=== PATIENT | female | born 1970 | race Caucasian/White ===

== ENCOUNTER → 2020-01-01 15:02 | Outpatient (BNVA) | payer OTHER, SELFPAY | PROVIDERS: PCP Internal Medicine; Visit Provider Surgery | DX: M79.622 Pain in left upper arm (principal); Z87.2 Personal history of diseases of the skin and subcutaneous tissue; Z98.890 Other specified postprocedural states | CPT/HCPCS: 99212 ==

== ENCOUNTER 2020-03-02 14:00 | Outpatient (REF) | payer OTHER, SELFPAY ==
[2020-03-03 11:38] LABS: BV Int Neg Control Negative (Negative); BV Int Pos Control Positive (Positive)
[2020-03-04 02:32] LABS: Follicle Stimulating Hormone 45.2 mIU/mL
[2020-03-08 15:10] LABS: CT PCR NOT DETECTED (Not Detect.); NG PCR NOT DETECTED (Not Detect.)
== END 2020-03-02 14:01 | disposition home or self-care (01) ==
LOC: HO.LAB 14:00
PROVIDERS: PCP Internal Medicine; Referring Provider Internal Medicine; Visit Provider Obstetrics & Gynecology
DX: Z01.419 Encounter for gynecological examination (general) (routine) without abnormal findings (principal); B37.3 Candidiasis of vulva and vagina; R23.2 Flushing; F17.210 Nicotine dependence, cigarettes, uncomplicated
CPT/HCPCS: 83001; 87480; 87491; 87510; 87591; 87660

== ENCOUNTER → 2020-03-16 11:47 | Outpatient (BNVA) | payer OTHER, SELFPAY | PROVIDERS: Visit Provider Advanced Practice Midwife | DX: Z76.89 Persons encountering health services in other specified circumstances (principal) ==

== ENCOUNTER 2020-03-22 11:41 | Outpatient (REF) | payer OTHER, SELFPAY ==
[2020-03-23 18:21] LABS: Immunoglobulin A 129 mg/dL (47-310); Immunoglobulin G 1153 mg/dL (600-1640); Immunoglobulin M 111 mg/dL (50-300)
[2020-03-23 19:56] LABS: Follicle Stimulating Hormone 48.5 mIU/mL
== END 2020-03-22 11:42 | disposition home or self-care (01) ==
LOC: HO.10HDL 11:41
PROVIDERS: Internal Medicine; Visit Provider Obstetrics & Gynecology
DX: R23.2 Flushing (principal); D80.1 Nonfamilial hypogammaglobulinemia
CPT/HCPCS: 36415; 82784; 83001

== ENCOUNTER → 2020-04-16 14:43 | Outpatient (BNVA) | payer OTHER, SELFPAY | PROVIDERS: PCP Internal Medicine; Visit Provider Obstetrics & Gynecology | DX: Z76.89 Persons encountering health services in other specified circumstances (principal) ==

== ENCOUNTER 2020-05-18 13:30 | Outpatient (REF) | payer OTHER, SELFPAY ==
--- NOTE | ~2020-05-18 | MM_ITS ---
EXAMINATION: MM DIAGNOSTIC DIGITAL BREAST TOMOSYNTHESIS, RIGHT CLINICAL INFORMATION: Short interval follow-up for equivocal findings on prior mammography right breast, calcifications and questionable architectural changes. The lifetime risk of breast cancer based on the Tyrer-Cuzick Model is 17%. COMPARISON: Mammography: 11/10/2019, 06/25/2018, 03/19/2017 TECHNIQUE: Digital breast tomosynthesis is performed in both the craniocaudal and mediolateral oblique views along with computer-aided detection (CAD). Synthesized 2D images are generated from the tomosynthesis. Additional magnification views are obtained in the CC, exaggerated CC, and ML projections. FINDINGS: The breasts are heterogeneously dense, which may obscure small masses (ACR BI-RADS breast composition Category c). There are no significant masses, abnormal calcifications, or other abnormalities. There is no developing density or architectural changes. Dense parenchyma mid outer right breast shows no parenchymal abnormality on the additional magnification views. There are no grouped calcifications. Results are provided to the patient at time of visit by the technologist. MM/MM tomosynthesis diagnostic RT IMPRESSION: No mammographic evidence of malignancy. ASSESSMENT: BI-RADS 1: Negative RECOMMENDATION: Routine annual mammography screening, due in 6 months. This patient's information was entered into a reminder system with a target due date for their next mammogram.
== END 2020-05-18 13:31 | disposition home or self-care (01) ==
LOC: HO.MAMMO 13:30
PROVIDERS: PCP Internal Medicine; Visit Provider Internal Medicine
DX: R92.1 Mammographic calcification found on diagnostic imaging of breast (principal)
CPT/HCPCS: 77061; 77065

== ENCOUNTER → 2020-06-23 12:28 | Outpatient (BNVA) | payer OTHER, SELFPAY | PROVIDERS: PCP Internal Medicine; Visit Provider Obstetrics & Gynecology ==

== ENCOUNTER → 2020-07-13 12:58 | Outpatient (BNVA) | payer OTHER, SELFPAY | PROVIDERS: PCP Internal Medicine; Visit Provider Obstetrics & Gynecology | DX: R23.2 Flushing (principal) | CPT/HCPCS: 96372; 99211; J1050 ==

== ENCOUNTER 2020-08-24 14:24 | Outpatient (REF) | payer OTHER, SELFPAY ==
--- NOTE | ~2020-08-24 | XR_ITS ---
EXAMINATION: LEFT FOOT AND RIGHT KNEE CLINICAL INFORMATION: Pain COMPARISON: 09/15/2019 TECHNIQUE: 3 views of the left foot and 4 views of the right knee FINDINGS: There is no evidence of acute fracture or dislocation of the right knee. No right knee effusion. Right knee joint spaces are maintained. No destructive bony lesions. 3 views of the left foot do not demonstrate any evidence of acute fracture or dislocation. Joint spaces are maintained. No erosive changes are evident. Small Achilles calcaneal spur is present. XR/XR foot LT 2V IMPRESSION: No significant bony abnormality of the right knee or left foot.
--- NOTE | ~2020-08-24 | XR_ITS ---
EXAMINATION: LEFT FOOT AND RIGHT KNEE CLINICAL INFORMATION: Pain COMPARISON: 09/15/2019 TECHNIQUE: 3 views of the left foot and 4 views of the right knee FINDINGS: There is no evidence of acute fracture or dislocation of the right knee. No right knee effusion. Right knee joint spaces are maintained. No destructive bony lesions. 3 views of the left foot do not demonstrate any evidence of acute fracture or dislocation. Joint spaces are maintained. No erosive changes are evident. Small Achilles calcaneal spur is present. XR/XR knee RT 4V IMPRESSION: No significant bony abnormality of the right knee or left foot.
== END 2020-08-24 14:25 | disposition home or self-care (01) ==
LOC: HO.XRAY 14:24
PROVIDERS: PCP Internal Medicine; Visit Provider Internal Medicine
DX: M79.672 Pain in left foot (principal); M25.561 Pain in right knee
CPT/HCPCS: 73564; 73620

== ENCOUNTER 2020-09-08 15:46 | Emergency (ER) | payer OTHER, SELFPAY ==
--- NOTE | ~2020-09-08 | XR_ITS ---
Examination: XR forearm RT 2V, XR wrist RT min 3V Indication: fall Comparison: No pertinent prior studies are currently available for comparison. Technique: 2 views of the forearm and 4 views of the wrist obtained Findings: There is a mild cortical disruption or trabecular irregularity in the distal radial metaphysis suggesting a nondisplaced slightly impacted distal radial fracture. I do not appreciate definitive extension to the articular surface. Ulna is unremarkable. No additional acute abnormality within the carpal bones or visualized bony hand. Soft tissue swelling. XR/XR forearm RT 2V Impression: Mildly impacted essentially nondisplaced fracture of the distal radial metaphysis
--- NOTE | ~2020-09-08 | XR_ITS ---
Examination: XR forearm RT 2V, XR wrist RT min 3V Indication: fall Comparison: No pertinent prior studies are currently available for comparison. Technique: 2 views of the forearm and 4 views of the wrist obtained Findings: There is a mild cortical disruption or trabecular irregularity in the distal radial metaphysis suggesting a nondisplaced slightly impacted distal radial fracture. I do not appreciate definitive extension to the articular surface. Ulna is unremarkable. No additional acute abnormality within the carpal bones or visualized bony hand. Soft tissue swelling. XR/XR wrist RT min 3V Impression: Mildly impacted essentially nondisplaced fracture of the distal radial metaphysis
[2020-09-08 17:34] VITALS: BP 121/78; PULSE 77; RESP 16; TEMP 36.3; O2SAT 99; BMI 23.3
--- NOTE | 2020-09-08 17:50 | ED_ITS ---
HPI - Extremity Problem General Chief complaint: Extremity Injury, Upper <VIRGINIA Golden - Last Filed: 09/08/20 17:53> Stated complaint: wrist inj <VIRGINIA Golden Last Filed: 09/08/20 17:53> Time Seen by Provider: 09/08/20 17:37 <VIRGINIA Golden - Last Filed: 09/08/20 17:53> Source: patient <VIRGINIA Golden - Last Filed: 09/08/20 17:53> Mode of arrival: ambulatory <VIRGINIA Golden - Last Filed: 09/08/20 17:53> History of Present Illness HPI Narrative: 49-year-old female presenting to the ED complaining of right forearm/wrist pain s/p mechanical slip and fall on water [employer]. Denies head trauma or LOC. Reports associated numbness/tingling and decreased ROM secondary to pain. Denies injury to other area <VIRGINIA Golden Last Filed: 09/08/20 17:53> MD Complaint: extremity pain and extremity swelling <VIRGINIA Golden Last Filed: 09/08/20 17:53> Related Data Home medications: Home Medications Medication Instructions Recorded Confirmed amitriptyline 50 mg tablet 50 mg PO BEDTIME 01/01/20 05/28/20 fluticasone propionate 50 INTRANASAL 01/01/20 05/28/20 mcg/actuation nasal spray,suspension sumatriptan succinate 100 mg tablet 100 mg PO DAILY PRN 01/01/20 05/28/20 clonazepam 1 mg tablet 1 mg PO Q OTHER DAY PRN tab 02/13/20 05/28/20 dextroamphetamine-amphetamine ER 25 mg PO DAILY 02/13/20 05/28/20 25 mg 24hr capsule,extend release propranolol 120 mg capsule,24 mg PO BID cap 02/13/20 05/28/20 hr,extended release quetiapine 50 mg tablet 50 mg PO BID 02/13/20 05/28/20 fluoxetine 20 mg capsule 60 mg PO DAILY cap 05/28/20 05/28/20 immun glob G 4 gram/20 mL(20 SUBCUT QWEEK ml 05/28/20 05/28/20 %)-prol-IgA 0-50 mcg/mL subcutaneous soln Previous Rx's Medication Instructions Recorded nicotine 14 mg/24 hr daily 1 patch TRANSDERMAL DAILY #28 ea 03/01/20 transdermal patch nicotine 21 mg/24 hr daily 1 patch TRANSDERMAL DAILY #28 ea 03/01/20 transdermal patch medroxyprogesterone 150 mg/mL 150 mg IM [id number] #1 ml 05/28/20 intramuscular suspension medroxyprogesterone 150 mg/mL 150 mg IM [id number] #1 ml 07/09/20 intramuscular suspension methocarbamol 500 mg tablet 500 mg PO BID #60 tab 07/15/20 gabapentin 100 mg capsule 100 mg PO QID #120 cap 08/12/20 tramadol 50 mg tablet 50 mg PO TID PRN 30 Days #90 tab 08/12/20 <VIRGINIA Golden Last Filed: 09/08/20 17:53> Allergies/Adverse reactions: Allergies Allergy/AdvReac Type Severity Reaction Status Date / Time No Known Allergies Allergy Verified 09/08/20 17:33 [No Known Allergies*] mold Allergy Unknown makes Uncoded 03/02/20 14:12 patient feel sick <VIRGINIA Golden Last Filed: 09/08/20 17:53> Review of Systems Review of Systems: Constitutional: No Fever, No Chills Cardiovascular: No Chest Pain, No SOB Respiratory: No Cough, No Sputum, No Wheezing Gastrointestinal: No Nausea, No Vomiting, No Abdominal pain Musculoskeletal: + joint pain, No Myalgias, + Joint Swelling Skin: No Skin Lesions, No rash Neuro: No Weakness, No Numbness, No Paresthesias <VIRGINIA Golden Fi led: 09/08/20 17:53> Yes all other systems are reviewed and are negative <VIRGINIA Golden Last Filed: 09/08/20 17:53> [facility] Past Medical History Attestation statement: The following information was validated with the patient. <VIRGINIA Golden Last Filed: 09/08/20 17:53> Medical History: Medical History (Updated 08/13/20 @ 12:49 by Isai Sharpe MD) ADHD Asthma Axillary abscess Bipolar disorder Fall History of herpes simplex infection Migraine Polysubstance abuse Scoliosis Tobacco abuse <VIRGINIA Golden Last Filed: 09/08/20 17:53> Surgical History: Surgical History History of tonsillectomy <VIRGINIA Golden - Last Filed: 09/08/20 17:53> Family History Family History: Family History (Updated 05/24/20 @ 13:26 by Carmen Rand [facility]) Mother In good health Father In good health Maternal Aunt History of breast cancer Maternal Grandmother Pancreatic cancer <VIRGINIA Golden - Last Filed: 09/08/20 17:53> Social History Social History: Social History Alcohol intake: never Advance Directives: No Advance Directives Information Provided: Yes Patient : No Sexual orientation: Straight/Heterosexual Gender identity: female <VIRGINIA Golden - Last Filed: 09/08/20 17:53> Physical Exam Vital Signs: Vital Signs: Last Vital Signs Temp 97.4 F 09/08/20 17:34 Pulse 77 09/08/20 17:34 Resp 16 09/08/20 17:34 BP 121/78 09/08/20 17:34 Pulse Ox 99 09/08/20 17:34 Body Mass Index 23.3 <VIRGINIA Golden - Last Filed: 09/08/20 17:53> Vital Signs: Last Vital Signs Temp 97.4 F 09/08/20 17:34 Pulse 77 09/08/20 17:34 Resp 16 09/08/20 17:34 BP 121/78 09/08/20 17:34 Pulse Ox 99 09/08/20 17:34 Body Mass Index 23.3 <Konrad Escalante MD - Last Filed: 09/08/20 18:16> Const: General: cooperative and healthy appearing <VIRGINIA Golden - Last Filed: 09/08/20 17:53> Orientation/consciousness: patient oriented x3 <VIRGINIA Golden - Last Filed: 09/08/20 17:53> Limitations: no limitations <VIRGINIA Golden - Last Filed: 09/08/20 17:53> HENMT: Head: Yes normal to inspection <VIRGINIA Golden - Last Filed: 09/08/20 17:53> Ears: hearing grossly normal bilaterally <VIRGINIA Golden - Last Filed: 09/08/20 17:53> General nose exam: Normal external nose present <Traceyyenni Diallo [place] - Last Filed: 09/08/20 17:53> Face and sinus: Yes normal facial exam <Tracey Diallo TN - Last Filed: 09/08/20 17:53> Eyes: General: appearance normal, both eyes and all related structures <Tracey Diallo TN - Last Filed: 09/08/20 17:53> EOM: EOMs intact bilaterally <Tracey Diallo TN - Last Filed: 09/08/20 17:53> Neck: Neck: Yes no meningeal signs <Tracey Diallo TN - Last Filed: 09/08/20 17:53> Resp: Effort & Inspection: normal respiratory effort <Tracey Diallo TN - Last Filed: 09/08/20 17:53> Cardio: Rate: regular rate <Tracey Diallo TN - Last Filed: 09/08/20 17:53> Peripheral pulses: radial pulses present <Tracey Diallo TN - Last Filed: 09/08/20 17:53> Skin: Rashes: no rashes <Tracey Diallo TN - Last Filed: 09/08/20 17:53> Wounds: no wounds <Tracey Diallo TN - Last Filed: 09/08/20 17:53> Neuro: General: patient oriented x3, tone normal and no meningeal signs <Tracey Diallo TN - Last Filed: 09/08/20 17:53> Gait exam (Neuro): Normal gait present <Tracey Diallo TN - Last Filed: 09/08/20 17:53> Extrem: Other: Right distal forearm with swelling and tenderness to palpation. Supination/pronation intact. Right wrist with ttp, no snuffbox tenderness. Decreased ROM of wrist secondary to pain. Hand nontender. Finger to thumb opposition intact. Elbow nontender. Flexion/extension of right elbow intact <Tracey Diallo PA - Last Filed: 09/08/20 17:53> Course Course Course Narrative: -1800--ED care transferred to Dr. Escalante pending x-ray results <Tracey Diallo TN - Last Filed: 09/08/20 17:53> Procedures Procedure Narrative Procedure Narrative: distal wrist splint ordered <Konrad Escalante MD - Last Filed: 09/08/20 18:16> MDM - Extremity (Nontraumatic) MDM Narrative Medical decision making narrative: 49-year-old female presenting to the ED complaining of right forearm/wrist pain s/p mechanical slip and fall on water [employer]. On exam vital signs stable, NAD, well appearing, physical exam as above. Rule out fracture. Plan: X-rays <VIRGINIA Golden - Last Filed: 09/08/20 17:53> Imaging Data wrist: My impression: distal radius fracture <Konrad Escalante MD - Last Filed: 09/08/20 18:16> Discharge Plan Discharge Prescriptions: No Action methocarbamol 500 mg tablet 500 mg PO BID Qty: 60 RF: 5 gabapentin 100 mg capsule 100 mg PO QID Qty: 120 RF: 5 tramadol 50 mg tablet 50 mg PO TID PRN (Reason: pain) 30 Days Qty: 90 RF: 2 dextroamphetamine-amphetamine [Adderall XR] 25 mg capsule,extended release 24hr 25 mg PO DAILY RF: 0 quetiapine [Seroquel] 50 mg tablet 50 mg PO BID RF: 0 Hizentra 4 gram/20 mL (20 %) solution subcut QWEEK RF: 0 nicotine 21 mg/24 hr patch 24 hour 1 patch transdermal DAILY Qty: 28 RF: 0 nicotine 14 mg/24 hr patch 24 hour 1 patch transdermal DAILY Qty: 28 RF: 0 medroxyprogesterone [Depo-Provera] 150 mg/mL suspension 150 mg IM [id number] Qty: 1 RF: 3 sumatriptan succinate 100 mg tablet 100 mg PO DAILY PRN (Reason: headache) RF: 0 fluticasone propionate 50 mcg/actuation spray,suspension intranasal RF: 0 amitriptyline 50 mg tablet 50 mg PO BEDTIME RF: 0 clonazepam 1 mg tablet 1 mg PO Q OTHER DAY PRNRF: 0 propranolol 120 mg capsule,extended release 24 hr PO BID RF: 0 fluoxetine [Prozac] 20 mg capsule 60 mg PO DAILY RF: 0 medroxyprogesterone 150 mg/mL suspension 150 mg IM [id number] Qty: 1 RF: 3 <VIRGINIA Golden - Last Filed: 09/08/20 17:53>
[2020-09-08] MEDS: Ketorolac Tromethamine 60 MG/2 ML VIAL IM (18:52)
== END 2020-09-08 19:40 | disposition home or self-care (01) ==
PROVIDERS: Emergency Provider Emergency Medicine; PCP Internal Medicine
DX: S52.91XA Unspecified fracture of right forearm, initial encounter for closed fracture (principal); W01.0XXA Fall on same level from slipping, tripping and stumbling without subsequent striking against object, initial encounter; Y93.9 Activity, unspecified; Y92.9 Unspecified place or not applicable; Y99.9 Unspecified external cause status
CPT/HCPCS: 29125; 73090; 73110; 96372; 99284; J1885

== ENCOUNTER 2020-09-13 07:50 | Outpatient (REF) | payer OTHER, SELFPAY ==
--- NOTE | ~2020-09-13 | XR_ITS ---
EXAMINATION: XR WRIST, RIGHT CLINICAL INFORMATION: Follow-up fracture. COMPARISON: Right wrist 09/08/2020. TECHNIQUE: PA, lateral, and oblique views of the right wrist. FINDINGS: There is mildly impacted nondisplaced distal radial fracture. No additional fractures seen. The radioulnar carpal joint spaces maintain normal. The soft tissues are normal. XR/XR wrist RT min 3V IMPRESSION: No change in the nondisplaced distal radial impacted fracture.
== END 2020-09-13 07:51 | disposition home or self-care (01) ==
LOC: HO.HOSX 07:50
PROVIDERS: Visit Provider Physician Assistant
DX: S52.501D Unspecified fracture of the lower end of right radius, subsequent encounter for closed fracture with routine healing (principal)
CPT/HCPCS: 73110; 99202

== ENCOUNTER → 2020-09-15 10:53 | Outpatient (BNVA) | payer OTHER, SELFPAY | PROVIDERS: PCP Internal Medicine; Visit Provider Physician Assistant ==

== ENCOUNTER → 2020-09-29 13:06 | Outpatient (BNVA) | payer OTHER, SELFPAY | PROVIDERS: PCP Internal Medicine; Visit Provider Obstetrics & Gynecology | DX: Z30.42 Encounter for surveillance of injectable contraceptive (principal) | CPT/HCPCS: 96372; 99211 ==

== ENCOUNTER 2020-10-12 07:43 | Outpatient (REF) | payer OTHER, SELFPAY ==
--- NOTE | ~2020-10-12 | XR_ITS ---
EXAMINATION: XR WRIST, RIGHT CLINICAL INFORMATION: Fracture. COMPARISON: Most recent right wrist radiographs dated 09/13/2020. TECHNIQUE: PA, lateral, and oblique views of the right wrist. FINDINGS: Redemonstration of a nondisplaced, transverse fracture through the distal radius with interval sclerosis and new bone/callus formation across the fracture line. No change in anatomic alignment. No lytic or blastic osseous lesion. XR/XR wrist RT min 3V IMPRESSION: Distal radial fracture in unchanged anatomic alignment with interval new bone/callus formation.
== END 2020-10-12 07:44 | disposition home or self-care (01) ==
LOC: HO.HOSX 07:43
PROVIDERS: Visit Provider Physician Assistant
DX: S52.531D Colles' fracture of right radius, subsequent encounter for closed fracture with routine healing (principal)
CPT/HCPCS: 73110; 99212

== ENCOUNTER → 2020-10-21 10:58 | Outpatient (BNVA) | payer OTHER, SELFPAY | PROVIDERS: Visit Provider Physician Assistant | DX: S52.531D Colles' fracture of right radius, subsequent encounter for closed fracture with routine healing (principal); X58.XXXD Exposure to other specified factors, subsequent encounter; M41.9 Scoliosis, unspecified; F19.10 Other psychoactive substance abuse, uncomplicated; F17.210 Nicotine dependence, cigarettes, uncomplicated | CPT/HCPCS: 29075; 99212 ==

== ENCOUNTER 2020-11-02 11:56 | Outpatient (REF) | payer OTHER, SELFPAY ==
--- NOTE | ~2020-11-02 | XR_ITS ---
EXAMINATION: XR WRIST, RIGHT CLINICAL INFORMATION: Follow-up fracture right wrist COMPARISON: Right wrist 10/12/2020 TECHNIQUE: PA, lateral, and oblique views of the right wrist. FINDINGS: There is a transverse nondisplaced fracture through the distal radius with callus formation. The fracture line is still visualized. No additional fractures seen. There is mild soft tissue swelling. XR/XR wrist RT min 3V IMPRESSION: Slowly healing distal radial fracture without displacement. There is minimal soft tissue swelling.
== END 2020-11-02 11:57 | disposition home or self-care (01) ==
LOC: HO.HOSX 11:56
PROVIDERS: Visit Provider Physician Assistant
DX: S52.531D Colles' fracture of right radius, subsequent encounter for closed fracture with routine healing (principal)
CPT/HCPCS: 73110; 99212

== ENCOUNTER 2020-12-10 11:40 | Outpatient (REF) | payer OTHER, SELFPAY ==
[2020-12-11 13:51] LABS: Immunoglobulin A 130 mg/dL (47-310); Immunoglobulin G 1174 mg/dL (600-1640); Immunoglobulin M 107 mg/dL (50-300)
== END 2020-12-10 11:41 | disposition home or self-care (01) ==
LOC: HO.10HDL 11:40
PROVIDERS: Visit Provider Internal Medicine
DX: D80.1 Nonfamilial hypogammaglobulinemia (principal)
CPT/HCPCS: 36415; 82784

== ENCOUNTER 2020-12-13 11:09 | Outpatient (REF) | payer OTHER, SELFPAY | END 2020-12-13 11:10 | disposition home or self-care (01) | LOC: HO.HOSX 11:09 | PROVIDERS: Visit Provider Orthopaedic Surgery | DX: Z13.89 Encounter for screening for other disorder (principal) ==

== ENCOUNTER → 2020-12-23 08:59 | Outpatient (BNVA) | payer OTHER, SELFPAY | PROVIDERS: Visit Provider Advanced Practice Midwife | DX: Z30.42 Encounter for surveillance of injectable contraceptive (principal) | CPT/HCPCS: 96372; 99211 ==

== ENCOUNTER 2020-12-25 14:43 | Inpatient (IN) | payer OTHER, SELFPAY ==
[2020-12-25] VITALS (14 sets, daily range): BP systolic 98–160; BP diastolic 69–87; PULSE 80–101; RESP 18–24; TEMP 35.8–37.3; O2SAT 92–100; BMI 26.6; BMI 25.7
--- NOTE | 2020-12-25 | ECG_ITS ---
Test Reason : AMS Blood Pressure : / mmHG Vent. Rate : 083 BPM Atrial Rate : 083 BPM P-R Int : 156 ms QRS Dur : 114 ms QT Int : 394 ms P-R-T Axes : 055 079 061 degrees QTc Int : 462 ms Normal sinus rhythm Normal ECG No previous ECGs available Referred By: Myrtle Johnston Electronically Signed By:MANDO RAMAN
--- NOTE | 2020-12-25 | ECG_ITS ---
Test Reason : REPEAT Blood Pressure : / mmHG Vent. Rate : 095 BPM Atrial Rate : 095 BPM P-R Int : 194 ms QRS Dur : 110 ms QT Int : 412 ms P-R-T Axes : 072 075 064 degrees QTc Int : 517 ms Normal sinus rhythm Prolonged QT Abnormal ECG When compared with ECG of 25-DEC-2020 16:35, No significant change was found Referred By: Myrtle Johnston Electronically Signed By:MANDO RAMAN
--- NOTE | ~2020-12-25 | CT_ITS ---
EXAMINATION: CT CHEST, ABDOMEN AND PELVIS WITHOUT CONTRAST CLINICAL INFORMATION: OD COMPARISON: Chest radiograph at 3:[address] 12/05/2019, abdominal ultrasound 12/07/2019 TECHNIQUE: Multidetector volumetric imaging was performed from the thoracic inlet through the pubic symphysis without intravenous contrast. Sagittal and coronal reformatted images were obtained on the technologist's workstation. This CT examination was performed using dose optimization techniques as appropriate, variously including the following: *Automated exposure control. *Adjustment of mA and/or kV according to patient size (this includes techniques or standardized protocols for targeted exams where dose is matched to indication/reason for exam; i.e. extremities or head). *Use of iterative reconstruction technique. DLP: 1045 mGy-cm. FINDINGS: Limited evaluation of the organs without IV contrast. SCHOOL BUSINESS MANAGER: No significant additional findings CHEST: Lungs: Respiratory motion significantly degrades the images for the detection of any subtle findings. No dense pulmonary consolidation. Endotracheal tube tip 1.5 cm above the melania. Mediastinum: Heart size is normal. No pericardial effusion. Coronary artery calcifications. No evidence of mediastinal lymphadenopathy. Limited evaluation for hilar adenopathy without IV contrast. No bulky hilar lymph nodes are appreciated. Partial views of the thyroid are unremarkable. Pericardium/Pleura: There is no significant effusion. No pleural mass or thickening. Chest Wall/Axilla: Unremarkable. ABDOMEN/PELVIS: Limited assessment of the solid organs without IV contrast. Liver, Gallbladder, Biliary Tree: The liver is normal in size, shape, and attenuation. No focal hepatic lesion or biliary ductal dilatation is present. The gallbladder is unremarkable with no evidence of radiopaque gallstones, gallbladder wall thickening, or pericholecystic inflammatory changes. Pancreas: Unremarkable. Spleen: Unremarkable. Adrenal Glands: Unremarkable. Kidneys and Ureters: The kidneys are normal in size, shape, and attenuation. No hydronephrosis or hydroureter or calculi seen. No perinephric stranding. Bladder: Unremarkable. Gastrointestinal Tract: The small and large bowel are unremarkable. The appendix is unremarkable. Abdominal Wall: Subcutaneous gas along the left anterior abdominal wall with mild soft tissue stranding. No significant abdominal wall hernia. Lymph Nodes: No lymphadenopathy within the abdomen or pelvis by CT criteria. Vascular: Atherosclerosis abdominal aorta without evidence of aneurysm. The IVC is singular and right-sided. Pelvic Viscera: Unremarkable. Osseous Structures: No acute or suspicious osseous abnormality. CT/CT abdomen pelvis wo con IMPRESSION: 1. Endotracheal tube tip is approximately 1.5 cm above the melania. Retraction is recommended. 2. No acute findings within the chest, abdomen or pelvis. 3. Loculations of subcutaneous gas along the anterior abdominal wall at the left with areas of mild inflammation on both sides suggest the location of subcutaneous injections. Clinical correlation requested. This critical result was discussed with Dr. Johnston at 4:00 PM on 12/25/2020 and it was ascertained that the content and urgency of the report was understood at the time of direct communication.
--- NOTE | ~2020-12-25 | CT_ITS ---
EXAMINATION: CT HEAD WITHOUT CONTRAST CLINICAL INFORMATION: Altered mental status COMPARISON: Report CT head 10/04/2012. TECHNIQUE: Contiguous axial imaging was performed from the skull base to vertex without intravenous administration of contrast. This CT examination was performed using dose optimization techniques as appropriate, variously including the following: *Automated exposure control *Adjustment of mA and/or kV according to patient size (this includes techniques or standardized protocols for targeted exams where dose is matched to indication/reason for exam; i.e. extremities or head) *Use of iterative reconstruction technique DLP: 640 mGy-cm FINDINGS: No intracranial hemorrhage, tumors or infarcts noted. Normal ventricular size and configuration. No focal parenchymal lesions of the brain. No abnormal extra-axial fluid collections. Minimal segmental calcific atherosclerosis of the cavernous portions of the internal carotid arteries. Complete opacification of the right maxillary sinus. Opacification of the anterior right ethmoid air cells and partial opacification of the posterior right ethmoid air cells. Partial opacification of the right frontal sinus and anterior left ethmoid air cells. Clear mastoid air cells and middle ear cavities. CT/CT head/brain wo con IMPRESSION: -No acute intracranial abnormalities. -Mucosal thickening and retained secretions within the right maxillary sinus, anterior right ethmoid air cells and right frontal sinus suspicious for chronic sinusitis.
--- NOTE | ~2020-12-25 | CT_ITS ---
EXAMINATION: CT CHEST, ABDOMEN AND PELVIS WITHOUT CONTRAST CLINICAL INFORMATION: OD COMPARISON: Chest radiograph at 3:[address] 12/05/2019, abdominal ultrasound 12/07/2019 TECHNIQUE: Multidetector volumetric imaging was performed from the thoracic inlet through the pubic symphysis without intravenous contrast. Sagittal and coronal reformatted images were obtained on the technologist's workstation. This CT examination was performed using dose optimization techniques as appropriate, variously including the following: *Automated exposure control. *Adjustment of mA and/or kV according to patient size (this includes techniques or standardized protocols for targeted exams where dose is matched to indication/reason for exam; i.e. extremities or head). *Use of iterative reconstruction technique. DLP: 1045 mGy-cm. FINDINGS: Limited evaluation of the organs without IV contrast. DISPLAY DECORATOR: No significant additional findings CHEST: Lungs: Respiratory motion significantly degrades the images for the detection of any subtle findings. No dense pulmonary consolidation. Endotracheal tube tip 1.5 cm above the melania. Mediastinum: Heart size is normal. No pericardial effusion. Coronary artery calcifications. No evidence of mediastinal lymphadenopathy. Limited evaluation for hilar adenopathy without IV contrast. No bulky hilar lymph nodes are appreciated. Partial views of the thyroid are unremarkable. Pericardium/Pleura: There is no significant effusion. No pleural mass or thickening. Chest Wall/Axilla: Unremarkable. ABDOMEN/PELVIS: Limited assessment of the solid organs without IV contrast. Liver, Gallbladder, Biliary Tree: The liver is normal in size, shape, and attenuation. No focal hepatic lesion or biliary ductal dilatation is present. The gallbladder is unremarkable with no evidence of radiopaque gallstones, gallbladder wall thickening, or pericholecystic inflammatory changes. Pancreas: Unremarkable. Spleen: Unremarkable. Adrenal Glands: Unremarkable. Kidneys and Ureters: The kidneys are normal in size, shape, and attenuation. No hydronephrosis or hydroureter or calculi seen. No perinephric stranding. Bladder: Unremarkable. Gastrointestinal Tract: The small and large bowel are unremarkable. The appendix is unremarkable. Abdominal Wall: Subcutaneous gas along the left anterior abdominal wall with mild soft tissue stranding. No significant abdominal wall hernia. Lymph Nodes: No lymphadenopathy within the abdomen or pelvis by CT criteria. Vascular: Atherosclerosis abdominal aorta without evidence of aneurysm. The IVC is singular and right-sided. Pelvic Viscera: Unremarkable. Osseous Structures: No acute or suspicious osseous abnormality. CT/CT chest wo con IMPRESSION: 1. Endotracheal tube tip is approximately 1.5 cm above the melania. Retraction is recommended. 2. No acute findings within the chest, abdomen or pelvis. 3. Loculations of subcutaneous gas along the anterior abdominal wall at the left with areas of mild inflammation on both sides suggest the location of subcutaneous injections. Clinical correlation requested. This critical result was discussed with Dr. Johnston at 4:00 PM on 12/25/2020 and it was ascertained that the content and urgency of the report was understood at the time of direct communication.
--- NOTE | ~2020-12-25 | XR_ITS ---
EXAMINATION: XR CHEST CLINICAL INFORMATION: OG tube placement. Tube adjusted after the first image then removed after the second. COMPARISON: CT 12/05/2019 TECHNIQUE: Frontal view of the chest was obtained. XR/XR chest 1V FINDINGS/IMPRESSION: On the first image, the enteric tube and endotracheal tube overlap which limits assessment. On the second image, the endotracheal tube tip is seen at 3.3 cm above the melania. On the second image, the enteric tube tip is at the distal esophagus with sidehole at the level of the melania. Lungs are clear. Heart size is normal. No acute osseous abnormality.
--- NOTE | 2020-12-25 14:50 | ECG_ITS ---
Test Reason : REPEAT Blood Pressure : / mmHG Vent. Rate : 087 BPM Atrial Rate : 087 BPM P-R Int : 200 ms QRS Dur : 112 ms QT Int : 434 ms P-R-T Axes : 069 073 063 degrees QTc Int : 522 ms Normal sinus rhythm Nonspecific ST abnormality Prolonged QT Abnormal ECG When compared with ECG of 25-DEC-2020 14:46, QT has lengthened Referred By: Myrtle Johnston Electronically Signed By:MANDO RAMAN
[2020-12-25 15:04] LABS: MANUAL DIFF FLAG NO
[2020-12-25 15:09] LABS: Basophils Percent Auto 0.3 % (0-2); Eosinophils Absolute Auto 0.1 X10*3/uL (0.0-0.4); Eosinophils Percent Auto 0.7 % (0-4); Hematocrit 37.6 % (37-47); Imm Gran Abs Auto 0.04 X10*3/uL (0.00-0.03); Imm Gran Pct Auto 0.4 % (0.0-0.4); Lymphocytes Percent Auto 9.1 % (20-40); Mean Corpuscular HGB Conc 34.6 g/dl (31.0-35.0); Mean Corpuscular Hemoglobin 32.7 pg (27.0-33.0); Mean Corpuscular Volume 94.7 fL (80-98); Mean Platelet Volume 8.5 fL (9.4-12.3); Monocytes Absolute Auto 0.6 X10*3/uL (0.1-1.2); Monocytes Percent Auto 5.8 % (2-11); Neutrophils Absolute Auto 9.2 X10*3/uL (2.0-8.3); Neutrophils Percent Auto 83.7 % (45-73); Platelet Count 370 X10*3/uL (160-400); Red Blood Count 3.97 X10*6/uL (4.20-5.50); Red Cell Distribution Width 12.6 % (11.0-16.0)
[2020-12-25 15:12] LABS: INTERNATIONAL NORM RATIO 1.2 (0.9-1.1); Prothrombin Time 13.5 SEC (9.9-13.0)
--- NOTE | 2020-12-25 15:13 | PC.NURSE ---
on vent and intubated, propophol infusing w good sedation, skin pale and dry, md placing ng tube xr at bedside for portable chest, sr on monitor
[2020-12-25 15:23] LABS: Lactic Acid 0.5 mmol/L (0.5-2.0)
[2020-12-25 15:25] LABS: COVID-19 Test Negative (Negative); IDNOW Serial# 08D9AD1C
[2020-12-25 15:26] LABS: Ethanol < 10 mg/dL
[2020-12-25 15:28] LABS: Alanine Aminotransferase 18 U/L (0-31); Albumin Level 4.5 g/dL (3.5-5.0); Alkaline Phosphatase 100 U/L (39-117); Anion Gap 16 (12-20); Aspartate Amino Transferase 22 U/L (5-31); Bilirubin Direct 0.2 mg/dL (0.0-0.5); Bilirubin Total 0.4 mg/dL (0.0-1.0); Blood Urea Nitrogen 11 mg/dL (9-16); Calcium 9.5 mg/dL (8.4-10.2); Carbon Dioxide 22 mmol/L (22-29); Chloride 103 mmol/L (96-108); Estimated Glomerular Filt Rate > 60; Glucose Random 115 mg/dL (60-115); Magnesium 2.1 mg/dL (1.6-2.6); Potassium 4.5 mmol/L (3.3-5.1); Salicylate < 5.0 mg/dL (15-30); Sodium 136 mmol/L (135-145); Total Protein 7.7 g/dL (6.5-8.0)
[2020-12-25 15:33] LABS: Troponin-I High Sensitivity < 3.5 ng/L (<3.5-17.0)
--- NOTE | 2020-12-25 15:41 | ED_ITS ---
HPI - Altered Mental Status General Stated Complaint: UNRESPONSIVE,?OD,LAST SEEN LAST NIGHT Time Seen by Provider: 12/25/20 14:57 History of Present Illness HPI narrative: Patient is a 49-year-old female with a history of anxiety, bipolar. Remote history of substance abuse. No history of alcohol abuse. Patient presented today obtunded. There was empty bottles of Seroquel noted. Patient was prescribed 300 mg tablets of Seroquel on sub the tablets was given it was empty. Patient in addition was given Seroquel 50 mg on 12/03/2059 tablets were given. Both bottles were completely empty. On EMS arrival patient had no respiration patient sugar was checked it was over 100. Patient's was given Narcan no change in condition. Patient was bagged sent into the emergency department for further evaluation. Patient unable to give detailed history secondary to extremis condition. Related Data Home Medications Medication Instructions Recorded Confirmed amitriptyline 50 mg tablet 50 mg PO BEDTIME 01/01/20 09/24/20 fluticasone propionate 50 INTRANASAL 01/01/20 09/24/20 mcg/actuation nasal spray,suspension sumatriptan succinate 100 mg tablet 100 mg PO DAILY PRN 01/01/20 09/24/20 clonazepam 1 mg tablet 1 mg PO Q OTHER DAY PRN tab 02/13/20 09/24/20 dextroamphetamine-amphetamine ER 25 mg PO DAILY 02/13/20 09/24/20 25 mg 24hr capsule,extend release (Adderall XR) propranolol 120 mg capsule,24 mg PO BID cap 02/13/20 09/24/20 hr,extended release quetiapine 50 mg tablet (Seroquel) 50 mg PO BID 02/13/20 09/24/20 fluoxetine 20 mg capsule (Prozac) 60 mg PO DAILY cap 05/28/20 09/24/20 immun glob G 4 gram/20 mL(20 SUBCUT QWEEK ml 05/28/20 09/24/20 %)-prol-IgA 0-50 mcg/mL subcutaneous soln (Hizentra) Previous Rx's Medication Instructions Recorded nicotine 14 mg/24 hr daily 1 patch TRANSDERMAL DAILY #28 ea 03/01/20 transdermal patch nicotine 21 mg/24 hr daily 1 patch TRANSDERMAL DAILY #28 ea 03/01/20 transdermal patch medroxyprogesterone 150 mg/mL 150 mg IM [id number] #1 ml 05/28/20 intramuscular suspension (Depo-Provera) medroxyprogesterone 150 mg/mL 150 mg IM [id number] #1 ml 07/09/20 intramuscular suspension methocarbamol 500 mg tablet 500 mg PO BID #60 tab 07/15/20 gabapentin 100 mg capsule 100 mg PO QID #120 cap 08/12/20 naproxen 500 mg tablet (Naprosyn) 500 mg PO BID #20 tab 09/08/20 tramadol 50 mg tablet 50 mg PO TID PRN 30 Days #90 tab 10/07/20 Allergies Allergy/AdvReac Type Severity Reaction Status Date / Time No Known Allergies Allergy Verified 09/24/20 13:58 [No Known Allergies*] mold Allergy Unknown makes Uncoded 03/02/20 14:12 patient feel sick Review of Systems Review of Systems: Unable to obtain review of systems 2nd to patient's condition. FORMERLY [facility], [facility] Past Medical History Attestation statement: The following information was validated with the patient. Medical History ADHD Asthma Axillary abscess Bipolar disorder Depot contraception Fall History of herpes simplex infection Migraine Polysubstance abuse Scoliosis Tobacco abuse Surgical History History of tonsillectomy Family History Family History Mother In good health Father In good health Maternal Aunt History of breast cancer Maternal Grandmother Pancreatic cancer Social History Social History Housing: Apartment Alcohol intake: never Patient Tobacco Use Status: Current everyday Tobacco user Tobacco use type: Cigarette Second Hand Smoke Exposure: No Advance Directives: No service: No Current occupational status: unemployed Current occupation: rt handed Sexual orientation: Straight/Heterosexual Gender identity: Female Physical Exam Vital Signs: Vital Signs: Last Vital Signs Pulse 88 12/25/20 15:43 Resp 19 12/25/20 15:16 BP 157/87 H 12/25/20 15:43 Pulse Ox 98 12/25/20 15:16 Body Mass Index 26.6 Appearance: Completely obtunded. No gag reflex. Eyes: Pupils equal, round and reactive to light. ENT: Pharynx normal. No gag reflex noted. Neck: No JVD noted. No crepitus noted. Trachea was midline. CVS: Normal heart rate and rhythm. Pulses normal. Normal S1 and S2 Respiratory: Positive breath sounds on bagging. Abdomen: Soft and nontender. No rigidity. No distention. good BS x4 Skin: Skin warm and dry. Normal skin color. Normal skin turgor. Extremities: No lower extremity edema. Neurovascular intact to all extremities. No Lacerations. No Rash Neuro: Minimal grimace to painful stimuli. No spontaneous eye movement. No verbal MDM - Altered Mental Status MDM Narrative Medical decision making narrative: Patient has change in mental status. Question etiology. Most likely being overdose of Seroquel causing the sedation. Patient has minimal grimace to painful stimuli. No verbal. No purposeful eye movement. GCS below 8. In the setting patient having normal sugar. Having no response to Narcan less likely to be secondary to hypoglycemia and to narcotic overdose. Patient was intubated using RSI techniques to secure the airway. An EKG was done. It showed a sinus pattern heart rate was approximately 100. MT QRS QT within normal limits. There is no QT prolongation there is no QRS prolongation. Patient also has a history of being on amitriptyline. TCA was sent. Aspirin Tylenol was sent. Labs were sent. Electrolytes was sent. CT scan of the head was grossly negative for any acute evidence of bleeding. IV fluid was given. CT scan of the chest abdomen pelvis was done. X-ray was done that shows ET tube in good placement. Attempted OG placement but to no avail. EF OG tube was taken out. Patient is to be admitted to the intensive care unit. Medical Records Attestation: I reviewed the patient's medical records. Lab Data Attestation: I reviewed the patient's lab results. Result diagrams: 12/25/20 14:57 12/25/20 14:56 Labs: Lab Results 12/25/20 12/25/20 12/25/20 Range/Units 14:56 14:56 14:56 WBC (4.8-10.8) X10*3/uL RBC (4.20-5.50) X10*6/uL Hgb (12.0-16.0) g/dl Hct (37-47) % MCV (80-98) fL MCH (27.0-33.0) pg MCHC (31.0-35.0) g/dl RDW (11.0-16.0) % Plt Count (160-400) X10*3/uL MPV (9.4-12.3) fL Immature Gran % (Auto) (0.0-0.4) % Neut % (Auto) (45-73) % Lymph % (Auto) (20-40) % [place] % (Auto) (2-11) % Eos % (Auto) (0-4) % Baso % (Auto) (0-2) % Lymph # (Auto) (1.2-4.9) X10*3/uL [place] # (Auto) (0.1-1.2) X10*3/uL Eos # (Auto) (0.0-0.4) X10*3/uL Baso # (Auto) (0.0-0.2) X10*3/uL Abs Immat Gran (auto) (0.00-0.03) X10*3/uL Absolute Neuts (auto) (2.0-8.3) X10*3/uL Absolute Nucleated RBC (0.0-0.012) X10*3/uL Nucleated RBC % (auto) (0.0-0.2) /100WBC PT (9.9-13.0) SEC INR (0.9-1.1) O2 Saturation % ABG pH at Pt Temp (7.35-7.45) ABG pH (Temp Correct) (7.35-7.45) ABG pCO2 at Pt Temp (32-45) mmHg ABG pCO2 (Temp Corrct (32-45) mmHg ABG pO2 at Pt Temp (83-108) mmHg ABG pO2 (Temp Correct (83-108) ABG HCO3 (22-26) mmol/L ABG Base Excess (Actual) mmol/L Sodium 136 (135-145) mmol/L Potassium 4.5 (3.3-5.1) mmol/L Chloride 103 (96-108) mmol/L Carbon Dioxide 22 (22-29) mmol/L Anion Gap 16 (12-20) BUN 11 (9-16) mg/dL Creatinine 0.70 (0.5-1.4) mg/dL Estim Creat Clear Calc 97.0 Estimated GFR > 60 Random Glucose 115 (60-115) mg/dL Lactic Acid (0.5-2.0) mmol/L Calcium 9.5 (8.4-10.2) mg/dL Magnesium 2.1 (1.6-2.6) mg/dL Total Bilirubin 0.4 (0.0-1.0) mg/dL Direct Bilirubin 0.2 (0.0-0.5) mg/dL AST 22 (5-31) U/L ALT 18 (0-31) U/L Alkaline Phosphatase 100 (39-117) U/L Troponin I High Sens < 3.5 (<3.5-17.0) ng/L Total Protein 7.7 (6.5-8.0) g/dL Albumin 4.5 (3.5-5.0) g/dL Salicylates < 5.0 L (15-30) mg/dL Acetaminophen < 1 (<30) mcg/mL Ethyl Alcohol < 10 mg/dL COVID-19 ([facility]) (Negative) COVID-19 Clin Com 12/25/20 12/25/20 12/25/20 Range/Units 14:57 14:57 14:57 WBC 11.0 H (4.8-10.8) X10*3/uL RBC 3.97 L (4.20-5.50) X10*6/uL Hgb 13.0 (12.0-16.0) g/dl Hct 37.6 (37-47) % MCV 94.7 (80-98) fL MCH 32.7 (27.0-33.0) pg MCHC 34.6 (31.0-35.0) g/dl RDW 12.6 (11.0-16.0) % Plt Count 370 (160-400) X10*3/uL MPV 8.5 L (9.4-12.3) fL Immature Gran % (Auto) 0.4 (0.0-0.4) % Neut % (Auto) 83.7 H (45-73) % Lymph % (Auto) 9.1 L (20-40) % [place] % (Auto) 5.8 (2-11) % Eos % (Auto) 0.7 (0-4) % Baso % (Auto) 0.3 (0-2) % Lymph # (Auto) 1.0 L (1.2-4.9) X10*3/uL [place] # (Auto) 0.6 (0.1-1.2) X10*3/uL Eos # (Auto) 0.1 (0.0-0.4) X10*3/uL Baso # (Auto) 0.0 (0.0-0.2) X10*3/uL Abs Immat Gran (auto) 0.04 H (0.00-0.03) X10*3/uL Absolute Neuts (auto) 9.2 H (2.0-8.3) X10*3/uL Absolute Nucleated RBC 0.000 (0.0-0.012) X10*3/uL Nucleated RBC % (auto) 0.0 (0.0-0.2) /100WBC PT 13.5 H (9.9-13.0) SEC INR 1.2 H (0.9-1.1) O2 Saturation % ABG pH at Pt Temp (7.35-7.45) ABG pH (Temp Correct) (7.35-7.45) ABG pCO2 at Pt Temp (32-45) mmHg ABG pCO2 (Temp Corrct (32-45) mmHg ABG pO2 at Pt Temp (83-108) mmHg ABG pO2 (Temp Correct (83-108) ABG HCO3 (22-26) mmol/L ABG Base Excess (Actual) mmol/L Sodium (135-145) mmol/L Potassium (3.3-5.1) mmol/L Chloride (96-108) mmol/L Carbon Dioxide (22-29) mmol/L Anion Gap (12-20) BUN (9-16) mg/dL Creatinine (0.5-1.4) mg/dL Estim Creat Clear Calc Estimated GFR Random Glucose (60-115) mg/dL Lactic Acid (0.5-2.0) mmol/L Calcium (8.4-10.2) mg/dL Magnesium (1.6-2.6) mg/dL Total Bilirubin (0.0-1.0) mg/dL Direct Bilirubin (0.0-0.5) mg/dL AST (5-31) U/L ALT (0-31) U/L Alkaline Phosphatase (39-117) U/L Troponin I High Sens (<3.5-17.0) ng/L Total Protein (6.5-8.0) g/dL Albumin (3.5-5.0) g/dL Salicylates (15-30) mg/dL Acetaminophen (<30) mcg/mL Ethyl Alcohol mg/dL COVID-19 ([facility]) Negative (Negative) COVID-19 Clin Com See Note 12/25/20 12/25/20 Range/Units 14:57 15:54 WBC (4.8-10.8) X10*3/uL RBC (4.20-5.50) X10*6/uL Hgb (12.0-16.0) g/dl Hct (37-47) % MCV (80-98) fL MCH (27.0-33.0) pg MCHC (31.0-35.0) g/dl RDW (11.0-16.0) % Plt Count (160-400) X10*3/uL MPV (9.4-12.3) fL Immature Gran % (Auto) (0.0-0.4) % Neut % (Auto) (45-73) % Lymph % (Auto) (20-40) % [place] % (Auto) (2-11) % Eos % (Auto) (0-4) % Baso % (Auto) (0-2) % Lymph # (Auto) (1.2-4.9) X10*3/uL [place] # (Auto) (0.1-1.2) X10*3/uL Eos # (Auto) (0.0-0.4) X10*3/uL Baso # (Auto) (0.0-0.2) X10*3/uL Abs Immat Gran (auto) (0.00-0.03) X10*3/uL Absolute Neuts (auto) (2.0-8.3) X10*3/uL Absolute Nucleated RBC (0.0-0.012) X10*3/uL Nucleated RBC % (auto) (0.0-0.2) /100WBC PT (9.9-13.0) SEC INR (0.9-1.1) O2 Saturation 99.0 % ABG pH at Pt Temp 7.42 (7.35-7.45) ABG pH (Temp Correct) 7.41 (7.35-7.45) ABG pCO2 at Pt Temp 30 L (32-45) mmHg ABG pCO2 (Temp Corrct 30 L (32-45) mmHg ABG pO2 at Pt Temp 181 H (83-108) mmHg ABG pO2 (Temp Correct 181 H (83-108) ABG HCO3 19 L (22-26) mmol/L ABG Base Excess (Actual) -3.6 mmol/L Sodium (135-145) mmol/L Potassium (3.3-5.1) mmol/L Chloride (96-108) mmol/L Carbon Dioxide (22-29) mmol/L Anion Gap (12-20) BUN (9-16) mg/dL Creatinine (0.5-1.4) mg/dL Estim Creat Clear Calc Estimated GFR Random Glucose (60-115) mg/dL Lactic Acid 0.5 (0.5-2.0) mmol/L Calcium (8.4-10.2) mg/dL Magnesium (1.6-2.6) mg/dL Total Bilirubin (0.0-1.0) mg/dL Direct Bilirubin (0.0-0.5) mg/dL AST (5-31) U/L ALT (0-31) U/L Alkaline Phosphatase (39-117) U/L Troponin I High Sens (<3.5-17.0) ng/L Total Protein (6.5-8.0) g/dL Albumin (3.5-5.0) g/dL Salicylates (15-30) mg/dL Acetaminophen (<30) mcg/mL Ethyl Alcohol mg/dL COVID-19 ([facility]) (Negative) COVID-19 Clin Com Procedures Intubation Time out performed: Yes sedative: none paralytic: Succinylcholine Mg Given: 100 Laryngoscope: fiber optic video scope ET Tube Size: 8 ET Tube Uncuffed: Yes Tube Secured Depth (cm): 25 Tube Placement Confirmation: visualized tube passing through cords Patient Tolerated Procedure: well Intubation Complications: none Critical Care Time Critical Care Time Critical Care Time: Yes Total Critical Care Time: 120 Attestation: I have personally provided 120 minutes of critical care time exclusive of time spent on separately billable procedures. Time includes review of lab data, radiology results, discussion with consultants, and monitoring for potential decompensation. Interventions were performed as documented above Discharge Plan Discharge Clinical Impression: Altered mental status Patient Disposition: Admitted As Inpatient Prescriptions: No Action methocarbamol 500 mg tablet 500 mg PO BID Qty: 60 RF: 5 gabapentin 100 mg capsule 100 mg PO QID Qty: 120 RF: 5 tramadol 50 mg tablet 50 mg PO TID PRN (Reason: pain) 30 Days Qty: 90 RF: 2 naproxen [Naprosyn] 500 mg tablet 500 mg PO BID Qty: 20 RF: 0 dextroamphetamine-amphetamine [Adderall XR] 25 mg capsule,extended release 24hr 25 mg PO DAILY RF: 0 quetiapine [Seroquel] 50 mg tablet 50 mg PO BID RF: 0 Hizentra 4 gram/20 mL (20 %) solution subcut QWEEK RF: 0 nicotine 21 mg/24 hr patch 24 hour 1 patch transdermal DAILY Qty: 28 RF: 0 nicotine 14 mg/24 hr patch 24 hour 1 patch transdermal DAILY Qty: 28 RF: 0 medroxyprogesterone [Depo-Provera] 150 mg/mL suspension 150 mg IM [id number] Qty: 1 RF: 3 sumatriptan succinate 100 mg tablet 100 mg PO DAILY PRN (Reason: headache) RF: 0 fluticasone propionate 50 mcg/actuation spray,suspension intranasal RF: 0 amitriptyline 50 mg tablet 50 mg PO BEDTIME RF: 0 clonazepam 1 mg tablet 1 mg PO Q OTHER DAY PRNRF: 0 propranolol 120 mg capsule,extended release 24 hr PO BID RF: 0 fluoxetine [Prozac] 20 mg capsule 60 mg PO DAILY RF: 0 medroxyprogesterone 150 mg/mL suspension 150 mg IM [id number] Qty: 1 RF: 3
[2020-12-25] MEDS: propofoL 1,000 MG/100 ML VIAL 8.71 MG IVCONT (15:43)
[2020-12-25] MEDS: 0.9 % Sodium Chloride 1,000 ML 999 ML IV (15:47)
[2020-12-25] MEDS: Succinylcholine Chloride 200 MG/10 ML VIAL 100 MG IVPUSH (15:47)
[2020-12-25 15:54] LABS: Acetaminophen LAB < 1 mcg/mL (<30)
[2020-12-25 15:59] LABS: ABG Base Excess -3.6 mmol/L; ABG HCO3 19 mmol/L (22-26); ABG pCO2 30 mmHg (32-45); ABG pCO2 TC 30 mmHg (32-45); ABG pH 7.42 (7.35-7.45); ABG pH TC 7.41 (7.35-7.45); ABG pO2 181 mmHg (83-108); ABG pO2 TC 181 (83-108)
[2020-12-25 16:00] LABS: ABG Refer to POC result
[2020-12-25 16:04] LABS: Appearance Urine CLEAR; Color Urine YELLOW; Glucose Urine UA NEG (NEG); Leukocyte Esterase Urine NEG (NEG); Nitrite Urine NEG (NEG); PH 6.5 (5.0-8.0); Specific Gravity - Urine >= 1.030 (1.005-1.025); UACC Culture Trigger NO; Urine Blood 2+ (NEG); Urine Ketones 15 MG/DL (NEG); Urine Protein NEG (NEG-TRACE)
[2020-12-25 16:15] LABS: Bacteria Urine TRACE /LPF; Squamous Epithelial Cell Urine 1+ /LPF; WBC Urine 0-2 /HPF (0-4)
--- NOTE | 2020-12-25 16:19 | PC.NURSE ---
trap setter to bedside, changed vent rate to 14, sr on monitor, approx 350ml yellow urine, soft restraints applied but pt has occasional minimal movement, sedation adequate,
[2020-12-25] MEDS: Sodium Bicarbonate 8.4% 50 MEQ/50 ML VIAL IVPUSH (16:37)
--- NOTE | 2020-12-25 16:38 | PC.NURSE ---
poison control suggests 1-2 amp od sodium bicarb given and then check ekg qrs duration, if it drops from 114 then give a bicarb drip and consider probable amitriptaline overdose as well as the seroquel, qrs dropped to 112, md aware, monitor for sz, fever, and agitation and treat w/ benzo's
--- NOTE | 2020-12-25 16:51 | PC.NURSE ---
md aware of qtc over 500 now, propophol increased as pt moving arms and twitching
--- NOTE | 2020-12-25 17:16 | PC.NURSE ---
spoke w mother she reports pt has depression, unsure if she would have overdosed, she is going back to her house to look for any other pill bottles that she may have taken, sr on monitor, propophol increased to 40mcg/kg/min as she is moving
[2020-12-25] MEDS: propofoL 1,000 MG/100 ML VIAL 17.42 MG IVCONT (17:42)
[2020-12-25] MEDS: Enoxaparin Sodium 40 MG/0.4 ML SYRINGE SUBCUT (17:50)
--- NOTE | 2020-12-25 18:00 | PM.CCHP ---
History of Present Illness Date of Service: 12/25/20 Attending physician on admission: Steve Lazo Ms. Gerber is admitted to the ICU this evening after being intubated in the ICU bec of unconsciousness after a drug OD. HPI narrative: Patient is a 49-year-old female with a history of asthma, smoker, anemia, migraines, ADHD, anxiety, bipolar dz, hypogammaglobulinemia on Hizentra.? Remote history of substance abuse. Meds at home include: amitriptyline 50 mg qhs clonazepam 1 mg qod prn adderall xr 25 mg daily prozac 60 mg daily gabapentin 100 mg qid immun glob g(igg)-pro-iga 0-50 4 gram/20 ml (20%) (hizentra) SQ qweek methocarbamol 500 mg bid naprosyn 500 mg bid propranolol 120 mg er bid seroquel 50 mg bid sumatriptan succinate 100 mg daily prn tramadol 50 mg po tid prn HISTORY OF PRESENT ILLNESS: EMS called to the scene bec of unresponsiveness.? There was empty bottles of Seroquel noted:? One bottle of 30 tabs of Seroquel 300 mg tablets, and one bottle 60 tabs of Seroquel 50 mg, prescribed on 12/02/20.? Both bottles were completely empty.? According to the patient?s mother, she left what sounds like a suicide note. On EMS arrival, the patient had no respirations.? POC glucose was > 100. ?She was given Narcan at the scene w no change in condition.? Ambu bag ventilation was commenced and she was BIBA to the ED. In the ED, she was completely obtunded. ?No gag reflex. ?HR 81, BP 98/71, RR 23.? She was immed intubated.? First SpO2 on the vent was 100% on FiO2 100%. ?Pupils equal, round and reactive to light.? Minimal grimace to painful stimuli. General phys exam otherwise unremarkable.? Labs were drawn, she was sent for CT, and then admitted to ICU. In ICU, she is sedated on propofol 40ug.? Twitching all 4?s.? I changed her ventilator to PSV 10/25%/5.? On that, RR is 16, Vt 380-450cc, Ve 10L, Sat 96%.? HR 90, BP 163/87.? Afebrile.? PERRL, about 4mm.? No JVD at 30-40?.? Chest is CTA.? RRR, soft heart tones, no murmur or gallop.? Abdomen is benign.? She has signs lower abdominal subcutaneous injections, consistent with her history of immune globulin injections that she gives herself.? No edema. LABORATORY DATA from the ED:? As below.? All labs unremarkable.? Urine tox screen is still pending.? COVID ARMANDO is negative. IMPRESSION: 1. History of bipolar disease 2. History and exam are compatible with Seroquel overdose.? Not a huge one. ?Nothing to do other than to let her sleep it off. ?Would expect that once we turn the propofol off, she?ll probably be extubatable in short order. 3. Sounds like this was likely a suicide attempt or at least a gesture.? The patient is reportedly prescribed drugs that obviously could have had much greater consequences if overdosed on.? At this point, Seroquel (with or without the other FROG CATCHER sedatives) remains most likely. ?She?ll need a sitter and crisis eval. Spoke to the patient?s mother at length, discussed the above. Critical care time (including d/w ED, visits in ED and ICU):? 80+ min PMFSH Past Medical History Medical History ADHD Asthma Axillary abscess Bipolar disorder Depot contraception Fall History of herpes simplex infection Migraine Polysubstance abuse Scoliosis Tobacco abuse Family History Family History Mother In good health Father In good health Maternal Aunt History of breast cancer Maternal Grandmother Pancreatic cancer Surgical History Surgical History History of tonsillectomy Social History Social History Household Members: Unknown / Unable to assess Housing: Apartment Unable to assess alcohol history related to: Unknown Alcohol intake: never Patient Tobacco Use Status: Current everyday Tobacco user Tobacco use type: Cigarette Second Hand Smoke Exposure: No Use of substances other than those prescribed or required for medical reasons: Unknown Advance Directives: No Recently lost weight without trying: Unsure Nutrition Risks: On aspiration precautions service: No Current occupational status: unemployed Current occupation: rt handed Sexual orientation: Straight/Heterosexual Gender identity: Female Meds Allergies Allergy/AdvReac Type Severity Reaction Status Date / Time No Known Allergies Allergy Verified 09/24/20 13:58 [No Known Allergies*] mold Allergy Unknown makes Uncoded 03/02/20 14:12 patient feel sick Active Medications: Current Medications Enoxaparin Sodium (Enoxaparin Sodium 40 Mg/0.4 Ml Syringe) 40 mg SUBCUT Q24H DWAYNE Last Admin: 12/25/20 17:50 Dose: 40 mg Documented by: Fentanyl (Fentanyl Citrate/Pf 100 Mcg/2 Ml Vial) 50 mcg IVPUSH Q5M PRN; Protocol PRN Reason: WOB Propofol (Diprivan) 1,000 mg in 100 mls @ 0 mls/hr IVCONT .Q0M DWAYNE; Protocol Last Admin: 12/25/20 17:42 Dose: 40 mcg/kg/min, 17.42 mls/hr Documented by: Home Medications Medication Instructions Recorded Confirmed Last Taken Type amitriptyline 50 mg tablet 50 mg PO BEDTIME 01/01/20 09/24/20 Unknown History fluticasone propionate 50 INTRANASAL 01/01/20 09/24/20 Unknown History mcg/actuation nasal spray,suspension sumatriptan succinate 100 mg tablet 100 mg PO DAILY PRN 01/01/20 09/24/20 Unknown History clonazepam 1 mg tablet 1 mg PO Q OTHER DAY PRN tab 02/13/20 09/24/20 Unknown History dextroamphetamine-amphetamine ER 25 mg PO DAILY 02/13/20 09/24/20 Unknown History 25 mg 24hr capsule,extend release (Adderall XR) propranolol 120 mg capsule,24 mg PO BID cap 02/13/20 09/24/20 Unknown History hr,extended release quetiapine 50 mg tablet (Seroquel) 50 mg PO BID 02/13/20 09/24/20 Unknown History fluoxetine 20 mg capsule (Prozac) 60 mg PO DAILY cap 05/28/20 09/24/20 Unknown History immun glob G 4 gram/20 mL(20 SUBCUT QWEEK ml 05/28/20 09/24/20 Unknown History %)-prol-IgA 0-50 mcg/mL subcutaneous soln (Hizentra) Physical Exam Vital Signs: Vital Signs: Last Vital Signs Temp 96.4 F L 12/25/20 16:00 Pulse 101 H 12/25/20 17:56 Resp 22 H 12/25/20 17:56 BP 145/85 H 12/25/20 17:56 Pulse Ox 97 12/25/20 17:56 Body Mass Index 26.6 Results Labs CBC and Chem 7: 12/25/20 14:57 12/25/20 14:56 Labs: Laboratory Results - last 24 hr 12/25/20 12/25/20 12/25/20 14:56 14:56 14:56 MCV MCH MCHC RDW Plt Count MPV Immature Gran % (Auto) Neut % (Auto) Lymph % (Auto) [place] % (Auto) Eos % (Auto) Baso % (Auto) Lymph # (Auto) [place] # (Auto) Eos # (Auto) Baso # (Auto) Abs Immat Gran (auto) Absolute Neuts (auto) Absolute Nucleated RBC Nucleated RBC % (auto) PT INR O2 Saturation ABG pH at Pt Temp ABG pH (Temp Correct) ABG pCO2 at Pt Temp ABG pCO2 (Temp Corrct ABG pO2 at Pt Temp ABG pO2 (Temp Correct ABG HCO3 ABG Base Excess (Actual) Anion Gap 16 Estim Creat Clear Calc 97.0 Estimated GFR > 60 Random Glucose 115 Lactic Acid Calcium 9.5 Magnesium 2.1 Total Bilirubin 0.4 Direct Bilirubin 0.2 AST 22 ALT 18 Alkaline Phosphatase 100 Troponin I High Sens < 3.5 Total Protein 7.7 Albumin 4.5 Urine Color Urine Appearance Urine pH Ur Specific [place] Urine Protein Urine Glucose (UA) Urine Ketones Urine Blood Urine Nitrite Ur Leukocyte Esterase Urine RBC Urine WBC Ur Squamous Epith Cells Urine Bacteria Salicylates < 5.0 L Acetaminophen < 1 Ethyl Alcohol < 10 COVID-19 (ARMANDO) COVID-19 Clin Com 12/25/20 12/25/20 12/25/20 14:57 14:57 14:57 MCV 94.7 MCH 32.7 MCHC 34.6 RDW 12.6 Plt Count 370 MPV 8.5 L Immature Gran % (Auto) 0.4 Neut % (Auto) 83.7 H Lymph % (Auto) 9.1 L [place] % (Auto) 5.8 Eos % (Auto) 0.7 Baso % (Auto) 0.3 Lymph # (Auto) 1.0 L [place] # (Auto) 0.6 Eos # (Auto) 0.1 Baso # (Auto) 0.0 Abs Immat Gran (auto) 0.04 H Absolute Neuts (auto) 9.2 H Absolute Nucleated RBC 0.000 Nucleated RBC % (auto) 0.0 PT 13.5 H INR 1.2 H O2 Saturation ABG pH at Pt Temp ABG pH (Temp Correct) ABG pCO2 at Pt Temp ABG pCO2 (Temp Corrct ABG pO2 at Pt Temp ABG pO2 (Temp Correct ABG HCO3 ABG Base Excess (Actual) Anion Gap Estim Creat Clear Calc Estimated GFR Random Glucose Lactic Acid Calcium Magnesium Total Bilirubin Direct Bilirubin AST ALT Alkaline Phosphatase Troponin I High Sens Total Protein Albumin Urine Color Urine Appearance Urine pH Ur Specific [place] Urine Protein Urine Glucose (UA) Urine Ketones Urine Blood Urine Nitrite Ur Leukocyte Esterase Urine RBC Urine WBC Ur Squamous Epith Cells Urine Bacteria Salicylates Acetaminophen Ethyl Alcohol COVID-19 (ARMANDO) Negative COVID-19 Clin Com See Note 12/25/20 12/25/20 12/25/20 14:57 15:53 15:54 MCV MCH MCHC RDW Plt Count MPV Immature Gran % (Auto) Neut % (Auto) Lymph % (Auto) [place] % (Auto) Eos % (Auto) Baso % (Auto) Lymph # (Auto) [place] # (Auto) Eos # (Auto) Baso # (Auto) Abs Immat Gran (auto) Absolute Neuts (auto) Absolute Nucleated RBC Nucleated RBC % (auto) PT INR O2 Saturation 99.0 ABG pH at Pt Temp 7.42 ABG pH (Temp Correct) 7.41 ABG pCO2 at Pt Temp 30 L ABG pCO2 (Temp Corrct 30 L ABG pO2 at Pt Temp 181 H ABG pO2 (Temp Correct 181 H ABG HCO3 19 L ABG Base Excess (Actual) -3.6 Anion Gap Estim Creat Clear Calc Estimated GFR Random Glucose Lactic Acid 0.5 Calcium Magnesium Total Bilirubin Direct Bilirubin AST ALT Alkaline Phosphatase Troponin I High Sens Total Protein Albumin Urine Color YELLOW Urine Appearance CLEAR Urine pH 6.5 Ur Specific [place] >= 1.030 H Urine Protein NEG Urine Glucose (UA) NEG Urine Ketones 15 Urine Blood 2+ H Urine Nitrite NEG Ur Leukocyte Esterase NEG Urine RBC 10-14 H Urine WBC 0-2 Ur Squamous Epith Cells 1+ Urine Bacteria TRACE Salicylates Acetaminophen Ethyl Alcohol COVID-19 (ARMANDO) COVID-19 Clin Com Imaging Radiologist's Impressions: Impressions Chest X-Ray 12/25/20 14:57 FINDINGS/IMPRESSION: On the first image, the enteric tube and endotracheal tube overlap which limits assessment. On the second image, the endotracheal tube tip is seen at 3.3 cm above the melania. On the second image, the enteric tube tip is at the distal esophagus with sidehole at the level of the melania. Lungs are clear. Heart size is normal. No acute osseous abnormality. Head CT 12/25/20 14:57 IMPRESSION: -No acute intracranial abnormalities. -Mucosal thickening and retained secretions within the right maxillary sinus, anterior right ethmoid air cells and right frontal sinus suspicious for chronic sinusitis. Abdomen/Pelvis CT 12/25/20 15:23 IMPRESSION: 1. Endotracheal tube tip is approximately 1.5 cm above the melania. Retraction is recommended. 2. No acute findings within the chest, abdomen or pelvis. 3. Loculations of subcutaneous gas along the anterior abdominal wall at the left with areas of mild inflammation on both sides suggest the location of subcutaneous injections. Clinical correlation requested. This critical result was discussed with Dr. Johnston at 4:00 PM on 12/25/2020 and it was ascertained that the content and urgency of the report was understood at the time of direct communication. Chest CT 12/25/20 15:23 IMPRESSION: 1. Endotracheal tube tip is approximately 1.5 cm above the melania. Retraction is recommended. 2. No acute findings within the chest, abdomen or pelvis. 3. Loculations of subcutaneous gas along the anterior abdominal wall at the left with areas of mild inflammation on both sides suggest the location of subcutaneous injections. Clinical correlation requested. This critical result was discussed with Dr. Johnston at 4:00 PM on 12/25/2020 and it was ascertained that the content and urgency of the report was understood at the time of direct communication. Critical Care Time Critical Care Time (minutes): 90
--- NOTE | 2020-12-25 18:21 | PC.NURSE ---
ADMISSION FROM ED AT 1730. VENTED 8.0/25 AT THE LIP, AC 14/450/5/21% - SAT 95-97% RESTRAINTS APPLIED. SEDATED ON PROPOFOL - 40 MCG/KG/MIN. +C&G, PUPILS REACTIVE 4MM. LS: CLEAR UPPERS/DIMINISHED LOWERS. ABD: ROUND AND SOFT. COLON PLACED IN ED. SKIN C/D/I. VENT SETTINGS CHANGED BY MD: PSV 10/ 25% ALL MEDICATIONS INITALLY BROUGHT TO PHARMACY - PER PHARMACY CAN BE SENT HOME WITH FAMILY. MOTHER BEDSIDE, ALL BELONGINGS AND MEDICATIONS SENT HOME WITH HER. MOTHER STATES SUICIDE NOTE FOUND AT HOME - SUPERVISIOR NOTIFIED.
--- NOTE | 2020-12-25 18:28 | PC.NURSE ---
pt brought to icu, pt's mother went back to pt house and brought back all pt pill bottles, a quick look of the meds revealed that amitriptaline had pills missing, she filled 5 days ago and had 16 missing when only 5 should have been gone, agricultural plow operator informed, all pill bottles left w rn in icu
--- NOTE | 2020-12-25 20:22 | PM.EVENT ---
Event Note Date of Service: 12/25/20 Event Note: Patient was tried for several hours on pressure support with an FiO2 of 21, vital signs were stable. Propofol was weaned off and eventually shot off at 8:10 pm. Patient following basic commands, patient was extubated respiratory therapy and supplemental oxygen was administered. No complications during this procedure.
--- NOTE | 2020-12-25 20:28 | PC.NURSE ---
Propofol weaned down/turned off approx 1999. Patient rr 25-35, satting 100%, tv 200-300 on psv 10/5/21%. Opening eyes, squeezing hands, wiggling toes on command. Extubated to 2L nc approx 2029. Satting 99%, RR 15-20. Somnolent, but rouses to auditory/tactile stimuli. RN sitting at bedside. Colorist Formulator aware of need for 1:1 secondary to intentional OD.
[2020-12-25 21:16] LABS: Amphetamine Screen Urine Not Detected (Not Detect); Barbiturates, Urine Not Detected (Not Detect); Benzodiazepines Screen Urine Not Detected (Not Detect); Cannabinoid Screen Urine Not Detected (Not Detect); Cocaine Screen Urine Not Detected (Not Detect); Fentanyl, urine Not Detected (Not Detect); Opiate Screen Urine Not Detected (Not Detect); Phencyclidine Screen Urine Not Detected (Not Detect)
[2020-12-26] VITALS (19 sets, daily range): BP systolic 118–145; BP diastolic 66–102; PULSE 24–101; RESP 17–29; TEMP 37.1–38.1; O2SAT 95–100; BMI 25.7
--- NOTE | 2020-12-26 02:57 | PC.NURSE ---
CARE ASSUMED 23;15...AWAKE....RESTLESS...MARSH..SPEECH GARBLED..OCCASSIONALLY COHERANT WORDS/SPEECH....PUPILS EQUAL/REACTIVE...RESPIRATIONS EASY...OCCASSIONAL PRODUCTIVE COUGH OF THICK REDDY SPUTUM....ATTEMPTED SWALLOW EVAL WITH FEW SIPS H20 PER ICU PA BUT WET COUGH..PA AWARE...TEMP VIA COLON= 100.0-100.2...COLON YELLOW URINE...REMAINS AGITATED/CONFUSED.... 1:1 SITTER FOR PATIENT SAFETY
[2020-12-26 05:13] LABS: MANUAL DIFF FLAG NO
[2020-12-26 05:16] LABS: Basophils Percent Auto 0.2 % (0-2); Eosinophils Percent Auto 0.1 % (0-4); Hematocrit 37.6 % (37-47); Hemoglobin 12.8 g/dl (12.0-16.0); Imm Gran Abs Auto 0.03 X10*3/uL (0.00-0.03); Imm Gran Pct Auto 0.3 % (0.0-0.4); Lymphocytes Absolute Auto 1.1 X10*3/uL (1.2-4.9); Lymphocytes Percent Auto 11.5 % (20-40); Mean Corpuscular Hemoglobin 32.2 pg (27.0-33.0); Mean Corpuscular Volume 94.7 fL (80-98); Mean Platelet Volume 8.9 fL (9.4-12.3); Monocytes Absolute Auto 0.7 X10*3/uL (0.1-1.2); Monocytes Percent Auto 7.9 % (2-11); Neutrophils Absolute Auto 7.5 X10*3/uL (2.0-8.3); Platelet Count 352 X10*3/uL (160-400); Red Blood Count 3.97 X10*6/uL (4.20-5.50); Red Cell Distribution Width 12.6 % (11.0-16.0); White Blood Count 9.4 X10*3/uL (4.8-10.8)
[2020-12-26 05:35] LABS: Anion Gap 19 (12-20); Blood Urea Nitrogen 8 mg/dL (9-16); Carbon Dioxide 19 mmol/L (22-29); Chloride 107 mmol/L (96-108); Creatinine Clr Calc Pharmacy 95.5; Estimated Glomerular Filt Rate > 60; Glucose Random 82 mg/dL (60-115); Potassium 3.8 mmol/L (3.3-5.1); Sodium 141 mmol/L (135-145)
--- NOTE | 2020-12-26 06:46 | PM.CCPN ---
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 Patient was intubated for airway protection.? Placed on propofol but rapidly weaned off and extubated. Patient is hemodynamically stable, no issues overnight after extubation last night.? Currently pleasantly confused with erratic verbal behavior at times, follows commands. ? PE: Vital signs 118/68;? 95;24; ? 99% RA; ? 99.8 Alert and oriented to person and place, but not to time, following commands. Focal mucosa moist.? Neck is supple. Heart regular rate and rhythm no murmurs rubs gallops Lungs clear to auscultation bilaterally Abdomen positive bowel sounds in all 4 quadrants, soft, nontender. Musculoskeletal moving all 4 extremities upon request the major joints.? No calf tenderness, no edema. Neuro intact, no focal deficits. Laboratories reviewed Images reviewed from last night ? Assessment plan: 1.? Intentional overdose with Seroquel 2.? Suicidal attempt 3.? History bipolar disorder 4.? Reactive leukocytosis ====== resolved 5.? Status post intubation due to respiratory depression setting of overdose 6.? Tobacco abuse 7. Confusion likely due to OD (metabolic encephalopathy) Patient was successfully extubated last night, she has had no overnight issues.? Currently patient is no longer in need of critical care services.? She should continue a section 12; psych evaluation.? We will transfer the patient to a regular room.? I do not think the patient is telemetry at this point. Case discussed with hospitalist Dr. Lo who will notify the am team for us to sign out Case discussed with Dr. Lazo ? Total time spent with patient 30 minutes.? Billing code [id number] Critical Care Time (minutes): 30 Physical Exam Vital Signs: Vital Signs: Last Vital Signs Temp 99.8 F 12/26/20 06:00 Pulse 95 12/26/20 06:00 Resp 24 H 12/26/20 06:00 BP 118/68 12/26/20 06:00 Pulse Ox 99 12/26/20 06:00 Body Mass Index 25.7 Objective Data Labs CBC & Chem 7: 12/26/20 04:56 12/26/20 04:56 Labs: Laboratory Results - last 24 hr 12/25/20 12/25/20 12/25/20 14:56 14:56 14:56 WBC RBC Hgb Hct MCV MCH MCHC RDW Plt Count MPV Immature Gran % (Auto) Neut % (Auto) Lymph % (Auto) [place] % (Auto) Eos % (Auto) Baso % (Auto) Lymph # (Auto) [place] # (Auto) Eos # (Auto) Baso # (Auto) Abs Immat Gran (auto) Absolute Neuts (auto) Absolute Nucleated RBC Nucleated RBC % (auto) PT INR O2 Saturation ABG pH at Pt Temp ABG pH (Temp Correct) ABG pCO2 at Pt Temp ABG pCO2 (Temp Corrct ABG pO2 at Pt Temp ABG pO2 (Temp Correct ABG HCO3 ABG Base Excess (Actual) Sodium 136 Potassium 4.5 Chloride 103 Carbon Dioxide 22 Anion Gap 16 BUN 11 Creatinine 0.70 Estim Creat Clear Calc 97.0 Estimated GFR > 60 Random Glucose 115 Lactic Acid Calcium 9.5 Magnesium 2.1 Total Bilirubin 0.4 Direct Bilirubin 0.2 AST 22 ALT 18 Alkaline Phosphatase 100 Troponin I High Sens < 3.5 Total Protein 7.7 Albumin 4.5 Urine Color Urine Appearance Urine pH Ur Specific [place] Urine Protein Urine Glucose (UA) Urine Ketones Urine Blood Urine Nitrite Ur Leukocyte Esterase Urine RBC Urine WBC Ur Squamous Epith Cells Urine Bacteria Salicylates < 5.0 L Urine Opiates Screen Urine Fentanyl Screen Acetaminophen < 1 Ur Barbiturates Screen Ur Phencyclidine Scrn Ur Amphetamines Screen U Benzodiazepines Scrn Urine Cocaine Screen U Marijuana (THC) Screen Ethyl Alcohol < 10 COVID-19 ([facility]) COVID-19 Clin Com 12/25/20 12/25/20 12/25/20 14:57 14:57 14:57 WBC 11.0 H RBC 3.97 L Hgb 13.0 Hct 37.6 MCV 94.7 MCH 32.7 MCHC 34.6 RDW 12.6 Plt Count 370 MPV 8.5 L Immature Gran % (Auto) 0.4 Neut % (Auto) 83.7 H Lymph % (Auto) 9.1 L [place] % (Auto) 5.8 Eos % (Auto) 0.7 Baso % (Auto) 0.3 Lymph # (Auto) 1.0 L [place] # (Auto) 0.6 Eos # (Auto) 0.1 Baso # (Auto) 0.0 Abs Immat Gran (auto) 0.04 H Absolute Neuts (auto) 9.2 H Absolute Nucleated RBC 0.000 Nucleated RBC % (auto) 0.0 PT 13.5 H INR 1.2 H O2 Saturation ABG pH at Pt Temp ABG pH (Temp Correct) ABG pCO2 at Pt Temp ABG pCO2 (Temp Corrct ABG pO2 at Pt Temp ABG pO2 (Temp Correct ABG HCO3 ABG Base Excess (Actual) Sodium Potassium Chloride Carbon Dioxide Anion Gap BUN Creatinine Estim Creat Clear Calc Estimated GFR Random Glucose Lactic Acid Calcium Magnesium Total Bilirubin Direct Bilirubin AST ALT Alkaline Phosphatase Troponin I High Sens Total Protein Albumin Urine Color Urine Appearance Urine pH Ur Specific [place] Urine Protein Urine Glucose (UA) Urine Ketones Urine Blood Urine Nitrite Ur Leukocyte Esterase Urine RBC Urine WBC Ur Squamous Epith Cells Urine Bacteria Salicylates Urine Opiates Screen Urine Fentanyl Screen Acetaminophen Ur Barbiturates Screen Ur Phencyclidine Scrn Ur Amphetamines Screen U Benzodiazepines Scrn Urine Cocaine Screen U Marijuana (THC) Screen Ethyl Alcohol COVID-19 ([facility]) Negative COVID-19 Clin Com See Note 12/25/20 12/25/20 12/25/20 14:57 15:53 15:54 WBC RBC Hgb Hct MCV MCH MCHC RDW Plt Count MPV Immature Gran % (Auto) Neut % (Auto) Lymph % (Auto) [place] % (Auto) Eos % (Auto) Baso % (Auto) Lymph # (Auto) [place] # (Auto) Eos # (Auto) Baso # (Auto) Abs Immat Gran (auto) Absolute Neuts (auto) Absolute Nucleated RBC Nucleated RBC % (auto) PT INR O2 Saturation 99.0 ABG pH at Pt Temp 7.42 ABG pH (Temp Correct) 7.41 ABG pCO2 at Pt Temp 30 L ABG pCO2 (Temp Corrct 30 L ABG pO2 at Pt Temp 181 H ABG pO2 (Temp Correct 181 H ABG HCO3 19 L ABG Base Excess (Actual) -3.6 Sodium Potassium Chloride Carbon Dioxide Anion Gap BUN Creatinine Estim Creat Clear Calc Estimated GFR Random Glucose Lactic Acid 0.5 Calcium Magnesium Total Bilirubin Direct Bilirubin AST ALT Alkaline Phosphatase Troponin I High Sens Total Protein Albumin Urine Color YELLOW Urine Appearance CLEAR Urine pH 6.5 Ur Specific [place] >= 1.030 H Urine Protein NEG Urine Glucose (UA) NEG Urine Ketones 15 Urine Blood 2+ H Urine Nitrite NEG Ur Leukocyte Esterase NEG Urine RBC 10-14 H Urine WBC 0-2 Ur Squamous Epith Cells 1+ Urine Bacteria TRACE Salicylates Urine Opiates Screen Urine Fentanyl Screen Acetaminophen Ur Barbiturates Screen Ur Phencyclidine Scrn Ur Amphetamines Screen U Benzodiazepines Scrn Urine Cocaine Screen U Marijuana (THC) Screen Ethyl Alcohol COVID-19 ([facility]) COVID-19 Clin Com 12/25/20 12/26/20 12/26/20 20:50 04:56 04:56 WBC 9.4 RBC 3.97 L Hgb 12.8 Hct 37.6 MCV 94.7 MCH 32.2 MCHC 34.0 RDW 12.6 Plt Count 352 MPV 8.9 L Immature Gran % (Auto) 0.3 Neut % (Auto) 80.0 H Lymph % (Auto) 11.5 L [place] % (Auto) 7.9 Eos % (Auto) 0.1 Baso % (Auto) 0.2 Lymph # (Auto) 1.1 L [place] # (Auto) 0.7 Eos # (Auto) 0.0 Baso # (Auto) 0.0 Abs Immat Gran (auto) 0.03 Absolute Neuts (auto) 7.5 Absolute Nucleated RBC 0.000 Nucleated RBC % (auto) 0.0 PT INR O2 Saturation ABG pH at Pt Temp ABG pH (Temp Correct) ABG pCO2 at Pt Temp ABG pCO2 (Temp Corrct ABG pO2 at Pt Temp ABG pO2 (Temp Correct ABG HCO3 ABG Base Excess (Actual) Sodium 141 Potassium 3.8 Chloride 107 Carbon Dioxide 19 L Anion Gap 19 BUN 8 L Creatinine 0.70 Estim Creat Clear Calc 95.5 Estimated GFR > 60 Random Glucose 82 Lactic Acid Calcium 9.0 Magnesium Total Bilirubin Direct Bilirubin AST ALT Alkaline Phosphatase Troponin I High Sens Total Protein Albumin Urine Color Urine Appearance Urine pH Ur Specific [place] Urine Protein Urine Glucose (UA) Urine Ketones Urine Blood Urine Nitrite Ur Leukocyte Esterase Urine RBC Urine WBC Ur Squamous Epith Cells Urine Bacteria Salicylates Urine Opiates Screen Not Detected Urine Fentanyl Screen Not Detected Acetaminophen Ur Barbiturates Screen Not Detected Ur Phencyclidine Scrn Not Detected Ur Amphetamines Screen Not Detected U Benzodiazepines Scrn Not Detected Urine Cocaine Screen Not Detected U Marijuana (THC) Screen Not Detected Ethyl Alcohol COVID-19 ([facility]O) COVID-19 Clin Com Quality Stroke Does the patient have a stroke diagnosis?: No VTE Prior VTE?: No VTE Risk Level:: Medical - moderate - high VTE Device Contraindication: N/A - Device Ordered VTE Drug Contraindication: N/A - Med Ordered
--- NOTE | 2020-12-26 10:34 | MHC.CM.PN ---
Attempted to meet with patient in regards to discharge planning. Patient is currently confused. Patient's mother, Heidi, is at bedside. Patient lives alone, ambulates independently and had no services prior to coming to the hospital. PCP verified. Patient had 2 Covid vaccines, but Heidi doesn't know which brand or when. Patient does not have a HCP and is not able to complete one at this time. Heidi aware patient will need a crisis eval due to suicide attempt when medicallys table. Continue to monitor for d/c needs.
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
[2020-12-26] MEDS: clonazePAM 0.5 MG TABLET PO (12:59)
--- NOTE | 2020-12-26 15:51 | P.PNCC_ITS ---
Subjective Subjective Date of Service: 12/26/20 Interval History: Ms. Gerber was admitted to the ICU yesterday evening after being intubated in the ICU bec of unconsciousness after a drug OD. 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 Remote history of substance abuse. Meds at home include: ??amitriptyline 50 mg qhs ? clonazepam 1 mg qod prn ? adderall xr 25 mg daily ? prozac 60 mg daily ? gabapentin 100 mg qid ? immun glob g(igg)-pro-iga 0-50 4 gram/20 ml (20%) (hizentra) SQ qweek ? methocarbamol 500 mg bid ? naprosyn 500 mg bid ? propranolol 120 mg er bid ? seroquel 50 mg bid ? sumatriptan succinate 100 mg daily prn ? tramadol 50 mg po tid prn HISTORY OF PRESENT ILLNESS: EMS was called to the scene yesterday bec of unresponsiveness.? There were empty bottles of Seroquel noted:? One bottle of 30 tabs of Seroquel 300 mg tablets, and one bottle 60 tabs of Seroquel 50 mg, prescribed on ? 12/02/20.? Both bottles were completely empty.? The patient?s mother told me that she found sounds like a suicide note at the scene. On EMS arrival, the patient had no respirations.? POC glucose was > 100. ?She was given Narcan at the scene w no change in condition.? Ambu bag ventilation was commenced and she was BIBA to the ED. In the ED, she was completely obtunded.? No gag reflex. ?HR 81, BP 98/71, RR 23.? She was immed intubated.? First SpO2 on the vent was 100% on FiO2 100%.? Pupils equal, round and reactive to light.? Minimal grimace to painful stimuli. ?General phys exam otherwise unremarkable.? Labs and tox screen were unremarkable altho amitrip and nortrip still pending.? Head CT was suggestive of chronic sinusitis; chest and abdomen CT were unremarkable.? The patient was admitted to the ICU, where she was extubated a few hours later without incident. This afternoon she?s easily arousable, very calm, but still not fully oriented, talking nonsense.? Breathing easy on room air w RR 20, Sat 98%.? HR 100, BP 126/77.? Temp 100.6? Afebrile.? PERRL, about 4mm.? No JVD at 20?.? No edema. LABORATORY DATA:? As below.? All labs unremarkable. IMPRESSION: 1. History of bipolar disease 2. History and exam compatible with a moderate Seroquel overdose.? Slept it off. 3. Sounds like this was likely a suicide attempt or at least a gesture.? The patient is reportedly prescribed drugs that obviously could have had much greater consequences if overdosed on.? At this point, Seroquel (with or without the other [employer] sedatives) remains most likely.? Seen by psychiatry and BHN today.? Psych will reevaluate tomorrow. 4. Low grade temp:? Urine and lungs are clean, altho can?t r/o a minor chemical aspiration pneumonitis.? No indication for blood cultures.? Follow. Stable for transfer to Med Surg.? I will sign out to the hospitalist. Time:? [id number]. Critical Care Time (minutes): 0 Physical Exam Vital Signs: Vital Signs: Last Vital Signs Temp 100.4 F 12/26/20 15:00 Pulse 94 12/26/20 15:00 Resp 24 H 12/26/20 15:00 BP 126/77 12/26/20 15:00 Pulse Ox 100 12/26/20 15:00 Body Mass Index 25.7 Objective Data Labs CBC & Chem 7: 12/26/20 04:56 12/26/20 04:56 Labs: Laboratory Results - last 24 hr 12/25/20 12/25/20 12/25/20 14:56 15:53 15:54 WBC RBC Hgb Hct MCV MCH MCHC RDW Plt Count MPV Immature Gran % (Auto) Neut % (Auto) Lymph % (Auto) [place] % (Auto) Eos % (Auto) Baso % (Auto) Lymph # (Auto) [place] # (Auto) Eos # (Auto) Baso # (Auto) Abs Immat Gran (auto) Absolute Neuts (auto) Absolute Nucleated RBC Nucleated RBC % (auto) O2 Saturation 99.0 ABG pH at Pt Temp 7.42 ABG pH (Temp Correct) 7.41 ABG pCO2 at Pt Temp 30 L ABG pCO2 (Temp Corrct 30 L ABG pO2 at Pt Temp 181 H ABG pO2 (Temp Correct 181 H ABG HCO3 19 L ABG Base Excess (Actual) -3.6 Sodium Potassium Chloride Carbon Dioxide Anion Gap BUN Creatinine Estim Creat Clear Calc Estimated GFR Random Glucose Calcium Urine Color YELLOW Urine Appearance CLEAR Urine pH 6.5 Ur Specific [place] >= 1.030 H Urine Protein NEG Urine Glucose (UA) NEG Urine Ketones 15 Urine Blood 2+ H Urine Nitrite NEG Ur Leukocyte Esterase NEG Urine RBC 10-14 H Urine WBC 0-2 Ur Squamous Epith Cells 1+ Urine Bacteria TRACE Urine Opiates Screen Urine Fentanyl Screen Acetaminophen < 1 Ur Barbiturates Screen Ur Phencyclidine Scrn Ur Amphetamines Screen U Benzodiazepines Scrn Urine Cocaine Screen U Marijuana (THC) Screen 12/25/20 12/26/20 12/26/20 20:50 04:56 04:56 WBC 9.4 RBC 3.97 L Hgb 12.8 Hct 37.6 MCV 94.7 MCH 32.2 MCHC 34.0 RDW 12.6 Plt Count 352 MPV 8.9 L Immature Gran % (Auto) 0.3 Neut % (Auto) 80.0 H Lymph % (Auto) 11.5 L [place] % (Auto) 7.9 Eos % (Auto) 0.1 Baso % (Auto) 0.2 Lymph # (Auto) 1.1 L [place] # (Auto) 0.7 Eos # (Auto) 0.0 Baso # (Auto) 0.0 Abs Immat Gran (auto) 0.03 Absolute Neuts (auto) 7.5 Absolute Nucleated RBC 0.000 Nucleated RBC % (auto) 0.0 O2 Saturation ABG pH at Pt Temp ABG pH (Temp Correct) ABG pCO2 at Pt Temp ABG pCO2 (Temp Corrct ABG pO2 at Pt Temp ABG pO2 (Temp Correct ABG HCO3 ABG Base Excess (Actual) Sodium 141 Potassium 3.8 Chloride 107 Carbon Dioxide 19 L Anion Gap 19 BUN 8 L Creatinine 0.70 Estim Creat Clear Calc 95.5 Estimated GFR > 60 Random Glucose 82 Calcium 9.0 Urine Color Urine Appearance Urine pH Ur Specific [place] Urine Protein Urine Glucose (UA) Urine Ketones Urine Blood Urine Nitrite Ur Leukocyte Esterase Urine RBC Urine WBC Ur Squamous Epith Cells Urine Bacteria Urine Opiates Screen Not Detected Urine Fentanyl Screen Not Detected Acetaminophen Ur Barbiturates Screen Not Detected Ur Phencyclidine Scrn Not Detected Ur Amphetamines Screen Not Detected U Benzodiazepines Scrn Not Detected Urine Cocaine Screen Not Detected U Marijuana (THC) Screen Not Detected Quality Stroke Does the patient have a stroke diagnosis?: No VTE Prior VTE?: No VTE Risk Level:: Medical - moderate - high VTE Device Contraindication: N/A - Device Ordered VTE Drug Contraindication: N/A - Med Ordered
--- NOTE | 2020-12-26 16:45 | PC.NURSE ---
Patient downgraded to Med/Surg. Off monitoring and telemetry per . [place] removed 1600, tolerated well, DTV 00:00. Steady transfer out of bed to chair with one person assist, no devices. 1:[address] for patient safety. Patient calm, cooperative, denies SI, alert and oriented to person and place only. Frequent orientation needed. Eating and drinking without difficulty. Psych MD and BHN previously at bedside for evaluation. Klonopin restarted, other psych meds on hold. BHN searching for bed, will re-assess tomorrow. Patient and patient's mother Heidi at bedside and undated with patient's health status and plan of care. Agreeable with plan of care/goals/downgrade to Med/Surg.
[2020-12-26] MEDS: Nicotine 14 MG PATCH.TD24 TRANSDERMA (17:35)
[2020-12-26] MEDS: clonazePAM 1 MG TABLET PO (20:13)
[2020-12-27 01:14] VITALS: BP 144/78; PULSE 105; RESP 18; TEMP 36.8; O2SAT 95
[2020-12-27 06:00] VITALS: BP 142/78; PULSE 105; RESP 20; TEMP 37.3; O2SAT 94; BMI 35.4
[2020-12-27] MEDS: Nicotine 14 MG PATCH.TD24 TRANSDERMA (08:00)
[2020-12-27 08:01] VITALS: BP 142/82; PULSE 106; RESP 18; TEMP 37.1; O2SAT 94
[2020-12-27] MEDS: clonazePAM 0.5 MG TABLET PO (08:01)
--- NOTE | 2020-12-27 11:57 | MHC.CLN ---
NUTRITION CONSULT PATIENT ADMITTED TO ICU 12/26. INTUBATED DUE TO UNCONSCIOUS WITH DRUG OVERDOSE. NO LONGER INTUBATED AND ON MED/SURG UNIT. DIET=REGULAR. SKIN WITH NO PRESSURE AREAS. NO ADDITIONAL NUTRITION INTERVENTIONS AT THIS TIME.
--- NOTE | 2020-12-27 12:44 | P.DS_ITS ---
DS: Providers Provider Date of Service: 12/27/20 Date of admission: 12/25/20 16:55 Date of discharge: 12/27/20 Primary care physician: Isai Sharpe MD Consults: 12/26/20 10:42 BHN [Consult to Crisis] Stat Reason for consultation: Suicide attempt/OD Has provider been notified: Yes 12/26/20 10:44 Consult to Psychiatry Routine Consulting Provider: Psych Covering Reason for consultation: Suicide attempt/OD Has provider been notified: Yes Attending physician on discharge: Jaylen Gaitan DS: Transfer Hospital Acceptance Reason for Transfer: Psych Name of Facility: [facility] Accepting Provider: Dr Addi Walsh DS: Diagnosis Discharge Diagnosis (1) Altered mental status: Start date: 12/25/20 Status: Acute (2) Bipolar disorder: Start date: 12/25/20 Status: Acute DS: Summary Hospital Course Hospital Course: 49-year-old female admitted 12/25/20 to intensive care after intentional overdose what was thought to be Seroquel. Please see Dr. tamia mobley for ICU details. She was rapidly extubated; continued to be hemodynamically stable and ultimately transferred to general medical floor. At this time she is medically acceptable for transfer to [facility] psychiatric [place]. There are no acute medical issues at this time Status at Discharge Cognitive/behavioral status at discharge: Awake alert oriented x3. Cognition at baseline Functional status at discharge: independent ambulation Time Spent with Patient Time attestation: Total time spent providing and/or coordinating discharge services: Discharge coordination time: Greater than 30 minutes Quality: Stroke Does the patient have a stroke diagnosis?: No Physical Exam Vital Signs: Vital Signs: Last Vital Signs Temp 98.7 F 12/27/20 08:01 Pulse 106 H 12/27/20 08:01 Resp 18 12/27/20 08:01 BP 142/82 H 12/27/20 08:01 Pulse Ox 94 12/27/20 08:01 Body Mass Index 35.4 Const: General: no acute distress Resp: Auscultation: clear to auscultation bilaterally, no rales, no rhonchi and no wheezes Cardio: Rate: regular rate Rhythm: regular rhythm Heart sounds: S1 normal heart sound present, S2 normal heart sound present and no murmurs GI: Other: Soft nontender nondistended with normoactive bowel sounds. No peritoneal signs Neuro: Other: Cranial nerves 2-12 grossly intact as tested; motor is 5/5 all extremities; sensation intact Extrem: General: Yes normal to inspection Psych: Appearance: grossly normal Mental Status: mental status grossly normal Speech and movement: Normal speech and movement present Discharge Plan Discharge Disposition: er Psychiatric [facility]osp Referrals: Dell,Isai Burnett MD [Primary Care Provider] - 1 Week Discharge Medications: Continued montelukast 10 mg tablet 1 tab PO BEDTIME RF: 0 Discontinued clonazepam 1 mg tablet 0.5 mg PO QAM RF: 0 clonazepam 1 mg tablet 1 mg PO BEDTIME RF: 0 methocarbamol 500 mg tablet 1 tab PO BID RF: 0 quetiapine 300 mg tablet 1 tab PO BEDTIME RF: 0 sumatriptan succinate 100 mg tablet 1 tab PO BID PRN (Reason: headache) RF: 0 tramadol 50 mg tablet 1 tab PO TID PRN (Reason: pain) RF: 0 gabapentin 100 mg capsule 1 cap PO QID RF: 0 propranolol 120 mg capsule,extended release 24 hr 1 cap PO BID RF: 0 fluoxetine 20 mg capsule 3 cap PO DAILY RF: 0 fluticasone propionate 50 mcg/actuation spray,suspension 1 - 2 spray intranasal DAILY RF: 0 amitriptyline 100 mg tablet 1 tab PO BEDTIME RF: 0 medroxyprogesterone 150 mg/mL suspension 150 mg IM [id number] RF: 0 dextroamphetamine-amphetamine [Adderall XR] 25 mg capsule,extended release 24hr 1 cap PO QAM RF: 0 quetiapine 50 mg tablet 1 tab PO BID RF: 0 Hizentra 4 gram/20 mL (20 %) solution subcut QWEEK RF: 0 Discharge Orders: Discharge Order (Routine); Ordered 12/27/20 Ordered By: Jaylen Gaitan Diet: advance to usual diet Activity on Discharge: As tolerated Forms: Patient Portal Discharge page
--- NOTE | 2020-12-27 12:53 | MHC.CM.PN ---
PT BEING DISCHARGED AND WILL TRANSFER TO INPATIENT PSYCH
[2020-12-27 15:31] VITALS: BP 143/84; PULSE 100; RESP 17; TEMP 37; O2SAT 98
[2020-12-29 13:30] LABS: Glucose, Whole Blood 118 mg/dL (60-115)
== END 2020-12-27 16:20 | DRG 817 ==
LOC: HO.ED 16:02 → HO.ICU 17:34 → HO.S3 12-26 18:53
PROVIDERS: Physician Assistant Medical; Admitting Provider Anesthesiology; Emergency Provider Emergency Medicine Emergency Medical Services; PCP Internal Medicine; Visit Provider Anesthesiology
DX: T43.592A Poisoning by other antipsychotics and neuroleptics, intentional self-harm, initial encounter (principal); F17.210 Nicotine dependence, cigarettes, uncomplicated; Y92.9 Unspecified place or not applicable; F90.9 Attention-deficit hyperactivity disorder, unspecified type; F31.9 Bipolar disorder, unspecified; J45.909 Unspecified asthma, uncomplicated; Z20.822 Contact with and (suspected) exposure to COVID-19; Z71.6 Tobacco abuse counseling; Z79.51 Long term (current) use of inhaled steroids; Z79.891 Long term (current) use of opiate analgesic; Z79.899 Other long term (current) drug therapy
CPT/HCPCS: 36415; 70450; 71045; 71250; 74176; 80048; 80053; 80143; 80179; 80307; 80335; 81001; 82077; 82248; 82803; 82947; 83605; 83735; 84484; 85025; 85610; 87635; 93005; 94002; 94799; 99285; J0330; J1650

== ENCOUNTER 2020-12-27 16:22 | Inpatient (IN) | payer OTHER, SELFPAY ==
[2020-12-27 17:21] VITALS: BP 139/85; PULSE 110; RESP 16; TEMP 36.6; O2SAT 95
[2020-12-27 17:23] VITALS: BMI 24.3
--- NOTE | 2020-12-27 17:53 | PC.ADMIT ---
Pt admitted from [place] [id number] on a conditional voluntary after overdosing on unknown amounts of seroquel with a diagnosis of major depressive disorder. Pt was intubated upon arrival to the emergency room and spent days in the ICU. PT states her overdose was impulsive and that she just grabbed whatever medications were accessible which is why she overdosed on seroquel, she states she has been on this medication for a long time and it is the only thing that helps her sleep. PT states that she has had recent family stresses with her brother and father and that her dog of 14 years passed. Pt states she was overwhelmed and just had enough. PT states she still feels flat and would like to use this admission to adjust her medications and just wants to feel normal again. Pt is covid negative, her tox screen was negative, labs for Amitrityline and nortriptyline are still pending. Pt is calm and cooperative, pleasant during admission process.
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
[2020-12-27 20:36] VITALS: BP 131/73; PULSE 101
[2020-12-27] MEDS: Propranolol HCL LA 60 MG CAP.SA.24H 120 MG PO (20:36)
[2020-12-27] MEDS: Gabapentin 100 MG CAPSULE PO (20:36)
[2020-12-27] MEDS: Montelukast Sodium 10 MG TABLET PO (20:36)
[2020-12-27 20:41] VITALS: TEMP 36.6; O2SAT 96
[2020-12-27] MEDS: Amitriptyline HCl 50 MG TABLET 100 MG PO (21:11)
[2020-12-27] MEDS: clonazePAM 1 MG TABLET PO (21:11)
[2020-12-27] MEDS: Amoxicillin/Potassium Clav 875 MG TABLET PO (21:11)
[2020-12-27] MEDS: guaiFENesin DM 600/30 1 TAB TAB.ER.12H PO (21:12)
[2020-12-28] MEDS: guaiFENesin DM 600/30 1 TAB TAB.ER.12H PO ×2 (03:24→11:09)
[2020-12-28 07:51] VITALS: BP 127/72; PULSE 94; RESP 16; TEMP 36.4; O2SAT 97
[2020-12-28] MEDS: Amoxicillin/Potassium Clav 875 MG TABLET PO ×2 (09:43→21:09)
[2020-12-28] MEDS: Nicotine 14 MG PATCH.TD24 TRANSDERMA (09:43)
[2020-12-28] MEDS: Acetaminophen 325 MG TABLET 650 MG PO (14:36)
--- NOTE | 2020-12-28 17:04 | HO.PSYCHPN ---
Subjective Subjective Date of Service: 12/28/20 Reason For Visit: Major Depressive D/O Single Episode Unspecified Interim History: pt somewhat pressured and tangential. states she is embarrassed about her overdose, reports it was impulsive. she believes the only reason she was found was because she was supposed to go to work and she didn't and so her father came looking for her. she feels seroquel used to be helpful for her but it stopped being so. she doesn't want to take it anymore now. in addition she describes very irritable and unstable mood regularly. she denies any trauma Hx. she believes perhaps her father has bipolar disorder, but there is no formal family history of it. she is open to changing medications and having this handbook writer contact her prescriber, katrin ricketts at [facility]. Mental Status Exam Mental Status Exam Narrative: A&O. In hospital attire, somewhat unkempt appearance from lying down, normal body habitus. Good eye contact, attentive. No Tics or Tremors. No abnormal involuntary movements. Calm, cooperative, engaged. somewhat pressured speech, spontaneous with normal loudness and prosody, increased rate. No prolonged speech latency or dysarthria. Mood is ?depressed,? affect is flexible, minimizing suicide attempt. Denies SI/SIB/HI upon inquiry. Denies A/VH or delusional thought content. Thoughts are tangential. No known cognitive or memory impairment. Insight/ Judgment limited but adequate. Diagnostics Vital Signs (24Hr): Vital Signs - 24 hr 12/27/20 17:21 12/27/20 20:36 12/27/20 20:41 Temperature 97.9 F 97.9 F Pulse Rate 110 H 101 H Respiratory Rate 16 Blood Pressure 139/85 131/73 Pulse Oximetry 95 96 12/28/20 07:51 Temperature 97.5 F Pulse Rate 94 Respiratory Rate 16 Blood Pressure 127/72 Pulse Oximetry 97 Body Mass Index 24.3 Medications Medications Current Medications Acetaminophen (Acetaminophen 325 Mg Tablet) 650 mg PO Q6H PRN PRN Reason: Headache/Pain Mild Scale (1-3) Last Admin: 12/28/20 14:36 Dose: 650 mg Documented by: Al Hydroxide/Mg Hydroxide (Magnesium Hydrox/Alum Hydrox 30 Ml Oral.Susp) 30 ml PO Q6H PRN PRN Reason: Heartburn/Nausea Amitriptyline HCl (Amitriptyline Hcl 50 Mg Tablet) 100 mg PO BEDTIME REPLACED BY [facility] Last Admin: 12/27/20 21:11 Dose: 100 mg Documented by: Amoxicillin/Clavulanate Potassium (Amoxicillin/Potassium Clav 875 Mg Tablet) 875 mg PO Q12H REPLACED BY [facility] Last Admin: 12/28/20 09:43 Dose: 875 mg Documented by: Clonazepam (Clonazepam 1 Mg Tablet) 1 mg PO BID PRN PRN Reason: Anxiety Last Admin: 12/27/20 21:11 Dose: 1 mg Documented by: Fluoxetine HCl (Fluoxetine Hcl 20 Mg Capsule) 40 mg PO DAILY REPLACED BY [facility] Last Admin: 12/28/20 09:50 Dose: Not Given Documented by: Fluticasone Propionate (Fluticasone Propionate Nasal 16 Gm [place]) 1 spray NOSTRIL-B DAILY REPLACED BY [facility] Last Admin: 12/28/20 09:50 Dose: Not Given Documented by: Gabapentin (Gabapentin 100 Mg Capsule) 100 mg PO QID REPLACED BY [facility] Last Admin: 12/28/20 13:29 Dose: Not Given Documented by: Guaifenesin/Dextromethorphan (Guaifenesin Dm 600/30 1 Tab Tab.Er.12h) 1 tab PO BID PRN PRN Reason: Rhinitis Last Admin: 12/28/20 11:09 Dose: 1 tab Documented by: Hydroxyzine HCl (Hydroxyzine Hcl 25 Mg Tablet) 25 mg PO BEDTIME PRN PRN Reason: Anxiety Magnesium Hydroxide (Milk Of Magnesia 30 Ml Oral.Susp) 30 ml PO DAILY PRN PRN Reason: Constipation Montelukast Sodium (Montelukast Sodium 10 Mg Tablet) 10 mg PO BEDTIME REPLACED BY [facility] Last Admin: 12/27/20 20:36 Dose: 10 mg Documented by: Nicotine (Nicotine 14 Mg Patch.Td24) 14 mg TRANSDERMA DAILY REPLACED BY [facility] Last Admin: 12/28/20 09:43 Dose: 14 mg Documented by: Nicotine Polacrilex (Nicotine Polacrilex 2 Mg Gum) 4 mg BUCCAL Q2H PRN PRN Reason: Nicotine Cravings Propranolol HCl (Propranolol Hcl La 60 Mg Cap.Sa.24h) 120 mg PO BID REPLACED BY [facility]; Protocol Last Admin: 12/28/20 09:50 Dose: Not Given Documented by: Trazodone HCl (Trazodone Hcl 50 Mg Tablet) 50 mg PO BEDTIME PRN PRN Reason: Insomnia Allergies Allergies Allergy/AdvReac Type Severity Reaction Status Date / Time No Known Allergies Allergy Verified 09/24/20 13:58 [No Known Allergies*] mold Allergy Unknown makes Uncoded 03/02/20 14:12 patient feel sick Assessment & Plan Assessment & Plan (1) Bipolar II disorder: Status: Acute Code(s): F31.81 - Bipolar II disorder (2) ADHD: Status: Acute Code(s): F90.9 - Attention-deficit hyperactivity disorder, unspecified type Assessment and Plan: Yoel is a 49 y.o. Female who carries a diagnosis of bipolar II disorder, ADHD. She presented to the ED s/p OD on seroquel and amitriptyline, found unresponsive and admitted to the ICU. She is currently presenting with sx of depression, poor sleep, impulsivity, anhedonia, avolition, and feelings of guilt/ shame. Has co-morbid issues of daily migraines that are tx refractory and chronic pain. She is minimizing her OD/ suicide attempt, says it was unplanned and impulsive. Discloses similar OD attempt in October 2020. She reports she intentionally did not take her clonazepam because she was worried her OP provider would not prescribe it if she did. She has OP services at [facility]. Says seroquel was initially stabilizing for her but now denies benefit on med regimen. Would like a new mood stabilizer. Also discussed tapering down on prozac due to lack of benefit, denies adverse effect. Upon arrival to hospital, her meds were held other than clonazepam to avoid withdrawal sx. Re-ordered EKG due to most recent one showing prolonged QTc. Plan: 1. discontinue seroquel 350 mg QHS and 50 mg QAM (has not been taking this since arrival to hospital) 2. decrease prozac to 40 mg and continue to titrate down due to unclear benefit 3. she requested that adderall continue being held as she only uses this PRN 4. Discussed starting lamictal, as this may help with chronic pain sx, will follow up with primary tx team tomorrow. Continue clonazepam and gabapentin due to reported benefit. Monitor response to medications. Monitor for safety in the milieu. Discharge on stabilization. Patient seen. Chart reviewed. Discussed with team. Liseth ricketts at [facility] Greater than 50% of the session was spent on counseling and/or coordination of care Reason for contiued inpatient stay Substantial Risk for: harm to self
[2020-12-28] MEDS: Magnesium Hydrox/Alum Hydrox 30 ML ORAL.SUSP PO (17:48)
[2020-12-28] MEDS: Gabapentin 100 MG CAPSULE PO ×2 (18:27→21:07)
[2020-12-28 21:07] VITALS: BP 145/71; PULSE 90
[2020-12-28] MEDS: Propranolol HCL LA 60 MG CAP.SA.24H 120 MG PO (21:07)
[2020-12-28] MEDS: Montelukast Sodium 10 MG TABLET PO (21:08)
[2020-12-28] MEDS: clonazePAM 1 MG TABLET PO (21:08)
[2020-12-28] MEDS: Amitriptyline HCl 50 MG TABLET 100 MG PO (21:08)
[2020-12-28 21:12] VITALS: BP 145/71; PULSE 90; TEMP 36.3; O2SAT 94
[2020-12-29 06:00] VITALS: BP 108/72; PULSE 90; RESP 18; TEMP 36.7; O2SAT 98
[2020-12-29] MEDS: Nicotine 14 MG PATCH.TD24 TRANSDERMA (08:55)
[2020-12-29] MEDS: FLUoxetine HCl 20 MG CAPSULE 40 MG PO (08:55)
[2020-12-29] MEDS: Fluticasone Propionate Nasal 16 GM SPRAY 1 SPRAY NOSTRIL-B (08:56)
[2020-12-29] MEDS: Gabapentin 100 MG CAPSULE PO ×4 (08:56→20:54)
[2020-12-29] MEDS: Propranolol HCL LA 60 MG CAP.SA.24H 120 MG PO ×2 (08:56→20:51)
[2020-12-29] MEDS: Amoxicillin/Potassium Clav 875 MG TABLET PO ×2 (09:00→21:47)
[2020-12-29] MEDS: guaiFENesin DM 600/30 1 TAB TAB.ER.12H PO (09:22)
--- NOTE | 2020-12-29 12:22 | PC.NURSE ---
Observed AC area bilaterally, small red hudson noted from IV attempts down in the ED. No redness, swelling noted. minor bruising. Patient denies pain. will continue to monitor.
--- NOTE | 2020-12-29 14:27 | HO.PSYCHPN ---
Subjective Subjective Date of Service: 12/29/20 Reason For Visit: Major Depressive D/O Single Episode Unspecified Interim History: pt continues with logorrhea. agrees she needs a mood stabilizer. discuss the option of VPA, which she reports she has not been on before. informed it may help with her migraines as well as her mood, and she is quick to jump at the option. she also notes she ori be discharging tomorrow, as her 3-day notice matures. suggests we start at 750 mg QHS, then, and she can F/U with her outpt provider. she also states she would like to DC singulair, propranolol, and seroquel entirely. agres to cancel the orders. informs pt no call-back yet from Dulce [facility] of [facility]. Mental Status Exam Mental Status Exam Narrative: A&O. In hospital attire, somewhat unkempt appearance from lying down, normal body habitus. Good eye contact, attentive. No Tics or Tremors. No abnormal involuntary movements. Calm, cooperative, engaged. somewhat pressured speech, spontaneous with normal loudness and prosody, increased rate. No prolonged speech latency or dysarthria. Mood is ?fine,? affect is flexible. Thoughts are tangential. No known cognitive or memory impairment. Insight/ Judgment limited but adequate. Diagnostics Vital Signs (24Hr): Vital Signs - 24 hr 12/28/20 21:07 12/28/20 21:12 12/29/20 06:00 Temperature 97.3 F 98.0 F Pulse Rate 90 90 90 Respiratory Rate 18 Blood Pressure 145/71 H 145/71 H 108/72 Pulse Oximetry 94 98 Body Mass Index 24.3 Medications Medications Current Medications Acetaminophen (Acetaminophen 325 Mg Tablet) 650 mg PO Q6H PRN PRN Reason: Headache/Pain Mild Scale (1-3) Last Admin: 12/28/20 14:36 Dose: 650 mg Documented by: Al Hydroxide/Mg Hydroxide (Magnesium Hydrox/Alum Hydrox 30 Ml Oral.Susp) 30 ml PO Q6H PRN PRN Reason: Heartburn/Nausea Last Admin: 12/28/20 17:48 Dose: 30 ml Documented by: Amitriptyline HCl (Amitriptyline Hcl 50 Mg Tablet) 100 mg PO BEDTIME [facility] Last Admin: 12/28/20 21:08 Dose: 100 mg Documented by: Amoxicillin/Clavulanate Potassium (Amoxicillin/Potassium Clav 875 Mg Tablet) 875 mg PO Q12H [facility] Last Admin: 12/29/20 09:00 Dose: 875 mg Documented by: Clonazepam (Clonazepam 1 Mg Tablet) 1 mg PO BID PRN PRN Reason: Anxiety Last Admin: 12/28/20 21:08 Dose: 1 mg Documented by: Divalproex Sodium (Divalproex Sodium Er 250 Mg Tab.Er.24h) 750 mg PO BEDTIME [facility] Fluoxetine HCl (Fluoxetine Hcl 20 Mg Capsule) 40 mg PO DAILY [facility] Last Admin: 12/29/20 08:55 Dose: 40 mg Documented by: Fluticasone Propionate (Fluticasone Propionate Nasal 16 Gm [place]) 1 spray NOSTRIL-B DAILY [facility] Last Admin: 12/29/20 08:56 Dose: 1 spray Documented by: Gabapentin (Gabapentin 100 Mg Capsule) 100 mg PO QID [facility] Last Admin: 12/29/20 13:56 Dose: 100 mg Documented by: Guaifenesin/Dextromethorphan (Guaifenesin Dm 200/20/10 Ml 10 Ml Syrup) 10 ml PO Q6H PRN PRN Reason: cough Hydroxyzine HCl (Hydroxyzine Hcl 25 Mg Tablet) 25 mg PO BEDTIME PRN PRN Reason: Anxiety Magnesium Hydroxide (Milk Of Magnesia 30 Ml Oral.Susp) 30 ml PO DAILY PRN PRN Reason: Constipation Montelukast Sodium (Montelukast Sodium 10 Mg Tablet) 10 mg PO BEDTIME [facility] Last Admin: 12/28/20 21:08 Dose: 10 mg Documented by: Nicotine (Nicotine 14 Mg Patch.Td24) 14 mg TRANSDERMA DAILY [facility] Last Admin: 12/29/20 08:55 Dose: 14 mg Documented by: Nicotine Polacrilex (Nicotine Polacrilex 2 Mg Gum) 4 mg BUCCAL Q2H PRN PRN Reason: Nicotine Cravings Propranolol HCl (Propranolol Hcl La 60 Mg Cap.Sa.24h) 120 mg PO BID [facility]; Protocol Last Admin: 12/29/20 08:56 Dose: 120 mg Documented by: Trazodone HCl (Trazodone Hcl 50 Mg Tablet) 50 mg PO BEDTIME PRN PRN Reason: Insomnia Allergies Allergies Allergy/AdvReac Type Severity Reaction Status Date / Time No Known Allergies Allergy Verified 06/25/21 13:58 [No Known Allergies*] mold Allergy Unknown makes Uncoded 03/02/20 14:12 patient feel sick Assessment & Plan Assessment & Plan (1) Bipolar II disorder: Status: Acute Code(s): F31.81 - Bipolar II disorder (2) ADHD: Status: Acute Code(s): F90.9 - Attention-deficit hyperactivity disorder, unspecified type Assessment and Plan: Yoel is a 49 y.o. Female who carries a diagnosis of bipolar II disorder, ADHD. She presented to the ED s/p OD on seroquel and amitriptyline, found unresponsive and admitted to the ICU. She is currently presenting with sx of depression, poor sleep, impulsivity, anhedonia, avolition, and feelings of guilt/ shame. Has co-morbid issues of daily migraines that are tx refractory and chronic pain. She is minimizing her OD/ suicide attempt, says it was unplanned and impulsive. Discloses similar OD attempt in October 2020. She reports she intentionally did not take her clonazepam because she was worried her OP provider would not prescribe it if she did. She has OP services at [facility]. Says seroquel was initially stabilizing for her but now denies benefit on med regimen. Would like a new mood stabilizer. Also discussed tapering down on prozac due to lack of benefit, denies adverse effect. Upon arrival to hospital, her meds were held other than clonazepam to avoid withdrawal sx. Re-ordered EKG due to most recent one showing prolonged QTc. Plan: 1. discontinue seroquel 350 mg QHS and 50 mg QAM (has not been taking this since arrival to hospital) 2. decreased prozac to 40 mg and continue to titrate down due to unclear benefit 3. she requested that adderall continue being held as she only uses this PRN 4. Continued clonazepam and gabapentin due to reported benefit. 5. started VPA 12/29 to replace seroquel as mood stabilizer and for added benefit as migraine prophylaxis. 6. dispo - pt reports 3-day notice matures tomorrow. discharge tomorrow per pt preference. Monitor response to medications. Monitor for safety in the milieu. Discharge on stabilization. Patient seen. Chart reviewed. Discussed with team. Liseth prince at [facility] called and message left, no call-back yet. Greater than 50% of the session was spent on counseling and/or coordination of care Reason for contiued inpatient stay Substantial Risk for: harm to self and rapid decompensation
[2020-12-29] MEDS: Acetaminophen 325 MG TABLET 650 MG PO (17:52)
[2020-12-29] MEDS: guaiFENesin DM 200/20/10 ML 10 ML SYRUP PO (17:52)
[2020-12-29 18:00] VITALS: BP 118/74; PULSE 82; RESP 18; TEMP 36.6; O2SAT 96
[2020-12-29] MEDS: Montelukast Sodium 10 MG TABLET PO (20:50)
[2020-12-29 20:51] VITALS: BP 118/74; PULSE 82
[2020-12-29] MEDS: Amitriptyline HCl 50 MG TABLET 100 MG PO (20:53)
[2020-12-29] MEDS: Divalproex Sodium ER 250 MG TAB.ER.24H 750 MG PO (20:54)
[2020-12-29] MEDS: clonazePAM 1 MG TABLET PO (22:01)
[2020-12-30 06:00] VITALS: BP 118/61; PULSE 82; RESP 18; TEMP 36.5; O2SAT 98
[2020-12-30] MEDS: Gabapentin 100 MG CAPSULE PO ×4 (09:03→21:32)
[2020-12-30] MEDS: guaiFENesin DM 200/20/10 ML 10 ML SYRUP PO (09:03)
[2020-12-30] MEDS: Nicotine 14 MG PATCH.TD24 TRANSDERMA (09:03)
[2020-12-30] MEDS: Amoxicillin/Potassium Clav 875 MG TABLET PO ×2 (09:03→21:29)
[2020-12-30] MEDS: Propranolol HCL LA 60 MG CAP.SA.24H 120 MG PO ×2 (09:03→21:29)
[2020-12-30] MEDS: FLUoxetine HCl 20 MG CAPSULE 40 MG PO (09:03)
[2020-12-30] MEDS: Fluticasone Propionate Nasal 16 GM SPRAY 1 SPRAY NOSTRIL-B (09:05)
[2020-12-30] MEDS: Acetaminophen 325 MG TABLET 650 MG PO (09:13)
[2020-12-30] MEDS: clonazePAM 1 MG TABLET PO (18:12)
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
--- NOTE | 2020-12-30 19:56 | HO.PSYCHPN ---
Subjective Subjective Date of Service: 12/30/20 Reason For Visit: Major Depressive D/O Single Episode Unspecified Interim History: I evaluated the pt this afternoon and upon inquiry she reports she has been ?doing better.? However, states she is ?freaking pissed? because she thought she was going home today. Had signed three day notice on 12/29/20 but was under the impression she could leave after three days from admission to the unit. Says she wants to see her mom before she goes on vacation. Only started depakote yesterday, denies SE but too early to assess for benefit. Still, pt reports :I want to go home. I feel great, this is bullshit.? Says ?the chairs suck, I cant even sit there and watch tv, everything is so uncomfortable? and ?all eric been doing is sleeping, i have nothing else to do.? States her ?back is killing me,? has R knee pain. Reviewed language in CV and 3 day notice form, says she is ?anxious? and ?pissed,? wants to file a complaint as she says the forms were not explained on admission or if they were ?I was not in a state of mind to understand.?? She reports she feels safe on the unit, denies SI/SIB/HI upon inquiry. Medication Compliance: Yes Side effects from medications: No Review of Systems Acute medical concerns: No Medical Review of Systems: unchanged Mental Status Exam Mental Status Exam Narrative: A&O. In hospital attire, somewhat unkempt appearance from lying down, normal body habitus. Good eye contact, attentive. No Tics or Tremors. No abnormal involuntary movements. Calm, cooperative, engaged. somewhat pressured speech, spontaneous with normal loudness and prosody, increased rate, loquacious. No prolonged speech latency or dysarthria. Mood is ?pissed,? affect is irritable. Thoughts are tangential. No known cognitive or memory impairment. Insight/ Judgment limited but adequate. Diagnostics Vital Signs (24Hr): Vital Signs - 24 hr 12/29/20 20:51 12/30/20 06:00 Temperature 97.7 F Pulse Rate 82 82 Respiratory Rate 18 Blood Pressure 118/74 118/61 Pulse Oximetry 98 Body Mass Index 24.3 Medications Medications Current Medications Acetaminophen (Acetaminophen 325 Mg Tablet) 650 mg PO Q6H PRN PRN Reason: Headache/Pain Mild Scale (1-3) Last Admin: 12/30/20 09:13 Dose: 650 mg Documented by: Al Hydroxide/Mg Hydroxide (Magnesium Hydrox/Alum Hydrox 30 Ml Oral.Susp) 30 ml PO Q6H PRN PRN Reason: Heartburn/Nausea Last Admin: 12/28/20 17:48 Dose: 30 ml Documented by: Amitriptyline HCl (Amitriptyline Hcl 50 Mg Tablet) 100 mg PO BEDTIME [facility] Last Admin: 12/29/20 20:53 Dose: 100 mg Documented by: Amoxicillin/Clavulanate Potassium (Amoxicillin/Potassium Clav 875 Mg Tablet) 875 mg PO Q12H [facility] Last Admin: 12/30/20 09:03 Dose: 875 mg Documented by: Clonazepam (Clonazepam 1 Mg Tablet) 1 mg PO BID PRN PRN Reason: Anxiety Last Admin: 12/30/20 18:12 Dose: 1 mg Documented by: Divalproex Sodium (Divalproex Sodium Er 250 Mg Tab.Er.24h) 750 mg PO BEDTIME [facility] Last Admin: 12/29/20 20:54 Dose: 750 mg Documented by: Fluoxetine HCl (Fluoxetine Hcl 20 Mg Capsule) 40 mg PO DAILY [facility] Last Admin: 12/30/20 09:03 Dose: 40 mg Documented by: Fluticasone Propionate (Fluticasone Propionate Nasal 16 Gm [place]) 1 spray NOSTRIL-B DAILY [facility] Last Admin: 12/30/20 09:05 Dose: 1 spray Documented by: Gabapentin (Gabapentin 100 Mg Capsule) 100 mg PO QID [facility] Last Admin: 12/30/20 18:12 Dose: 100 mg Documented by: Guaifenesin/Dextromethorphan (Guaifenesin Dm 200/20/10 Ml 10 Ml Syrup) 10 ml PO Q6H PRN PRN Reason: cough Last Admin: 12/30/20 09:03 Dose: 10 ml Documented by: Hydroxyzine HCl (Hydroxyzine Hcl 25 Mg Tablet) 25 mg PO BEDTIME PRN PRN Reason: Anxiety Magnesium Hydroxide (Milk Of Magnesia 30 Ml Oral.Susp) 30 ml PO DAILY PRN PRN Reason: Constipation Montelukast Sodium (Montelukast Sodium 10 Mg Tablet) 10 mg PO BEDTIME [facility] Last Admin: 12/29/20 20:50 Dose: 10 mg Documented by: Nicotine (Nicotine 14 Mg Patch.Td24) 14 mg TRANSDERMA DAILY [facility] Last Admin: 12/30/20 09:03 Dose: 14 mg Documented by: Nicotine Polacrilex (Nicotine Polacrilex 2 Mg Gum) 4 mg BUCCAL Q2H PRN PRN Reason: Nicotine Cravings Propranolol HCl (Propranolol Hcl La 60 Mg Cap.Sa.24h) 120 mg PO BID [facility]; Protocol Last Admin: 12/30/20 09:03 Dose: 120 mg Documented by: Trazodone HCl (Trazodone Hcl 50 Mg Tablet) 50 mg PO BEDTIME PRN PRN Reason: Insomnia Allergies Allergies Allergy/AdvReac Type Severity Reaction Status Date / Time No Known Allergies Allergy Verified 09/24/20 13:58 [No Known Allergies*] mold Allergy Unknown makes Uncoded 03/02/20 14:12 patient feel sick Assessment & Plan Assessment & Plan (1) Bipolar II disorder: Status: Acute Code(s): F31.81 - Bipolar II disorder (2) ADHD: Status: Acute Code(s): F90.9 - Attention-deficit hyperactivity disorder, unspecified type Assessment and Plan: Yoel is a 49 y.o. Female who carries a diagnosis of bipolar II disorder, ADHD. She presented to the ED s/p OD on seroquel and amitriptyline, found unresponsive and admitted to the ICU. She is currently presenting with sx of depression, poor sleep, impulsivity, anhedonia, avolition, and feelings of guilt/ shame. Has co-morbid issues of daily migraines that are tx refractory and chronic pain. She is minimizing her OD/ suicide attempt, says it was unplanned and impulsive. Discloses similar OD attempt in October 2020. She reports she intentionally did not take her clonazepam because she was worried her OP provider would not prescribe it if she did. She has OP services at [facility]. Says seroquel was initially stabilizing for her but now denies benefit on med regimen. Would like a new mood stabilizer. Also discussed tapering down on prozac due to lack of benefit, denies adverse effect. Upon arrival to hospital, her meds were held other than clonazepam to avoid withdrawal sx. Re-ordered EKG due to most recent one showing prolonged QTc. Plan: 1. discontinue seroquel 350 mg QHS and 50 mg QAM (has not been taking this since arrival to hospital) 2. decreased prozac to 40 mg and continue to titrate down due to unclear benefit 3. she requested that adderall continue being held as she only uses this PRN 4. Continued clonazepam and gabapentin due to reported benefit. 5. started VPA 12/29 to replace seroquel as mood stabilizer and for added benefit as migraine prophylaxis. 6. dispo - pt reports 3-day notice matures tomorrow. discharge tomorrow per pt preference. 7. Obtain VPA level Monitor response to medications. Monitor for safety in the milieu. Discharge on stabilization. Patient seen. Chart reviewed. Discussed with team. Obtain leno ricketts at [facility] called and message left, no call-back yet. Greater than 50% of the session was spent on counseling and/or coordination of care Reason for contiued inpatient stay Substantial Risk for: med/psych decompensation
[2020-12-30 21:15] VITALS: BP 110/66; PULSE 81; TEMP 36.6; O2SAT 98
[2020-12-30 21:29] VITALS: BP 110/66; PULSE 81
[2020-12-30] MEDS: Divalproex Sodium ER 250 MG TAB.ER.24H 750 MG PO (21:29)
[2020-12-30] MEDS: Montelukast Sodium 10 MG TABLET PO (21:29)
[2020-12-30] MEDS: Amitriptyline HCl 50 MG TABLET 100 MG PO (21:29)
[2020-12-30] MEDS: traZODone HCL 50 MG TABLET PO (21:39)
[2020-12-31 06:00] VITALS: BP 105/69; PULSE 82; RESP 20; TEMP 36.6; O2SAT 99
[2020-12-31] MEDS: guaiFENesin DM 200/20/10 ML 10 ML SYRUP PO ×2 (06:03→14:30)
--- NOTE | 2020-12-31 06:42 | PC.NURSE ---
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 receives/self administers weekly at home on Sunday hizentra. reports this is an infusion that takes 6 1/2 hours. report being on hizentra for ''maybe 10 years'' feels that her sinus infection is not resolving without treatment, missing 1 infusion at this point due to medical hospitalization. patient also reports hx of MRSA
[2020-12-31] MEDS: FLUoxetine HCl 20 MG CAPSULE 40 MG PO (08:32)
[2020-12-31] MEDS: Fluticasone Propionate Nasal 16 GM SPRAY 1 SPRAY NOSTRIL-B (08:33)
[2020-12-31] MEDS: Gabapentin 100 MG CAPSULE PO ×4 (08:33→22:53)
[2020-12-31 08:40] VITALS: BP 105/69; PULSE 82
[2020-12-31 08:49] LABS: Valproate 37.3 mcg/mL (50.0-100.0)
[2020-12-31] MEDS: Nicotine 14 MG PATCH.TD24 TRANSDERMA (08:53)
[2020-12-31] MEDS: Amoxicillin/Potassium Clav 875 MG TABLET PO ×2 (10:34→22:53)
--- NOTE | 2020-12-31 13:20 | P.PNPSI_ITS ---
Subjective Subjective Date of Service: 12/31/20 Reason For Visit: Major Depressive D/O Single Episode Unspecified Interim History: pt reports her moods do feel a bit more even, less reactive; better. sleeping well. she feels well, generally, and hasn't thought about SI since her admission. she is amenable to increase VPA over the weekend with plan to DC sunday. no other complaints or requests. per staff, 0/10 anx/dep. in milieu, interacting with peers. watching TV, on phone. isolative to bed in [place]. asked for PRN trazodone. Mental Status Exam Mental Status Exam Narrative: A&O. In hospital attire, somewhat unkempt appearance from lying down, normal body habitus. Good eye contact, attentive. No Tics or Tremors. No abnormal involuntary movements. Calm, cooperative, engaged. less pressured speech, spontaneous with normal loudness and prosody, increased rate. No prolonged speech latency or dysarthria. Mood is ?better,? affect is flexible and full range. Thoughts are more organized. No known cognitive or memory impairment. Insight/ Judgment limited but adequate. Diagnostics Vital Signs (24Hr): Vital Signs - 24 hr 12/30/20 21:15 12/30/20 21:29 12/31/20 06:00 Temperature 98 F 97.8 F Pulse Rate 81 81 82 Respiratory Rate 20 Blood Pressure 110/66 110/66 105/69 Pulse Oximetry 98 99 12/31/20 08:40 Temperature Pulse Rate 82 Respiratory Rate Blood Pressure 105/69 Pulse Oximetry Body Mass Index 24.3 Labs Labs: Laboratory Results - last 48 hr 12/31/20 08:06 Valproic Acid 37.3 L Medications Medications Current Medications Acetaminophen (Acetaminophen 325 Mg Tablet) 650 mg PO Q6H PRN PRN Reason: Headache/Pain Mild Scale (1-3) Last Admin: 12/30/20 09:13 Dose: 650 mg Documented by: Al Hydroxide/Mg Hydroxide (Magnesium Hydrox/Alum Hydrox 30 Ml Oral.Susp) 30 ml PO Q6H PRN PRN Reason: Heartburn/Nausea Last Admin: 12/28/20 17:48 Dose: 30 ml Documented by: Amitriptyline HCl (Amitriptyline Hcl 50 Mg Tablet) 100 mg PO BEDTIME [facility] Last Admin: 12/30/20 21:29 Dose: 100 mg Documented by: Amoxicillin/Clavulanate Potassium (Amoxicillin/Potassium Clav 875 Mg Tablet) 875 mg PO Q12H [facility] Last Admin: 12/31/20 10:34 Dose: 875 mg Documented by: Clonazepam (Clonazepam 1 Mg Tablet) 1 mg PO BID PRN PRN Reason: Anxiety Last Admin: 12/30/20 18:12 Dose: 1 mg Documented by: Divalproex Sodium (Divalproex Sodium Er 500 Mg Tab.Er.24h) 1,000 mg PO BEDTIME [facility] Fluoxetine HCl (Fluoxetine Hcl 20 Mg Capsule) 40 mg PO DAILY [facility] Last Admin: 12/31/20 08:32 Dose: 40 mg Documented by: Fluticasone Propionate (Fluticasone Propionate Nasal 16 Gm [place]) 1 spray NOSTRIL-B DAILY [facility] Last Admin: 12/31/20 08:33 Dose: 1 spray Documented by: Gabapentin (Gabapentin 100 Mg Capsule) 100 mg PO QID [facility] Last Admin: 12/31/20 08:33 Dose: 100 mg Documented by: Guaifenesin/Dextromethorphan (Guaifenesin Dm 200/20/10 Ml 10 Ml Syrup) 10 ml PO Q6H PRN PRN Reason: cough Last Admin: 12/31/20 06:03 Dose: 10 ml Documented by: Hydroxyzine HCl (Hydroxyzine Hcl 25 Mg Tablet) 25 mg PO BEDTIME PRN PRN Reason: Anxiety Magnesium Hydroxide (Milk Of Magnesia 30 Ml Oral.Susp) 30 ml PO DAILY PRN PRN Reason: Constipation Montelukast Sodium (Montelukast Sodium 10 Mg Tablet) 10 mg PO BEDTIME [facility] Last Admin: 12/30/20 21:29 Dose: 10 mg Documented by: Nicotine (Nicotine 14 Mg Patch.Td24) 14 mg TRANSDERMA DAILY [facility] Last Admin: 12/31/20 08:53 Dose: 14 mg Documented by: Nicotine Polacrilex (Nicotine Polacrilex 2 Mg Gum) 4 mg BUCCAL Q2H PRN PRN Reason: Nicotine Cravings Propranolol HCl (Propranolol Hcl La 60 Mg Cap.Sa.24h) 120 mg PO BID [facility]; Protocol Last Admin: 12/31/20 08:40 Dose: Not Given Documented by: Trazodone HCl (Trazodone Hcl 50 Mg Tablet) 50 mg PO BEDTIME PRN PRN Reason: Insomnia Last Admin: 12/30/20 21:39 Dose: 50 mg Documented by: Allergies Allergies Allergy/AdvReac Type Severity Reaction Status Date / Time No Known Allergies Allergy Verified 09/24/20 13:58 [No Known Allergies*] mold Allergy Unknown makes Uncoded 03/02/20 14:12 patient feel sick Assessment & Plan Assessment & Plan (1) Bipolar II disorder: Status: Acute Code(s): F31.81 - Bipolar II disorder (2) ADHD: Status: Acute Code(s): F90.9 - Attention-deficit hyperactivity disorder, unspecified type Assessment and Plan: Yoel is a 49 y.o. Female who carries a diagnosis of bipolar II disorder, ADHD. She presented to the ED s/p OD on seroquel and amitriptyline, found unresponsive and admitted to the ICU. She is currently presenting with sx of depression, poor sleep, impulsivity, anhedonia, avolition, and feelings of guilt/ shame. Has co-morbid issues of daily migraines that are tx refractory and chronic pain. She is minimizing her OD/ suicide attempt, says it was unplanned and impulsive. Discloses similar OD attempt in October 2020. She reports she intentionally did not take her clonazepam because she was worried her OP provider would not prescribe it if she did. She has OP services at [facility]. Says seroquel was initially stabilizing for her but now denies benefit on med regimen. Would like a new mood stabilizer. Also discussed tapering down on prozac due to lack of benefit, denies adverse effect. Upon arrival to hospital, her meds were held other than clonazepam to avoid withdrawal sx. Re- ordered EKG due to most recent one showing prolonged QTc. Plan: 1. discontinued seroquel 350 mg QHS and 50 mg QAM (has not been taking this since arrival to hospital) 2. decreased prozac to 40 mg and T/C to titrate down due to unclear benefit 3. she requested that adderall continue being held as she only uses this PRN 4. Continued clonazepam and gabapentin due to reported benefit. 5. started VPA 12/29 to replace seroquel as mood stabilizer and for added benefit as migraine prophylaxis. 6. dispo - 3-day notice matures sunday; plan for sunday discharge. 7. Obtain VPA level sunday Monitor response to medications. Monitor for safety in the milieu. Discharge on stabilization. Patient seen. Chart reviewed. Discussed with team. Liseth ricketts at [facility] amenable to psychopharm changes. Greater than 50% of the session was spent on counseling and/or coordination of care Reason for contiued inpatient stay Substantial Risk for: inability to function and rapid decompensation
[2020-12-31] MEDS: Acetaminophen 325 MG TABLET 650 MG PO (14:30)
[2020-12-31 21:28] VITALS: BP 118/71; PULSE 94; TEMP 36.7; O2SAT 97
[2020-12-31] MEDS: Amitriptyline HCl 50 MG TABLET 100 MG PO (22:52)
[2020-12-31] MEDS: Propranolol HCL LA 60 MG CAP.SA.24H 120 MG PO (22:52)
[2020-12-31] MEDS: Divalproex Sodium ER 500 MG TAB.ER.24H 1000 MG PO (22:52)
[2020-12-31] MEDS: Montelukast Sodium 10 MG TABLET PO (22:53)
[2020-12-31] MEDS: clonazePAM 1 MG TABLET PO (23:03)
[2021-01-01 08:03] VITALS: BP 110/56; PULSE 80; RESP 16; TEMP 36.7; O2SAT 98
[2021-01-01] MEDS: Amoxicillin/Potassium Clav 875 MG TABLET PO (08:04)
[2021-01-01] MEDS: Nicotine 14 MG PATCH.TD24 TRANSDERMA (08:04)
[2021-01-01] MEDS: FLUoxetine HCl 20 MG CAPSULE 40 MG PO (08:04)
[2021-01-01] MEDS: Gabapentin 100 MG CAPSULE PO ×4 (08:04→22:32)
[2021-01-01] MEDS: Fluticasone Propionate Nasal 16 GM SPRAY 1 SPRAY NOSTRIL-B (08:05)
[2021-01-01] MEDS: guaiFENesin DM 200/20/10 ML 10 ML SYRUP PO (09:44)
[2021-01-01] MEDS: Acetaminophen 325 MG TABLET 650 MG PO (09:44)
--- NOTE | 2021-01-01 14:23 | P.PNPSI_ITS ---
Subjective Subjective Date of Service: 01/01/21 Reason For Visit: Major Depressive D/O Single Episode Unspecified Interim History: pt reports some difficulty staying asleep. generally tangential, mood improved. awaiting discharge sunday. VPA level ordered for sunday. per staff, doing well, pleasant, sometimes loud in the milieu. VPA sunday 37.3. 3-day matures sunday. Mental Status Exam Mental Status Exam Narrative: A&O. In hospital attire, somewhat unkempt appearance from lying down, normal body habitus. fair eye contact, attentive. No Tics or Tremors. No abnormal involuntary movements. Calm, cooperative, engaged. moderately pressured speech, spontaneous with normal loudness and prosody, increased rate and amount. No prolonged speech latency or dysarthria. Mood remains improved, affect is flexible and full range. Thoughts are more organized. No known cognitive or memory impairment. Insight/ Judgment limited but adequate. Diagnostics Vital Signs (24Hr): Vital Signs - 24 hr 12/31/20 21:28 01/01/21 08:03 Temperature 98.0 F 98.1 F Pulse Rate 94 80 Respiratory Rate 16 Blood Pressure 118/71 110/56 L Pulse Oximetry 97 98 Body Mass Index 24.3 Labs Labs: Laboratory Results - last 48 hr 12/31/20 08:06 Valproic Acid 37.3 L Medications Medications Current Medications Acetaminophen (Acetaminophen 325 Mg Tablet) 650 mg PO Q6H PRN PRN Reason: Headache/Pain Mild Scale (1-3) Last Admin: 01/01/21 09:44 Dose: 650 mg Documented by: Al Hydroxide/Mg Hydroxide (Magnesium Hydrox/Alum Hydrox 30 Ml Oral.Susp) 30 ml PO Q6H PRN PRN Reason: Heartburn/Nausea Last Admin: 12/28/20 17:48 Dose: 30 ml Documented by: Amitriptyline HCl (Amitriptyline Hcl 50 Mg Tablet) 100 mg PO BEDTIME [facility] Last Admin: 12/31/20 22:52 Dose: 100 mg Documented by: Amoxicillin/Clavulanate Potassium (Amoxicillin/Potassium Clav 875 Mg Tablet) 875 mg PO Q12H [facility] Last Admin: 01/01/21 08:04 Dose: 875 mg Documented by: Clonazepam (Clonazepam 1 Mg Tablet) 1 mg PO BID PRN PRN Reason: Anxiety Last Admin: 12/31/20 23:03 Dose: 1 mg Documented by: Divalproex Sodium (Divalproex Sodium Er 500 Mg Tab.Er.24h) 1,000 mg PO BEDTIME [facility] Last Admin: 12/31/20 22:52 Dose: 1,000 mg Documented by: Fluoxetine HCl (Fluoxetine Hcl 20 Mg Capsule) 40 mg PO DAILY [facility] Last Admin: 01/01/21 08:04 Dose: 40 mg Documented by: Fluticasone Propionate (Fluticasone Propionate Nasal 16 Gm [place]) 1 spray NOSTRIL-B DAILY [facility] Last Admin: 01/01/21 08:05 Dose: 1 spray Documented by: Gabapentin (Gabapentin 100 Mg Capsule) 100 mg PO QID [facility] Last Admin: 01/01/21 08:04 Dose: 100 mg Documented by: Guaifenesin/Dextromethorphan (Guaifenesin Dm 200/20/10 Ml 10 Ml Syrup) 10 ml PO Q6H PRN PRN Reason: cough Last Admin: 01/01/21 09:44 Dose: 10 ml Documented by: Hydroxyzine HCl (Hydroxyzine Hcl 25 Mg Tablet) 25 mg PO BEDTIME PRN PRN Reason: Anxiety Magnesium Hydroxide (Milk Of Magnesia 30 Ml Oral.Susp) 30 ml PO DAILY PRN PRN Reason: Constipation Montelukast Sodium (Montelukast Sodium 10 Mg Tablet) 10 mg PO BEDTIME [facility] Last Admin: 12/31/20 22:53 Dose: 10 mg Documented by: Nicotine (Nicotine 14 Mg Patch.Td24) 14 mg TRANSDERMA DAILY [facility] Last Admin: 01/01/21 08:04 Dose: 14 mg Documented by: Nicotine Polacrilex (Nicotine Polacrilex 2 Mg Gum) 4 mg BUCCAL Q2H PRN PRN Reason: Nicotine Cravings Propranolol HCl (Propranolol Hcl La 60 Mg Cap.Sa.24h) 120 mg PO BID [facility]; Protocol Last Admin: 01/01/21 08:05 Dose: Not Given Documented by: Trazodone HCl (Trazodone Hcl 50 Mg Tablet) 50 mg PO BEDTIME PRN PRN Reason: Insomnia Last Admin: 12/30/20 21:39 Dose: 50 mg Documented by: Allergies Allergies Allergy/AdvReac Type Severity Reaction Status Date / Time No Known Allergies Allergy Verified 09/24/20 13:58 [No Known Allergies*] mold Allergy Unknown makes Uncoded 03/02/20 14:12 patient feel sick Assessment & Plan Assessment & Plan (1) Bipolar II disorder: Status: Acute Code(s): F31.81 - Bipolar II disorder (2) ADHD: Status: Acute Code(s): F90.9 - Attention-deficit hyperactivity disorder, unspecified type Assessment and Plan: Yoel is a 49 y.o. Female who carries a diagnosis of bipolar II disorder, ADHD. She presented to the ED s/p OD on seroquel and amitriptyline, found unresponsive and admitted to the ICU. She is currently presenting with sx of depression, poor sleep, impulsivity, anhedonia, avolition, and feelings of guilt/ shame. Has co-morbid issues of daily migraines that are tx refractory and chronic pain. She is minimizing her OD/ suicide attempt, says it was unplanned and impulsive. Discloses similar OD attempt in October 2020. She reports she intentionally did not take her clonazepam because she was worried her OP provider would not prescribe it if she did. She has OP services at [facility]. Says seroquel was initially stabilizing for her but now denies benefit on med regimen. Would like a new mood stabilizer. Also discussed tapering down on prozac due to lack of benefit, denies adverse effect. Upon arrival to hospital, her meds were held other than clonazepam to avoid withdrawal sx. Re- ordered EKG due to most recent one showing prolonged QTc. Plan: 1. discontinued seroquel 350 mg QHS and 50 mg QAM (has not been taking this since arrival to hospital) 2. decreased prozac to 40 mg and T/C to titrate down due to unclear benefit 3. she requested that adderall continue being held as she only uses this PRN 4. Continued clonazepam and gabapentin due to reported benefit. 5. started VPA 12/29 to replace seroquel as mood stabilizer and for added benefit as migraine prophylaxis. 6. dispo - 3-day notice matures sunday; plan for sunday discharge. 7. Obtain VPA level sunday Monitor response to medications. Monitor for safety in the milieu. Discharge on stabilization. Patient seen. Chart reviewed. Discussed with team. Obtain leno ricketts at [facility] amenable to psychopharm changes. Greater than 50% of the session was spent on counseling and/or coordination of care Reason for contiued inpatient stay Substantial Risk for: harm to self, inability to function and med/psych decompensation
[2021-01-01 18:00] VITALS: BP 105/70; PULSE 98; RESP 16; TEMP 36.6; O2SAT 96
[2021-01-01] MEDS: Divalproex Sodium ER 500 MG TAB.ER.24H 1000 MG PO (22:32)
[2021-01-01] MEDS: Propranolol HCL LA 60 MG CAP.SA.24H 120 MG PO (22:33)
[2021-01-01] MEDS: clonazePAM 1 MG TABLET PO (22:33)
[2021-01-01] MEDS: Amitriptyline HCl 50 MG TABLET 100 MG PO (22:33)
[2021-01-01] MEDS: Montelukast Sodium 10 MG TABLET PO (22:33)
[2021-01-02] MEDS: Amoxicillin/Potassium Clav 875 MG TABLET PO ×3 (00:14→22:42)
[2021-01-02] MEDS: Acetaminophen 325 MG TABLET 650 MG PO ×2 (06:51→15:54)
[2021-01-02] MEDS: guaiFENesin DM 200/20/10 ML 10 ML SYRUP PO (06:56)
[2021-01-02 08:05] VITALS: BP 110/55; PULSE 83; RESP 17; TEMP 36.6; O2SAT 100
[2021-01-02] MEDS: Nicotine 14 MG PATCH.TD24 TRANSDERMA (08:06)
[2021-01-02] MEDS: Gabapentin 100 MG CAPSULE PO ×4 (08:07→22:43)
[2021-01-02] MEDS: Fluticasone Propionate Nasal 16 GM SPRAY 1 SPRAY NOSTRIL-B (08:07)
[2021-01-02] MEDS: FLUoxetine HCl 20 MG CAPSULE 40 MG PO (08:07)
[2021-01-02] MEDS: clonazePAM 1 MG TABLET PO ×2 (16:02→22:42)
--- NOTE | 2021-01-02 17:17 | HO.PSYCHPN ---
Subjective Subjective Date of Service: 01/02/21 Reason For Visit: Major Depressive D/O Single Episode Unspecified Interim History: pt found lying in her bed, resting but seemingly awake judging from her response time. planning to discharge tomorrow. anxious about the discharge... what do others in her community know and think about her situation. per staff, hyperverbal, loud at times. afraid/anxiouis re DC tomorrow. slept well. lots of time watching TV in small room alone. Mental Status Exam Mental Status Exam Narrative: A&O. In hospital attire, somewhat unkempt appearance from lying down, normal body habitus. fair eye contact, attentive. No Tics or Tremors. No abnormal involuntary movements. Calm, cooperative, engaged. moderately pressured speech, spontaneous with normal loudness and prosody, increased rate and amount. No prolonged speech latency or dysarthria. Mood remains improved, affect is flexible and full range. Thoughts are more organized. No known cognitive or memory impairment. Insight/ Judgment limited but adequate. Diagnostics Vital Signs (24Hr): Vital Signs - 24 hr 01/01/21 18:00 01/02/21 08:05 Temperature 97.9 F 97.8 F Pulse Rate 98 83 Respiratory Rate 16 17 Blood Pressure 105/70 110/55 L Pulse Oximetry 96 100 Body Mass Index 24.3 Medications Medications Current Medications Acetaminophen (Acetaminophen 325 Mg Tablet) 650 mg PO Q6H PRN PRN Reason: Headache/Pain Mild Scale (1-3) Last Admin: 01/02/21 15:54 Dose: 650 mg Documented by: Al Hydroxide/Mg Hydroxide (Magnesium Hydrox/Alum Hydrox 30 Ml Oral.Susp) 30 ml PO Q6H PRN PRN Reason: Heartburn/Nausea Last Admin: 12/28/20 17:48 Dose: 30 ml Documented by: Amitriptyline HCl (Amitriptyline Hcl 50 Mg Tablet) 100 mg PO BEDTIME DWAYNE Last Admin: 01/01/21 22:33 Dose: 100 mg Documented by: Amoxicillin/Clavulanate Potassium (Amoxicillin/Potassium Clav 875 Mg Tablet) 875 mg PO Q12H DWAYNE Last Admin: 01/02/21 08:07 Dose: 875 mg Documented by: Clonazepam (Clonazepam 1 Mg Tablet) 1 mg PO BID PRN PRN Reason: Anxiety Last Admin: 01/02/21 16:02 Dose: 1 mg Documented by: Divalproex Sodium (Divalproex Sodium Er 500 Mg Tab.Er.24h) 1,000 mg PO BEDTIME [facility] Last Admin: 01/01/21 22:32 Dose: 1,000 mg Documented by: Fluoxetine HCl (Fluoxetine Hcl 20 Mg Capsule) 40 mg PO DAILY [facility] Last Admin: 01/02/21 08:07 Dose: 40 mg Documented by: Fluticasone Propionate (Fluticasone Propionate Nasal 16 Gm [place]) 1 spray NOSTRIL-B DAILY [facility] Last Admin: 01/02/21 08:07 Dose: 1 spray Documented by: Gabapentin (Gabapentin 100 Mg Capsule) 100 mg PO QID [facility] Last Admin: 01/02/21 17:00 Dose: 100 mg Documented by: Guaifenesin/Dextromethorphan (Guaifenesin Dm 200/20/10 Ml 10 Ml Syrup) 10 ml PO Q6H PRN PRN Reason: cough Last Admin: 01/02/21 06:56 Dose: 10 ml Documented by: Hydroxyzine HCl (Hydroxyzine Hcl 25 Mg Tablet) 25 mg PO BEDTIME PRN PRN Reason: Anxiety Magnesium Hydroxide (Milk Of Magnesia 30 Ml Oral.Susp) 30 ml PO DAILY PRN PRN Reason: Constipation Montelukast Sodium (Montelukast Sodium 10 Mg Tablet) 10 mg PO BEDTIME [facility] Last Admin: 01/01/21 22:33 Dose: 10 mg Documented by: Nicotine (Nicotine 14 Mg Patch.Td24) 14 mg TRANSDERMA DAILY [facility] Last Admin: 01/02/21 08:06 Dose: 14 mg Documented by: Nicotine Polacrilex (Nicotine Polacrilex 2 Mg Gum) 4 mg BUCCAL Q2H PRN PRN Reason: Nicotine Cravings Propranolol HCl (Propranolol Hcl La 60 Mg Cap.Sa.24h) 120 mg PO BID [facility]; Protocol Last Admin: 01/02/21 08:07 Dose: Not Given Documented by: Trazodone HCl (Trazodone Hcl 50 Mg Tablet) 50 mg PO BEDTIME PRN PRN Reason: Insomnia Last Admin: 12/30/20 21:39 Dose: 50 mg Documented by: Allergies Allergies Allergy/AdvReac Type Severity Reaction Status Date / Time No Known Allergies Allergy Verified 09/24/20 13:58 [No Known Allergies*] mold Allergy Unknown makes Uncoded 03/02/20 14:12 patient feel sick Assessment & Plan Assessment & Plan (1) Bipolar II disorder: Status: Acute Code(s): F31.81 - Bipolar II disorder (2) ADHD: Status: Acute Code(s): F90.9 - Attention-deficit hyperactivity disorder, unspecified type Assessment and Plan: Yoel is a 49 y.o. Female who carries a diagnosis of bipolar II disorder, ADHD. She presented to the ED s/p OD on seroquel and amitriptyline, found unresponsive and admitted to the ICU. She is currently presenting with sx of depression, poor sleep, impulsivity, anhedonia, avolition, and feelings of guilt/ shame. Has co-morbid issues of daily migraines that are tx refractory and chronic pain. She is minimizing her OD/ suicide attempt, says it was unplanned and impulsive. Discloses similar OD attempt in October 2020. She reports she intentionally did not take her clonazepam because she was worried her OP provider would not prescribe it if she did. She has OP services at [facility]. Says seroquel was initially stabilizing for her but now denies benefit on med regimen. Would like a new mood stabilizer. Also discussed tapering down on prozac due to lack of benefit, denies adverse effect. Upon arrival to hospital, her meds were held other than clonazepam to avoid withdrawal sx. Re-ordered EKG due to most recent one showing prolonged QTc. Plan: 1. discontinued seroquel 350 mg QHS and 50 mg QAM (has not been taking this since arrival to hospital) 2. decreased prozac to 40 mg and T/C to titrate down due to unclear benefit 3. she requested that adderall continue being held as she only uses this PRN 4. Continued clonazepam and gabapentin due to reported benefit. 5. started VPA 12/29 to replace seroquel as mood stabilizer and for added benefit as migraine prophylaxis. 6. dispo - 3-day notice matures sunday; plan for sunday discharge. 7. Obtain VPA level sunday Monitor response to medications. Monitor for safety in the milieu. Discharge on stabilization. Patient seen. Chart reviewed. Discussed with team. Obtain leno ricketts at [facility] amenable to psychopharm changes. Greater than 50% of the session was spent on counseling and/or coordination of care Reason for contiued inpatient stay Substantial Risk for: harm to self
[2021-01-02 18:00] VITALS: BP 118/79; PULSE 115; RESP 20; TEMP 36.5; O2SAT 100
[2021-01-02 22:42] VITALS: BP 111/63; PULSE 102
[2021-01-02] MEDS: Amitriptyline HCl 50 MG TABLET 100 MG PO (22:42)
[2021-01-02] MEDS: Divalproex Sodium ER 500 MG TAB.ER.24H 1000 MG PO (22:42)
[2021-01-02] MEDS: Propranolol HCL LA 60 MG CAP.SA.24H 120 MG PO (22:42)
[2021-01-02] MEDS: Montelukast Sodium 10 MG TABLET PO (22:43)
[2021-01-03 06:00] VITALS: BP 145/70; PULSE 88; RESP 18; TEMP 36.3; O2SAT 99
[2021-01-03 07:09] LABS: MANUAL DIFF FLAG NO
[2021-01-03 07:15] LABS: Basophils Percent Auto 0.5 % (0-2); Eosinophils Absolute Auto 0.1 X10*3/uL (0.0-0.4); Eosinophils Percent Auto 1.1 % (0-4); Hematocrit 38.1 % (37-47); Hemoglobin 12.9 g/dl (12.0-16.0); Imm Gran Abs Auto 0.04 X10*3/uL (0.00-0.03); Imm Gran Pct Auto 0.5 % (0.0-0.4); Lymphocytes Absolute Auto 2.4 X10*3/uL (1.2-4.9); Lymphocytes Percent Auto 26.7 % (20-40); Mean Corpuscular HGB Conc 33.9 g/dl (31.0-35.0); Mean Corpuscular Hemoglobin 31.6 pg (27.0-33.0); Mean Corpuscular Volume 93.4 fL (80-98); Mean Platelet Volume 8.9 fL (9.4-12.3); Monocytes Absolute Auto 0.8 X10*3/uL (0.1-1.2); Monocytes Percent Auto 8.7 % (2-11); Neutrophils Absolute Auto 5.5 X10*3/uL (2.0-8.3); Neutrophils Percent Auto 62.5 % (45-73); Platelet Count 491 X10*3/uL (160-400); Red Blood Count 4.08 X10*6/uL (4.20-5.50); Red Cell Distribution Width 12.2 % (11.0-16.0); White Blood Count 8.8 X10*3/uL (4.8-10.8)
[2021-01-03 07:28] LABS: Alanine Aminotransferase 34 U/L (0-31); Albumin Level 4.2 g/dL (3.5-5.0); Alkaline Phosphatase 83 U/L (39-117); Anion Gap 14 (12-20); Aspartate Amino Transferase 27 U/L (5-31); Bilirubin Direct < 0.2 mg/dL (0.0-0.5); Bilirubin Total 0.2 mg/dL (0.0-1.0); Blood Urea Nitrogen 12 mg/dL (9-16); Calcium 9.5 mg/dL (8.4-10.2); Carbon Dioxide 21 mmol/L (22-29); Chloride 109 mmol/L (96-108); Estimated Glomerular Filt Rate > 60; Glucose Random 98 mg/dL (60-115); Potassium 5.4 mmol/L (3.3-5.1); Sodium 139 mmol/L (135-145); Total Protein 7.4 g/dL (6.5-8.0)
[2021-01-03 07:33] LABS: Valproate 37.1 mcg/mL (50.0-100.0)
[2021-01-03] MEDS: Gabapentin 100 MG CAPSULE PO (08:54)
[2021-01-03] MEDS: Propranolol HCL LA 60 MG CAP.SA.24H 120 MG PO (08:54)
[2021-01-03] MEDS: hydrOXYzine HCL 25 MG TABLET PO (08:54)
[2021-01-03] MEDS: FLUoxetine HCl 20 MG CAPSULE 40 MG PO (08:54)
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
[2021-01-03 11:08] LABS: Anion Gap 15 (12-20); Blood Urea Nitrogen 13 mg/dL (9-16); Calcium 9.6 mg/dL (8.4-10.2); Carbon Dioxide 24 mmol/L (22-29); Chloride 106 mmol/L (96-108); Creatinine Clr Calc Pharmacy 71.2; Estimated Glomerular Filt Rate > 60; Glucose Random 122 mg/dL (60-115); Potassium 4.9 mmol/L (3.3-5.1); Sodium 140 mmol/L (135-145)
== END 2021-01-03 11:27 | disposition home or self-care (01) | DRG 753 ==
PROVIDERS: Registered Nurse; Admitting Provider Psychiatry & Neurology Psychiatry; PCP Internal Medicine; Visit Provider Psychiatry & Neurology Psychiatry
DX: F31.81 Bipolar II disorder (principal); R45.851 Suicidal ideations; F17.210 Nicotine dependence, cigarettes, uncomplicated; F90.9 Attention-deficit hyperactivity disorder, unspecified type; Z71.6 Tobacco abuse counseling; Z79.51 Long term (current) use of inhaled steroids; Z79.891 Long term (current) use of opiate analgesic; Z79.899 Other long term (current) drug therapy
CPT/HCPCS: 36415; 80048; 80076; 80164; 85025

== ENCOUNTER → 2021-03-03 14:37 | Outpatient (BNVA) | payer OTHER, SELFPAY | PROVIDERS: Visit Provider Advanced Practice Midwife ==

== ENCOUNTER → 2021-03-24 12:55 | Outpatient (BNVA) | payer OTHER, SELFPAY | PROVIDERS: Visit Provider Advanced Practice Midwife | DX: Z30.42 Encounter for surveillance of injectable contraceptive (principal) | CPT/HCPCS: 96372; 99211 ==

== ENCOUNTER 2021-04-28 11:32 | Outpatient (REF) | payer OTHER, SELFPAY ==
[2021-04-28 13:48] LABS: Anion Gap 13 (12-20); Blood Urea Nitrogen 7 mg/dL (9-16); Calcium 9.4 mg/dL (8.4-10.2); Carbon Dioxide 23 mmol/L (22-29); Chloride 105 mmol/L (96-108); Estimated Glomerular Filt Rate > 60; Potassium 4.5 mmol/L (3.3-5.1); Sodium 136 mmol/L (135-145)
[2021-04-28 14:12] LABS: T4 Thyroxine 5.5 ug/dL (4.5-12.0); Thyroid Stimulating Hormone 0.84 uIU/mL (0.32-4.0)
[2021-04-28 14:16] LABS: Valproate 41.1 mcg/mL (50.0-100.0)
[2021-04-28 14:45] LABS: Folate > 20.0 ng/mL (> or = 4.0); Vitamin B12 868 pg/mL (200-900)
== END 2021-04-28 11:33 | disposition home or self-care (01) ==
LOC: HO.10HDL 11:32
PROVIDERS: Visit Provider Psychiatry & Neurology Neurology
DX: G43.909 Migraine, unspecified, not intractable, without status migrainosus (principal); Z79.899 Other long term (current) drug therapy
CPT/HCPCS: 36415; 80051; 80164; 82310; 82565; 82607; 82746; 84436; 84443; 84520

== ENCOUNTER → 2021-05-09 13:13 | Outpatient (BNVA) | payer OTHER, SELFPAY | PROVIDERS: PCP Internal Medicine; Referring Provider Internal Medicine; Visit Provider Surgery | DX: L98.9 Disorder of the skin and subcutaneous tissue, unspecified (principal) | CPT/HCPCS: 99202 ==

== ENCOUNTER → 2021-06-13 13:01 | Outpatient (BNVA) | payer OTHER, SELFPAY | PROVIDERS: PCP Internal Medicine; Visit Provider Advanced Practice Midwife | DX: Z30.42 Encounter for surveillance of injectable contraceptive (principal) | CPT/HCPCS: 96372; 99211 ==

== ENCOUNTER 2021-06-27 11:02 | Outpatient (REF) | payer OTHER, SELFPAY | END 2021-06-27 11:03 | disposition home or self-care (01) | LOC: HO.LAB 11:02 | PROVIDERS: PCP Internal Medicine; Referring Provider Internal Medicine; Visit Provider Surgery | DX: L98.9 Disorder of the skin and subcutaneous tissue, unspecified (principal) | CPT/HCPCS: 11401; 88305; 99212 ==

== ENCOUNTER → 2021-07-11 15:32 | Outpatient (BNVA) | payer OTHER, SELFPAY | PROVIDERS: PCP Internal Medicine; Referring Provider Internal Medicine; Visit Provider Surgery | DX: L98.9 Disorder of the skin and subcutaneous tissue, unspecified (principal) | CPT/HCPCS: 99212 ==

== ENCOUNTER 2021-07-15 12:20 | Outpatient (REF) | payer OTHER, SELFPAY ==
--- NOTE | ~2021-07-15 | XR_ITS ---
EXAMINATION: XR FOOT, LEFT CLINICAL INFORMATION: Pain COMPARISON: Left foot x-rays 08/24/2020 TECHNIQUE: AP, lateral, and oblique views of the left foot. FINDINGS: Bones of the midfoot are well aligned. No tarsal, metatarsal or phalangeal fracture. Mild degenerative changes of the first MTP joint. No focal soft tissue swelling. No radiopaque foreign body. XR/XR foot LT 2V IMPRESSION: No fracture.
== END 2021-07-15 12:21 | disposition home or self-care (01) ==
LOC: HO.XRAY 12:20
PROVIDERS: PCP Internal Medicine; Visit Provider Internal Medicine
DX: M79.672 Pain in left foot (principal)
CPT/HCPCS: 73620

== ENCOUNTER → 2021-09-08 12:50 | Outpatient (BNVA) | payer OTHER, SELFPAY | PROVIDERS: PCP Internal Medicine; Visit Provider Advanced Practice Midwife | DX: Z30.42 Encounter for surveillance of injectable contraceptive (principal) | CPT/HCPCS: 96372; 99211 ==

== ENCOUNTER 2021-09-29 07:39 | Outpatient (REF) | payer OTHER, SELFPAY ==
[2021-09-29 08:53] LABS: Basophils Percent Auto 0.8 % (0-2); Eosinophils Absolute Auto 0.1 X10*3/uL (0.0-0.4); Eosinophils Percent Auto 1.1 % (0-4); Hemoglobin 13.4 g/dl (12.0-16.0); Imm Gran Abs Auto 0.01 X10*3/uL (0.00-0.03); Imm Gran Pct Auto 0.2 % (0.0-0.4); Immature Retic Fraction 7.1 % (3.0-15.9); Lymphocytes Percent Auto 37.3 % (20-40); MANUAL DIFF FLAG NO; Mean Corpuscular HGB Conc 32.7 g/dl (31.0-35.0); Mean Corpuscular Hemoglobin 31.9 pg (27.0-33.0); Mean Corpuscular Volume 97.6 fL (80.0-98.0); Mean Platelet Volume 9.5 fL (9.4-12.3); Monocytes Absolute Auto 0.4 X10*3/uL (0.1-1.2); Monocytes Percent Auto 7.4 % (2-11); Neutrophils Absolute Auto 2.8 x10*3/uL (2.0-8.3); Neutrophils Percent Auto 53.2 % (45-73); Platelet Count 347 X10*3/uL (160-400); Red Cell Distribution Width 12.3 % (11.0-16.0); Retic HGB Equivalent 37.3 pg (30.0-35.0); Reticulocyte Percent 1.8 % (0.5-1.8); Reticulocytes Absolute 0.074 X10*6/uL (0.026-0.095); White Blood Count 5.3 X10*3/uL (4.8-10.8)
[2021-09-29 09:52] LABS: Alanine Aminotransferase 20 U/L (0-31); Albumin Level 4.4 g/dL (3.5-5.0); Alkaline Phosphatase 75 U/L (39-117); Anion Gap 14 (12-20); Aspartate Amino Transferase 22 U/L (5-31); Bilirubin Total 0.3 mg/dL (0.0-1.0); Blood Urea Nitrogen 10 mg/dL (9-16); Calcium 8.9 mg/dL (8.4-10.2); Carbon Dioxide 23 mmol/L (22-29); Chloride 104 mmol/L (96-108); Cholesterol 195 mg/dL; Estimated Glomerular Filt Rate > 60; Glucose Random 89 mg/dL (60-115); HDL Cholesterol 39 mg/dL; LDL Cholesterol Calculated 130 mg/dl; Potassium 4.9 mmol/L (3.3-5.1); Sodium 136 mmol/L (135-145); Total Protein 7.7 g/dL (6.5-8.0); Triglycerides 134 mg/dL
[2021-09-29 10:13] LABS: Ferritin 79 ng/mL (10-250); Free T4 (Free Thyroxine) 0.82 ng/dL (0.71-1.85); Thyroid Stimulating Hormone 0.63 uIU/mL (0.32-4.0); Vitamin D 25-OH Total 46.1 ng/mL (>30)
[2021-09-29 10:51] LABS: Folate 17.4 ng/mL (> or = 4.0); Vitamin B12 1584 pg/mL (200-900)
== END 2021-09-29 07:40 | disposition home or self-care (01) ==
LOC: HO.LAB 07:39
PROVIDERS: PCP Internal Medicine; Visit Provider Internal Medicine
DX: D80.1 Nonfamilial hypogammaglobulinemia (principal); F31.62 Bipolar disorder, current episode mixed, moderate; E78.00 Pure hypercholesterolemia, unspecified; D64.9 Anemia, unspecified
CPT/HCPCS: 36415; 80053; 80061; 82306; 82607; 82728; 82746; 84439; 84443; 85025; 85045

== ENCOUNTER 2021-10-20 08:26 | Outpatient (REF) | payer OTHER, SELFPAY ==
--- NOTE | ~2021-10-20 | FL_ITS ---
EXAMINATION: FL BARIUM SWALLOW CLINICAL INFORMATION: Dysphagia. COMPARISON: None. TECHNIQUE: Barium swallow examination is performed using fluoroscopic evaluation in addition to multiple fluoroscopic spot views. The patient is imaged both upright and prone and using both thick and thin sulfate along with effervescent granules. Fluoroscopy time: 2.1 minutes. DAP: 9.77 Gy-cm2. Images: 55. FINDINGS: Following oral administration of thick barium and barium-coated turkey, there is normal propagation of bolus from the oral cavity through the pharynx and into the esophagus without any evidence of obstruction, narrowing or stricture. On oral administration of barium tablet, there is spontaneous passage from the oral cavity through the pharynx and esophagus and into stomach without any evidence of obstruction. On placing patient supine and prone lying and oral administration of thin barium, there is good distention of the esophagus without narrowing. No intraluminal filling defects seen. The soft tissues are normal. No gastroesophageal reflux or hiatal hernia seen. FL/FL barium swallow IMPRESSION: Unremarkable barium swallow in upright, supine and prone positions.
== END 2021-10-20 08:27 | disposition home or self-care (01) ==
LOC: HO.XRAY 08:26
PROVIDERS: Visit Provider Internal Medicine
DX: R13.10 Dysphagia, unspecified (principal)
CPT/HCPCS: 74220

== ENCOUNTER → 2021-12-01 15:00 | Outpatient (BNVA) | payer OTHER, SELFPAY | PROVIDERS: PCP Internal Medicine; Visit Provider Advanced Practice Midwife | DX: Z30.42 Encounter for surveillance of injectable contraceptive (principal) | CPT/HCPCS: 96372; 99211 ==

== ENCOUNTER → 2022-02-09 12:55 | Outpatient (BNVA) | payer OTHER, SELFPAY | PROVIDERS: PCP Internal Medicine; Visit Provider Nurse Practitioner Family | DX: R14.0 Abdominal distension (gaseous) (principal); R19.7 Diarrhea, unspecified | CPT/HCPCS: 99202; 99212 ==

== ENCOUNTER → 2022-02-20 13:07 | Outpatient (BNVA) | payer OTHER, SELFPAY | PROVIDERS: Visit Provider Advanced Practice Midwife | DX: Z30.42 Encounter for surveillance of injectable contraceptive (principal) | CPT/HCPCS: 96372; 99211 ==

== ENCOUNTER 2022-04-24 09:01 | Outpatient (REF) | payer OTHER, SELFPAY ==
[2022-04-28 05:13] LABS: HPV mRNA E6/E7 rflx Not Detected (Not Detected)
== END 2022-04-24 09:02 | disposition home or self-care (01) ==
LOC: HO.LNP 09:01
PROVIDERS: Visit Provider Advanced Practice Midwife
DX: Z01.419 Encounter for gynecological examination (general) (routine) without abnormal findings (principal); Z11.51 Encounter for screening for human papillomavirus (HPV)
CPT/HCPCS: 87624; 88142

== ENCOUNTER 2022-05-08 14:50 | Outpatient (REF) | payer OTHER, SELFPAY ==
--- NOTE | ~2022-05-08 | MM_ITS ---
EXAMINATION: MM SCREENING DIGITAL BREAST TOMOSYNTHESIS, BILATERAL CLINICAL INFORMATION: Screening. Asymptomatic. The lifetime risk of breast cancer based on the Tyrer-Cuzick Model is 16.8%. COMPARISON: Mammography: May 18, 2020 and studies dating back to May 26, 2013 TECHNIQUE: Digital breast tomosynthesis is performed in both the craniocaudal and mediolateral oblique views along with computer-aided detection (CAD). Synthesized 2D images are generated from the tomosynthesis. FINDINGS: The breasts are heterogeneously dense, which may obscure small masses (ACR BI-RADS breast composition Category c). There are no significant masses, abnormal calcifications, or other abnormalities. MM/MM tomosynthesis screening BI IMPRESSION: No significant changes from prior exam. ASSESSMENT: BI-RADS 1: Negative RECOMMENDATION: Routine annual mammography screening. This patient's information was entered into a reminder system with a target due date for their next mammogram.
== END 2022-05-08 14:51 | disposition home or self-care (01) ==
LOC: HO.MAMMO 14:50
PROVIDERS: Visit Provider Internal Medicine
DX: Z12.31 Encounter for screening mammogram for malignant neoplasm of breast (principal); Z78.9 Other specified health status
CPT/HCPCS: 77063; 77067; 96372; 99211

== ENCOUNTER → 2022-08-01 15:00 | Outpatient (BNVA) | payer OTHER, SELFPAY | PROVIDERS: PCP Internal Medicine; Visit Provider Advanced Practice Midwife | DX: Z30.42 Encounter for surveillance of injectable contraceptive (principal) | CPT/HCPCS: 96372; 99211 ==

== ENCOUNTER 2022-12-26 08:05 | Outpatient (REF) | payer OTHER, SELFPAY ==
[2022-12-26 08:20] LABS: MANUAL DIFF FLAG NO
[2022-12-26 09:02] LABS: Basophils Absolute Auto 0.1 X10*3/uL (0.0-0.2); Basophils Percent Auto 0.7 % (0-2); Eosinophils Absolute Auto 0.1 X10*3/uL (0.0-0.4); Hematocrit 40.5 % (37.0-47.0); Hemoglobin 13.4 g/dl (12.0-16.0); Imm Gran Abs Auto 0.01 X10*3/uL (0.00-0.03); Imm Gran Pct Auto 0.1 % (0.0-0.4); Lymphocytes Absolute Auto 2.4 X10*3/uL (1.2-4.9); Lymphocytes Percent Auto 32.8 % (20-40); Mean Corpuscular HGB Conc 33.1 g/dl (31.0-35.0); Mean Corpuscular Hemoglobin 32.2 pg (27.0-33.0); Mean Corpuscular Volume 97.4 fL (80.0-98.0); Mean Platelet Volume 9.5 fL (9.4-12.3); Monocytes Absolute Auto 0.5 X10*3/uL (0.1-1.2); Monocytes Percent Auto 6.8 % (2-11); Neutrophils Absolute Auto 4.2 x10*3/uL (2.0-8.3); Neutrophils Percent Auto 58.6 % (45-73); Platelet Count 334 X10*3/uL (160-400); Red Blood Count 4.16 X10*6/uL (4.20-5.50); Red Cell Distribution Width 12.7 % (11.0-16.0); White Blood Count 7.2 X10*3/uL (4.8-10.8)
[2022-12-26 09:11] LABS: Appearance Urine Clear; Color Urine Yellow; Glucose Urine UA Negative (Negative); Leukocyte Esterase Urine Small (1+) (Negative); Nitrite Urine Negative (Negative); UMIC TRIGGER UA YES; Urine Blood Moderate (2+) (Negative); Urine Ketones Negative (Negative); Urine Protein Negative (Neg-Trace)
[2022-12-26 09:17] LABS: Bacteria Urine None Seen (None Seen); Hyaline Casts Urine 0-2 /LPF (0-2)
[2022-12-26 09:40] LABS: Alanine Aminotransferase 21 U/L (0-31); Albumin Level 4.3 g/dL (3.5-5.0); Alkaline Phosphatase 86 U/L (39-117); Anion Gap 16 (12-20); Aspartate Amino Transferase 23 U/L (5-31); Bilirubin Total 0.5 mg/dL (0.0-1.0); Blood Urea Nitrogen 12 mg/dL (9-16); Calcium 9.3 mg/dL (8.4-10.2); Carbon Dioxide 23 mmol/L (22-29); Chloride 104 mmol/L (96-108); Cholesterol 225 mg/dL (<200); Estimated Glomerular Filt Rate > 60; Glucose Random 82 mg/dL (60-115); HDL Cholesterol 44 mg/dL (>40); LDL Cholesterol Calculated 152 mg/dL (<100); Sodium 139 mmol/L (135-145); Total Protein 7.4 g/dL (6.5-8.0); Triglycerides 145 mg/dL (<150)
[2022-12-26 09:59] LABS: Free T4 (Free Thyroxine) 0.86 ng/dL (0.71-1.85); Thyroid Stimulating Hormone 1.41 uIU/mL (0.32-4.0)
[2022-12-26 10:01] LABS: Folate 10.8 ng/mL (> or = 4.0); Vitamin B12 1151 pg/mL (200-900)
== END 2022-12-26 08:06 | disposition home or self-care (01) ==
LOC: HO.LAB 08:05
PROVIDERS: PCP Internal Medicine; Visit Provider Internal Medicine
DX: F31.81 Bipolar II disorder (principal); E78.00 Pure hypercholesterolemia, unspecified
CPT/HCPCS: 36415; 80053; 80061; 81001; 82607; 82746; 84439; 84443; 85025

== ENCOUNTER 2023-01-03 08:48 | Outpatient (AMB) | payer OTHER, SELFPAY ==
--- NOTE | 2023-01-03 09:02 | A.OFFPC_ITS ---
Vital Signs 01/03/23 09:03 Height 5 ft 5 in Weight 158 lb 8 oz BMI 26.4 BP 120/72 Blood Pressure Location Lt brachial Position Sitting Pulse 99 Pulse Source Pulse Oximeter Pulse Oximetry (%) 93 Oxygen Delivery Method Room Air Intake Visit Reasons: asthma Intake Note: Patient is here to follow up on asthma. Financial Institution President Required: No Hatch Tender: Not Required per policy Accompanied by: Self / Same As Patient Allergies mold Allergy (Unknown, Uncoded 01/03/23 09:03) makes patient feel sick Medication List - Last Reconciled 01/03/23 by Isai Sharpe MD albuterol sulfate 90 mcg/actuation (Ventolin HFA) 2 puffs inhalation Q6H PRN amitriptyline 1 tab PO BEDTIME bisacodyl (Dulcolax (bisacodyl)) 10 mg (2 x 5 mg) PO ONCE 1 day clonazepam 1 mg PO DAILY PRN dextroamphetamine-amphetamine 30 mg 1 tab PO BID divalproex ER 1,000 mg PO BEDTIME donepezil 10 mg PO DAILY fluticasone propionate 110 mcg/actuation (Flovent HFA) 2 puffs inhalation BID gabapentin 300 mg PO TID 90 days lurasidone (Latuda) 120 mg PO DAILY methocarbamol 500 mg PO BID PRN polyethylene glycol 3350 (Miralax) 238 grams PO ONCE tramadol 50 mg PO QID PRN 30 days ubrogepant (Ubrelvy) 100 mg PO DAILY PRN Tobacco use date assessed: 01/03/23 HPI asthma HPI Details 52-year-old overweight female smoker (no joseph weight loss) with bipolar disorder hypo gamma globulinemia asthma with hypercholesterolemia last seen in August 2022. Patient was advised colonoscopy under gastroenterology. Patient is here for follow-up. did get hizentra recently. complaining of forgetting a lot- advised by therapist- workup on the brain. Sent no nausea no vomiting no chest pains no shortness of breath no bowel bladder symptoms patient has been using the inhalers and forgot to rinse mouth after using steroid inhaler and stressed to her the need to do that to avoid getting oral candidiasis. [facility] Medical History (Updated 01/03/23 @ 09:44 by Isai Sharpe MD) Cervical cancer screening Uses Depo-Provera as primary control method Perimenopausal symptoms Skin lesion of right ear Breast cancer screening Breast cancer screening by mammogram Upper back pain Dysphagia Annual physical exam Skin lesion of hand Mass of left hand Well woman exam with routine gynecological exam Altered mental status Depot contraception (~12/26/20) Fall Axillary abscess History of herpes simplex infection Polysubstance abuse Asthma Bipolar disorder Migraine Tobacco abuse ADHD Scoliosis History of drainage of abscess Surgical History History of carpal tunnel surgery History of surgical removal of skin lesion (~06/27/21) History of tonsillectomy Family History Mother In good health Father In good health Maternal Aunt History of breast cancer Maternal Grandmother Pancreatic cancer Social History Household Members: None Housing: Apartment Do you presently have visiting nurse or other home services: No Unable to assess alcohol history related to: Unknown Alcohol intake: never Patient Tobacco Use Status: Current everyday Tobacco user Tobacco use type: Cigarette Cigarette Packs Per Day: 0.5 Cigarettes Per Day: 4 Years Smoked: smoke started 16 years e-Cigarette/Vaping Use: Never Used Second Hand Smoke Exposure: Yes service: No Current occupational status: unemployed Sexual orientation: Don't Know Gender identity: Female Cognitive needs: No Hearing needs: No Vision needs: No Female Reproductive History Menstrual Age of Menarche: 12 Questionnaire Thrive Questionnaire Date Thrive assessed: 04/10/22 JOVAN-7 AMB Questionnaire JOVAN-7 Date JOVAN - 7 assessed: 04/10/22 Source: Developed by Drs. Dinesh Cadena, Leonora Prince, Shai Shabazz and colleagues, with an educational mariana from [employer]. Physical exam (Primary Care) Vital Signs: Last Vital Signs Pulse 99 01/03/23 09:03 BP 120/72 01/03/23 09:03 Pulse Ox 93 01/03/23 09:03 Oxygen Delivery Method Room Air 01/03/23 09:03 BMI result Body Mass Index 26.4 Tobacco/Smoking Status: Tobacco use Status Tobacco use date assessed 01/03/23 01/03/23 09:03 Patient Tobacco Use Status Current everyday Tobacco 01/03/23 09:03 Tobacco use type Cigarette 01/03/23 09:03 e-Cigarette/Vaping Use Never Used 01/03/23 09:03 Thrive Assessment: Date of Thrive Assessment Date Thrive assessed 04/10/22 01/03/23 09:03 Const General: alert; No acute distress Eyes Conjunctivae: conjunctivae normal Resp Auscultation: clear to auscultation bilaterally Cardio Rate: regular rate Rhythm: regular rhythm GI Inspection: Yes normal to inspection Extrem General: Yes normal to inspection and No edema Office Procedures Flu Questionnaire Does the patient have a severe egg allergy?: No Does the patient have severe life threatening allergies?: No Does the patient have a fever or illness today?: No Has the patient ever had Guillain-[place] Syndrome?: No Has the patient ever had any past reaction to a flu shot?: No Flu Questionnaire Does the patient have a severe egg allergy?: No Does the patient have severe life threatening allergies?: No Does the patient have a fever or illness today?: No Has the patient ever had Guillain-[place] Syndrome?: No Has the patient ever had any past reaction to a flu shot?: No Immunizations flu vacc [id number] 6mos up(PF) 60 mcg(15 mcgx4)/0.5 mL IM syringe Performing Provider: Isai Sharpe MD Performing Location[place] [facility] [place] [facility] [place] [facility] Documented (not given) by: AUDELIA Mott on 01/03/23 09:11 Dose Route Admin Location Dispensed Lot Number Expiration Date NDC System Support Administrator 0.5 mL IM mL VIS Given Date VIS Provided VIS Publication Date Single Vaccine 20 Eligibility Eligibility Date Funding Source flu vacc [id number] 6mos up(PF) 60 mcg(15 mcgx4)/0.5 mL IM syringe Performing Provider: Isai Sharpe MD Performing Location: [facility] Administered by: Kamilla Leiva RN on 01/03/23 09:26 Dose Route Admin Location Dispensed Lot Number Expiration Date NDC System Support Administrator 0.5 mL IM Left Deltoid 0.5 mL [id number] 09/30/23 36053-353-91 [employer] VIS Given Date VIS Provided VIS Publication Date 01/03/23 Single Vaccine 20 Eligibility Eligibility Date Funding Source Not [facility] Eligible 01/03/23 Private Assessment and Plan Assessment & Plan (1) Asthma: Code(s): J45.909 - Unspecified asthma, uncomplicated Qualifiers: Asthma severity: mild Asthma persistence: intermittent Asthma complication type: uncomplicated Qualified Code(s): J45.20 - Mild intermittent asthma, uncomplicated Plan: Continue with a inhaler. Advised patient to stop smoking! (2) Tobacco abuse: Comment: addressed 04/24.- mo'b Code(s): Z72.0 - Tobacco use Plan: Patient is strongly advised to stop smoking! (3) Hypercholesterolemia: Code(s): E78.00 - Pure hypercholesterolemia, unspecified Plan: Avoid fried foods, chicken skin, eggs, butter margarine, pastries and meat. Be it pork or beef they have a lot of cholesterol LDL goal of less than 130 and triglyceride of less than 150 will retest in 3 months (4) Bipolar II disorder: Comment: Autumn Villegas Q month [facility] Psychiatrist and Maame Amos Therapist Q 2-3 week Code(s): F31.81 - Bipolar II disorder Plan: Continue to follow-up with psychiatry and counseling. Patient will be seeing the psychiatrist tomorrow (5) Cognitive changes: Code(s): R41.89 - Other symptoms and signs involving cognitive functions and awareness Plan: CT scan ordered but patient also has the neurologist. Patient will be seeing psychiatrist tomorrow Orders: Orders Influenza [id number] Immunization Today Z23 - Encounter for immunization CT head/brain wo IV con Today R41.89 - Other symptoms and signs involving cognitive functions and awareness Influenza [id number] Immunization Today Z23 - Encounter for immunization Lipid Panel 3 Months E78.00 - Pure hypercholesterolemia, unspecified Comprehensive Met. Panel 3 Months E78.00 - Pure hypercholesterolemia, unspecified Medications: New flu vacc [id number] 6mos up(PF) 0.5 mL IM ONCE 0.5 mL 0RF Z23 - Encounter for immunization Refilled tramadol 50 mg PO QID PRN 120 tabs 2RF pain 30 days M41.9 - Scoliosis, unspecified, M54.9 - Dorsalgia, unspecified methocarbamol 500 mg PO BID PRN 180 tabs 1RF pain Coding Level of Care Code Est Pt Level 4 (42136) Diagnoses Mild intermittent asthma without complication J45.20 Asthma severity: mild Asthma persistence: intermittent Asthma complication type: uncomplicated Tobacco abuse Z72.0 Hypercholesterolemia E78.00 Bipolar II disorder F31.81 Cognitive changes R41.89
[2023-01-03 09:03] VITALS: BP 120/72; PULSE 99; O2SAT 93; BMI 26.4
== END 2023-01-03 09:56 | disposition home or self-care (01) ==
PROVIDERS: PCP Internal Medicine; Visit Provider Internal Medicine
DX: J45.20 Mild intermittent asthma, uncomplicated (principal); Z72.0 Tobacco use; E78.00 Pure hypercholesterolemia, unspecified; F31.81 Bipolar II disorder; R41.89 Other symptoms and signs involving cognitive functions and awareness; Z23 Encounter for immunization
CPT/HCPCS: 90471; 90686; 99214

== ENCOUNTER 2023-01-25 08:50 | Day surgery (SDC) | payer OTHER, SELFPAY ==
[2023-01-23 09:59] VITALS: BMI 26.4
[2023-01-23 10:28] VITALS: BMI 26.3
--- NOTE | 2023-01-24 10:29 | HO.ANESPROP2 ---
HPI - Anesthesia Eval Consult details Narrative: 52yo F for Colonoscopy Hx polysub. No longer taking suboxone Smoker PMFSH Active Problems Active Problems: All Active Problems (Updated 01/23/23 @ 10:39 by Lora Delgado, JEROME) Cognitive changes (Acute) Hypercholesterolemia (Acute) Sciatic leg pain (Acute) Carpal tunnel syndrome on both sides (Acute) Carpal tunnel syndrome, right (Acute) Colon cancer screening (Acute) ADHD (Acute) Bipolar II disorder (Acute) Distal radius fracture, right (Acute) Fracture of wrist (Acute) Left foot pain (Acute) Hot flashes (Acute) Anemia (Acute) Nonfamilial hypogammaglobulinemia (Acute) Knee pain, right (Acute) Annual physical exam (Acute) Skin lesion of hand (Acute) Depot contraception (Acute ~12/26/20) Asthma (Acute) Migraine (Acute) Tobacco abuse (Acute) Scoliosis (Acute) Past Medical History Medical History (Updated 01/23/23 @ 10:39 by Lora Delgado RN) Neck pain Arthritis Hx MRSA infection Hx of suicide attempt Cervical cancer screening Uses Depo-Provera as primary control method Perimenopausal symptoms Skin lesion of right ear Breast cancer screening Breast cancer screening by mammogram Upper back pain Dysphagia Annual physical exam Skin lesion of hand Mass of left hand Well woman exam with routine gynecological exam Altered mental status Depot contraception (~12/26/20) Fall Axillary abscess History of herpes simplex infection Polysubstance abuse Asthma Bipolar disorder Migraine Tobacco abuse ADHD Scoliosis History of drainage of abscess Family History Family History Mother In good health Father In good health Maternal Aunt History of breast cancer Maternal Grandmother Pancreatic cancer Surgical History Surgical History History of carpal tunnel surgery History of surgical removal of skin lesion (~06/27/21) History of tonsillectomy Social History Social History (Updated 01/23/23 @ 10:27 by Lora Delgado RN) Household Members: Significant Other and None Housing: Apartment Are you a primary healthcare architect to a significant other at home: No Do you presently have visiting nurse or other home services: No Unable to assess alcohol history related to: Unknown Alcohol intake: never Patient Tobacco Use Status: Current everyday Tobacco user Tobacco use type: Cigarette Cigarettes Per Day: 3 Years Smoked: 36 Smoked in Last 30 Days: Yes e-Cigarette/Vaping Use: Never Used Second Hand Smoke Exposure: Yes Use of substances other than those prescribed or required for medical reasons: Yes Substance Use Type: Marijuana Substance Use Frequency: Occasionally Have you been hit, kicked, punched, or otherwise hurt by someone within the past year? If so, by whom?: No Are you DNR?: No Advance Directives: No Advance Directives Information Provided: Yes Advance Directives on File: No Recently lost weight without trying: No Nutrition Risks: No Nutritional Risk Patient : No : No Poor oral hygiene: No service: No Current occupational status: unemployed Sexual orientation: Don't Know Gender identity: Female Cognitive needs: No Hearing needs: No Vision needs: No Meds Allergies Allergy/AdvReac Type Severity Reaction Status Date / Time mold Allergy Unknown makes Uncoded 01/03/23 09:03 patient feel sick Home Medications Medication Instructions Recorded Confirmed Last Taken Type amitriptyline 100 mg tablet 1 tab PO BEDTIME 12/27/20 01/23/23 Unknown History divalproex 500 mg tablet,extended 1,000 mg PO BEDTIME 01/06/21 01/23/23 Unknown History release 24 hr clonazepam 1 mg tablet 1 mg PO BEDTIME PRN anxiety 12/30/21 01/23/23 Unknown History lurasidone 120 mg tablet (Latuda) 120 mg PO DAILY 12/30/21 01/23/23 Unknown History dextroamphetamine-amphetamine 30 1 tab PO BID 03/06/22 01/23/23 Unknown History mg tablet ubrogepant 100 mg tablet (Ubrelvy) 100 mg PO DAILY PRN Headache 03/06/22 01/03/23 Unknown History donepezil 10 mg tablet 10 mg PO DAILY 09/18/22 01/03/23 Unknown History fluoxetine 20 mg capsule 60 mg PO DAILY depressive disorder 01/23/23 01/23/23 Unknown History Exam Exam Date and Time: January 24, 2023 1029 Height,Weight and Vital Signs: Height 5 ft 5 in Weight 71.668 kg Pertinent Lab Results Pertinent Lab Results: Laboratory Tests 12/26/22 08:18 WBC 7.2 Hgb 13.4 Hct 40.5 Plt Count 334 Sodium 139 Potassium 4.0 Chloride 104 Carbon Dioxide 23 BUN 12 Creatinine 0.83 Assessment and Plan Assessment Anesthesia Assessment: Chart Reviewed
[2023-01-25 09:12] VITALS: BP 128/74; PULSE 85; RESP 16; TEMP 37.2; O2SAT 97
[2023-01-25] MEDS: Lactated Ringers 1,000 ML 100 ML IVCONT (09:20)
--- NOTE | 2023-01-25 10:21 | HO.ANESPROP2 ---
[facility] Active Problems Active Problems: All Active Problems (Updated 01/23/23 @ 10:39 by Lora Delgado, RN) Cognitive changes (Acute) Hypercholesterolemia (Acute) Sciatic leg pain (Acute) Carpal tunnel syndrome on both sides (Acute) Carpal tunnel syndrome, right (Acute) Colon cancer screening (Acute) ADHD (Acute) Bipolar II disorder (Acute) Distal radius fracture, right (Acute) Fracture of wrist (Acute) Left foot pain (Acute) Hot flashes (Acute) Anemia (Acute) Nonfamilial hypogammaglobulinemia (Acute) Knee pain, right (Acute) Annual physical exam (Acute) Skin lesion of hand (Acute) Depot contraception (Acute ~12/26/20) Asthma (Acute) Migraine (Acute) Tobacco abuse (Acute) Scoliosis (Acute) Past Medical History Medical History (Updated 01/23/23 @ 10:39 by Lora Delgado RN) Neck pain Arthritis Hx MRSA infection Hx of suicide attempt Cervical cancer screening Uses Depo-Provera as primary control method Perimenopausal symptoms Skin lesion of right ear Breast cancer screening Breast cancer screening by mammogram Upper back pain Dysphagia Annual physical exam Skin lesion of hand Mass of left hand Well woman exam with routine gynecological exam Altered mental status Depot contraception (~12/26/20) Fall Axillary abscess History of herpes simplex infection Polysubstance abuse Asthma Bipolar disorder Migraine Tobacco abuse ADHD Scoliosis History of drainage of abscess Family History Family History Mother In good health Father In good health Maternal Aunt History of breast cancer Maternal Grandmother Pancreatic cancer Family history of problems with anesthesia: No Surgical History Surgical History History of carpal tunnel surgery History of surgical removal of skin lesion (~06/27/21) History of tonsillectomy History of Problems with Anesthesia: No Social History Social History (Updated 01/23/23 @ 10:27 by oLra Delgado RN) Household Members: Significant Other and None Housing: Apartment Are you a primary daycare director to a significant other at home: No Do you presently have visiting nurse or other home services: No Unable to assess alcohol history related to: Unknown Alcohol intake: never Patient Tobacco Use Status: Current everyday Tobacco user Tobacco use type: Cigarette Cigarettes Per Day: 3 Years Smoked: 36 Smoked in Last 30 Days: Yes e-Cigarette/Vaping Use: Never Used Second Hand Smoke Exposure: Yes Use of substances other than those prescribed or required for medical reasons: Yes Substance Use Type: Marijuana Substance Use Frequency: Occasionally Have you been hit, kicked, punched, or otherwise hurt by someone within the past year? If so, by whom?: No Are you DNR?: No Advance Directives: No Advance Directives Information Provided: Yes Advance Directives on File: No Recently lost weight without trying: No Nutrition Risks: No Nutritional Risk Patient : No : No Poor oral hygiene: No service: No Current occupational status: unemployed Sexual orientation: Don't Know Gender identity: Female Cognitive needs: No Hearing needs: No Vision needs: No Meds Allergies Allergy/AdvReac Type Severity Reaction Status Date / Time mold Allergy Unknown makes Uncoded 01/03/23 09:03 patient feel sick Active Medications: Current Medications Albuterol Sulfate (Albuterol Sulfate (0.083%) 2.5 Mg/3 Ml Vial.Neb) 2.5 mg INHALE ONCE PRN PRN Reason: Shortness of Breath/Wheezing Lactated Ringer's (Lr) 1,000 mls @ 100 mls/hr IVCONT .Q10H DWAYNE Last Admin: 01/25/23 09:20 Dose: 100 mls/hr Ondansetron HCl (Ondansetron Hcl 4 Mg/2 Ml Vial) 4 mg IVPUSH ONCE PRN PRN Reason: Nausea and Vomiting Home Medications Medication Instructions Recorded Confirmed Last Taken Type amitriptyline 100 mg tablet 1 tab PO BEDTIME 12/27/20 01/23/23 Unknown History divalproex 500 mg tablet,extended 1,000 mg PO BEDTIME 01/06/21 01/23/23 Unknown History release 24 hr clonazepam 1 mg tablet 1 mg PO BEDTIME PRN anxiety 12/30/21 01/23/23 Unknown History lurasidone 120 mg tablet (Latuda) 120 mg PO DAILY 12/30/21 01/23/23 Unknown History dextroamphetamine-amphetamine 30 1 tab PO BID 03/06/22 01/23/23 Unknown History mg tablet ubrogepant 100 mg tablet (Ubrelvy) 100 mg PO DAILY PRN Headache 03/06/22 01/03/23 Unknown History donepezil 10 mg tablet 10 mg PO DAILY 09/18/22 01/03/23 Unknown History fluoxetine 20 mg capsule 60 mg PO DAILY depressive disorder 01/23/23 01/23/23 01/25/23 History Exam Exam Date and Time: January 25, 2023 1021 Height,Weight and Vital Signs: Height 5 ft 5 in Weight 71.668 kg Last Vital Signs Temp 99.0 F 01/25/23 09:12 Pulse 85 01/25/23 09:12 Resp 16 01/25/23 09:12 BP 128/74 01/25/23 09:12 Pulse Ox 97 01/25/23 09:12 O2 Del Method Room Air 01/25/23 09:12 Airway Mallampati Class: IV TM Dist: <=3cm Neck ROM: Full Loose/Missing/Broken Teeth: No Heart: rr Lungs: clear Assessment and Plan Final Anesthetic Review Family History of Problems with Anesthesia: No History of Problems with Anesthesia: No NPO: Yes ASA Class: III Final Preanesthetic Review: No Changes in Pt Med Stat, Meds/Allgs Chart Reviewed, Consent Obtained/Reviewed and Anes Risks/Benef Reviewed Patient Risk: Intermediate Procedure Risk: Low Anesthetic Plan Anesthetic Plan: MAC: Disposition: Standard PACU
--- NOTE | 2023-01-25 10:24 | P.OP_ITS ---
Operative Note Operative Note Date of Service: 01/25/23 Narrative: Procedure: Colonoscopy Indication: Screening Endoscopist: Maribel Sebastian MD Anesthesia Provider: Dr Jude Bruno Anesthesia type: MAC Instrument: Olympus [id number]-H190L Consent: Indication, risks vs benefits, and alternatives were discussed with the patient who gave written informed consent to proceed. EKG, pulse, pulse oximetry and blood pressure were monitored throughout the procedure. Please see anesthesia flowsheet. Procedure: The patient was brought to the procedure room and placed in the left lateral decubitus position. IV medications were administered by the anesthesia provider in attendance. A digital rectal exam was performed which was abnormal due to finding of hemorrhoids. A distal attachment cap was affixed to the tip of the scope and the colonoscope was then inserted through the anus and advanced through the colon to the cecum at 75 cm,and terminal ileum. Mucosa was carefully examined under high definition white light as the instrument was slowly withdrawn in a retrograde panoramic fashion. Retroflexion was performed in rectum. The procedure was not difficult. There were no immediate obvious complications. The quality of the prep was BBPS: 2+2+3 = adequate Withdrawal time 13 minutes. Limitations: No limitations. Findings: Mucosa: Normal to cecum and terminal ileum. Protruding lesions: * 1 sessile polyp of size 4 mm in descending colon. Cold snare polypectomy was p erformed. The polyp was completely removed and retrieved. * Medium internal hemorrhoids without stigmata of recent bleeding. Excavated lesions: * Mild to moderate diverticulosis of sigmoid colon. Impression: 1. Normal colon and terminal ileum mucosa 2. Total of 1 polyp removed 3. External and internal hemorrhoids 4. Diverticulosis Recommendations: - Follow path results. - Repeat colonoscopy in 7-10 years if polyp is an adenoma.
--- NOTE | 2023-01-25 10:24 | MHC.SHP ---
Pre-Procedural Eval Section A Date of Service: 01/25/23 Section B Chief Complaint: Encounter for screening Details of Present Illness: PMH: ADHD Altered mental status Annual physical exam Asthma Axillary abscess Bipolar disorder Depot contraception (~12/26/20) Fall History of herpes simplex infection Migraine Polysubstance abuse Scoliosis Skin lesion of hand Tobacco abuse Surgical History History of surgical removal of skin lesion (~06/27/21) History of tonsillectomy Present Medications: see Short Stay Collaborative assessment Allergies: Allergies Allergy/AdvReac Type Severity Reaction Status Date / Time mold Allergy Unknown makes Uncoded 01/03/23 09:03 patient feel sick Review of Systems Review of Systems Comment: 10 point ROS negative Exam Exam Comment: Gen appear: No acute distress HEENT: no icterus Chest: No overt resp distress Abd: soft, nontender, nondistended Psych: Stable affect, answering questions appropriately Neuro: A/Ox3 noted to move all extremities spontaneously Ext: no peripheral edema Plan Diagnosis/Plan: Unchanged I have reviewed the history and physical and performed a pertinent physical examination on my patient. No changes have occurred unless specified. Time Spent With Patient Time: Total time managing care of this patient today ____ minutes.
[2023-01-25 11:01] VITALS: BP 112/72; PULSE 74; RESP 18; TEMP 36.8; O2SAT 100
[2023-01-25 11:16] VITALS: BP 116/81; PULSE 74; RESP 18; TEMP 36.7; O2SAT 99
== END 2023-01-25 12:48 | disposition home or self-care (01) ==
PROVIDERS: PCP Internal Medicine; Visit Provider Internal Medicine
PROC: 0DJD8ZZ Inspection of Lower Intestinal Tract, Via Natural or Artificial Opening Endoscopic (ICD-10-PCS; CPT 45378; principal; 2023-01-25 10:20)
DX: Z12.11 Encounter for screening for malignant neoplasm of colon (principal); D12.4 Benign neoplasm of descending colon; K57.30 Diverticulosis of large intestine without perforation or abscess without bleeding; K64.8 Other hemorrhoids; K64.4 Residual hemorrhoidal skin tags; R14.0 Abdominal distension (gaseous); E78.00 Pure hypercholesterolemia, unspecified; F90.9 Attention-deficit hyperactivity disorder, unspecified type; J45.909 Unspecified asthma, uncomplicated; F31.9 Bipolar disorder, unspecified; F19.10 Other psychoactive substance abuse, uncomplicated; F17.210 Nicotine dependence, cigarettes, uncomplicated; Z79.899 Other long term (current) drug therapy
CPT/HCPCS: 45385; 88305

== ENCOUNTER → 2023-01-25 08:50 | Outpatient (BNV) | payer OTHER, SELFPAY | PROVIDERS: PCP Internal Medicine; Visit Provider Internal Medicine | DX: Z12.11 Encounter for screening for malignant neoplasm of colon (principal); D12.4 Benign neoplasm of descending colon; K64.8 Other hemorrhoids; K57.30 Diverticulosis of large intestine without perforation or abscess without bleeding | CPT/HCPCS: 45385 ==

== ENCOUNTER 2023-01-31 08:31 | Emergency (ER) | payer OTHER, SELFPAY ==
--- NOTE | ~2023-01-31 | XR_ITS ---
EXAMINATION: XR ANKLE, RIGHT CLINICAL INFORMATION: Inversion soft tissue swelling lateral malleolus COMPARISON: None available. TECHNIQUE: AP, lateral, and mortise views of the right ankle. FINDINGS: No acute visible fracture or dislocation. The ankle mortise is symmetric. Small plantar calcaneal heel spur. Joint spaces and alignment are maintained. Soft tissue swelling along the lateral malleolus. XR/XR ankle RT min 3V IMPRESSION: 1. No acute visible fracture or dislocation. 2. Soft tissue swelling along the lateral malleolus. 3. Small plantar calcaneal heel spur.
[2023-01-31 08:36] VITALS: BP 129/75; PULSE 88; RESP 18; TEMP 36.4; O2SAT 100; BMI 26.3
[2023-01-31] MEDS: Ibuprofen 400 MG TABLET PO (09:49)
[2023-01-31 10:26] VITALS: BP 110/59; PULSE 84; RESP 16; TEMP 36.3; O2SAT 96
--- NOTE | 2023-01-31 11:04 | ED.LOWEXIN ---
HPI - Extremity Injury (Lower) General Chief Complaint: Extremity Injury, Lower Stated Complaint: R ankle injury Time Seen by Provider: 01/31/23 08:49 Source: patient Mode of arrival: ambulatory Limitations: no limitations History of Present Illness HPI Narrative: 52-year-old female who presents emergency department for evaluation of right ankle injury. She states she was getting out of her car and stepped onto an on even surface causing inversion injury to her ankle. She states she developed immediate pain in the ankle and difficulty walking. This morning the ankle was more swollen and more painful therefore she came to emergency department for evaluation. She states she has injured this ankle in the past. Related Data Home Medications Medication Instructions Recorded Confirmed amitriptyline 100 mg tablet 1 tab PO BEDTIME 12/27/20 01/23/23 divalproex 500 mg tablet,extended 1,000 mg PO BEDTIME 01/06/21 01/23/23 release 24 hr clonazepam 1 mg tablet 1 mg PO BEDTIME PRN anxiety 12/30/21 01/23/23 lurasidone 120 mg tablet (Latuda) 120 mg PO DAILY 12/30/21 01/23/23 dextroamphetamine-amphetamine 30 1 tab PO BID 03/06/22 01/23/23 mg tablet ubrogepant 100 mg tablet (Ubrelvy) 100 mg PO DAILY PRN Headache 03/06/22 01/03/23 donepezil 10 mg tablet 10 mg PO DAILY 09/18/22 01/03/23 fluoxetine 20 mg capsule 60 mg PO DAILY depressive disorder 01/23/23 01/23/23 Previous Rx's Medication Instructions Recorded albuterol sulfate 90 mcg/actuation 2 puff inhalation Q6H PRN 07/10/22 aerosol inhaler (Ventolin HFA) shortness of breath or wheezing #8.5 grams fluticasone propionate 110 2 puff inhalation BID #12 grams 09/18/22 mcg/actuation HFA aerosol inhaler (Flovent HFA) methocarbamol 500 mg tablet 500 mg PO BID PRN pain #180 tabs 01/03/23 gabapentin 300 mg capsule 300 mg PO TID 90 days #270 caps 01/05/23 tramadol 50 mg tablet 50 mg PO QID PRN pain 30 days #120 01/05/23 tabs polyethylene glycol 3350 17 238 g PO ONCE 1 day #238 grams 01/22/23 gram/dose oral powder (Miralax) morphine 15 mg immediate release 15 mg PO Q4-6H PRN pain #10 tabs 01/31/23 tablet Allergies Allergy/AdvReac Type Severity Reaction Status Date / Time mold Allergy Unknown makes Uncoded 01/31/23 08:39 patient feel sick Review of Systems Review of Systems: Yes all other systems are reviewed and are negative PMFSH Past Medical History Medical History (Updated 01/31/23 @ 11:07 by Ed Pop MD) Neck pain Arthritis Hx MRSA infection Hx of suicide attempt Cervical cancer screening Uses Depo-Provera as primary control method Perimenopausal symptoms Skin lesion of right ear Breast cancer screening Breast cancer screening by mammogram Upper back pain Dysphagia Annual physical exam Skin lesion of hand Mass of left hand Well woman exam with routine gynecological exam Altered mental status Depot contraception (~12/26/20) Fall Axillary abscess History of herpes simplex infection Polysubstance abuse Asthma Bipolar disorder Migraine Tobacco abuse ADHD Scoliosis History of drainage of abscess Surgical History History of carpal tunnel surgery History of surgical removal of skin lesion (~06/27/21) History of tonsillectomy Family History Family History Mother In good health Father In good health Maternal Aunt History of breast cancer Maternal Grandmother Pancreatic cancer Social History Social History (Updated 01/23/23 @ 10:27 by Lora Delgado RN) Household Members: Significant Other and None Housing: Apartment Are you a primary manager medicare marketing to a significant other at home: No Do you presently have visiting nurse or other home services: No Unable to assess alcohol history related to: Unknown Alcohol intake: never Patient Tobacco Use Status: Current everyday Tobacco user Tobacco use type: Cigarette Cigarettes Per Day: 3 Years Smoked: 36 Smoked in Last 30 Days: No e-Cigarette/Vaping Use: Never Used Second Hand Smoke Exposure: Yes Use of substances other than those prescribed or required for medical reasons: Unknown Substance Use Type: Marijuana Advance Directives: No Advance Directives Information Provided: No Patient : No service: No Current occupational status: unemployed Sexual orientation: Don't Know Gender identity: Female Cognitive needs: No Hearing needs: No Vision needs: No Physical Exam Vital Signs: Vital Signs: Last Vital Signs Temp 97.4 F 01/31/23 10:26 Pulse 84 01/31/23 10:26 Resp 16 01/31/23 10:26 BP 110/59 L 01/31/23 10:26 Pulse Ox 96 01/31/23 10:26 O2 Del Method Room Air 01/31/23 10:26 BMI result Body Mass Index 26.3 Vital signs were normal Exam General: Awake, alert in no distress Extremities: Patient has significant soft tissue swelling over the right medial malleolus with tenderness with palpation of this area. There is only mild tenderness with palpation of the medial malleolus. Patient has significant pain with inversion of the ankle and with flexion extension of the ankle both passively and actively. Extremities neurovascular intact Psych: Pleasant, cooperative Medications Administered Discontinued Medications Generic Name Dose Route Start Last Admin Trade Name Carlozq PRN Reason Stop Dose Admin Ibuprofen 400 mg 01/31/23 09:42 01/31/23 09:49 Ibuprofen 400 Mg Tablet PO 01/31/23 09:43 400 mg ONCE ONE Administration Medical Decision Making Medical Decision Making MDM Narrative: 52-year-old female who presents emergency department for evaluation of right ankle injury that occurred last night, she describes an inversion injury. The physical examination did reveal significant soft tissue swelling and tenderness with palpation over the lateral malleolus, extremities is neurovascularly intact. Patient's x-ray of the right ankle revealed no acute fracture. Patient's presentation is consistent with right ankle sprain. Patient was placed in an Aircast walking boot and given crutches. She was advised to take Tylenol ibuprofen was also prescribed oxycodone for pain not relieved by these medications. She was given printed and verbal instructions and discharged home. Discharge Plan Discharge Clinical Impression: Inversion sprain of right ankle Qualifiers: Encounter type: initial encounter Qualified Code(s): S93.401A - Sprain of unspecified ligament of right ankle, initial encounter Patient Disposition: Home, Self-Care Instructions: Ankle Sprain (DC), Crutch Instructions (ED), Walking Boot (ED) Additional Instructions: Your x-ray revealed no broken bones which is reassuring. You has significant swelling over the outside of right ankle suggesting that you have a significant sprain of the soft tissues. Where the walking boot for 1 week or until you follow-up with the orthopedic group. Use the crutches to help relieve pain and pressure on the ankle for 1 week or until you follow-up with the orthopedic group Take ibuprofen 200 mg pills, 2pills every 6 hours as needed for pain. Take Tylenol (acetaminophen) 2 pills every 6 hours as needed for pain. For pain not relieved by ibuprofen or Tylenol take morphine 15 mg pills, 1 pill every 4 hours as needed for pain. This medication will make you sleepy, do not drive or work while taking this medication. Morphine is a narcotic medication and can be addicting. If you are concerned about addiction you can ask the pharmacist for less pills or do not get this prescription filled. Follow-up with our on-call orthopedic doctors in 1-2 weeks Please return to the emergency department if your symptoms get worse or if you develop any symptoms that are concerning to you. Prescriptions: New morphine 15 mg tablet 15 mg PO Q4-6H PRN (Reason: pain) Qty: 10 0RF Rx Instructions: The patient may ask for partial fill; Partial Fill upon patient request. No Action gabapentin 300 mg capsule 300 mg PO TID 90 Days Qty: 270 1RF tramadol 50 mg tablet 50 mg PO QID PRN (Reason: pain) 30 Days Qty: 120 2RF polyethylene glycol 3350 [Miralax] 17 gram/dose powder 238 g PO ONCE 1 Days Qty: 238 0RF Rx Instructions: Take as directed by mouth the day before your procedure. amitriptyline 100 mg tablet 1 tab PO BEDTIME clonazepam 1 mg tablet 1 mg PO BEDTIME PRN (Reason: anxiety) Patient Comments: Dr. Dulce Maria Henderson fluoxetine 20 mg capsule 60 mg PO DAILY Latuda 120 mg tablet 120 mg PO DAILY Rx Instructions: must administer with food (at least 350 calories) albuterol sulfate [Ventolin HFA] 90 mcg/actuation HFA aerosol inhaler 2 puff inhalation Q6H PRN (Reason: shortness of breath or wheezing) Qty: 8.5 0RF methocarbamol 500 mg tablet 500 mg PO BID PRN (Reason: pain) Qty: 180 1RF divalproex 500 mg tablet extended release 24 hr 1,000 mg PO BEDTIME Patient Comments: Dr. Dulce Maria Prince fluticasone propionate [Flovent HFA] 110 mcg/actuation HFA aerosol inhaler 2 puff inhalation BID Qty: 12 3RF donepezil 10 mg tablet 10 mg PO DAILY Rx Instructions: Dr. Blanton Ubrelvy 100 mg tablet 100 mg PO DAILY PRN (Reason: Headache) dextroamphetamine-amphetamine 30 mg tablet 1 tab PO BID Interventions: ED Discharge Assessment Last Done: 01/31/23 11:54 Discharge Date/Time: 01/31/23 11:56
== END 2023-01-31 11:56 | disposition home or self-care (01) ==
PROVIDERS: Emergency Provider Emergency Medicine Emergency Medical Services; PCP Internal Medicine
DX: S93.401A Sprain of unspecified ligament of right ankle, initial encounter (principal); X50.1XXA Overexertion from prolonged static or awkward postures, initial encounter; F17.210 Nicotine dependence, cigarettes, uncomplicated; Y93.89 Activity, other specified; Y92.480 Sidewalk as the place of occurrence of the external cause; Y99.9 Unspecified external cause status
CPT/HCPCS: 73610; 99283; 99284

== ENCOUNTER 2023-02-02 10:28 | Outpatient (REF) | payer OTHER, SELFPAY ==
[2023-02-06 11:23] LABS: Immunoglobulin A 149 mg/dL (47-310); Immunoglobulin G 1196 mg/dL (600-1640); Immunoglobulin M 131 mg/dL (50-300)
== END 2023-02-02 10:29 | disposition home or self-care (01) ==
LOC: HO.10HDL 10:28
PROVIDERS: Visit Provider Internal Medicine
DX: D80.9 Immunodeficiency with predominantly antibody defects, unspecified (principal)
CPT/HCPCS: 36415; 82784

== ENCOUNTER 2023-04-26 09:22 | Outpatient (AMB) | payer OTHER, SELFPAY ==
[2023-04-26 09:23] VITALS: BP 130/80; PULSE 100; O2SAT 97; BMI 25.6
--- NOTE | 2023-04-26 09:23 | MHC.PC.OV ---
Vital Signs 04/26/23 09:23 Height 5 ft 5 in Weight 154 lb 0.6 oz BMI 25.6 BP 130/80 Blood Pressure Location Lt brachial Position Sitting Pulse 100 Pulse Source Pulse Oximeter Pulse Oximetry (%) 97 Oxygen Delivery Method Room Air Intake Visit Reasons: Cognitive changes, bipolar, hypercholesterolemia Garage Manager Required: No Allergies mold Allergy (Unknown, Uncoded 04/26/23 09:24) makes patient feel sick Medication List - Last Reconciled 04/26/23 by Isai Sharpe MD albuterol sulfate 90 mcg/actuation (Ventolin HFA) 2 puffs inhalation Q6H PRN amitriptyline 1 tab PO BEDTIME clonazepam 1 mg PO BEDTIME PRN dextroamphetamine-amphetamine 30 mg 1 tab PO BID divalproex ER 1,000 mg PO BEDTIME fluoxetine 60 mg PO DAILY fluticasone propionate 110 mcg/actuation (Flovent HFA) 2 puffs inhalation BID gabapentin 300 mg PO TID 90 days lurasidone (Latuda) 120 mg PO DAILY memantine 5 mg PO DAILY methocarbamol 500 mg PO BID PRN polyethylene glycol 3350 (Miralax) 238 grams PO ONCE 1 day tramadol 50 mg PO QID PRN 30 days ubrogepant (Ubrelvy) 100 mg PO DAILY PRN Tobacco use date assessed: 04/26/23 Dental Screening Dental Screen Date: 04/26/23 Did you have a dental visit in the last 12 months?: Yes Did you have a dental problem in the last 6 months where you did not have access to dental care?: No Was dental information given to patient?: Patient has dentist HPI Cognitive changes, bipolar, hypercholesterolemia HPI Details 52-year-old female smoker with asthma hypercholesterolemia bipolar disorder coming in for follow-up. Last seen in December 2022 mammogram is up-to-date colonoscopy up-to-date. Noted ER visit January ankle injury right soft tissue swelling small plantar calcaneal heel spur but no fracture. Colonoscopy done December tubular adenoma advised repeat in 7-10 years. 4 -5 cigarettes a day.controlled on asthma. for the cofusion- seeing Dr. Blanton and decline CT scan.. continue to ff up with psychiatry. Did not do the blood work requested REPLACED BY [facility] Medical History (Updated 04/26/23 @ 09:39 by Isai Sharpe MD) Neck pain Arthritis Hx MRSA infection Hx of suicide attempt Cervical cancer screening Uses Depo-Provera as primary control method Perimenopausal symptoms Skin lesion of right ear Breast cancer screening Breast cancer screening by mammogram Upper back pain Dysphagia Annual physical exam Skin lesion of hand Mass of left hand Well woman exam with routine gynecological exam Altered mental status Depot contraception (~12/26/20) Fall Axillary abscess History of herpes simplex infection Polysubstance abuse Asthma Bipolar disorder Migraine Tobacco abuse ADHD Scoliosis History of drainage of abscess Surgical History History of carpal tunnel surgery History of surgical removal of skin lesion (~06/27/21) History of tonsillectomy Family History Mother In good health Father In good health Maternal Aunt History of breast cancer Maternal Grandmother Pancreatic cancer Social History (Updated 01/23/23 @ 10:27 by Lora Delgado RN) Household Members: Significant Other and None Housing: Apartment Are you a primary residential care officer to a significant other at home: No Do you presently have visiting nurse or other home services: No Unable to assess alcohol history related to: Unknown Alcohol intake: never Comment: 1:1 sitter for safety Patient Tobacco Use Status: Current everyday Tobacco user Tobacco use type: Cigarette Cigarettes Per Day: 3 Years Smoked: 36 Packs per year/per ci.40 e-Cigarette/Vaping Use: Never Used Second Hand Smoke Exposure: Yes Substance Use Type: Marijuana service: No Current occupational status: unemployed Sexual orientation: Don't Know Gender identity: Female Cognitive needs: No Hearing needs: No Vision needs: No Female Reproductive History Menstrual Age of Menarche: 12 Questionnaire Thrive Questionnaire Date Thrive assessed: 04/26/23 AUDIT C Alcohol Use Questionnaire (AUDIT-C) 1. How often do you have a drink containing alcohol?: Never 3. How often do you have six or more drinks on one occasion?: Never Total Score: 0 JOVAN-7 AMB Questionnaire JOVAN-7 Date JOVAN - 7 assessed: 04/26/23 Feeling nervous, anxious, or on edge: 3 = Nearly every day Not being able to stop or control worryin = Nearly every day Worrying too much about different things: 3 = Nearly every day Trouble relaxin = Not at all Being so restless that it is hard to sit still: 0 = Not at all Becoming easily annoyed or irritable: 0 = Not at all Feeling afraid as if something awful might happen: 0 = Not at all Total JOVAN-7 score (0-4 normal; 5-9 mild; 10-14 moderate; 15-21 severe): 9 Source: Developed by Drs. Dinesh Cadena, Leonora Prince, Shai Shabazz and colleagues, with an educational mariana from [employer]. Physical exam (Primary Care) Vital Signs: Last Vital Signs Pulse 100 04/26/23 09:23 BP 130/80 04/26/23 09:23 Pulse Ox 97 04/26/23 09:23 Oxygen Delivery Method Room Air 04/26/23 09:23 BMI result Body Mass Index 25.6 Tobacco/Smoking Status: Tobacco use Status Tobacco use date assessed 04/26/23 04/26/23 09:24 Patient Tobacco Use Status Current everyday Tobacco 04/26/23 09:24 Tobacco use type Cigarette 04/26/23 09:24 e-Cigarette/Vaping Use Never Used 04/26/23 09:24 Thrive Assessment: Date of Thrive Assessment Date Thrive assessed 04/26/23 04/26/23 09:24 Const General: alert; No acute distress Eyes Conjunctivae: conjunctivae normal Resp Auscultation: clear to auscultation bilaterally Cardio Rate: regular rate Rhythm: regular rhythm GI Inspection: Yes normal to inspection Extrem General: Yes normal to inspection and No edema Assessment and Plan Assessment & Plan (1) Tobacco abuse: Comment: addressed 04/24.- mo'b Code(s): Z72.0 - Tobacco use Plan: Patient has been strongly advised to stop smoking. (2) Asthma: Code(s): J45.909 - Unspecified asthma, uncomplicated Qualifiers: Asthma severity: mild Asthma persistence: intermittent Asthma complication type: uncomplicated Qualified Code(s): J45.20 - Mild intermittent asthma, uncomplicated Plan: Continue with the inhaler as needed on Flovent also advised to rinse mouth after using it (3) Hypercholesterolemia: Code(s): E78.00 - Pure hypercholesterolemia, unspecified Plan: Avoid fried foods, chicken skin, eggs, butter margarine, pastries and meat. Be it pork or beef they have a lot of cholesterol LDL goal of less than 130 and triglyceride of less than 150 (4) Tubular adenoma of colon: Comment: December [address]22 Dr. Giron Code(s): D12.6 - Benign neoplasm of colon, unspecified Plan: Dr. Sebastian 7-10 years (5) Bipolar II disorder: Comment: Autumn Villegas Q month [facility] Psychiatrist and Maame Amos Therapist Q 2-3 week Code(s): F31.81 - Bipolar II disorder Plan: Continue follow-up with counseling and therapy Orders: Orders Comprehensive Met. Panel 3 Months E78.00 - Pure hypercholesterolemia, unspecified Free T4 (Free Thyroxine) 3 Months E78.00 - Pure hypercholesterolemia, unspecified Complete Blood Count Auto Diff 3 Months E78.00 - Pure hypercholesterolemia, unspecified Lipid Panel 3 Months E78.00 - Pure hypercholesterolemia, unspecified Thyroid Stimulating Hormone 3 Months E78.00 - Pure hypercholesterolemia, unspecified Vitamin B12 and Folate 3 Months E78.00 - Pure hypercholesterolemia, unspecified Medications: Discontinued morphine The patient may ask for partial fill; Partial Fill upon patient request. Discontinued Reason: Patient Completed Course 15 mg PO Q4-6H PRN 10 tabs 0RF pain Coding Level of Care Code Est Pt Level 4 (39516) Diagnoses Tobacco abuse Z72.0 Mild intermittent asthma without complication J45.20 Asthma severity: mild Asthma persistence: intermittent Asthma complication type: uncomplicated Hypercholesterolemia E78.00 Tubular adenoma of colon D12.6 Bipolar II disorder F31.81
== END 2023-04-26 09:53 | disposition home or self-care (01) ==
PROVIDERS: PCP Internal Medicine; Visit Provider Internal Medicine
DX: J45.20 Mild intermittent asthma, uncomplicated (principal); F31.81 Bipolar II disorder; E78.00 Pure hypercholesterolemia, unspecified; D12.6 Benign neoplasm of colon, unspecified; F17.210 Nicotine dependence, cigarettes, uncomplicated
CPT/HCPCS: 99214

== ENCOUNTER 2023-04-27 10:12 | Outpatient (AMB) | payer OTHER, SELFPAY ==
--- NOTE | 2023-04-27 10:13 | A.OFFVIS_ITS ---
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 Required: No Information Interpreted: non-clinical & clinical Business Segment Manager: Business Segment Manager Present (Aidyn) Allergies mold Allergy (Unknown, Uncoded 04/27/23 10:15) makes patient feel sick Medication List - Last Reconciled 04/27/23 by Cece Cullen CNM albuterol sulfate 90 mcg/actuation (Ventolin HFA) 2 puffs inhalation Q6H PRN amitriptyline 1 tab PO BEDTIME clonazepam 1 mg PO BEDTIME PRN dextroamphetamine-amphetamine 30 mg 1 tab PO BID divalproex ER 1,000 mg PO BEDTIME epinephrine IM fluoxetine 60 mg PO DAILY fluticasone propionate 110 mcg/actuation (Flovent HFA) 2 puffs inhalation BID gabapentin 300 mg PO TID 90 days lurasidone (Latuda) 120 mg PO DAILY memantine 5 mg PO DAILY methocarbamol 500 mg PO BID PRN polyethylene glycol 3350 (Miralax) 238 grams PO ONCE 1 day tramadol 50 mg PO QID PRN 30 days trazodone 50 mg PO BEDTIME ubrogepant (Ubrelvy) 100 mg PO DAILY PRN Is last menstrual period known: No Post menopausal: Yes Patient : No HPI 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 She had a mammogram last year she said it was normal she sees Dr. Lacy for most of her health needs and she has many other physicians who she sees she still does dai she says she likes it in its addictive. 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 She has not had sex in well over a decade so does not need STI testing she said she has not had a period in very long time either she said she ended up stopping the Depo last year after her visit with me. She has gotten some hot flashes but they seem to be better she will be getting fasting blood work for her primary care provider soon. [facility] Medical History (Updated 04/27/23 @ 10:52 by Cece Cullen CNM) Cervical cancer screening Breast cancer screening Neck pain Arthritis Hx MRSA infection Hx of suicide attempt Uses Depo-Provera as primary control method Perimenopausal symptoms Skin lesion of right ear Breast cancer screening by mammogram Upper back pain Dysphagia Annual physical exam Skin lesion of hand Mass of left hand Well woman exam with routine gynecological exam Altered mental status Depot contraception (~12/26/20) Fall Axillary abscess History of herpes simplex infection Polysubstance abuse Asthma Bipolar disorder Migraine Tobacco abuse ADHD Scoliosis History of drainage of abscess Surgical History History of carpal tunnel surgery History of surgical removal of skin lesion (~06/27/21) History of tonsillectomy Family History Mother In good health Father In good health Maternal Aunt History of breast cancer Maternal Grandmother Pancreatic cancer Social History (Updated 04/27/23 @ 10:18 by AUDELIA Verdugo) Household Members: Significant Other and None Housing: Apartment Are you a primary child caregiver private home to a significant other at home: No Do you presently have visiting nurse or other home services: No Unable to assess alcohol history related to: Unknown Alcohol intake: never Comment: 1:1 sitter for safety Patient Tobacco Use Status: Current everyday Tobacco user Tobacco use type: Cigarette Cigarettes Per Day: 5 Years Smoked: 36 e-Cigarette/Vaping Use: Never Used Second Hand Smoke Exposure: Yes Substance Use Type: Marijuana service: No Current occupational status: unemployed Sexual orientation: Don't Know Gender identity: Female Cognitive needs: No Hearing needs: No Vision needs: No Female Reproductive History Menstrual Age of Menarche: 12 control method: none Total pregnancies: 0 Date of last pap smear: 04/24/22 (negative) History of abnormal pap smear: No Date of Mammogram: 05/08/22 Physical Exam Vital Signs: Last Vital Signs BP 122/64 04/27/23 10:14 BMI result Body Mass Index 26.6 Const Other: Skin is very darkly tanned from tanning booths General: healthy appearing, comfortable, no acute distress, well developed and alert Nutritional Appearance: average body habitus Orientation/consciousness: patient oriented x3 Limitations: no limitations HEENT Head: Yes normocephalic Neck Neck: Yes normal visual inspection Chest Chest palpation & inspection: normal inspection of the chest Breast/axilla inspection: normal inspection of the breasts and normal inspection of the axillae Breast/axilla palpation: normal palpation of the breasts and normal palpation of the axillae Resp Effort & Inspection: normal respiratory effort GI Inspection: Yes normal to inspection, No Abdominal wall edema and No distended Palpation (GI): Soft to palpation and nontender Other: Normal external exam vagina pink cervix pink round moist not tender uterus midposition not enlarged good tone with Kegel. General: Yes bladder normal to palpation External Female Exam: normal external appearance and normal appearance of the urethra Speculum Exam - Vagina: normal appearance of the vagina, normal palpation and normal vaginal discharge Speculum Exam - Cervix: normal appearance of the cervix, normal palpation and nontender Bimanual exam- vagina & uterus: normal bimanual exam, normal palpation, uterine size normal, bladder normal to palpation, consistency normal, normal palpation, uterine mobility normal, uterine shape normal, No Cervical tenderness present, non-tender and no cervical motion tenderness Bimanual Exam- Adnexa, other: normal adnexae, no masses, normal and No adnexal tenderness Neuro General: patient oriented x3 Results Reviewed Results Reviewed: Name: Yoel Gerbre Age/Sex: 51/F Attending: Cece Cullen CNM : 1970 Submitted by: Cece Cullen CNM Copies to: MR #: [id number] Status: DEP REF Collected: 04/24/22 Location: [facility] Received: 04/24/22 Interpretation Satisfactory for evaluation. No endocervical cells seen. Negative for intraepithelial lesion or malignancy. HPV mRNA E6/E7: NOT DETECTED This assay detects E6/E7 viral messenger RNA (mRNA) from 14 high-risk HPV types (16, 18, 31, 33, 35, 39, 45, 51, 52, 56, 58, 59, 66, 68) HPV testing performed by [facility], [place], [place]. See reference laboratory portion of the EMR for entire report. Clinical Information LMP: No menses Previous PAP test: 2018, WNL Material Received ThinPrep-Cervical Electronically Signed By: Cheli Pedraza 05/01/22 1504 The Pap Test is a screening procedure with the inherent possibility of both false negative and false positive results. Results should be interpreted in the context of historic and current clinical findings. Reliability of the Pap Test is enhanced by performing the test on a regular repetitive basis. Patient: Yoel Gerber Age/Sex: 51/F MR#: [id number] Page 1 of 1 \ Patient: Yoel Gerber MR#: [id number] : 1970 Acct:[id number] Age/Sex: 51 / F ADM Date: 05/08/22 Loc: MAMMO Attending Dr: Isai Sharpe MD Ordering Physician: Isai Sharpe MD Results: 1Negative Date of Service: 05/08/22 Follow Up: 1 Year From Original Mammogram Procedure(s): MM tomosynthesis screening BI Accession Number(s): [id number] cc: Isai Sharpe MD~ EXAMINATION: MM SCREENING DIGITAL BREAST TOMOSYNTHESIS, BILATERAL CLINICAL INFORMATION: Screening. Asymptomatic. The lifetime risk of breast cancer based on the Tyrer-Cuzick Model is 16.8%. COMPARISON: Mammography: May 18, 2020 and studies dating back to May 26, 2013 TECHNIQUE: Digital breast tomosynthesis is performed in both the craniocaudal and mediolateral oblique views along with computer-aided detection (CAD). Synthesized 2D images are generated from the tomosynthesis. FINDINGS: The breasts are heterogeneously dense, which may obscure small masses (ACR BI-RADS breast composition Category c). There are no significant masses, abnormal calcifications, or other abnormalities. MM/MM tomosynthesis screening BI IMPRESSION: No significant changes from prior exam. ASSESSMENT: BI-RADS 1: Negative Assessment & Plan Assessment & Plan (1) Breast cancer screening: Code(s): Z12.39 - Encounter for other screening for malignant neoplasm of breast (2) Perimenopause: Code(s): N95.1 - Menopausal and female climacteric states (3) Women's annual routine gynecological examination: Code(s): Z01.419 - Encounter for gynecological examination (general) (routine) without abnormal findings (4) Cervical cancer screening: Comment: 04/24/22 Pap smear is negative with negative HPV. Code(s): Z12.4 - Encounter for screening for malignant neoplasm of cervix Plan .-----Discussed in this visit the following: healthy balanced diet, regular and consistent exercise, getting recommended health screens, doing the best she can for her particular health concerns, kegel exercises, pap smear screening and followup recommendations, mammography screening and SBE, normal changes in cycles in her life stage--- . Reviewed lew menopausal changes in that hot flashes can continue often on for many years. Will get a follicle stimulating hormone test to see where she is in the menopausal range but strongly suspect she is postmenopausal. She will be scheduling her next mammogram when she is notified that it is due which should be coming up soon. She was not due for Pap smears screening as her last Pap last year was negative with negative HPV. Again urged consideration of self-care as regards the tanning and other healthcare issues Orders: Orders Follicle Stimulating Hormone Today N95.1 - Menopausal and female climacteric states, Z01.419 - Encounter for gynecological examination (general) (routine) without abnormal findings Coding Level of Care Code Est Pt Prev Care 40-64y([id number]) Diagnoses Breast cancer screening Z12.39 Perimenopause N95.1 Women's annual routine gynecological examination Z01.419 Cervical cancer screening Z12.4
[2023-04-27 10:14] VITALS: BP 122/64; BMI 26.6
== END 2023-04-27 11:03 | disposition home or self-care (01) ==
LOC: HO.HWSM 10:12
PROVIDERS: PCP Internal Medicine; Visit Provider Advanced Practice Midwife
DX: Z01.419 Encounter for gynecological examination (general) (routine) without abnormal findings (principal); Z12.39 Encounter for other screening for malignant neoplasm of breast; N95.1 Menopausal and female climacteric states; Z12.4 Encounter for screening for malignant neoplasm of cervix
CPT/HCPCS: 99396

== ENCOUNTER → 2023-04-27 10:12 | Outpatient (BNVA) | payer OTHER, SELFPAY | PROVIDERS: PCP Internal Medicine; Visit Provider Advanced Practice Midwife | DX: Z01.411 Encounter for gynecological examination (general) (routine) with abnormal findings (principal); N95.1 Menopausal and female climacteric states | CPT/HCPCS: 99396 ==

== ENCOUNTER 2023-05-02 01:32 | Inpatient (IN) | payer OTHER, SELFPAY ==
[2023-05-02] VITALS (13 sets, daily range): BP systolic 125–162; BP diastolic 64–93; PULSE 84–96; RESP 11–18; TEMP 36.2–36.9; O2SAT 92–98; BMI 25.6
--- NOTE | ~2023-05-02 | CT_ITS ---
EXAMINATION: NONCONTRAST HEAD CT NONCONTRAST MAXILLOFACIAL CT INDICATION INFORMATION: Trauma COMPARISON: 12/25/2020 TECHNIQUE: Separate noncontrast CT examinations of the head and maxillofacial bones were performed. Coronal and sagittal images were created for each examination at the technologist workstation. DOSE LOWERING TECHNIQUES: This CT examination was performed using dose optimization techniques as appropriate, variously including the following: - Automated exposure control - Adjustment of mA and/or kV according to patient size (this includes techniques or standardized protocols for targeted exams were dose is matched to indication/reason for exam; i.e. extremities or head) - Use of iterative reconstruction technique DLP: 796 mGy-cm FINDINGS: Head: There is no evidence of acute intracranial hemorrhage or territorial infarction. No abnormal mass-effect or midline shift is seen. Anna to white matter differentiation is well preserved. No extra-axial fluid collections are identified. The ventricles are normal in size. There is no abnormal attenuation within the brain parenchyma. The osseous structures and soft tissues are normal. The mastoid air cells are well aerated. Maxillofacial: No acute maxillofacial fractures are seen. There is left periorbital soft tissue swelling. Partial opacification of the left sphenoid sinus. Remaining paranasal sinuses are well aerated. The infundibula and middle meati are patent. There is rightward deviation of the nasal septum. The mandibular condyles are well-seated in the condylar fossa. The globes are intact, and there are no suspicious findings to suggest retrobulbar hemorrhage. CT/CT head/brain wo IV con IMPRESSION: No acute intracranial findings. No facial fracture identified. Left periorbital soft tissue swelling.
--- NOTE | ~2023-05-02 | CT_ITS ---
EXAMINATION: NONCONTRAST HEAD CT NONCONTRAST MAXILLOFACIAL CT INDICATION INFORMATION: Trauma COMPARISON: 12/25/2020 TECHNIQUE: Separate noncontrast CT examinations of the head and maxillofacial bones were performed. Coronal and sagittal images were created for each examination at the technologist workstation. DOSE LOWERING TECHNIQUES: This CT examination was performed using dose optimization techniques as appropriate, variously including the following: - Automated exposure control - Adjustment of mA and/or kV according to patient size (this includes techniques or standardized protocols for targeted exams were dose is matched to indication/reason for exam; i.e. extremities or head) - Use of iterative reconstruction technique DLP: 796 mGy-cm FINDINGS: Head: There is no evidence of acute intracranial hemorrhage or territorial infarction. No abnormal mass-effect or midline shift is seen. Anna to white matter differentiation is well preserved. No extra-axial fluid collections are identified. The ventricles are normal in size. There is no abnormal attenuation within the brain parenchyma. The osseous structures and soft tissues are normal. The mastoid air cells are well aerated. Maxillofacial: No acute maxillofacial fractures are seen. There is left periorbital soft tissue swelling. Partial opacification of the left sphenoid sinus. Remaining paranasal sinuses are well aerated. The infundibula and middle meati are patent. There is rightward deviation of the nasal septum. The mandibular condyles are well-seated in the condylar fossa. The globes are intact, and there are no suspicious findings to suggest retrobulbar hemorrhage. CT/CT facial bones wo IV con IMPRESSION: No acute intracranial findings. No facial fracture identified. Left periorbital soft tissue swelling.
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
[2023-05-02 02:27] LABS: MANUAL DIFF FLAG NO
[2023-05-02 02:35] LABS: VBG Base Excess -2.1 mmol/L; VBG HCO3 20 mmol/L (22-26); VBG pCO2 29 mmHg; VBG pH 7.44 (7.32-7.43); VBG pO2 139 mmHg
[2023-05-02 02:38] LABS: Basophils Percent Auto 0.2 % (0-2); Hematocrit 42.9 % (37.0-47.0); Hemoglobin 14.6 g/dl (12.0-16.0); Imm Gran Abs Auto 0.04 X10*3/uL (0.00-0.03); Imm Gran Pct Auto 0.3 % (0.0-0.4); Lymphocytes Absolute Auto 0.8 X10*3/uL (1.2-4.9); Lymphocytes Percent Auto 6.3 % (20-40); Mean Corpuscular Hemoglobin 31.6 pg (27.0-33.0); Mean Corpuscular Volume 92.9 fL (80.0-98.0); Mean Platelet Volume 9.1 fL (9.4-12.3); Monocytes Absolute Auto 0.4 X10*3/uL (0.1-1.2); Monocytes Percent Auto 3.5 % (2-11); Neutrophils Absolute Auto 11.3 x10*3/uL (2.0-8.3); Neutrophils Percent Auto 89.7 % (45-73); Platelet Count 376 X10*3/uL (160-400); Red Blood Count 4.62 X10*6/uL (4.20-5.50); Red Cell Distribution Width 12.5 % (11.0-16.0); White Blood Count 12.6 X10*3/uL (4.8-10.8)
[2023-05-02 02:40] LABS: Venous Blood Gas Refer to POC result
[2023-05-02 02:41] LABS: COVID-19 Test Negative (Negative); IDNOW Serial# 08D9AD1C
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
[2023-05-02 02:49] LABS: Alanine Aminotransferase 16 U/L (0-31); Albumin Level 4.4 g/dL (3.5-5.0); Alkaline Phosphatase 93 U/L (39-117); Anion Gap 17 (12-20); Aspartate Amino Transferase 18 U/L (5-31); Bilirubin Direct < 0.2 mg/dL (0.0-0.5); Bilirubin Total 0.2 mg/dL (0.0-1.0); Blood Urea Nitrogen 9 mg/dL (9-16); Calcium 9.1 mg/dL (8.4-10.2); Carbon Dioxide 18 mmol/L (22-29); Chloride 107 mmol/L (96-108); Creatinine Clr Calc Pharmacy 79.6; Estimated Glomerular Filt Rate > 60; Ethanol < 10 mg/dL; Glucose Random 117 mg/dL (60-115); Magnesium 1.9 mg/dL (1.6-2.6); Potassium 3.7 mmol/L (3.3-5.1); Sodium 138 mmol/L (135-145); Total Protein 7.8 g/dL (6.5-8.0)
[2023-05-02 04:03] LABS: Acetaminophen LAB < 3 mcg/mL (<30); Salicylate < 5.0 mg/dL (15-30)
--- NOTE | 2023-05-02 06:00 | ECG_ITS ---
Test Reason : OVERDOSE Blood Pressure : / mmHG Vent. Rate : 097 BPM Atrial Rate : 097 BPM P-R Int : 136 ms QRS Dur : 100 ms QT Int : 356 ms P-R-T Axes : 070 063 075 degrees QTc Int : 452 ms Normal sinus rhythm Nonspecific ST and T wave abnormality Abnormal ECG When compared with ECG of 25-DEC-2020 16:40, QT has shortened Referred By: Shelia Donaldson Electronically Signed By:LYNN KEBEDE MD
[2023-05-02] MEDS: Acetaminophen 325 MG TABLET 650 MG PO (06:21)
[2023-05-02] MEDS: Magnesium Sulfate/H2O 2 GM/50 ML PIGGYBACK IV (06:21)
[2023-05-02 06:53] LABS: Acetaminophen LAB < 3 mcg/mL (<30); Salicylate < 5.0 mg/dL (15-30)
[2023-05-02 06:53] LABS: Amphetamine Screen Urine POSITIVE (Not Detect); Barbiturates, Urine Not Detected (Not Detect); Benzodiazepines Screen Urine Not Detected (Not Detect); Cannabinoid Screen Urine POSITIVE (Not Detect); Cocaine Screen Urine Not Detected (Not Detect); Fentanyl, urine Not Detected (Not Detect); Opiate Screen Urine Not Detected (Not Detect); Phencyclidine Screen Urine Not Detected (Not Detect)
--- NOTE | 2023-05-02 07:42 | PC.NURSE ---
this RN assumed care, pt alert and oriented. pt denies any pain or complaints at this time.
--- NOTE | 2023-05-02 08:00 | ECG_ITS ---
Test Reason : REPEAT EKG Blood Pressure : / mmHG Vent. Rate : 092 BPM Atrial Rate : 092 BPM P-R Int : 138 ms QRS Dur : 100 ms QT Int : 436 ms P-R-T Axes : 070 074 079 degrees QTc Int : 539 ms Normal sinus rhythm Nonspecific T wave abnormality Prolonged QT Abnormal ECG When compared with ECG of 02-MAY-2023 01:47, QT has lengthened Referred By: Shelia Donaldson Electronically Signed By:LYNN KEBEDE MD
--- NOTE | 2023-05-02 08:05 | PC.NURSE ---
CARE team at bedside
--- NOTE | 2023-05-02 08:26 | PC.NURSE ---
Pharmacy called for med rec
--- NOTE | 2023-05-02 09:01 | PC.NURSE ---
Report given to JEROME Green in the pod.
--- NOTE | 2023-05-02 09:09 | PHA.MEDREC ---
Pharmacy Consult ? Medication Reconciliation Pharmacy has completed the medication reconciliation through claims and confirmed by patient. Pt was able to recall most medications, Adderall claims indicated twice daily but pt stated she doesn't always take the second tablet, also said she takes clonazepam 1 tablet twice daily as needed, different from claims that indicated 1.5 tablets BID PRN. Also denied using medroxyprogesterone anymore.
--- NOTE | 2023-05-02 09:22 | PC.NURSE ---
Pt moved to 7 from RM 12, report taken from Kimberly RN, assumed care of pt at this time. Pt ambulatory with steady gait, A&Ox3 skin pwd respirations even unlabored. IPBS per Care Team. Offers no complaints, on continuous video monitoring in POD, safety maintained.
[2023-05-02 09:40] LABS: Appearance Urine Clear; Color Urine Yellow; Glucose Urine UA Negative (Negative); Leukocyte Esterase Urine Negative (Negative); Nitrite Urine Negative (Negative); Urine Blood Negative (Negative); Urine Ketones Negative (Negative); Urine Protein Negative (Neg-Trace)
[2023-05-02 09:45] LABS: Bacteria Urine None Seen (None Seen); Hyaline Casts Urine 0-2 /LPF (0-2); RBC Urine 0-2 /HPF (0-2); Squamous Epithelial Cell Urine 0-2 /HPF (0-2); WBC Urine 0-5 /HPF (0-5)
--- NOTE | 2023-05-02 10:46 | PC.NURSE ---
Pt visiting in common area with mom. Calm cooperative, in behavioral control, offers no complaints. Continuous video monitoring in pod, safety maintained. IPBS continues.
--- NOTE | 2023-05-02 11:07 | PC.NURSE ---
Report given to Kerry CANO pt exits my care at this time.
--- NOTE | 2023-05-02 14:14 | PC.NURSE ---
Report given to Kim CANO on M5
--- NOTE | 2023-05-02 14:17 | PC.NURSE ---
Offered Scheduled AM Meds x 2. Patient refused i'll just wait .
--- NOTE | 2023-05-02 15:04 | HE.PHANOTE ---
confirmed with Dr. Rodríguez that he wanted trazodone 50 mg pablo and trazodone 50 mg mrx1 prn both active for this patient
--- NOTE | 2023-05-02 17:03 | PC.NURSE ---
pt arrived on the unit on a CV via wheelchair. Skin check performed. Right eye noted to be slightly swollen and bruised with several small scratches both above and below the eye. The pt reported the injury happened when she hit her eye on an end table when she fell out of bed. Vitals taken and WNL. Menu for dinner and tomorrow completed. Admission assessment to be performed
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
[2023-05-02] MEDS: Amitriptyline HCl 50 MG TABLET 100 MG PO (20:49)
[2023-05-02] MEDS: Divalproex Sodium ER 500 MG TAB.ER.24H PO (20:49)
[2023-05-02] MEDS: traZODone HCL 50 MG TABLET PO (20:50)
[2023-05-02] MEDS: Gabapentin 300 MG CAPSULE PO (20:50)
[2023-05-02] MEDS: clonazePAM 1 MG TABLET PO (20:57)
[2023-05-03 08:00] VITALS: BP 122/63; PULSE 95; RESP 16; TEMP 37; O2SAT 96
--- NOTE | 2023-05-03 09:00 | ECG_ITS ---
Test Reason : QTC Blood Pressure : / mmHG Vent. Rate : 089 BPM Atrial Rate : 089 BPM P-R Int : 134 ms QRS Dur : 096 ms QT Int : 364 ms P-R-T Axes : 067 069 078 degrees QTc Int : 442 ms Normal sinus rhythm Nonspecific T wave abnormality Abnormal ECG When compared with ECG of 02-MAY-2023 06:07, Nonspecific T wave abnormality, improved in Lateral leads QT has shortened Referred By: Bjorn Rodríguez Electronically Signed By:LYNN KEBEDE MD
[2023-05-03 09:26] LABS: Estimated Average Glucose 100 mg/dL; Hemoglobin A1c % 5.1 % (<6.0)
[2023-05-03] MEDS: FLUoxetine HCl 20 MG CAPSULE 60 MG PO (09:38)
[2023-05-03] MEDS: Lurasidone HCl 40 MG TABLET 120 MG PO (09:38)
[2023-05-03] MEDS: Memantine HCl 5 MG TABLET PO (09:39)
[2023-05-03] MEDS: Gabapentin 300 MG CAPSULE PO ×3 (09:40→19:46)
[2023-05-03] MEDS: clonazePAM 1 MG TABLET PO ×2 (09:40→19:46)
[2023-05-03 09:42] LABS: Cholesterol 229 mg/dL (<200); HDL Cholesterol 52 mg/dL (>40); LDL Cholesterol Calculated 154 mg/dL (<100); Triglycerides 119 mg/dL (<150)
[2023-05-03 09:52] LABS: TSH reflex Free T4 0.72 uIU/mL (0.32-4.0)
[2023-05-03] MEDS: Fluticasone Propionate 100 MCG BLST.W.DEV 2 PUFF INHALE (10:21)
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
[2023-05-03 12:39] VITALS: BMI 26.1
[2023-05-03 18:00] VITALS: BP 105/70; PULSE 83; RESP 16; TEMP 36.2; O2SAT 99
[2023-05-03] MEDS: Amitriptyline HCl 50 MG TABLET 100 MG PO (19:45)
[2023-05-03] MEDS: traZODone HCL 50 MG TABLET PO (19:46)
[2023-05-03] MEDS: Divalproex Sodium ER 500 MG TAB.ER.24H PO (19:46)
[2023-05-04 08:00] VITALS: BP 106/74; PULSE 84; RESP 16; TEMP 36.4; O2SAT 99
[2023-05-04] MEDS: FLUoxetine HCl 20 MG CAPSULE 60 MG PO (08:38)
[2023-05-04] MEDS: Lurasidone HCl 40 MG TABLET 120 MG PO (08:39)
[2023-05-04] MEDS: Gabapentin 300 MG CAPSULE PO ×3 (08:39→21:34)
[2023-05-04] MEDS: Memantine HCl 5 MG TABLET PO (08:39)
[2023-05-04] MEDS: clonazePAM 1 MG TABLET PO ×2 (08:39→21:34)
[2023-05-04] MEDS: Fluticasone Propionate 100 MCG BLST.W.DEV 2 PUFF INHALE (08:40)
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
[2023-05-04 21:30] VITALS: BP 100/58; PULSE 80; RESP 16; TEMP 36.2; O2SAT 97
[2023-05-04] MEDS: Amitriptyline HCl 50 MG TABLET 100 MG PO (21:34)
[2023-05-04] MEDS: Divalproex Sodium ER 500 MG TAB.ER.24H PO (21:34)
[2023-05-04] MEDS: traZODone HCL 50 MG TABLET PO (21:34)
[2023-05-05 08:00] VITALS: BP 120/72; PULSE 83; RESP 18; TEMP 36; O2SAT 98
[2023-05-05] MEDS: Fluticasone Propionate 100 MCG BLST.W.DEV 2 PUFF INHALE (08:41)
[2023-05-05] MEDS: Lurasidone HCl 40 MG TABLET 120 MG PO (08:42)
[2023-05-05] MEDS: FLUoxetine HCl 20 MG CAPSULE 60 MG PO (08:42)
[2023-05-05] MEDS: Gabapentin 300 MG CAPSULE PO ×3 (08:42→20:47)
[2023-05-05] MEDS: Amphetamine Mixed Salts 10 MG TABLET 30 MG PO (08:42)
[2023-05-05] MEDS: Memantine HCl 5 MG TABLET PO (08:42)
[2023-05-05] MEDS: clonazePAM 1 MG TABLET PO ×2 (08:52→20:47)
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
[2023-05-05 20:30] VITALS: BP 107/60; PULSE 85; TEMP 36.6; O2SAT 97
[2023-05-05] MEDS: Amitriptyline HCl 50 MG TABLET 100 MG PO (20:47)
[2023-05-05] MEDS: traZODone HCL 50 MG TABLET PO (20:47)
[2023-05-05] MEDS: Divalproex Sodium ER 500 MG TAB.ER.24H PO (20:47)
[2023-05-06] MEDS: Gabapentin 300 MG CAPSULE PO ×2 (08:31→20:35)
[2023-05-06] MEDS: Fluticasone Propionate 100 MCG BLST.W.DEV 2 PUFF INHALE ×2 (08:31→20:37)
[2023-05-06] MEDS: Amphetamine Mixed Salts 10 MG TABLET 30 MG PO (08:31)
[2023-05-06] MEDS: Memantine HCl 5 MG TABLET PO (08:31)
[2023-05-06] MEDS: FLUoxetine HCl 20 MG CAPSULE 60 MG PO (08:32)
[2023-05-06 08:35] VITALS: BP 131/80; PULSE 86; RESP 18; TEMP 36.4; O2SAT 100
[2023-05-06] MEDS: Lurasidone HCl 40 MG TABLET 120 MG PO (08:37)
[2023-05-06] MEDS: clonazePAM 1 MG TABLET PO ×2 (08:41→20:35)
[2023-05-06] MEDS: Acetaminophen 325 MG TABLET 650 MG PO (08:57)
[2023-05-06] MEDS: Ibuprofen 600 MG TABLET PO (11:46)
[2023-05-06] MEDS: Lidocaine 4 % Patch ADH..PATCH 2 PATCH TRANSDERMA (12:13)
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
[2023-05-06 18:00] VITALS: BP 131/72; PULSE 88; RESP 18; TEMP 37; O2SAT 100
[2023-05-06] MEDS: traZODone HCL 50 MG TABLET PO ×2 (20:35)
[2023-05-06] MEDS: Divalproex Sodium ER 500 MG TAB.ER.24H PO (20:35)
[2023-05-06] MEDS: Amitriptyline HCl 50 MG TABLET 100 MG PO (20:35)
[2023-05-07 08:38] VITALS: BP 124/70; PULSE 87; RESP 16; TEMP 36.8; O2SAT 100
[2023-05-07] MEDS: clonazePAM 1 MG TABLET PO ×2 (08:56→19:49)
[2023-05-07] MEDS: Fluticasone Propionate 100 MCG BLST.W.DEV 2 PUFF INHALE ×2 (08:56→19:49)
[2023-05-07] MEDS: Memantine HCl 5 MG TABLET PO (08:56)
[2023-05-07] MEDS: Gabapentin 300 MG CAPSULE PO ×3 (08:56→19:49)
[2023-05-07] MEDS: FLUoxetine HCl 20 MG CAPSULE 60 MG PO (08:56)
[2023-05-07] MEDS: Lurasidone HCl 40 MG TABLET 120 MG PO (08:56)
[2023-05-07] MEDS: Lidocaine 4 % Patch ADH..PATCH 2 PATCH TRANSDERMA (09:04)
[2023-05-07] MEDS: Amphetamine Mixed Salts 10 MG TABLET 30 MG PO (09:05)
[2023-05-07] MEDS: Acetaminophen 325 MG TABLET 650 MG PO ×2 (09:05→15:17)
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
[2023-05-07 18:00] VITALS: BP 129/72; PULSE 86; RESP 18; TEMP 36.5; O2SAT 96
[2023-05-07] MEDS: Amitriptyline HCl 50 MG TABLET 100 MG PO (19:49)
[2023-05-07] MEDS: traZODone HCL 50 MG TABLET PO (19:49)
[2023-05-07] MEDS: Divalproex Sodium ER 500 MG TAB.ER.24H PO (19:50)
[2023-05-08 08:00] VITALS: BP 119/68; PULSE 89; RESP 16; TEMP 36.2; O2SAT 99
[2023-05-08] MEDS: FLUoxetine HCl 20 MG CAPSULE 60 MG PO (08:58)
[2023-05-08] MEDS: Amphetamine Mixed Salts 10 MG TABLET 30 MG PO (08:59)
[2023-05-08] MEDS: Lurasidone HCl 40 MG TABLET 120 MG PO (09:00)
[2023-05-08] MEDS: Gabapentin 300 MG CAPSULE PO ×3 (09:00→20:13)
[2023-05-08] MEDS: clonazePAM 1 MG TABLET PO ×2 (09:00→20:16)
[2023-05-08] MEDS: Memantine HCl 5 MG TABLET PO (09:01)
[2023-05-08] MEDS: Acetaminophen 325 MG TABLET 650 MG PO (09:01)
[2023-05-08] MEDS: Fluticasone Propionate 100 MCG BLST.W.DEV 2 PUFF INHALE (09:02)
[2023-05-08] MEDS: Lidocaine 4 % Patch ADH..PATCH 2 PATCH TRANSDERMA (09:03)
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
[2023-05-08 18:00] VITALS: BP 107/59; PULSE 89; RESP 18; TEMP 37.2; O2SAT 98
[2023-05-08] MEDS: traZODone HCL 50 MG TABLET PO (20:13)
[2023-05-08] MEDS: Divalproex Sodium ER 500 MG TAB.ER.24H PO (20:13)
[2023-05-08] MEDS: Amitriptyline HCl 50 MG TABLET 100 MG PO (20:13)
[2023-05-09 08:00] VITALS: BP 129/69; PULSE 87; RESP 16; TEMP 36.4; O2SAT 98
[2023-05-09] MEDS: Lurasidone HCl 40 MG TABLET 120 MG PO (08:45)
[2023-05-09] MEDS: FLUoxetine HCl 20 MG CAPSULE 60 MG PO (08:45)
[2023-05-09] MEDS: Gabapentin 300 MG CAPSULE PO (08:46)
[2023-05-09] MEDS: Memantine HCl 5 MG TABLET PO (08:46)
[2023-05-09] MEDS: Amphetamine Mixed Salts 10 MG TABLET 30 MG PO (08:46)
[2023-05-09] MEDS: clonazePAM 1 MG TABLET PO (08:47)
[2023-05-09] MEDS: Acetaminophen 325 MG TABLET 650 MG PO (08:47)
[2023-05-09] MEDS: Fluticasone Propionate 100 MCG BLST.W.DEV 2 PUFF INHALE (08:48)
[2023-05-09] MEDS: Lidocaine 4 % Patch ADH..PATCH 2 PATCH TRANSDERMA (08:48)
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
== END 2023-05-09 11:15 | disposition home or self-care (01) | DRG 751 ==
LOC: HO.ED 09:13 → HO.PM5 14:50
PROVIDERS: Emergency Medicine; Admitting Provider Psychiatry & Neurology Psychiatry; Emergency Provider Emergency Medicine Emergency Medical Services; PCP Internal Medicine; Visit Provider Psychiatry & Neurology Psychiatry
DX: F33.2 Major depressive disorder, recurrent severe without psychotic features (principal); F03.90 Unspecified dementia, unspecified severity, without behavioral disturbance, psychotic disturbance, mood disturbance, and anxiety; F17.210 Nicotine dependence, cigarettes, uncomplicated; T42.8X2A Poisoning by antiparkinsonism drugs and other central muscle-tone depressants, intentional self-harm, initial encounter; F90.9 Attention-deficit hyperactivity disorder, unspecified type; G43.909 Migraine, unspecified, not intractable, without status migrainosus; Z71.6 Tobacco abuse counseling; Z20.822 Contact with and (suspected) exposure to COVID-19; Z62.811 Personal history of psychological abuse in childhood; Z79.51 Long term (current) use of inhaled steroids; Z79.899 Other long term (current) drug therapy
CPT/HCPCS: 36415; 70450; 70486; 80048; 80061; 80076; 80143; 80179; 80307; 81001; 82803; 83036; 83735; 84443; 85025; 87635; 93005; 99285; J3475; S9485

== ENCOUNTER → 2023-05-02 06:00 | Outpatient (BNV) | payer OTHER, SELFPAY | PROVIDERS: Emergency Provider Emergency Medicine Emergency Medical Services; PCP Internal Medicine; Visit Provider Internal Medicine Cardiovascular Disease | DX: R94.31 Abnormal electrocardiogram [ECG] [EKG] (principal); I45.81 Long QT syndrome | CPT/HCPCS: 93010 ==

== ENCOUNTER 2023-05-02 14:43 | Outpatient (BNV) | payer OTHER, SELFPAY | END 2023-05-03 09:00 | PROVIDERS: Admitting Provider Psychiatry & Neurology Psychiatry; Emergency Provider Emergency Medicine Emergency Medical Services; PCP Internal Medicine; Visit Provider Internal Medicine Cardiovascular Disease | DX: R94.31 Abnormal electrocardiogram [ECG] [EKG] (principal); R41.89 Other symptoms and signs involving cognitive functions and awareness | CPT/HCPCS: 93010 ==

== ENCOUNTER → 2023-05-02 14:43 | Outpatient (BNV) | payer OTHER, SELFPAY | PROVIDERS: Admitting Provider Psychiatry & Neurology Psychiatry; Emergency Provider Emergency Medicine Emergency Medical Services; PCP Internal Medicine; Visit Provider Psychiatry & Neurology Psychiatry | DX: F33.2 Major depressive disorder, recurrent severe without psychotic features (principal); R41.89 Other symptoms and signs involving cognitive functions and awareness; G43.009 Migraine without aura, not intractable, without status migrainosus | CPT/HCPCS: 90792; 99231; 99232; 99238 ==

== ENCOUNTER 2023-05-14 15:09 | Outpatient (REF) | payer OTHER, SELFPAY | END 2023-05-14 15:10 | disposition home or self-care (01) | LOC: HO.MAMMO 15:09 | PROVIDERS: Absent Provider Internal Medicine; PCP Internal Medicine | DX: Z12.31 Encounter for screening mammogram for malignant neoplasm of breast (principal) | CPT/HCPCS: 77063; 77067 ==

== ENCOUNTER → 2023-05-14 15:15 | Outpatient (BNV) | payer OTHER, SELFPAY | PROVIDERS: Absent Provider Internal Medicine; PCP Internal Medicine; Visit Provider Radiology Diagnostic Radiology | DX: Z12.31 Encounter for screening mammogram for malignant neoplasm of breast (principal) | CPT/HCPCS: 77063; 77067 ==

== ENCOUNTER 2023-05-22 08:43 | Outpatient (AMB) | payer OTHER, SELFPAY ==
[2023-05-22 08:45] VITALS: BP 110/72; PULSE 93; O2SAT 98; BMI 25.5
--- NOTE | 2023-05-22 08:45 | A.OFFPC_ITS ---
Vital Signs 05/22/23 08:45 Height 5 ft 5 in Weight 153 lb BMI 25.5 BP 110/72 Blood Pressure Location Lt brachial Position Sitting Pulse 93 Pulse Source Pulse Oximeter Pulse Oximetry (%) 98 Oxygen Delivery Method Room Air Intake Visit Reasons: Depression Intake Note: Patient is here to follow up on depression Guest Service Representative Required: No Allergies mold Allergy (Unknown, Uncoded 05/22/23 08:45) makes patient feel sick Medication List - Last Reconciled 05/22/23 by Isai Sharpe MD acetaminophen 325 mg PO DAILY PRN albuterol sulfate 90 mcg/actuation (Ventolin HFA) 2 puffs inhalation Q6H PRN amitriptyline 100 mg PO BEDTIME 30 days clonazepam 1 mg PO BID PRN dextroamphetamine-amphetamine 30 mg 1 tab PO DAILY@1500 PRN dextroamphetamine-amphetamine 30 mg 1 tab PO DAILY divalproex ER 500 mg PO BEDTIME 30 days fluoxetine 60 mg (3 x 20 mg) PO DAILY 30 days fluticasone propionate 110 mcg/actuation (Flovent HFA) 2 puffs inhalation BID gabapentin 300 mg PO TID 90 days lidocaine 4% (Lidocaine Pain Relief) 2 patches See Protocol transdermal DAILY PRN 30 days lurasidone 120 mg PO DAILY 30 days memantine 5 mg PO DAILY 30 days tramadol 50 mg PO QID PRN 30 days trazodone 50 mg PO BEDTIME 30 days ubrogepant (Ubrelvy) 100 mg PO DAILY PRN 30 days Tobacco use date assessed: 05/22/23 HPI Depression HPI Details 52-year-old female smoker with asthma hy percholesterolemia and bipolar disorder coming in for follow-up. Last seen in April 2023. Review of the notes patient was in psychiatric inpatient 05/02/2023 major depressive disorder recurrent severe without psychotic features in full remission has been referred to [facility] . She had intentional overdose and suicide attempt in face of ongoing depression. Patient is here for follow-up. [facility] Medical History (Updated 05/17/23 @ 00:04 by Background Tyrese) MDD (major depressive disorder), recurrent episode, severe Cervical cancer screening Breast cancer screening Neck pain Arthritis Hx MRSA infection Hx of suicide attempt Uses Depo-Provera as primary control method Perimenopausal symptoms Skin lesion of right ear Breast cancer screening by mammogram Upper back pain Dysphagia Annual physical exam Skin lesion of hand Mass of left hand Well woman exam with routine gynecological exam Altered mental status Depot contraception (~12/26/20) Fall Axillary abscess History of herpes simplex infection Polysubstance abuse Asthma Bipolar disorder Migraine Tobacco abuse ADHD Scoliosis History of drainage of abscess Surgical History History of carpal tunnel surgery History of surgical removal of skin lesion (~06/27/21) History of tonsillectomy Family History Mother In good health Father In good health Maternal Aunt History of breast cancer Maternal Grandmother Pancreatic cancer Social History Household Members: Significant Other Household Members Other:: Andrew (Boyfriend) Housing: House Are you a primary healthcare manager to a significant other at home: No Do you presently have visiting nurse or other home services: No Unable to assess alcohol history related to: Unknown Alcohol intake: never Comment: 1:1 sitter for safety Patient Tobacco Use Status: Current everyday Tobacco user Tobacco use type: Cigarette Cigarettes Per Day: 4 Years Smoked: 36 Packs per year/per ci.20 e-Cigarette/Vaping Use: Never Used Second Hand Smoke Exposure: No Substance Use Type: Marijuana service: No Current occupational status: unemployed Sexual orientation: Straight/Heterosexual Gender identity: Female Cognitive needs: No Hearing needs: No Vision needs: No Female Reproductive History Menstrual Age of Menarche: 12 Questionnaire PHQ-9 Over the last 2 weeks, how often have you been bothered by any of the following problems? 1. Little interest or pleasure in doing things: several days 2. Feeling down, depressed, or hopeless: several days 3. Trouble falling or staying asleep, or sleeping too much: not at all 4. Feeling tired or having little energy: not at all 5. Poor appetite or overeating: not at all 6. Feeling bad about yourself - or that you are a failure or have let yourself or your family down: several days 7. Trouble concentrating on things, such as reading the newspaper or watching television: not at all 8. Moving or speaking so slowly that other people could have noticed. Or the opposite - being so fidgety or restless that you have been moving around a lot more than usual: not at all 9. Thoughts that you would be better off or of hurting yourself in some way: not at all Total score: 3 Depression Screening Interpretation: Positive Depression Screening Done: Yes Source: Developed by Drs. Dinesh Cadena, Leonora Prince, Shai Shabazz and colleagues, with an educational mariana from [employer]. Thrive Questionnaire Date Thrive assessed: 05/03/23 AUDIT C Alcohol Use Questionnaire (AUDIT-C) 1. How often do you have a drink containing alcohol?: Never 3. How often do you have six or more drinks on one occasion?: Never Total Score: 0 JOVAN-7 AMB Questionnaire JOVAN-7 Date JOVAN - 7 assessed: 04/26/23 Feeling nervous, anxious, or on edge: 3 = Nearly every day Not being able to stop or control worryin = Nearly every day Worrying too much about different things: 3 = Nearly every day Trouble relaxin = Not at all Being so restless that it is hard to sit still: 0 = Not at all Becoming easily annoyed or irritable: 0 = Not at all Feeling afraid as if something awful might happen: 0 = Not at all Total JOVAN-7 score (0-4 normal; 5-9 mild; 10-14 moderate; 15-21 severe): 9 Source: Developed by Drs. Dinesh Cadena, Leonora Prince, Shai Shabazz and colleagues, with an educational mariana from [employer]. Physical exam (Primary Care) Vital Signs: Last Vital Signs Pulse 93 05/22/23 08:45 BP 110/72 05/22/23 08:45 Pulse Ox 98 05/22/23 08:45 Oxygen Delivery Method Room Air 05/22/23 08:45 BMI result Body Mass Index 25.5 Tobacco/Smoking Status: Tobacco use Status Tobacco use date assessed 05/22/23 05/22/23 08:50 Patient Tobacco Use Status Current everyday Tobacco 05/22/23 08:50 Tobacco use type Cigarette 05/22/23 08:50 e-Cigarette/Vaping Use Never Used 05/22/23 08:50 PHQ-9: PHQ-9 Score PHQ-9: Total score 3 05/22/23 08:50 Depression Screening Interpretation: Positive Thrive Assessment: Date of Thrive Assessment Date Thrive assessed 05/03/23 05/22/23 08:50 Const General: alert; No acute distress Eyes Conjunctivae: conjunctivae normal Resp Auscultation: clear to auscultation bilaterally Cardio Rate: regular rate Rhythm: regular rhythm GI Inspection: Yes normal to inspection Extrem General: Yes normal to inspection and No edema Assessment and Plan Assessment & Plan (1) MDD (major depressive disorder), recurrent episode, severe: Comment: R/O bipolar Code(s): F33.2 - Major depressive disorder, recurrent severe without psychotic features Plan: Continue to follow-up with psychiatry and counseling (2) Tobacco abuse: Comment: addressed 04/24.- mo'b Code(s): Z72.0 - Tobacco use Plan: Patient is strongly advised to stop (3) Asthma: Code(s): J45.909 - Unspecified asthma, uncomplicated Qualifiers: Asthma severity: mild Asthma persistence: intermittent Asthma complication type: uncomplicated Qualified Code(s): J45.20 - Mild intermittent asthma, uncomplicated Plan: Continue with inhaler and stop smoking! (4) Hypercholesterolemia: Code(s): E78.00 - Pure hypercholesterolemia, unspecified Plan: Avoid fried foods, chicken skin, eggs, butter margarine, pastries and meat. Be it pork or beef they have a lot of cholesterol Coding Level of Care Code Est Pt Level 4 (65928) Diagnoses MDD (major depressive disorder), recurrent episode, severe F33.2 Tobacco abuse Z72.0 Mild intermittent asthma without complication J45.20 Asthma severity: mild Asthma persistence: intermittent Asthma complication type: uncomplicated Hypercholesterolemia E78.00
== END 2023-05-22 09:36 | disposition home or self-care (01) ==
PROVIDERS: PCP Internal Medicine; Visit Provider Internal Medicine
DX: F33.2 Major depressive disorder, recurrent severe without psychotic features (principal); Z72.0 Tobacco use; J45.20 Mild intermittent asthma, uncomplicated; E78.00 Pure hypercholesterolemia, unspecified
CPT/HCPCS: 99214

== ENCOUNTER 2023-06-30 17:53 | Emergency (ER) | payer OTHER, SELFPAY ==
--- NOTE | 2023-06-30 18:11 | ED_ITS ---
HPI - General Adult General Chief complaint: Behavioral Concerns Stated complaint: SI Time Seen by Provider: 06/30/23 18:17 Source: patient Mode of arrival: ambulatory Limitations: no limitations History of Present Illness HPI narrative: Patient is a 52 year old assigned female at with a history of MDD presenting to the emergency department today with increased depression. Patient states that she isn't suicidal but her boyfriend has concerns that she is. Patient states that she is more depressed. Patient denies any dizziness, lightheadedness, abdominal pain, nausea, vomiting, fever, chills, blurry vision, double vision, loss of vision, chest pain, difficulty breathing, shortness of breath, back pain, night sweats, pain with urination, increased urinary frequency, increased urinary urgency, blood in her urine or stool, syncope or a near syncopal episode, recent trauma or falls, bowel incontinence, bladder incontinence, bowel retention, bladder retention, or any other complaints at this time. Relieving factors: none Exacerbating factors: none Associated symptoms: denies other symptoms Treatments prior to arrival: none Related Data Home Medications Medication Instructions Recorded Confirmed clonazepam 1 mg tablet 1 mg PO BID PRN anxiety 12/30/21 06/30/23 dextroamphetamine-amphetamine 30 1 tab PO DAILY 03/06/22 06/30/23 mg tablet dextroamphetamine-amphetamine 30 1 tab PO DAILY@1500 PRN ADHD 05/02/23 06/30/23 mg tablet Previous Rx's Medication Instructions Recorded fluticasone propionate 110 2 puff inhalation BID #12 grams 09/18/22 mcg/actuation HFA aerosol inhaler (Flovent HFA) tramadol 50 mg tablet 50 mg PO QID PRN pain 30 days #120 04/03/23 tabs lidocaine 4 % topical patch 2 patch transdermal DAILY PRN b/l 05/08/23 (Lidocaine Pain Relief) shoulder pain 30 days #60 ea albuterol sulfate 90 mcg/actuation 2 puff inhalation Q6H PRN 05/09/23 aerosol inhaler (Ventolin HFA) shortness of breath or wheezing #8.5 grams amitriptyline 100 mg tablet 100 mg PO BEDTIME 30 days #30 tabs 05/09/23 divalproex 500 mg tablet,extended 500 mg PO BEDTIME 30 days #30 tabs 05/09/23 release 24 hr fluoxetine 20 mg capsule 60 mg (3 x 20 mg) PO DAILY 05/09/23 depressive disorder 30 days #90 caps gabapentin 300 mg capsule 300 mg PO TID 90 days #270 caps 05/09/23 lurasidone 120 mg tablet 120 mg PO DAILY 30 days #30 tabs 05/09/23 memantine 5 mg tablet 5 mg PO DAILY 30 days #30 tabs 05/09/23 trazodone 50 mg tablet 50 mg PO BEDTIME 30 days #30 tabs 05/09/23 ubrogepant 100 mg tablet (Ubrelvy) 100 mg PO DAILY PRN Headache 30 05/09/23 days #30 tabs Allergies Allergy/AdvReac Type Severity Reaction Status Date / Time mold Allergy Unknown makes Uncoded 05/22/23 08:45 patient feel sick Review of Systems 2 Constitutional: Constitutional: Reports no additional constitutional complaints, Denies chills, Denies fever(s) and Denies night sweats Eyes: Eyes: Reports no additional eye complaints, Denies blurry vision, Denies change in vision, Denies diplopia, Denies eye discharge, Denies loss of vision and Denies eye pain ENT: Denies dizziness Cardiovascular: Cardiovascular: Reports no additional cardiovascular complaints, Denies chest pain, Denies lightheadedness, Denies Loss of Consciousness and Denies dyspnea Respiratory: Respiratory: Reports no additional respiratory complaints and Denies dyspnea Gastrointestinal: Gastrointestinal: Reports no additional gastrointestinal complaints, Denies abdominal pain, Denies melena, Denies hematochezia, Denies change in bowel habits and Denies change in stool character Genitourinary: Genitourinary: Denies hematuria, Denies urinary frequency, Denies dysuria, Denies urinary incontinence, Denies urinary hesitancy and Denies urinary urgency Musculoskeletal: Musculoskeletal: Reports no additional musculoskeletal complaints, Denies numbness and Denies tingling Neurologic: Denies dizziness, Denies loss of vision, Denies numbness and Denies tingling Psychiatric: Psychiatric: Reports depression and Denies homicidal ideation Endocrine: Endocrine: Reports no additional endocrine complaints Hematologic/Lymphatic: Hematologic/Lymphatic: Reports no additional hematologic/lymphatic complaints Allergic/Immunologic: Allergic/Immunologic: Reports no additional allergic/immunologic complaints PMFSH Past Medical History Attestation statement: The following information was validated with the patient. Source: old records reviewed and nursing notes reviewed Medical History Women's annual routine gynecological examination Cervical cancer screening Breast cancer screening Annual physical exam Carpal tunnel syndrome, right Distal radius fracture, right Fracture of wrist Left foot pain Knee pain, right MDD (major depressive disorder), recurrent episode, severe Neck pain Arthritis Hx MRSA infection Hx of suicide attempt Uses Depo-Provera as primary control method Perimenopausal symptoms Skin lesion of right ear Breast cancer screening by mammogram Upper back pain Dysphagia Skin lesion of hand Mass of left hand Well woman exam with routine gynecological exam Altered mental status Depot contraception (~12/26/20) Fall Axillary abscess History of herpes simplex infection Polysubstance abuse Asthma Bipolar disorder Migraine Tobacco abuse ADHD Scoliosis History of drainage of abscess Surgical History History of carpal tunnel surgery History of surgical removal of skin lesion (~06/27/21) History of tonsillectomy Family History Family History Mother In good health Father In good health Maternal Aunt History of breast cancer Maternal Grandmother Pancreatic cancer Social History Social History Household Members: Significant Other Household Members Other:: Andrew (Boyfriend) Housing: House Are you a primary patient care secretary to a significant other at home: No Do you presently have visiting nurse or other home services: No Unable to assess alcohol history related to: Unknown Alcohol intake: never Comment: 1:1 sitter for safety Patient Tobacco Use Status: Current everyday Tobacco user Tobacco use type: Cigarette Cigarettes Per Day: 4 Years Smoked: 36 e-Cigarette/Vaping Use: Never Used Second Hand Smoke Exposure: No Substance Use Type: Marijuana Advance Directives: No Advance Directives Information Provided: No service: No Current occupational status: unemployed Sexual orientation: Straight/Heterosexual Gender identity: Female Cognitive needs: No Hearing needs: No Vision needs: No Physical Exam ED Vital Signs: Vital Signs - 24 hr 06/30/23 18:47 06/30/23 18:50 07/01/23 07:37 Temperature 98.9 F 97.1 F Pulse Rate 105 H 91 Respiratory Rate 18 18 14 Blood Pressure 139/82 115/71 Pulse Oximetry 96 99 Oxygen Delivery Method Room Air Room Air BMI result Body Mass Index 28.1 Const General: cooperative, no acute distress, alert and awake Nutritional Appearance: well nourished Orientation/consciousness: patient oriented x3 Limitations: no limitations HENMT Head: Yes normal to inspection and Yes atraumatic Ears: hearing grossly normal bilaterally and external ears normal General nose exam: Normal external nose present, no nasal discharge noted and no epistaxis Face and sinus: Yes normal facial exam, No abrasion and No laceration Mouth: Normal oral and palatal mucosa present, no drooling and no muffled voice Eyes General: appearance normal, both eyes and all related structures Periorbital: periorbital findings normal Eyelids: Yes eyelids normal Conjunctivae: conjunctivae normal Pupils: Equal, round and reactive pupils present EOM: EOMs intact bilaterally Neck Neck: Yes normal visual inspection, Yes full ROM and Yes no lymphadenopathy Chest Chest palpation & inspection: normal inspection of the chest Resp Effort & Inspection: normal respiratory effort and able to speak in complete sentences GI Inspection: Yes normal to inspection Neuro General: patient oriented x3 and moves all extremities Cranial nerves: Yes Equal, round and reactive pupils present Cognition (Neuro): normal cognition Motor exam (neuro): 5/5 motor strength present throughout Sensory Exam: Normal double simultaneous stimulation for sensation Coordination: [id number] test normal Extrem General: Yes normal to inspection, Yes full ROM and Yes capillary refill normal Psych Appearance: grossly normal Mental Status: mental status grossly normal Affect: Sad affect present Attitude: Guarded attititude/behavior present Course Course Course Narrative: Patient complains of depression and suicidal thoughts and she may harm herself She has a psychiatric history This is rapid medical exam done in triage pending full evaluation and dispo by ER provider and crisis team Reevaluation(s) Reevaluation #1: observation continued, VS stable, no acute events overnight, pending dual dx bed search at this time 07/01/23 611am Time: 06:11 Reevaluation #2: Seen by the care team, patient needs to obtain her medications from the lock box at home, she is a safe discharge to home and will take medications with her to respite tomorrow morning. Boyfriend is on board with the plan. Time: 12:10 Medications Administered Generic Name Dose Route Start Last Admin Trade Name Freq PRN Reason Stop Dose Admin Amitriptyline HCl 100 mg 06/30/23 23:45 07/01/23 00:06 Amitriptyline Hcl 50 Mg Tablet PO Not Given BEDTIME DWAYNE Amphetamine/Dextroamphetamine 30 mg 07/01/23 09:00 07/01/23 08:14 Amphetamine Mixed Salts 10 Mg Tablet PO 30 mg DAILY DWAYNE Administration Clonazepam 1 mg 06/30/23 23:45 07/01/23 00:03 Clonazepam 1 Mg Tablet PO 1 mg BID PRN Administration anxiety Divalproex Sodium 500 mg 06/30/23 23:45 07/01/23 00:03 Divalproex Sodium Er 500 Mg Tab.Er.24h PO 500 mg BEDTIME DWAYNE Administration Fluoxetine HCl 60 mg 07/01/23 09:00 07/01/23 08:14 Fluoxetine Hcl 20 Mg Capsule PO 60 mg DAILY DWAYNE Administration Gabapentin 300 mg 06/30/23 23:45 07/01/23 08:14 Gabapentin 300 Mg Capsule PO 300 mg TID DWAYNE Administration Lurasidone HCl 120 mg 07/01/23 09:00 07/01/23 08:16 Lurasidone Hcl 40 Mg Tablet PO 120 mg DAILY DWAYNE Administration Memantine 5 mg 07/01/23 09:00 07/01/23 08:14 Memantine Hcl 5 Mg Tablet PO 5 mg DAILY DWAYNE Administration Trazodone HCl 50 mg 06/30/23 23:45 07/01/23 00:03 Trazodone Hcl 50 Mg Tablet PO 50 mg BEDTIME DWAYNE Administration Medical Decision Making Medical Decision Making [facility] Narrative: Patient is a 52 year old assigned female at with a history of MDD presenting to the emergency department today with increased depression. Patient's physical exam was as noted in the physical exam portion of this note. Patient's blood work was unremarkable. Patient's urine showed no acute process. I explained my physical exam findings as well as all test results to the patient. I answered all questions asked by the patient. Patient is awaiting CARE team evaluation. Differential Diagnosis Differential Diagnoses: The differential diagnosis associated with the presentation includes Depression Suicidal ideation Admission/Observation Consideration of admission/observation: Escalation of care including admission/observation considered Patient's disposition will be determined after CARE evaluation Lab Data [facility] Lab Attestation statement: I reviewed the patient's lab results. My interpretation of these results are in the MDM Rationale portion of this note. 06/30/23 19:07 06/30/23 19:07 Labs: Lab Results 06/30/23 06/30/23 Range/Units 19:00 19:07 WBC 6.7 (4.8-10.8) X10*3/uL RBC 3.94 L (4.20-5.50) X10*6/uL Hgb 12.7 (12.0-16.0) g/dl Hct 36.8 L (37.0-47.0) % MCV 93.4 (80.0-98.0) fL MCH 32.2 (27.0-33.0) pg MCHC 34.5 (31.0-35.0) g/dl RDW 12.5 (11.0-16.0) % Plt Count 303 (160-400) X10*3/uL MPV 8.9 L (9.4-12.3) fL Immature Gran % (Auto) 0.1 (0.0-0.4) % Neut % (Auto) 56.3 (45-73) % Lymph % (Auto) 32.2 (20-40) % [place] % (Auto) 9.4 (2-11) % Eos % (Auto) 1.6 (0-4) % Baso % (Auto) 0.4 (0-2) % Lymph # (Auto) 2.2 (1.2-4.9) X10*3/uL [place] # (Auto) 0.6 (0.1-1.2) X10*3/uL Eos # (Auto) 0.1 (0.0-0.4) X10*3/uL Baso # (Auto) 0.0 (0.0-0.2) X10*3/uL Abs Immat Gran (auto) 0.01 (0.00-0.03) X10*3/uL Absolute Neuts (auto) 3.8 (2.0-8.3) x10*3/uL Absolute Nucleated RBC 0.000 (0.0-0.012) X10*3/uL Nucleated RBC % (auto) 0.0 (0.0-0.2) /100WBC Sodium 141 (135-145) mmol/L Potassium 4.4 (3.3-5.1) mmol/L Chloride 104 (96-108) mmol/L Carbon Dioxide 27 (22-29) mmol/L Anion Gap 14 (12-20) BUN 14 (9-16) mg/dL Creatinine 0.82 (0.5-1.4) mg/dL Estim Creat Clear Calc 85.0 Estimated GFR > 60 Random Glucose 133 H (60-115) mg/dL Calcium 9.3 (8.4-10.2) mg/dL Total Bilirubin 0.1 (0.0-1.0) mg/dL Direct Bilirubin < 0.2 (0.0-0.5) mg/dL AST 26 (5-31) U/L ALT 27 (0-31) U/L Alkaline Phosphatase 91 (39-117) U/L Total Protein 6.8 (6.5-8.0) g/dL Albumin 3.8 (3.5-5.0) g/dL Urine Color Yellow Urine Appearance Clear Urine pH 7.0 (5.0-9.0) Ur Specific [place] 1.020 (1.005-1.025) Urine Protein Negative (Neg-Trace) mg/dL Urine Glucose (UA) Negative (Negative) mg/dL Urine Ketones Trace (Negative) mg/dL Urine Blood Small (1+) H (Negative) Urine Nitrite Negative (Negative) Ur Leukocyte Esterase Trace H (Negative) Urine RBC 11-20 H (0-2) /HPF Urine WBC 6-10 H (0-5) /HPF Ur Squamous Epith Cells 6-10 (0-2) /HPF Urine Bacteria None Seen (None Seen) Hyaline Casts 0-2 (0-2) /LPF Salicylates < 5.0 L (15-30) mg/dL Urine Opiates Screen POSITIVE H (Not Detect) Urine Fentanyl Screen Not Detected (Not Detect) Acetaminophen 8 (<30) mcg/mL Ur Barbiturates Screen Not Detected (Not Detect) Ur Phencyclidine Scrn Not Detected (Not Detect) Ur Amphetamines Screen Not Detected (Not Detect) U Benzodiazepines Scrn POSITIVE H (Not Detect) Urine Cocaine Screen Not Detected (Not Detect) U Marijuana (THC) Screen POSITIVE H (Not Detect) Ethyl Alcohol < 10 mg/dL Discharge Plan Discharge Clinical Impression: Depression Patient Disposition: Home, Self-Care Instructions: Depression (ED) Additional Instructions: 1. Resume all home medications as prescribed. 2. Please go to respite as arranged tomorrow morning. Return to the emergency room for any worsening of symptoms. Prescriptions: No Action tramadol 50 mg tablet 50 mg PO QID PRN (Reason: pain) 30 Days Qty: 120 2RF clonazepam 1 mg tablet 1 mg PO BID PRN (Reason: anxiety) Patient Comments: Dr. Dulce Maria Henderson dextroamphetamine-amphetamine 30 mg tablet 1 tab PO DAILY@1500 PRN (Reason: ADHD) lidocaine [Lidocaine Pain Relief] 4 % Adhesive Patch,Medicated 2 patch transdermal DAILY PRN (Reason: b/l shoulder pain) 30 Days Qty: 60 1RF Protocol: Apply to: Apply to: one on each shoulder Rx Instructions: apply one patch to each shoulder divalproex 500 mg tablet extended release 24 hr 500 mg PO BEDTIME 30 Days Qty: 30 0RF gabapentin 300 mg capsule 300 mg PO TID 90 Days Qty: 270 0RF albuterol sulfate [Ventolin HFA] 90 mcg/actuation HFA aerosol inhaler 2 puff inhalation Q6H PRN (Reason: shortness of breath or wheezing) Qty: 8.5 0RF fluoxetine 20 mg capsule 60 mg PO DAILY 30 Days Qty: 90 0RF amitriptyline 100 mg tablet 100 mg PO BEDTIME 30 Days Qty: 30 0RF memantine 5 mg tablet 5 mg PO DAILY 30 Days Qty: 30 0RF lurasidone 120 mg tablet 120 mg PO DAILY 30 Days Qty: 30 0RF Rx Instructions: must administer with food (at least 350 calories) trazodone 50 mg tablet 50 mg PO BEDTIME 30 Days Qty: 30 0RF Ubrelvy 100 mg tablet 100 mg PO DAILY PRN (Reason: Headache) 30 Days Qty: 30 0RF fluticasone propionate [Flovent HFA] 110 mcg/actuation HFA aerosol inhaler 2 puff inhalation BID Qty: 12 3RF dextroamphetamine-amphetamine 30 mg tablet 1 tab PO DAILY Interventions: [place]-Suicide Risk Severity Scale Last Done: 06/30/23 19:14
[2023-06-30 18:47] VITALS: BP 139/82; PULSE 105; RESP 18; TEMP 37.2; O2SAT 96; BMI 28.1
[2023-06-30 18:50] VITALS: RESP 18
[2023-06-30 19:15] LABS: Basophils Percent Auto 0.4 % (0-2); Eosinophils Absolute Auto 0.1 X10*3/uL (0.0-0.4); Eosinophils Percent Auto 1.6 % (0-4); Hematocrit 36.8 % (37.0-47.0); Hemoglobin 12.7 g/dl (12.0-16.0); Imm Gran Abs Auto 0.01 X10*3/uL (0.00-0.03); Imm Gran Pct Auto 0.1 % (0.0-0.4); Lymphocytes Absolute Auto 2.2 X10*3/uL (1.2-4.9); Lymphocytes Percent Auto 32.2 % (20-40); Mean Corpuscular HGB Conc 34.5 g/dl (31.0-35.0); Mean Corpuscular Hemoglobin 32.2 pg (27.0-33.0); Mean Corpuscular Volume 93.4 fL (80.0-98.0); Mean Platelet Volume 8.9 fL (9.4-12.3); Monocytes Absolute Auto 0.6 X10*3/uL (0.1-1.2); Monocytes Percent Auto 9.4 % (2-11); Neutrophils Absolute Auto 3.8 x10*3/uL (2.0-8.3); Neutrophils Percent Auto 56.3 % (45-73); Platelet Count 303 X10*3/uL (160-400); Red Blood Count 3.94 X10*6/uL (4.20-5.50); Red Cell Distribution Width 12.5 % (11.0-16.0); White Blood Count 6.7 X10*3/uL (4.8-10.8)
[2023-06-30 19:16] LABS: MANUAL DIFF FLAG NO
[2023-06-30 19:19] LABS: Appearance Urine Clear; Color Urine Yellow; Glucose Urine UA Negative (Negative); Leukocyte Esterase Urine Trace (Negative); Nitrite Urine Negative (Negative); UMIC TRIGGER UACC YES; Urine Blood Small (1+) (Negative); Urine Ketones Trace mg/dL (Negative); Urine Protein Negative (Neg-Trace)
[2023-06-30 19:29] LABS: Bacteria Urine None Seen (None Seen); Hyaline Casts Urine 0-2 /LPF (0-2); UACC Culture Trigger YES
[2023-06-30 19:29] LABS: Acetaminophen LAB 8 mcg/mL (<30); Salicylate < 5.0 mg/dL (15-30)
[2023-06-30 19:31] LABS: Alanine Aminotransferase 27 U/L (0-31); Albumin Level 3.8 g/dL (3.5-5.0); Alkaline Phosphatase 91 U/L (39-117); Anion Gap 14 (12-20); Aspartate Amino Transferase 26 U/L (5-31); Bilirubin Direct < 0.2 mg/dL (0.0-0.5); Bilirubin Total 0.1 mg/dL (0.0-1.0); Blood Urea Nitrogen 14 mg/dL (9-16); Calcium 9.3 mg/dL (8.4-10.2); Carbon Dioxide 27 mmol/L (22-29); Chloride 104 mmol/L (96-108); Estimated Glomerular Filt Rate > 60; Ethanol < 10 mg/dL; Glucose Random 133 mg/dL (60-115); Potassium 4.4 mmol/L (3.3-5.1); Sodium 141 mmol/L (135-145); Total Protein 6.8 g/dL (6.5-8.0)
--- NOTE | 2023-06-30 19:44 | PC.NURSE ---
patient appears to remain asleep at present respirations are even and unlabored patient appears in no distress
[2023-06-30 21:10] LABS: Amphetamine Screen Urine Not Detected (Not Detect); Barbiturates, Urine Not Detected (Not Detect); Benzodiazepines Screen Urine POSITIVE (Not Detect); Cannabinoid Screen Urine POSITIVE (Not Detect); Cocaine Screen Urine Not Detected (Not Detect); Fentanyl, urine Not Detected (Not Detect); Opiate Screen Urine POSITIVE (Not Detect); Phencyclidine Screen Urine Not Detected (Not Detect)
--- NOTE | 2023-06-30 21:14 | MHC.CARE ---
CARE Team spoke with Andrew (partner of 30 years; [phone]) who reports that he brought Pt in today after they both agreed she needed additional mental health support. Since discharging from in May, he reports that Pt's presentation seems to have gotten worse. She's laying on the couch all day, doesn't have any motivation... she's just giving up on herself. He reports that ability to self-care has declined and she has reached a level of depression where I feel like I can't leave her alone as he feels that Pt may potentially harm herself. He reports that Pt recently told her mother that she should have ended it a long time ago. Pt has attempted to commit suicide two times in the past two years, last being a few months ago through intentional overdose of 25 pills of muscle relaxers. He stresses that Pt needs additional community based supports, such as [facility], new therapy/psychaitry referrals, [facility] and/or PHP.
[2023-07-01] MEDS: traZODone HCL 50 MG TABLET PO (00:03)
[2023-07-01] MEDS: clonazePAM 1 MG TABLET PO (00:03)
[2023-07-01] MEDS: Divalproex Sodium ER 500 MG TAB.ER.24H PO (00:03)
[2023-07-01] MEDS: Gabapentin 300 MG CAPSULE PO ×2 (00:03→08:14)
[2023-07-01 07:37] VITALS: BP 115/71; PULSE 91; RESP 14; TEMP 36.2; O2SAT 99
--- NOTE | 2023-07-01 08:00 | PC.NURSE ---
PT IS A/O X 4 NO SOB/CRISTY NOTED. SPEAKS IN FULL SENTENCES. PT DENIES ANY SI/HI. PT DENIES ANY PAIN/DISC. PT AWAR OF PLAN OF CARE. WILL CONTINUE TO MONITOR.
[2023-07-01] MEDS: FLUoxetine HCl 20 MG CAPSULE 60 MG PO (08:14)
[2023-07-01] MEDS: Amphetamine Mixed Salts 10 MG TABLET 30 MG PO (08:14)
[2023-07-01] MEDS: Memantine HCl 5 MG TABLET PO (08:14)
[2023-07-01] MEDS: Lurasidone HCl 40 MG TABLET 120 MG PO (08:16)
--- NOTE | 2023-07-01 11:20 | PC.NURSE ---
PT IS AT THE PHONE IN THE COMMON AREA TALKING WITH [facility] TO INTAKE.
--- NOTE | 2023-07-01 11:32 | PC.NURSE ---
PATIENT ASKED TO SEE IF SHE COULD GO HOME TODAY AND GO TO RESPITE TOMORROW. SPOKE TO CARE TEAM THEY WENT IN TO SPEAK TO HER.
[2023-07-01 12:26] VITALS: BP 115/71; PULSE 91; RESP 14; TEMP 36.2; O2SAT 99
--- NOTE | 2023-07-01 12:36 | MHC.CARE ---
Patient does not have her medications available to bring to [facility], they are in a lock box so she cannot be admitted today without original bottles. Per [facility] [employer] and assembly supervisor, Cinda, admission scheduled for tomorrow after [facility] coordinates with [facility] to bring the box and servin to the facility. Patient and her boyfriend both comfortable with this plan and do not have safety concerns, patient's evening medications are packaged for self administration. Referral with medication list and [facility] contact information resent to [facility]; they will reach out directly to patient in the morning. ED provider, Dr. Carrillo consulted and in agreement with plan of care.
== END 2023-07-01 13:37 | disposition home or self-care (01) ==
PROVIDERS: Physician Assistant Medical; Emergency Provider Emergency Medicine Emergency Medical Services; PCP Internal Medicine
DX: F33.9 Major depressive disorder, recurrent, unspecified (principal); Z91.51 Personal history of suicidal behavior
CPT/HCPCS: 36415; 80053; 80076; 80143; 80179; 80307; 81001; 82248; 85025; 87086; 99284; S9485

== ENCOUNTER 2023-07-26 09:29 | Outpatient (AMB) | payer OTHER, SELFPAY ==
[2023-07-26 09:33] VITALS: BP 130/82; PULSE 98; O2SAT 97; BMI 25.7
--- NOTE | 2023-07-26 09:33 | MHC.PC.OV ---
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 Last seen in May 2023. Patient's mammogram is up-to-date and colonoscopy is up-to-date. Noted ER visit in June 2023 for depression isn't suicidal. [facility] psychiatry and therapist - tried taking away prozac and was changed to zoloft. on mementine once a day from the neuro but does not feel it helps. R shoulder pain 2 months deny hitting [facility] Medical History Women's annual routine gynecological examination Cervical cancer screening Breast cancer screening Annual physical exam Carpal tunnel syndrome, right Distal radius fracture, right Fracture of wrist Left foot pain Knee pain, right MDD (major depressive disorder), recurrent episode, severe Neck pain Arthritis Hx MRSA infection Hx of suicide attempt Uses Depo-Provera as primary control method Perimenopausal symptoms Skin lesion of right ear Breast cancer screening by mammogram Upper back pain Dysphagia Skin lesion of hand Mass of left hand Well woman exam with routine gynecological exam Altered mental status Depot contraception (~12/26/20) Fall Axillary abscess History of herpes simplex infection Polysubstance abuse Asthma Bipolar disorder Migraine Tobacco abuse ADHD Scoliosis History of drainage of abscess Surgical History History of carpal tunnel surgery History of surgical removal of skin lesion (~06/27/21) History of tonsillectomy Family History Mother In good health Father In good health Maternal Aunt History of breast cancer Maternal Grandmother Pancreatic cancer Social History Household Members: Significant Other Household Members Other:: Andrew (Boyfriend) Housing: House Are you a primary customer care assistant to a significant other at home: No Do you presently have visiting nurse or other home services: No Unable to assess alcohol history related to: Unknown Alcohol intake: never Comment: 1:1 sitter for safety Patient Tobacco Use Status: Current everyday Tobacco user Tobacco use type: Cigarette Cigarettes Per Day: 4 Years Smoked: 36 Packs per year/per ci.20 e-Cigarette/Vaping Use: Never Used Second Hand Smoke Exposure: No Substance Use Type: Marijuana service: No Current occupational status: unemployed Sexual orientation: Straight/Heterosexual Gender identity: Female Cognitive needs: No Hearing needs: No Vision needs: No Female Reproductive History Menstrual Age of Menarche: 12 Questionnaire PHQ-9 Over the last 2 weeks, how often have you been bothered by any of the following problems? 1. Little interest or pleasure in doing things: several days 2. Feeling down, depressed, or hopeless: several days 3. Trouble falling or staying asleep, or sleeping too much: not at all 4. Feeling tired or having little energy: not at all 5. Poor appetite or overeating: not at all 6. Feeling bad about yourself - or that you are a failure or have let yourself or your family down: several days 7. Trouble concentrating on things, such as reading the newspaper or watching television: not at all 8. Moving or speaking so slowly that other people could have noticed. Or the opposite - being so fidgety or restless that you have been moving around a lot more than usual: not at all 9. Thoughts that you would be better off or of hurting yourself in some way: not at all Total score: 3 Depression Screening Interpretation: Negative Depression Screening Done: Yes Source: Developed by Drs. Dinesh Cadena, Leonora Prince, Shai Shabazz and colleagues, with an educational mairana from [email or web address]. Thrive Questionnaire Date Thrive assessed: 05/03/23 AUDIT C Alcohol Use Questionnaire (AUDIT-C) 1. How often do you have a drink containing alcohol?: Never 3. How often do you have six or more drinks on one occasion?: Never Total Score: 0 JOVAN-7 AMB Questionnaire JOVAN-7 Date JOVAN - 7 assessed: 04/26/23 Feeling nervous, anxious, or on edge: 3 = Nearly every day Not being able to stop or control worryin = Nearly every day Worrying too much about different things: 3 = Nearly every day Trouble relaxin = Not at all Being so restless that it is hard to sit still: 0 = Not at all Becoming easily annoyed or irritable: 0 = Not at all Feeling afraid as if something awful might happen: 0 = Not at all Total JOVAN-7 score (0-4 normal; 5-9 mild; 10-14 moderate; 15-21 severe): 9 Source: Developed by Drs. Dinesh Cadena, Leonora Prince, Shai Shabazz and colleagues, with an educational mariana from [email or web address]. Physical exam (Primary Care) Vital Signs: Last Vital Signs Pulse 98 07/26/23 09:33 BP 130/82 07/26/23 09:33 Pulse Ox 97 07/26/23 09:33 Oxygen Delivery Method Room Air 07/26/23 09:33 BMI result Body Mass Index 25.7 Tobacco/Smoking Status: Tobacco use Status Tobacco use date assessed 07/26/23 07/26/23 09:39 Patient Tobacco Use Status Current everyday Tobacco 07/26/23 09:39 Tobacco use type Cigarette 07/26/23 09:39 e-Cigarette/Vaping Use Never Used 07/26/23 09:39 PHQ-9: PHQ-9 Score PHQ-9: Total score 3 07/26/23 09:39 Depression Screening Interpretation: Negative Thrive Assessment: Date of Thrive Assessment Date Thrive assessed 05/03/23 07/26/23 09:39 Const General: alert; No acute distress Eyes Conjunctivae: conjunctivae normal Resp Auscultation: clear to auscultation bilaterally Cardio Rate: regular rate Rhythm: regular rhythm GI Inspection: Yes normal to inspection Extrem General: Yes normal to inspection and No edema Assessment and Plan Assessment & Plan (1) MDD (major depressive disorder), recurrent episode, severe: Comment: R/O bipolar Code(s): F33.2 - Major depressive disorder, recurrent severe without psychotic features Plan: Discussion regarding counseling and therapy (2) Hypercholesterolemia: Code(s): E78.00 - Pure hypercholesterolemia, unspecified Plan: Avoid fried foods, chicken skin, eggs, butter margarine, pastries and meat. Be it pork or beef they have a lot of cholesterol LDL goal of less than 130 and triglyceride of less than 150 (3) Tobacco abuse: Comment: addressed 04/24.- mo'b Code(s): Z72.0 - Tobacco use Plan: Patient is strongly advised to stop smoking! (4) Asthma: Code(s): J45.909 - Unspecified asthma, uncomplicated Qualifiers: Asthma severity: mild Asthma persistence: intermittent Asthma complication type: uncomplicated Qualified Code(s): J45.20 - Mild intermittent asthma, uncomplicated Plan: Presently on Flovent and albuterol. Patient is advised to stop smoking! (5) Shoulder pain, right: Code(s): M25.511 - Pain in right shoulder Plan: xr done and orthopedic referral Orders: Orders XR shoulder RT min 2V Today M25.511 - Pain in right shoulder Referrals Orthopedics Referral M25.511 - Pain in right shoulder Medications: Changed From gabapentin 300 mg PO TID 90 days 270 caps 0RF M25.511 - Pain in right shoulder To gabapentin 400 mg PO TID 90 days 270 caps 0RF M25.511 - Pain in right shoulder Coding Level of Care Code Est Pt Level 4 (25371) Diagnoses MDD (major depressive disorder), recurrent episode, severe F33.2 Hypercholesterolemia E78.00 Tobacco abuse Z72.0 Mild intermittent asthma without complication J45.20 Asthma severity: mild Asthma persistence: intermittent Asthma complication type: uncomplicated Shoulder pain, right M25.511
== END 2023-07-26 10:10 | disposition home or self-care (01) ==
PROVIDERS: PCP Internal Medicine; Visit Provider Internal Medicine
DX: F33.2 Major depressive disorder, recurrent severe without psychotic features (principal); E78.00 Pure hypercholesterolemia, unspecified; Z72.0 Tobacco use; J45.20 Mild intermittent asthma, uncomplicated; M25.511 Pain in right shoulder
CPT/HCPCS: 99214

== ENCOUNTER 2023-08-02 14:19 | Outpatient (REF) | payer OTHER, SELFPAY ==
--- NOTE | ~2023-08-02 | CT_ITS ---
EXAMINATION: CT HEAD WITHOUT CONTRAST CLINICAL INFORMATION: Other symptoms and signs involving cognitive functions and awareness. COMPARISON: CT head 05/02/2023. TECHNIQUE: Contiguous axial imaging was performed from the skull base to vertex without intravenous administration of contrast. This CT examination was performed using dose optimization techniques as appropriate, variously including the following: *Automated exposure control *Adjustment of mA and/or kV according to patient size (this includes techniques or standardized protocols for targeted exams where dose is matched to indication/reason for exam; i.e. extremities or head) *Use of iterative reconstruction technique DLP: 770 mGy-cm FINDINGS: Mild diffuse commensurate prominence of ventricles and sulci is noted and is within expected limits of normal anatomic variation. Findings are unchanged compared with 05/02/2023. No intracranial hemorrhage, tumors or acute infarcts noted. No focal parenchymal lesions of the brain visualized. The orbits and globes are normal in appearance. No abnormal extra cranial soft tissue inflammatory changes visualized. No significant opacification of the visualized paranasal sinuses, mastoid air cells and middle ear cavities. CT/CT head/brain wo IV con IMPRESSION: Normal unenhanced CT the head.
== END 2023-08-02 14:20 | disposition home or self-care (01) ==
LOC: HO.CT 14:19
PROVIDERS: PCP Internal Medicine; Visit Provider Psychiatry & Neurology Neurology
DX: R41.89 Other symptoms and signs involving cognitive functions and awareness (principal); G43.909 Migraine, unspecified, not intractable, without status migrainosus; R41.3 Other amnesia
CPT/HCPCS: 70450

== ENCOUNTER 2023-08-13 12:27 | Outpatient (REF) | payer OTHER, SELFPAY ==
--- NOTE | ~2023-08-13 | XR_ITS ---
EXAMINATION: XR SHOULDER, RIGHT CLINICAL INFORMATION: Right shoulder pain COMPARISON: None available. TECHNIQUE: AP external rotation, Grashey, and axillary views of the right shoulder. FINDINGS: BONES: Bony structures are intact. There is no focal bone destruction or periosteal reaction seen. JOINTS: Alignment of joints is normal. SOFT TISSUE: Soft tissue is normal. No radiopaque foreign body or abnormal air collection is seen. XR/XR shoulder RT min 2V IMPRESSION: 1. Normal x-rays of right shoulder. No fracture or dislocation or signs of osteomyelitis are found.
== END 2023-08-13 12:28 | disposition home or self-care (01) ==
LOC: HO.HOSX 12:27
PROVIDERS: Visit Provider Orthopaedic Surgery
DX: M25.511 Pain in right shoulder (principal)
CPT/HCPCS: 20610; 73030; 99202; J0665; J1100

== ENCOUNTER 2023-08-13 12:55 | Outpatient (AMB) | payer OTHER, SELFPAY ==
--- NOTE | 2023-08-13 13:00 | A.OFFVIS_ITS ---
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 Patient reports that she has had pain in the shoulder for about 2 months now. Denies injury. She can only lift arm to about shoulder height without pain. Pain radiates down the medial aspect of the arm and into the thumb. [facility] Medical History Women's annual routine gynecological examination Cervical cancer screening Breast cancer screening Annual physical exam Carpal tunnel syndrome, right Distal radius fracture, right Fracture of wrist Left foot pain Knee pain, right MDD (major depressive disorder), recurrent episode, severe Neck pain Arthritis Hx MRSA infection Hx of suicide attempt Uses Depo-Provera as primary control method Perimenopausal symptoms Skin lesion of right ear Breast cancer screening by mammogram Upper back pain Dysphagia Skin lesion of hand Mass of left hand Well woman exam with routine gynecological exam Altered mental status Depot contraception (~12/26/20) Fall Axillary abscess History of herpes simplex infection Polysubstance abuse Asthma Bipolar disorder Migraine Tobacco abuse ADHD Scoliosis History of drainage of abscess Surgical History History of carpal tunnel surgery History of surgical removal of skin lesion (~06/27/21) History of tonsillectomy Family History Mother In good health Father In good health Maternal Aunt History of breast cancer Maternal Grandmother Pancreatic cancer Social History Household Members: Significant Other Household Members Other:: Andrew (Boyfriend) Housing: House Are you a primary rn complex care to a significant other at home: No Do you presently have visiting nurse or other home services: No Unable to assess alcohol history related to: Unknown Alcohol intake: never Comment: 1:1 sitter for safety Patient Tobacco Use Status: Current everyday Tobacco user Tobacco use type: Cigarette Cigarettes Per Day: 4 Years Smoked: 36 e-Cigarette/Vaping Use: Never Used Second Hand Smoke Exposure: No Substance Use Type: Marijuana service: No Current occupational status: unemployed Sexual orientation: Straight/Heterosexual Gender identity: Female Cognitive needs: No Hearing needs: No Vision needs: No Female Reproductive History Menstrual Age of Menarche: 12 Physical Exam Vital Signs: BMI result Body Mass Index 25.7 Const General: cooperative, healthy appearing, no acute distress and well groomed Orientation/consciousness: oriented to person and oriented to place HEENT Head: Yes normal to inspection, Yes normocephalic and Yes atraumatic Eyes General: appearance normal, both eyes and all related structures Alignment and Position: alignment normal Conjunctivae: conjunctivae normal EOM: EOMs intact bilaterally Neck Neck: Yes normal visual inspection and Yes trachea midline Resp Other: No rerpiratory distress Effort & Inspection: normal respiratory effort and able to speak in complete sentences Cardio Other: Palpable radial pulse with no appreciable rythmic abnormalities GI Other: No abdominal distension Back/Spine/Pelvis Cervical Spine: normal cervical lordosis and cervical ROM normal Skin General skin exam: no rashes or lesions noted Neuro General: oriented to person, oriented to place and gait normal Extrem Other: 45/90/110/hp +H/N Neg EC Neg lift off Office Procedures Joint Injection/Drain Joint Injection/Drain Details: Injected 1 mL of Decadron and 3 mL 1% lidocaine and 3 mL of 0.25% Marcaine. Site was prepped using aseptic technique. Patient tolerated the procedure well. Primary Site: right shoulder Approach Used: posterolateral Coding - Large joint Procedure code (CPT) selection complete Assessment & Plan Assessment & Plan (1) Shoulder pain, right: Code(s): M25.511 - Pain in right shoulder Category: Medical Plan: PT and shoulder injection Orders: Orders PT Evaluation and Treatment Today M25.511 - Pain in right shoulder XR shoulder RT min 2V Today M25.519 - Pain in unspecified shoulder Coding Level of Care Code New Pt Level 3 (27281) Diagnoses Shoulder pain, right M25.511 CPT Codes Coding - Large joint: 20439 - Large joint ([id number])
[2023-08-13 13:02] VITALS: BMI 25.7
== END 2023-08-13 13:58 | disposition home or self-care (01) ==
PROVIDERS: PCP Internal Medicine; Visit Provider Orthopaedic Surgery
DX: M25.511 Pain in right shoulder (principal)
CPT/HCPCS: 20610; 99203

== ENCOUNTER 2023-11-02 12:56 | Outpatient (AMB) | payer OTHER, SELFPAY ==
[2023-11-02 12:59] VITALS: BP 98/58; PULSE 93; O2SAT 99; BMI 26.1
--- NOTE | 2023-11-02 12:59 | MHC.PC.OV ---
Vital Signs 11/02/23 12:59 Height 5 ft 6 in Weight 162 lb 0.4 oz BMI 26.1 BP 98/58 L Blood Pressure Location Lt brachial Position Sitting Pulse 93 Pulse Source Pulse Oximeter Pulse Oximetry (%) 99 Oxygen Delivery Method Room Air Intake Visit Reasons: Requesting Podiatry Referral Recreation Coordinator Required: No Allergies mold Allergy (Unknown, Uncoded 11/02/23 12:59) makes patient feel sick Medication List - Last Reconciled 11/02/23 by Ania Tabares PA-C albuterol sulfate 90 mcg/actuation (Ventolin HFA) 2 puffs inhalation Q6H PRN amitriptyline 100 mg PO BEDTIME 30 days clonazepam 1 mg PO BID PRN dextroamphetamine-amphetamine 30 mg 1 tab PO DAILY@1500 PRN divalproex ER 500 mg PO BEDTIME 30 days fluticasone propionate 110 mcg/actuation (Flovent HFA) 2 puffs inhalation BID gabapentin 400 mg PO TID 90 days lidocaine 4% (Lidocaine Pain Relief) 2 patches See Protocol transdermal DAILY PRN 30 days lurasidone 120 mg PO DAILY 30 days memantine 5 mg PO DAILY 30 days montelukast 10 mg PO DAILY sertraline mg PO DAILY tramadol 50 mg PO QID PRN 30 days trazodone 100 mg PO BEDTIME ubrogepant (Ubrelvy) 100 mg PO DAILY PRN 30 days Tobacco use date assessed: 07/26/23 Dental Screening Dental Screen Date: 04/26/23 HPI Requesting Podiatry Referral HPI Details 52-year-old female with past medical history of tobacco abuse, asthma, bipolar 2, ADHD, hypercholesterolemia, and depression last seen by Dr. Sharpe 07/2023 coming in for acute problem. In review of the notes, patient was seen by Orthopedics 08/2023 for right shoulder pain given referral to PT and shoulder injection.? Head CT completed by [id number] for impaired cognitive function CT was negative. Patient states for the last year she has been having worsening bilateral pain on the bottom of the foot. The pain was initially worse while standing for long periods of times but has progressed to pain standing, sitting, and in the morning. She also mentions there is a small lump on the bottom of the right foot that she can feel under the skin. She has not tried anything for the pain. [facility] Medical History Women's annual routine gynecological examination Cervical cancer screening Breast cancer screening Annual physical exam Carpal tunnel syndrome, right Distal radius fracture, right Fracture of wrist Left foot pain Knee pain, right MDD (major depressive disorder), recurrent episode, severe Neck pain Arthritis Hx MRSA infection Hx of suicide attempt Uses Depo-Provera as primary control method Perimenopausal symptoms Skin lesion of right ear Breast cancer screening by mammogram Upper back pain Dysphagia Skin lesion of hand Mass of left hand Well woman exam with routine gynecological exam Altered mental status Depot contraception (~12/26/20) Fall Axillary abscess History of herpes simplex infection Polysubstance abuse Asthma Bipolar disorder Migraine Tobacco abuse ADHD Scoliosis History of drainage of abscess Surgical History History of carpal tunnel surgery History of surgical removal of skin lesion (~06/27/21) History of tonsillectomy Family History Mother In good health Father In good health Maternal Aunt History of breast cancer Maternal Grandmother Pancreatic cancer Social History Household Members: Significant Other Household Members Other:: Andrew (Boyfriend) Housing: House Are you a primary progressive care unit registered nurse to a significant other at home: No Do you presently have visiting nurse or other home services: No Unable to assess alcohol history related to: Unknown Alcohol intake: never Comment: 1:1 sitter for safety Patient Tobacco Use Status: Current everyday Tobacco user Tobacco use type: Cigarette Cigarettes Per Day: 4 Years Smoked: 36 e-Cigarette/Vaping Use: Never Used Second Hand Smoke Exposure: No Substance Use Type: Marijuana service: No Current occupational status: unemployed Sexual orientation: Straight/Heterosexual Gender identity: Female Cognitive needs: No Hearing needs: No Vision needs: No Female Reproductive History Menstrual Age of Menarche: 12 Questionnaire Thrive Questionnaire Date Thrive assessed: 05/03/23 AUDIT C Alcohol Use Questionnaire (AUDIT-C) 1. How often do you have a drink containing alcohol?: Never 3. How often do you have six or more drinks on one occasion?: Never Total Score: 0 JOVAN-7 AMB Questionnaire JOVAN-7 Date JOVAN - 7 assessed: 04/26/23 Source: Developed by Drs. Dinesh Cadena, Leonora Prince, Shai Shabazz and colleagues, with an educational mariana from [employer]. Review of Systems Const Denies body aches and Denies weakness Eyes Reports no additional complaints ENT Reports no additional complaints Card Reports no additional complaints Resp Reports no additional complaints GI Reports no additional complaints Reports no additional complaints Musc Reports as per HPI and Reports abnormal gait (Pain with walking) Skin/Breast Reports system reviewed and no additional complaints, except as documented Neuro Reports abnormal gait (Pain with walking) and Denies weakness Psych Reports no additional complaints Physical exam (Primary Care) Vital Signs: Oxygen Delivery Method Room Air 11/02/23 12:59 Tobacco/Smoking Status: Tobacco use Status Tobacco use date assessed 07/26/23 11/02/23 13:00 Patient Tobacco Use Status Current everyday Tobacco 11/02/23 13:00 Tobacco use type Cigarette 11/02/23 13:00 e-Cigarette/Vaping Use Never Used 11/02/23 13:00 Thrive Assessment: Date of Thrive Assessment Date Thrive assessed 05/03/23 11/02/23 13:00 Const General: cooperative, healthy appearing, comfortable and no acute distress Orientation/consciousness: patient oriented x3 HENMT Head: Yes normocephalic Ears: hearing grossly normal bilaterally General nose exam: Normal external nose present Eyes General: appearance normal, both eyes and all related structures Conjunctivae: conjunctivae normal Neck Neck: Yes full ROM and Yes no lymphadenopathy Resp Effort & Inspection: normal respiratory effort Auscultation: clear to auscultation bilaterally, no crackles, no rales, no rhonchi and no wheezes Cardio Rate: regular rate Rhythm: regular rhythm Skin General skin exam: no rashes or lesions noted Neuro General: patient oriented x3 Gait exam (Neuro): Normal gait present Extrem Other: No pain to palpation of bilateral feet. Small, firm, mobile, nontender lump palpated in right foot. No pain to palpation of top of the foot or ankle. General: Yes normal to inspection, Yes full ROM and No edema Psych Affect: normal affect Attitude: cooperative Insight: Good insight present (Psych) Judgement: Good judgement present (Psych) Assessment and Plan Assessment & Plan (1) Plantar fasciitis: Code(s): M72.2 - Plantar fascial fibromatosis Plan: X-rays are not indicated at this time. Patient's presentation is most consistent with plantar fasciitis from prolonged standing. 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 She is requesting a referral to Podiatry for possible injection, referral placed. She may also use NSAIDs as needed. Informational packet with exercises provided today patient may also try [id number] orthotics. Palpated lump in the right foot is most consistent with a plantar fibroma and will be further evaluated by Podiatry. Plan This note was constructed using voice recognition software. While every effort has been made to ensure accuracy and feed house supervisor, still areas may have been included sometimes these areas may affect the content or meeting of the given symptoms. Total time spent caring for the patient today was 20 minutes. This includes time spent before the visit reviewing the chart, time spent during the visit, and time spent after the visit and documentation. Orders: Referrals Podiatry Referral M72.2 - Plantar fascial fibromatosis Coding Level of Care Code Est Pt Level 4 (34576) Diagnoses Plantar fasciitis M72.2
== END 2023-11-02 13:32 | disposition home or self-care (01) ==
PROVIDERS: PCP Internal Medicine
DX: M72.2 Plantar fascial fibromatosis (principal)
CPT/HCPCS: 99213

== ENCOUNTER 2023-11-22 14:42 | Outpatient (REF) | payer OTHER, SELFPAY ==
[2023-11-22 15:01] LABS: MANUAL DIFF FLAG NO
[2023-11-22 15:34] LABS: Basophils Percent Auto 0.5 % (0-2); Eosinophils Absolute Auto 0.1 X10*3/uL (0.0-0.4); Hematocrit 35.9 % (37.0-47.0); Hemoglobin 12.2 g/dl (12.0-16.0); Imm Gran Abs Auto 0.02 X10*3/uL (0.00-0.03); Imm Gran Pct Auto 0.3 % (0.0-0.4); Lymphocytes Absolute Auto 3.3 X10*3/uL (1.2-4.9); Lymphocytes Percent Auto 42.1 % (20-40); Mean Corpuscular Hemoglobin 31.8 pg (27.0-33.0); Mean Corpuscular Volume 93.5 fL (80.0-98.0); Monocytes Absolute Auto 0.6 X10*3/uL (0.1-1.2); Monocytes Percent Auto 7.5 % (2-11); Neutrophils Absolute Auto 3.8 x10*3/uL (2.0-8.3); Neutrophils Percent Auto 48.6 % (45-73); Platelet Count 326 X10*3/uL (160-400); Red Blood Count 3.84 X10*6/uL (4.20-5.50); Red Cell Distribution Width 12.2 % (11.0-16.0); White Blood Count 7.8 X10*3/uL (4.8-10.8)
[2023-11-22 15:48] LABS: Appearance Urine Cloudy; Color Urine Yellow; Glucose Urine UA Negative (Negative); Leukocyte Esterase Urine Large (3+) (Negative); Nitrite Urine Negative (Negative); PH 6.5 (5.0-9.0); Specific Gravity - Urine <= 1.005 (1.005-1.025); UMIC TRIGGER UACC YES; Urine Blood Moderate (2+) (Negative); Urine Ketones Negative (Negative); Urine Protein Negative (Neg-Trace)
[2023-11-22 16:07] LABS: Alanine Aminotransferase 16 U/L (0-31); Albumin Level 4.1 g/dL (3.5-5.0); Alkaline Phosphatase 85 U/L (39-117); Anion Gap 11 (12-20); Aspartate Amino Transferase 21 U/L (5-31); Bilirubin Total 0.1 mg/dL (0.0-1.0); Blood Urea Nitrogen 8 mg/dL (9-16); Calcium 9.2 mg/dL (8.4-10.2); Carbon Dioxide 31 mmol/L (22-29); Chloride 101 mmol/L (96-108); Cholesterol 175 mg/dL (<200); Estimated Glomerular Filt Rate > 60; Glucose Random 109 mg/dL (60-115); HDL Cholesterol 41 mg/dL (>40); LDL Cholesterol Calculated 104 mg/dL (<100); Potassium 3.5 mmol/L (3.3-5.1); Sodium 139 mmol/L (135-145); Total Protein 7.3 g/dL (6.5-8.0); Triglycerides 152 mg/dL (<150)
[2023-11-22 16:08] LABS: Bacteria Urine None Seen (None Seen); Hyaline Casts Urine 0-2 /LPF (0-2); Squamous Epithelial Cell Urine 0-2 /HPF (0-2); UACC Culture Trigger YES; WBC Urine >50 /HPF (0-5)
[2023-11-22 16:22] LABS: Free T4 (Free Thyroxine) 0.81 ng/dL (0.71-1.85); Thyroid Stimulating Hormone 1.71 uIU/mL (0.32-4.0)
[2023-11-22 16:35] LABS: Folate 6.6 ng/mL (> or = 4.0); Vitamin B12 734 pg/mL (200-900)
== END 2023-11-22 14:43 | disposition home or self-care (01) ==
LOC: HO.LAB 14:42
PROVIDERS: PCP Internal Medicine; Visit Provider Internal Medicine
DX: E78.00 Pure hypercholesterolemia, unspecified (principal)
CPT/HCPCS: 36415; 80053; 80061; 81001; 81003; 82607; 82746; 84439; 84443; 85025; 87086

== ENCOUNTER 2024-01-14 15:21 | Outpatient (AMB) | payer OTHER, SELFPAY ==
--- NOTE | 2024-01-14 15:22 | MHC.PC.OV ---
Vital Signs 01/14/24 15:23 Height 5 ft 6 in Weight 161 lb 4 oz BMI 26.0 BP 110/70 Blood Pressure Location Lt brachial Position Sitting Pulse 93 Pulse Source Pulse Oximeter Pulse Oximetry (%) 97 Oxygen Delivery Method Room Air Intake Visit Reasons: Check up Intake Note: Patient is here to follow up on Asthma, Hypercholesterolemia, MDD. Pyrometallurgical Engineer Required: No Compliance Review Officer: Not Required per policy Accompanied by: Self / Same As Patient Allergies mold Allergy (Unknown, Uncoded 01/14/24 15:23) makes patient feel sick Tobacco use date assessed: 01/14/24 Dental Screening Dental Screen Date: 04/26/23 HPI Check up HPI Details 53-year-old female smoker with a history of asthma nonfamilial hypogammaglobulinemia bipolar disorder hypercholesterolemia coming in for follow-up. Last seen November 01 for plantar fasciitis. Mammogram is up-to-date colonoscopy up-to-date. Review of the notes in 08/20/2023 seen Orthopedics for right shoulder pain had an injection done and physical therapy requested. X-ray was negative. Patient also had a recent CT scan of the head which was negative. August 2023 concern on memory loss and has been seeing neurology and has been placed on donepezil. for the R shoulder still pain and told her that she should have PT done - referral done but did not go for this - advised call for PT. STopped smoking 10/2023 [facility] Medical History Women's annual routine gynecological examination Cervical cancer screening Breast cancer screening Annual physical exam Carpal tunnel syndrome, right Distal radius fracture, right Fracture of wrist Left foot pain Knee pain, right MDD (major depressive disorder), recurrent episode, severe Neck pain Arthritis Hx MRSA infection Hx of suicide attempt Uses Depo-Provera as primary control method Perimenopausal symptoms Skin lesion of right ear Breast cancer screening by mammogram Upper back pain Dysphagia Skin lesion of hand Mass of left hand Well woman exam with routine gynecological exam Altered mental status Depot contraception (~12/26/20) Fall Axillary abscess History of herpes simplex infection Polysubstance abuse Asthma Bipolar disorder Migraine Tobacco abuse ADHD Scoliosis History of drainage of abscess Surgical History History of carpal tunnel surgery History of surgical removal of skin lesion (~06/27/21) History of tonsillectomy Family History Mother In good health Father In good health Maternal Aunt History of breast cancer Maternal Grandmother Pancreatic cancer Social History Household Members: Significant Other Household Members Other:: Andrew (Boyfriend) Housing: House Are you a primary senior care provider to a significant other at home: No Do you presently have visiting nurse or other home services: No Unable to assess alcohol history related to: Unknown Alcohol intake: never Comment: 1:1 sitter for safety Patient Tobacco Use Status: Former Tobacco user Tobacco use type: Cigarette Cigarette Packs Per Day: 0.5 Cigarettes Per Day: 4 Years Smoked: 36 e-Cigarette/Vaping Use: Never Used Second Hand Smoke Exposure: Yes Substance Use Type: Marijuana service: No Current occupational status: unemployed Sexual orientation: Straight/Heterosexual Gender identity: Female Cognitive needs: No Hearing needs: No Vision needs: No Female Reproductive History Menstrual Age of Menarche: 12 Questionnaire Thrive Questionnaire Date Thrive assessed: 05/03/23 Are you currently unemployed and looking for a job?: No JOVAN-7 AMB Questionnaire JOVAN-7 Date JOVAN - 7 assessed: 04/26/23 Source: Developed by Drs. Dinesh Cadena, Leonora Prince, Shai Shabazz and colleagues, with an educational mariana from [employer]. Physical exam (Primary Care) Vital Signs: Last Vital Signs Pulse 93 01/14/24 15:23 BP 110/70 01/14/24 15:23 Pulse Ox 97 01/14/24 15:23 Oxygen Delivery Method Room Air 01/14/24 15:23 BMI result Body Mass Index 26.0 Tobacco/Smoking Status: Tobacco use Status Tobacco use date assessed 01/14/24 01/14/24 15:30 Patient Tobacco Use Status Former Tobacco user 01/14/24 15:30 Tobacco use type Cigarette 01/14/24 15:30 e-Cigarette/Vaping Use Never Used 01/14/24 15:30 Thrive Assessment: Date of Thrive Assessment Date Thrive assessed 05/03/23 01/14/24 15:30 Const General: alert; No acute distress Eyes Conjunctivae: conjunctivae normal Resp Auscultation: clear to auscultation bilaterally Cardio Rate: regular rate Rhythm: regular rhythm GI Inspection: Yes normal to inspection Extrem General: Yes normal to inspection and No edema Office Procedures Flu Questionnaire Does the patient have a severe egg allergy?: No Does the patient have severe life threatening allergies?: No Does the patient have a fever or illness today?: No Has the patient ever had Guillain-Royal Syndrome?: No Has the patient ever had any past reaction to a flu shot?: No Immunizations Fluarix Triv [id number] (PF) 45 mcg (15 mcg x 3)/0.5 mL IM syringe Performing Provider: Isai Sharpe MD [facility] Administered by: Cinda Silverman LPN on 01/14/24 15:38 Dose Route Admin Location Dispensed Lot Number Expiration Date NDC Spark Plug Assembler 0.5 mL IM Left Deltoid 0.5 mL [id number] 09/29/24 [id number] [employer] VIS Given Date VIS Provided VIS Publication Date 01/14/24 Single Vaccine 20 Eligibility Eligibility Date Funding Source Not [facility] Eligible 01/14/24 Private Coding Level of Care Code Est Pt Level 4 (57715) Diagnoses Tobacco abuse Z72.0 Mild intermittent asthma without complication J45.20 Asthma complication type: uncomplicated Asthma persistence: intermittent Asthma severity: mild Bipolar II disorder F31.81 Hypercholesterolemia E78.00 Shoulder pain, right M25.511 Impaired fasting blood sugar R73.01 Assessment & Plan Assessment & Plan (1) Tobacco abuse: Comment: addressed 04/24.- mo'b Stopped 10/2023 Code(s): Z72.0 - Tobacco use Category: Medical Plan: Patient is strongly advised to stop smoking! GREAT!!! (2) Asthma: Code(s): J45.909 - Unspecified asthma, uncomplicated Category: Medical Qualifiers: Asthma complication type: uncomplicated Asthma persistence: intermittent Asthma severity: mild Qualified Code(s): J45.20 - Mild intermittent asthma, uncomplicated Plan: Patient is strongly advised to stop smoking. On albuterol and Flovent (3) Bipolar II disorder: Comment: Autumn Villegas Q month [facility] Psychiatrist and Maame Amos Therapist Q 2-3 week Code(s): F31.81 - Bipolar II disorder Category: Medical Plan: Continue with counseling and therapy (4) Hypercholesterolemia: Code(s): E78.00 - Pure hypercholesterolemia, unspecified Category: Medical Plan: Avoid fried foods, chicken skin, eggs, butter margarine, pastries and meat. Be it pork or beef they have a lot of cholesterol LDL goal of less than 130 and triglyceride of less than 150. (5) Shoulder pain, right: Code(s): M25.511 - Pain in right shoulder Category: Medical Plan: Patient has seen ortho and had injections done (6) Impaired fasting blood sugar: Code(s): R73.01 - Impaired fasting glucose Category: Medical Plan: low sugar diet. Orders: Orders Influenza [id number] Immunization Today Z23 - Encounter for immunization
[2024-01-14 15:23] VITALS: BP 110/70; PULSE 93; O2SAT 97; BMI 26.0
== END 2024-01-14 15:55 | disposition home or self-care (01) ==
PROVIDERS: PCP Internal Medicine; Visit Provider Internal Medicine
DX: Z72.0 Tobacco use (principal); J45.20 Mild intermittent asthma, uncomplicated; F31.81 Bipolar II disorder; E78.00 Pure hypercholesterolemia, unspecified; M25.511 Pain in right shoulder; R73.01 Impaired fasting glucose; Z23 Encounter for immunization

== ENCOUNTER → 2024-01-14 15:21 | Outpatient (BNVA) | payer OTHER, SELFPAY | PROVIDERS: PCP Internal Medicine; Visit Provider Internal Medicine | DX: Z23 Encounter for immunization (principal); J45.20 Mild intermittent asthma, uncomplicated; F31.81 Bipolar II disorder; E78.00 Pure hypercholesterolemia, unspecified; R73.01 Impaired fasting glucose; Z72.0 Tobacco use | CPT/HCPCS: 90471; 90656; 99212 ==

== ENCOUNTER 2024-01-22 14:32 | Outpatient (REF) | payer OTHER, SELFPAY ==
[2024-01-22 14:53] LABS: MANUAL DIFF FLAG NO
[2024-01-22 15:12] LABS: Basophils Percent Auto 0.6 % (0-2); Eosinophils Percent Auto 0.6 % (0-4); Hematocrit 40.2 % (37.0-47.0); Hemoglobin 13.7 g/dl (12.0-16.0); Imm Gran Abs Auto 0.02 X10*3/uL (0.00-0.03); Imm Gran Pct Auto 0.3 % (0.0-0.4); Lymphocytes Absolute Auto 2.2 X10*3/uL (1.2-4.9); Lymphocytes Percent Auto 34.4 % (20-40); Mean Corpuscular HGB Conc 34.1 g/dl (31.0-35.0); Mean Corpuscular Hemoglobin 31.5 pg (27.0-33.0); Mean Corpuscular Volume 92.4 fL (80.0-98.0); Mean Platelet Volume 8.9 fL (9.4-12.3); Monocytes Absolute Auto 0.6 X10*3/uL (0.1-1.2); Monocytes Percent Auto 8.8 % (2-11); Neutrophils Absolute Auto 3.6 x10*3/uL (2.0-8.3); Neutrophils Percent Auto 55.3 % (45-73); Platelet Count 351 X10*3/uL (160-400); Red Blood Count 4.35 X10*6/uL (4.20-5.50); Red Cell Distribution Width 12.7 % (11.0-16.0); White Blood Count 6.5 X10*3/uL (4.8-10.8)
[2024-01-22 16:00] LABS: Anion Gap 14 (12-20); Blood Urea Nitrogen 12 mg/dL (9-16); Calcium 9.8 mg/dL (8.4-10.2); Carbon Dioxide 25 mmol/L (22-29); Chloride 105 mmol/L (96-108); Estimated Glomerular Filt Rate > 60; Glucose Random 101 mg/dL (60-115); Potassium 4.1 mmol/L (3.3-5.1); Sodium 140 mmol/L (135-145)
[2024-01-22 16:16] LABS: TSH reflex Free T4 0.65 uIU/mL (0.32-4.0)
[2024-01-22 16:30] LABS: Folate 7.8 ng/mL (> or = 4.0); Vitamin B12 816 pg/mL (200-900)
== END 2024-01-22 14:33 | disposition home or self-care (01) ==
LOC: HO.LAB 14:32
PROVIDERS: PCP Internal Medicine; Visit Provider Registered Nurse
DX: G31.84 Mild cognitive impairment of uncertain or unknown etiology (principal)
CPT/HCPCS: 36415; 80048; 82607; 82746; 84443; 85025

== ENCOUNTER 2024-04-29 08:30 | Outpatient (AMB) | payer OTHER, SELFPAY ==
--- NOTE | 2024-04-29 08:35 | A.OFFPC_ITS ---
Vital Signs 04/29/24 08:37 Height 5 ft 6 in Weight 162 lb 6 oz BMI 26.2 BP 112/68 Blood Pressure Location Lt brachial Position Sitting Pulse 100 Pulse Source Pulse Oximeter Temp 97.1 F Temp Source Skin Pulse Oximetry (%) 93 Oxygen Delivery Method Room Air Intake Visit Reasons: memory problem Intake Note: Patient is here to follow up on memory problem. Telephone Clerk Telegraph Office Required: No Water Quality Specialist: Not Required per policy Accompanied by: Self / Same As Patient Allergies mold Allergy (Unknown, Uncoded 04/29/24 08:39) makes patient feel sick Tobacco use date assessed: 04/29/24 Dental Screening Dental Screen Date: 04/29/24 Did you have a dental visit in the last 12 months?: Yes Did you have a dental problem in the last 6 months where you did not have access to dental care?: No Was dental information given to patient?: Patient has dentist HPI memory problem HPI Details The patient is a 53-year-old female presenting with concerns related to anxiety, depression, asthma, and smoking. The patient reports experiencing significant anxiety and depression exacerbated by recent changes in her living situation, including moving out of a boyfriend's house and relocating to a friend's residence. This has led to feelings of exhaustion and difficulty in sleeping. She is under psychiatric care and previously prescribed clonazepam for anxiety, which seems insufficient in managing her symptoms. The patient has a history of asthma and has been utilizing albuterol as a rescue inhaler one to two times daily, indicating inadequate control. The patient's smoking behavior has relapsed, noting approximately four cigarettes per day due to increased stress, which contributes to her respiratory issues. Past efforts with smoking cessation have not been maintained. She also experiences neuropathic pain in the neck and shoulder region, with gabapentin previously prescribed for management. Despite current medication, the patient reports increased pain severity and consideration for dosage adjustment. The patient is monitored by a visiting nurse who manages her medication regimen. [facility] Medical History (Updated 04/29/24 @ 08:52 by Isai Sharpe MD) Cognitive changes Women's annual routine gynecological examination Cervical cancer screening Breast cancer screening Annual physical exam Carpal tunnel syndrome, right Distal radius fracture, right Fracture of wrist Left foot pain Knee pain, right MDD (major depressive disorder), recurrent episode, severe Neck pain Arthritis Hx MRSA infection Hx of suicide attempt Uses Depo-Provera as primary control method Perimenopausal symptoms Skin lesion of right ear Breast cancer screening by mammogram Upper back pain Dysphagia Skin lesion of hand Mass of left hand Well woman exam with routine gynecological exam Altered mental status Depot contraception (~12/26/20) Fall Axillary abscess History of herpes simplex infection Polysubstance abuse Asthma Bipolar disorder Migraine Tobacco abuse ADHD Scoliosis History of drainage of abscess Surgical History History of carpal tunnel surgery History of surgical removal of skin lesion (~06/27/21) History of tonsillectomy Family History Mother In good health Father In good health Maternal Aunt History of breast cancer Maternal Grandmother Pancreatic cancer Social History Household Members: Significant Other Household Members Other:: Andrew (Boyfriend) Housing: House Are you a primary patient care provider to a significant other at home: No Do you presently have visiting nurse or other home services: No Unable to assess alcohol history related to: Unknown Alcohol intake: never Comment: 1:1 sitter for safety Patient Tobacco Use Status: Current everyday Tobacco user Tobacco use type: Cigarette Cigarette Packs Per Day: 0.5 Cigarettes Per Day: 4 Years Smoked: 36 e-Cigarette/Vaping Use: Never Used Second Hand Smoke Exposure: Yes Substance Use Type: Marijuana service: No Current occupational status: unemployed Sexual orientation: Straight/Heterosexual Gender identity: Female Cognitive needs: No Hearing needs: No Vision needs: Yes (Glasses) Female Reproductive History Menstrual Age of Menarche: 12 Questionnaire PHQ-9 Over the last 2 weeks, how often have you been bothered by any of the following problems? 1. Little interest or pleasure in doing things: not at all 2. Feeling down, depressed, or hopeless: not at all 3. Trouble falling or staying asleep, or sleeping too much: not at all 4. Feeling tired or having little energy: not at all 5. Poor appetite or overeating: not at all 6. Feeling bad about yourself - or that you are a failure or have let yourself or your family down: not at all 7. Trouble concentrating on things, such as reading the newspaper or watching television: not at all 8. Moving or speaking so slowly that other people could have noticed. Or the opposite - being so fidgety or restless that you have been moving around a lot more than usual: not at all 9. Thoughts that you would be better off or of hurting yourself in some way: not at all Total score: 0 Depression Screening Interpretation: Negative Depression Screening Done: Yes Source: Developed by Drs. Dinesh Cadena, Leonora Prince, Shai Shabazz and colleagues, with an educational mariana from [employer]. Thrive Questionnaire Date Thrive assessed: 04/29/24 I am a: Patient What is your living situation today?: I have a steady place to live Within the past 12 months, did the food you bought not last and you didn't have the money to get more?: Never true Within the past 12 months, did you worry whether your food would run out before you got money to buy more?: Never true Do you have trouble paying for medicines?: No Do you have trouble getting transportation to medical appointments?: No Do you have trouble paying your heating and electricity bill?: No Do you have trouble taking care of your child, family member or friend?: No Do you have trouble with day-to-day activities such as bathing, preparing meals, shopping, managing finances, etc.?: No Are you currently unemployed and looking for a job?: No Are you interested in more education?: No Please select the resources that you would like help with: None Currently or been in a relationship where the following occur: No concerns reported THRIVE Score: 0 AUDIT C Alcohol Use Questionnaire (AUDIT-C) 1. How often do you have a drink containing alcohol?: Never Total Score: 0 JOVAN-7 AMB Questionnaire JOVAN-7 Date JOVAN - 7 assessed: 04/29/24 Feeling nervous, anxious, or on edge: 0 = Not at all Not being able to stop or control worryin = Not at all Worrying too much about different things: 0 = Not at all Trouble relaxin = Not at all Being so restless that it is hard to sit still: 0 = Not at all Becoming easily annoyed or irritable: 0 = Not at all Feeling afraid as if something awful might happen: 0 = Not at all Total JOVAN-7 score (0-4 normal; 5-9 mild; 10-14 moderate; 15-21 severe): 0 Source: Developed by Drs. Dinesh Cadena, Leonora Prince, Shai Shabazz and colleagues, with an educational mariana from [employer]. Physical exam (Primary Care) Vital Signs: Last Vital Signs Temp 97.1 F 04/29/24 08:37 Oxygen Delivery Method Room Air 04/29/24 08:39 BMI result Body Mass Index 26.2 Tobacco/Smoking Status: Tobacco use Status Tobacco use date assessed 01/14/24 01/14/24 15:30 Patient Tobacco Use Status Former Tobacco user 01/14/24 15:30 Tobacco use type Cigarette 01/14/24 15:30 e-Cigarette/Vaping Use Never Used 01/14/24 15:30 Depression Screening Interpretation: Negative Thrive Assessment: Date of Thrive Assessment Date Thrive assessed 05/03/23 01/14/24 15:30 Currently or been in a relationship where the following occur: No concerns reported Const General: alert; No acute distress Eyes Conjunctivae: conjunctivae normal Resp Auscultation: clear to auscultation bilaterally Cardio Rate: regular rate Rhythm: regular rhythm GI Inspection: Yes normal to inspection Extrem General: Yes normal to inspection and No edema Coding Level of Care Code Est Pt Level 4 (84071) Complex EM visit Add On G2211 Diagnoses Mild cognitive impairment G31.84 Impaired fasting blood sugar R73.01 Hypercholesterolemia E78.00 Bipolar II disorder F31.81 Nonfamilial hypogammaglobulinemia D80.1 Tobacco abuse Z72.0 Mild intermittent asthma without complication J45.20 Asthma severity: mild Asthma persistence: intermittent Asthma complication type: uncomplicated Assessment & Plan Assessment & Plan (1) Mild cognitive impairment: Code(s): G31.84 - Mild cognitive impairment of uncertain or unknown etiology Category: Medical Plan: PAtient was seen by neurology and referred to neuropsychology for further work up. but has done referral to [facility] memory clinic last year (2) Impaired fasting blood sugar: Code(s): R73.01 - Impaired fasting glucose Category: Medical (3) Hypercholesterolemia: Code(s): E78.00 - Pure hypercholesterolemia, unspecified Category: Medical (4) Bipolar II disorder: Comment: Autumn Villegas Q month [facility] Psychiatrist and Maame Amos Therapist Q 2-3 week Code(s): F31.81 - Bipolar II disorder Category: Medical Plan: continuing to see psychiatry and counselling (5) Nonfamilial hypogammaglobulinemia: Comment: Allergy immunology Code(s): D80.1 - Nonfamilial hypogammaglobulinemia Category: Medical Plan: seeing allergy and immunology (6) Tobacco abuse: Comment: addressed 04/24.- 04/2024 smoking 4 cigarettes a day Code(s): Z72.0 - Tobacco use Category: Medical Plan: advised ot stop smoking !!! (7) Asthma: Code(s): J45.909 - Unspecified asthma, uncomplicated Category: Medical Qualifiers: Asthma severity: mild Asthma persistence: intermittent Asthma complication type: uncomplicated Qualified Code(s): J45.20 - Mild intermittent asthma, uncomplicated Plan - Increase gabapentin dosage to manage neuropathic pain; dispense 600mg dosage for trial if patient consents. - Reinforce the use of the controller inhaler Wixela) twice daily to improve asthma control. Film Or Tape Librarian on the importance of mouth rinsing post-use. - Continue psychiatric medication management; evaluate efficacy and adjust as required. - Smoking cessation is a priority. Discuss potential cessation aids and strategies for relapse prevention. - Monitor any changes in mental health status and adjust intervention strategies as required. - Ensure protection against infections, advising mask use in high-risk situations due to immunodeficiency. - Coordinate follow-up appointments and referrals for neurology as needed. - Verify the completion of previous blood work and direct subsequent necessary investigations. - Encourage regular exercise and stress-reduction techniques as adjunct therapy for mental health. Medications: New fluticasone propion-salmeterol 250-50 mcg/dose (Wixela Inhub) 1 inh inhalation BID 60 ea 0RF J45.20 - Mild intermittent asthma, uncomplicated gabapentin 600 mg PO TID 90 tabs 0RF F33.2 - Major depressive disorder, recurrent severe without psychotic features Discontinued fluticasone propionate 110 mcg/actuation (Flovent HFA) Discontinued Reason: Insurance Denied 2 puffs inhalation BID 12 grams 3RF J45.20 - Mild intermittent asthma, uncomplicated gabapentin Discontinued Reason: Doctor's Order 400 mg PO TID 90 days 270 caps 0RF M25.511 - Pain in right shoulder
[2024-04-29 08:37] VITALS: BP 112/68; PULSE 100; TEMP 36.2; O2SAT 93; BMI 26.2
--- OUTSIDE RECORDS SUMMARY | 2024-04-29 08:50 | XMS_ITS | Clinical Summary ---
Author Organization [facility] lin Address [address] [place] [address] Care Team Providers Care Amortization Schedule Clerk Name Role Phone Unavailable Primary Care Provider Unavailabl e Allergies Active Allergy Reactions Criticality Noted Date Comments Mold 02/10/2023 Medications gabapentin (Neurontin) 100 MG capsule Take 1 capsule by mouth 4 (four) times a day. 7 Active FLUoxetine (PROzac) 20 MG capsule Take 1 capsule by mouth 2 (two) times a day. 0 Active methocarbamoL (ROBAXIN) 500 MG tablet Take 1 tablet by mouth 5 (five) times a week. 0 Active dextroamphetam ine-amphetamin e (AdderalL) 12.5 mg tab Take 2 tablets by mouth daily. 0 Active erenumab-aooe (Aimovig Autoinjector) 140 mg/mL atIn Inject 1 pen subcutaneously every 30 (thirty) days. 0 Active amitriptyline (ELAVIL) 10 MG tablet Take 1 tablet by mouth daily. 0 Active SUMAtriptan (IMITREX) 25 MG tablet Once, 0 Refills, Maintenance, 02/12/17 16:17:41 7 Active clonazePAM (KlonoPIN) 1 MG tablet Take 1 tablet by mouth as needed. 0 Active propranoloL (INDERAL) 10 MG tablet Refills 0, Maintenance, 02/12/17 16:17:31 7 Active Active Problems Problem Noted Date Diagnosed Date Nonfamilial hypogammaglobulinemia (CMS/HCC and H HS/HCC) 07/27/2022 Social History Tobacco Use Types Packs/Day Years Used Date Smoking Tobacco: Never Assessed Comments Unknown Sex and Gender Information Value Date Recorded Sex Assigned at Not on file Legal Sex Female 3:54 PM EDT Gender Identity Not on file Sexual Orientation Not on file Last Filed Vital Signs Vital Sign Reading Time Taken Comments Blood Pressure - - Pulse - - Temperature - - Respiratory Rate - - Oxygen Saturation - - Inhaled Oxygen Concentration - - Weight 72.6 kg (160 lb) 11/03/2022 11:32 AM PDT Height 165.1 cm (5' 5 ) 11/03/2022 11:32 AM PDT Body Mass Index 26.63 11/03/2022 11:32 AM PDT Plan of Treatment Health Maintenance Due Date Last Done Comments Colorectal Cancer: COLONOSCO PY Screening every 10 yrs (or Modifier) 1970 Depression: Screening Annual ly using PHQ-2/9 in Adults 18 yrs or above (or HM Modifier)([facility]) 1988 Hepatitis C Virus Infection in Adolescents and Adults: Screening (or Modifier) ([facility]) 1988 [facility] Screening Reminder: Carolyn nance for all adults ([facility]) 1988 Tobacco Smoking Cessation: i n Adults excluding Women: Behavioral and Pharmacotherapy Interventions ([facility]) 1988 DTaP/Tdap/Td Vaccines ([facility]) (1 - Tdap) 1989 Cervical Cancer Screenin 1-65 yrs of age (or Modifier) 12/30/1991 Cervical Cancer Screening: P ap every 3 yrs pts age 21-65 12/30/1991 Cervical Cancer: Pap Screeni ng with Modifier timing ([facility]) 12/30/1991 Cervical Cancer: hrHPV alone or with cotesting Pap for Pts 30-65yrs screening every 5yrs ([facility]) 12/30/1991 Colorectal Cancer Screening 45 -75 Yrs (or HM Modifier) 12/30/2015 Colorectal Cancer: FLEXIBLE SIGMOIDOSCOPY Screening every 5 yrs 12/30/2015 Colorectal Cancer: Fecal Immunochemical Test (FIT) Annually [facility] 12/30/2015 Colorectal Cancer: High-sens itivity gFOBT Screening Annually [facility] 12/30/2015 Colorectal Cancer: Stool Col oguard Screening every 3 yrs 12/30/2015 Colorectal Cancer:CT Colonog carin Screening every 5 yrs 12/30/2015 Lipid Screening: Every 5 yrs for Women aged 45+ (or HM Modifier) ([facility]) 2016 Breast Cancer: Screening Carolyn ually age 50-74 yrs (or HM Modifier)([facility]) 2020 Zoster/Shingles Vaccine Seri es Screening: Adults aged 18+ yrs (or HM Modifiers)([facility]) (1 of 2) 2020 Flu Vaccination: Yearly for ages 18mos through 64 years (or Modifier)([facility]) 11/01/2023 COVID-19 Vaccine Screening: Initial Series and Booster Status ([facility]) (2023- season) 2023 Pneumococcal Vaccination Scr eening: Pts 0-19 & 19-64 yrs of age ([facility]) Aged Out No longer eligible based on patient's age to complete this topic Medical Devices Not on file Insurance PLAN HN PLAN ([facility]) - MEDICAID Member Subscriber Plan / Payer (Ef fective 2017-Present) Name:Yoel Gerber Relation to Subscriber:Self Name:Yoel Gerber Payer ID:Not on file Group ID:Not on file Type:Not on file Address: [place] [id number]
--- OUTSIDE RECORDS SUMMARY | 2024-04-29 08:51 | XMS_ITS | Clinical Summary ---
Author Organization Unknown Care Team Providers Care It Quality Assurance Analyst Name Role Phone AVELINA APPIAH, SURY Unavailable Unavailable INGRID CANO, DAMON Unavailable Unavailable ELE CANO, MAHNAZ Unavailable Unavailable Payers Payer Name Policy Type Policy Number Effective Date Expira tion Date [facility] ([facility] [id number] MEDICAID [facility] [id number] Problems Condition Name Condition Details Condition Category Status Onset Date Resolution Date Last Treatment Date Treating Clinician Comments MAJOR DEPRESSV DISORDER, RECURRENT SEVERE W/O PSYCH FEATURES Active 05-03 00:00: 00 BIPOLAR DISORD, CRNT EPISODE MANIC W/O PSYCH FEATURES, UNSP Active 2022-04 00:00: 00 ATTENTION-DE FICIT HYPERACTIVIT Y DISORDER, UNSPECIFIED TYPE Active 04-02 00:00: 00 PANIC DISORDER [EPISODIC PAROXYSMAL ANXIETY] Active 04-02 00:00: 00 DISORDER INVOLVING THE IMMUNE MECHANISM, UNSPECIFIED Active 04-02 00:00: 00 UNSPECIFIED ASTHMA, UNCOMPLICATE D Active 04-02 00:00: 00 DEPRESSION, UNSPECIFIED Active 2023-04 00:00: 00 PERSONAL HISTORY OF TRAUMATIC BRAIN INJURY Active 04-02 00:00: 00 MILD COGNITIVE IMPAIRMENT OF UNCERTAIN OR UNKNOWN ETIOLOGY Active 2023-04 00:00: 00 Allergies, Adverse Reactions, Alerts Allergy Name Allergy Type Status Severity Reaction(s) Onset Date Inactive Date Treating Clinician Comments MOLD MOLD Propensity to adverse reactions Active 2023-07 08:11:0 3 Medications Ordered Medication Name Filled Medication Name Start Date Stop Date Current Medication? Ordering Clinician Indication Dosage Frequency Signature (SIG) Comments Components Hizentra 10 gram/50 mL (20 %) subcutaneou s solution 05-09 00:00: 00 12-24 23:59 :00 No [id number] Per instruc tions DIRECTED Per instructio ns DIRECTED (route: subcutaneo us) Med Classific ation: Biologica ls Hizentra 2 gram/10 mL (20 %) subcutaneou s solution 05-09 00:00: 00 Yes [id number] Per instruc tions DIRECTED Per instructio ns DIRECTED (route: subcutaneo us) Med Classific ation: Biologica ls Ubrelvy 100 mg tablet 05-09 00:00: 00 Yes [id number] Per instruc tions DAILY NEEDED FOR 30 DAYS Per instructio ns DAILY NEEDED FOR 30 DAYS (route: oral) Med Classific ation: Central Nervous System Agents Ventolin HFA 90 mcg/actuati on aerosol inhaler 05-09 00:00: 00 Yes [id number] Per instruc tions EVERY 6 HOURS NEEDED Per instructio ns EVERY 6 HOURS NEEDED (route: inhalation ) Med Classific ation: Respirato ry Therapy Agents clonazepam 1 mg tablet 05-06 00:00: 00 06-17 23:59 :00 No [id number] Per instruc tions 2 TIMES A DAY NEEDED Per instructio ns 2 TIMES A DAY NEEDED (route: oral) Med Classific ation: Central Nervous System Agents gabapentin 300 mg capsule 05-06 00:00: 00 07-26 23:59 :00 No [id number] Per instruc tions 3 TIMES A DAY Per instructio ns 3 TIMES A DAY (route: oral) Med Classific ation: Central Nervous System Agents tramadol 50 mg tablet 05-06 00:00: 00 Yes [id number] Per instruc tions 4 TIMES A DAY NEEDED FOR 30 DAYS Per instructio ns 4 TIMES A DAY NEEDED FOR 30 DAYS (route: oral) Med Classific ation: Analgesic , Anti-infl ammatory or Antipyret ic amitriptyli ne 100 mg tablet 04-28 00:00: 00 Yes [id number] Per instruc tions EVERY NIGHT AT BEDTIME Per instructio ns EVERY NIGHT AT BEDTIME (route: oral) Med Classific ation: Central Nervous System Agents memantine 5 mg tablet 04-28 00:00: 00 07-29 23:59 :00 No [id number] Per instruc tions EVERY DAY FOR 30 DAYS Per instructio ns EVERY DAY FOR 30 DAYS (route: oral) Med Classific ation: Cognitive Disorder Therapy Ubrelvy 100 mg tablet 04-28 00:00: 00 05-23 23:59 :00 No [id number] Per instruc tions EVERY DAY NEEDED X30 DAYS Per instructio ns EVERY DAY NEEDED X30 DAYS (route: oral) Med Classific ation: Central Nervous System Agents dextroamphe tamine sulfate 30 mg tablet 05-23 00:00: 00 06-17 23:59 :00 No [id number] 1 tablet DIRECTED 1 tablet DIRECTED (route: oral) Med Classific ation: Central Nervous System Agents divalproex 500 mg tablet,roc yed release 05-23 00:00: 00 Yes [id number] 1 tablet BEDTIME 1 tablet BEDTIME (route: oral) Med Classific ation: Central Nervous System Agents fluoxetine 20 mg capsule 05-23 00:00: 00 09-16 23:59 :00 No [id number] 3 capsule DAILY 3 capsule DAILY (route: oral) Med Classific ation: Central Nervous System Agents lurasidone 120 mg tablet 05-23 00:00: 00 Yes [id number] 1 tablet EVERY PM 1 tablet EVERY PM (route: oral) Med Classific ation: Central Nervous System Agents trazodone 50 mg tablet 05-23 00:00: 00 09-16 23:59 :00 No [id number] 1 tablet NEEDED 1 tablet NEEDED (route: oral) Med Classific ation: Central Nervous System Agents Vitamin B-12 1,000 mcg tablet 05-23 00:00: 00 09-16 23:59 :00 No [id number] 1 tablet DAILY 1 tablet DAILY (route: oral) Med Classific ation: Electroly te Balance-N utritiona l Products Adderall 20 mg tablet 06-17 00:00: 00 09-26 23:59 :00 No [id number] 1 tablet DAILY 1 tablet DAILY (route: oral) Med Classific ation: Central Nervous System Agents clonazepam 0.5 mg tablet 18 00:00: 00 07-15 23:59 :00 No [id number] 1 tablet NEEDED 1 tablet NEEDED (route: oral) Med Classific ation: Central Nervous System Agents memantine 5 mg tablet 18 00:00: 00 07-19 23:59 :00 No [id number] 1 tablet 2 TIMES DAILY 1 tablet 2 TIMES DAILY (route: oral) Med Classific ation: Cognitive Disorder Therapy clonazepam 1 mg tablet 15 00:00: 00 Yes [id number] 1 tablet 2 TIMES DAILY 1 tablet 2 TIMES DAILY (route: oral) Med Classific ation: Central Nervous System Agents sertraline 50 mg tablet 07-15 00:00: 00 10-07 23:59 :00 No [id number] 1 tablet EVERY AM 1 tablet EVERY AM (route: oral) Med Classific ation: Central Nervous System Agents Flonase Allergy Relief 50 mcg/actuati on nasal spray,suspe nsion 07-21 00:00: 00 Yes [id number] 2 spray DAILY 2 spray DAILY (route: nasal) Med Classific ation: Respirato ry Therapy Agents montelukast 10 mg tablet 07-21 00:00: 00 01-28 23:59 :00 No [id number] 1 tablet BEDTIME 1 tablet BEDTIME (route: oral) Med Classific ation: Respirato ry Therapy Agents gabapentin 400 mg capsule 07-26 00:00: 00 Yes [id number] 1 capsule 3 TIMES DAILY 1 capsule 3 TIMES DAILY (route: oral) Med Classific ation: Central Nervous System Agents memantine 10 mg tablet 07-29 00:00: 00 01-28 23:59 :00 No [id number] 1 tablet 2 TIMES DAILY 1 tablet 2 TIMES DAILY (route: oral) Med Classific ation: Cognitive Disorder Therapy trazodone 100 mg tablet 6-20 00:00: 00 Yes [id number] 1 tablet BEDTIME 1 tablet BEDTIME (route: oral) Med Classific ation: Central Nervous System Agents Adderall XR 20 mg capsule,ext ended release 6-28 00:00: 00 12-24 23:59 :00 No [id number] 1 capsule DAILY 1 capsule DAILY (route: oral) Med Classific ation: Central Nervous System Agents sertraline 50 mg tablet 7-08 00:00: 00 12-24 23:59 :00 No [id number] 1.5 tablet DAILY 1.5 tablet DAILY (route: oral) Med Classific ation: Central Nervous System Agents Adderall XR 30 mg capsule,ext ended release 12-24 00:00: 00 Yes [id number] 1 capsule EVERY AM 1 capsule EVERY AM (route: oral) Med Classific ation: Central Nervous System Agents sertraline 100 mg tablet 12-24 00:00: 00 Yes [id number] 1 tablet EVERY AM 1 tablet EVERY AM (route: oral) Med Classific ation: Central Nervous System Agents Vital Signs Vital Name Observation Time Observation Value Commen ts Temperature 2024-04-22 12:30:00.000 97.3 [degF] Temperature 2024-04-15 12:25:00.000 97.5 [degF] Temperature 2024-04-08 12:02:00.000 97.8 [degF] Temperature 2024-04-01 10:56:00.000 97.3 [degF] Temperature 2024-03-25 11:43:00.000 97.6 [degF] Temperature 2024-03-18 13:10:00.000 97.8 [degF] Pulse 2024-04-22 12:30:00.000 104 /min Pulse 2024-04-15 12:25:00.000 91 /min Pulse 2024-04-08 12:02:00.000 98 /min Pulse 2024-04-01 10:56:00.000 68 /min Pulse 2024-03-25 11:43:00.000 68 /min Pulse 2024-03-18 13:10:00.000 88 /min O2 Saturation (%) 2024-04-15 12:25:00.000 95 % O2 Saturation (%) 2024-04-08 12:03:00.000 100 % Respirations 2024-04-22 12:30:00.000 16 /min Respirations 2024-04-15 12:25:00.000 16 /min Respirations 2024-04-08 12:02:00.000 16 /min Respirations 2024-04-01 10:56:00.000 16 /min Respirations 2024-03-25 11:43:00.000 16 /min Respirations 2024-03-18 13:10:00.000 16 /min Systolic Blood Pressure 2024-04-22 12:30:00.000 120 mm [Hg] Systolic Blood Pressure 2024-04-15 12:25:00.000 120 mm [Hg] Systolic Blood Pressure 2024-04-01 10:56:00.000 112 mm [Hg] Systolic Blood Pressure 2024-03-25 11:43:00.000 120 mm [Hg] Systolic Blood Pressure 2024-03-18 13:10:00.000 122 mm [Hg] Diastolic Blood Pressure 2024-04-22 12:30:00.000 80 mm [Hg] Diastolic Blood Pressure 2024-04-15 12:25:00.000 60 mm [Hg] Diastolic Blood Pressure 2024-04-01 10:56:00.000 60 mm [Hg] Diastolic Blood Pressure 2024-03-25 11:43:00.000 60 mm [Hg] Diastolic Blood Pressure 2024-03-18 13:10:00.000 70 mm [Hg] Plan of Treatment Planned Activity Planned Date Details Comments Future Scheduled Test SKILLED NU RSE TO EVALUATE PATIENT, IDENTIFY PRIMARY AND CO-MORBID CONDITIONS CODED PER CODING GUIDELINES, AND DEVELOP PATIENT SPECIFIC PLAN OF CARE THAT INCLUDES PATIENT GOAL FOR HOME HEALTH. [code = SKILLED NURSE TO EVALUATE PATIENT, IDENTIFY PRIMARY AND CO-MORBID CONDITIONS CODED PER CODING GUIDELINES, AND DEVELOP PATIENT SPECIFIC PLAN OF CARE THAT INCLUDES PATIENT GOAL FOR HOME HEALTH.] Future Scheduled Test SKILLED NU RSE WILL MAINTAIN SITUATIONAL AWARENESS FOR SAFETY AND WILL NOTIFY CLINICAL REPEATER CHIEF AND PHYSICIAN/PROVIDER WITH ANY CHANGE IN CONDITION. [code = SKILLED NURSE WILL MAINTAIN SITUATIONAL AWARENESS FOR SAFETY AND WILL NOTIFY CLINICAL REPEATER CHIEF AND PHYSICIAN/PROVIDER WITH ANY CHANGE IN CONDITION.] Future Scheduled Test SKILLED NU RSE FOR O/A OF GENERAL HEALTH STATUS OF PAIN, CARDIAC, RESPIRATORY, GASTROINTESTINAL, GENITOURINARY, SKIN, NEUROLOGIC, ENDOCRINE SYSTEMS TO IDENTIFY CHANGES ASSOCIATED WITH EXACERBATION FOR EARLY INTERVENTION OF COMPLICATIONS WEEKLY [code = SKILLED NURSE FOR O/A OF GENERAL HEALTH STATUS OF PAIN, CARDIAC, RESPIRATORY, GASTROINTESTINAL, GENITOURINARY, SKIN, NEUROLOGIC, ENDOCRINE SYSTEMS TO IDENTIFY CHANGES ASSOCIATED WITH EXACERBATION FOR EARLY INTERVENTION OF COMPLICATIONS WEEKLY ] Future Scheduled Test SKILLED NU RSE TO REVIEW PATIENT MEDICATIONS. INSTRUCT PATIENT/CAREGIVER ON MONITORING OF EFFECTIVENESS, ADVERSE DRUG REACTIONS, SIDE EFFECTS OF ALL MEDICATIONS (PRESCRIPTION/-OTC), AND HOW AND WHEN TO REPORT PROBLEMS. [code = SKILLED NURSE TO REVIEW PATIENT MEDICATIONS. INSTRUCT PATIENT/CAREGIVER ON MONITORING OF EFFECTIVENESS, ADVERSE DRUG REACTIONS, SIDE EFFECTS OF ALL MEDICATIONS (PRESCRIPTION/-OTC), AND HOW AND WHEN TO REPORT PROBLEMS.] Future Scheduled Test SKILLED NU RSE TO PRE-POUR MEDICATION PER MEDICATION LIST WEEKLY [code = SKILLED NURSE TO PRE-POUR MEDICATION PER MEDICATION LIST WEEKLY ] Future Scheduled Test PATIENT MA Y HAVE ONE SET OF EMERGENCY MEDICATION NOT TO BE PRE-POURED ANY SOONER THAN 24 HOURS BEFORE SEVERE INCLEMENT WEATHER OR EMERGENT EVENT AND FOLLOWING SKILLED NURSE EVALUATION OF PATIENT SAFETY. [code = PATIENT MAY HAVE ONE SET OF EMERGENCY MEDICATION NOT TO BE PRE-POURED ANY SOONER THAN 24 HOURS BEFORE SEVERE INCLEMENT WEATHER OR EMERGENT EVENT AND FOLLOWING SKILLED NURSE EVALUATION OF PATIENT SAFETY.] Future Scheduled Test SKILLED NU RSE FOR O/A AND SKILLED TEACHING OF COPING SKILLS TO MANAGE ANXIETY AND MAINTAIN SAFETY. [code = SKILLED NURSE FOR O/A AND SKILLED TEACHING OF COPING SKILLS TO MANAGE ANXIETY AND MAINTAIN SAFETY.] Future Scheduled Test SKILLED NU RSE FOR O/A OF NEUROCOGNITIVE AND BEHAVIORAL STATUS [code = SKILLED NURSE FOR O/A OF NEUROCOGNITIVE AND BEHAVIORAL STATUS] Future Scheduled Test SKILLED NU RSE FOR O/A OF ALTERED MOOD [code = SKILLED NURSE FOR O/A OF ALTERED MOOD] Future Scheduled Test SKILLED NU RSE TO ASSESS PATIENTS PSYCHOSOCIAL STATUS TO IDENTIFY POTENTIAL ISSUES THAT MAY COMPLICATE THE PROVISION OF THE PLAN OF CARE INCLUDING THE PATIENTS ABILITY TO ACCESS COMMUNITY RESOURCES AND PSYCHOSOCIAL SUPPORT SERVICES. [code = SKILLED NURSE TO ASSESS PATIENTS PSYCHOSOCIAL STATUS TO IDENTIFY POTENTIAL ISSUES THAT MAY COMPLICATE THE PROVISION OF THE PLAN OF CARE INCLUDING THE PATIENTS ABILITY TO ACCESS COMMUNITY RESOURCES AND PSYCHOSOCIAL SUPPORT SERVICES.] Future Scheduled Test MEDICATION S WILL BE HELD AND STORED IN LOCKBOX [code = MEDICATIONS WILL BE HELD AND STORED IN LOCKBOX] Future Scheduled Test MEDICATION S WILL BE HELD AND STORED IN MEDICATION SAFE. [code = MEDICATIONS WILL BE HELD AND STORED IN MEDICATION SAFE.] Future Scheduled Test SKILLED NU RSE MAY PICKUP AND TRANSPORT MEDICATIONS [code = SKILLED NURSE MAY PICKUP AND TRANSPORT MEDICATIONS] Future Scheduled Test SKILLED NU RSE FOR O/A TO IDENTIFY CHANGES ASSOCIATED WITH TBI SNF COGNITIVE IMPAIRMENT AND PROVIDE INSTRUCTION RELATED TO SAFETY MEASURES TO PREVENT INJURY SECONDARY TO IMPAIRED NEUROLOGICAL STATUS. SKILLED NURSE TO REPORT SIGNIFICANT CHANGES OF NEUROLOGIC STATUS TO PHYSICIAN FOR EARLY INTERVENTION. [code = SKILLED NURSE FOR O/A TO IDENTIFY CHANGES ASSOCIATED WITH TBI SNF COGNITIVE IMPAIRMENT AND PROVIDE INSTRUCTION RELATED TO SAFETY MEASURES TO PREVENT INJURY SECONDARY TO IMPAIRED NEUROLOGICAL STATUS. SKILLED NURSE TO REPORT SIGNIFICANT CHANGES OF NEUROLOGIC STATUS TO PHYSICIAN FOR EARLY INTERVENTION.] Future Scheduled Test SKILLED NU RSE TO O/A OF PATIENTS MENTAL/BEHAVIORAL STATUS, ASSESS VITAL SIGNS WEEKLY ALLOW 2 PRNS FOR MEDICATION MANAGEMENT. [code = SKILLED NURSE TO O/A OF PATIENTS MENTAL/BEHAVIORAL STATUS, ASSESS VITAL SIGNS WEEKLY ALLOW 2 PRNS FOR MEDICATION MANAGEMENT.] Future Scheduled Test SKILLED NU RSE TO PERFORM HOME SAFETY AND FALL ASSESSMENT AND PROVIDE INSTRUCTION TO IMPLEMENT HOME SAFETY AND FALL PREVENTION STRATEGIES. [code = SKILLED NURSE TO PERFORM HOME SAFETY AND FALL ASSESSMENT AND PROVIDE INSTRUCTION TO IMPLEMENT HOME SAFETY AND FALL PREVENTION STRATEGIES.] Goal 2023-07-20 Patient Goal - START AN ADUL T DAY PROGRAM Goal 2023-09-17 Patient Goal - S TART AN ADULT DAY PROGRAM, Goal 2023-11-15 Patient Goal - AVOID FALLING Goal 2024-01-15 Patient Goal - AVOID FALLING Goal 2024-03-14 Patient Goal - T O FIND A NEW APARTMENT TO STAY ON MEDICATION COMPLIANT Goal Patient Goal - T O FIND A NEW APARTMENT TO STAY ON MEDICATION COMPLIANT Goal Provider Goal - A PLAN OF CARE WILL BE ESTABLISHED THAT MEETS PATIENT'S HALFWAY NEEDS AND INCLUDES PATIENT GOAL FOR HOME HEALTH. Goal Provider Goal - PATIENT WILL REMAIN SAFE IN THE COMMUNITY AND WILL BE FREE OF DANGER TO SELF AND OTHERS THROUGHOUT THE CERTIFICATION PERIOD. Goal Provider Goal - CHANGE IN GENERAL HEALTH STATUS WILL BE IDENTIFIED AND REPORTED TO PHYSICIAN FOR PROMPT INTERVENTION TO MINIMIZE ASSOCIATED RISKS THROUGHOUT CERTIFICATION PERIOD. Goal Provider Goal - PATIENT/CAREGIVER WILL VERBALIZE UNDERSTANDING OF EDUCATION PROVIDED ON MEDICATIONS BY THE END OF THE CERTIFICATION PERIOD. Goal Provider Goal - PATIENT WILL COMPLY WITH MEDICATION WHEN SKILLED NURSE PRE-POURS MEDICATION THROUGHOUT CERTIFICATION PERIOD. Goal Provider Goal - MEDICATION WILL BE AVAILABLE DURING INCLEMENT WEATHER OR EMERGENT EVENT THROUGHOUT CERTIFICATION PERIOD. Goal Provider Goal - PATIENT WILL BE ABLE TO PERFORM DAILY FUNCTIONS AND HAVE OPTIMAL IMPROVEMENT IN LEVEL OF ANXIETY THROUGHOUT CERTIFICATION PERIOD. Goal Provider Goal - PATIENT WILL BE ABLE TO PERFORM DAILY FUNCTIONS AND MAINTAIN OPTIMAL BEHAVIORAL/NEUROCOGNITIVE STATUS THROUGHOUT CERTIFICATION PERIOD. Goal Provider Goal - PATIENT WILL BE ABLE TO PERFORM DAILY FUNCTIONS AND HAVE OPTIMAL IMPROVEMENT IN MOOD STABILITY THROUGHOUT CERTIFICATION PERIOD. Goal Provider Goal - PSYCHOSOCIAL NEEDS WILL BE IDENTIFIED AND PLAN IMPLEMENTED TO MINIMIZE RISK THROUGHOUT CERTIFICATION PERIOD. Goal Provider Goal - MEDICATION WILL BE STORED IN LOCKBOX FOR SAFETY. Goal Provider Goal - MEDICATIONS WILL BE STORED IN MEDICATION SAFE FOR SAFETY. Goal Provider Goal - SKILLED NURSE PICKED UP AND TRANSPORTED MEDICATIONS FOR SAFETY. Goal Provider Goal - CHANGES IN NEUROLOGIC STATUS WILL BE IDENTIFIED AND REPORTED TO THE PHYSICIAN FOR PROMPT INTERVENTION OF ASSOCIATED RISK. PATIENT/CAREGIVER WILL VERBALIZE/DEMONSTRATE APPROPRIATE SAFETY MEASURES TO PREVENT INJURY BY THE END OF THE CERTIFICATION PERIOD. Goal Provider Goal - ALTERED MENTAL/BEHAVIORAL STATUS WILL BE IDENTIFIED PROMPTLY AND INTERVENTION INITIATED QUICKLY TO MINIMIZE ASSOCIATED RISKS THROUGHOUT CERTIFICATION PERIOD. Goal Provider Goal - PATIENT/CAREGIVER WILL VERBALIZE/DEMONSTRATE EFFECTIVE HOME SAFETY AND FALL PREVENTION STRATEGIES THROUGHOUT CERTIFICATION PERIOD. Encounters Start Date/Time End Date/Time Encounter Type Admission Type Attending [facility] Care [facility] Care Department Encounter ID Discharge Date Discharge Status Discharge Condition Discharge Reason Percent Goals Met 2023-05-23 00:00:00 2024-05-16 00:00:00 Outpatient RECERTIFIC MAHNAZ BLANK [facility] [id number]
== END 2024-04-29 09:03 | disposition home or self-care (01) ==
PROVIDERS: PCP Internal Medicine; Visit Provider Internal Medicine
DX: G31.84 Mild cognitive impairment of uncertain or unknown etiology (principal); R73.01 Impaired fasting glucose; E78.00 Pure hypercholesterolemia, unspecified; F31.81 Bipolar II disorder; D80.1 Nonfamilial hypogammaglobulinemia; Z72.0 Tobacco use; J45.20 Mild intermittent asthma, uncomplicated

== ENCOUNTER → 2024-04-29 08:30 | Outpatient (BNVA) | payer OTHER, SELFPAY | PROVIDERS: PCP Internal Medicine; Visit Provider Internal Medicine | DX: G31.84 Mild cognitive impairment of uncertain or unknown etiology (principal); R73.01 Impaired fasting glucose; E78.00 Pure hypercholesterolemia, unspecified; F31.81 Bipolar II disorder; D80.1 Nonfamilial hypogammaglobulinemia; J45.20 Mild intermittent asthma, uncomplicated; Z72.0 Tobacco use | CPT/HCPCS: 99212 ==

== ENCOUNTER → 2024-04-30 10:21 | Outpatient (BNVA) | payer OTHER, SELFPAY | PROVIDERS: PCP Internal Medicine; Visit Provider Advanced Practice Midwife | DX: Z01.419 Encounter for gynecological examination (general) (routine) without abnormal findings (principal); Z12.4 Encounter for screening for malignant neoplasm of cervix; N95.1 Menopausal and female climacteric states; R23.2 Flushing; Z72.0 Tobacco use | CPT/HCPCS: 99396; 99459 ==

== ENCOUNTER 2024-06-24 13:18 | Outpatient (REF) | payer OTHER, SELFPAY ==
--- NOTE | ~2024-06-24 | XR_ITS ---
CLINICAL HISTORY: M25.511 - Pain in right shoulder 4 view right shoulder Comparison: None Findings: No fractures or dislocations. No significant arthritic change. No erosions. No radiopaque foreign body. IMPRESSION: 1. No acute findings This document has been electronically signed by: Juan R Ambriz MD on 06/26/2024 10:22:33
--- NOTE | ~2024-06-24 | XR_ITS ---
CLINICAL HISTORY: M25.562 - Pain in left knee 2 view left knee Comparison: None Findings: No fractures or dislocations. No significant arthritic change or erosions. No joint effusion. No radiopaque foreign body. IMPRESSION: 1. No acute findings. This document has been electronically signed by: Juan R Ambriz MD on 06/26/2024 10:22:16
--- OUTSIDE RECORDS SUMMARY | 2024-06-24 16:13 | XMS_ITS | Clinical Summary ---
Author Organization [employer] Address [address] [place] [address] Care Team Providers Care Microsoft Application Developer Name Role Phone Unavailable Primary Care Provider Unavailabl e Encounters Date Type Department Care Team Description 05/02/2024 Telephone [facility] [address], [place] [id number] Tone Connell MD New patient appt. from Last 3 Months Social History Tobacco Use Types Packs/Day Years Used Date Smoking Tobacco: Never Assessed Comments Unknown Sex and Gender Information Value Date Recorded Sex Assigned at Female 05/02/2024 9:59 AM EST Legal Sex Female 9:54 AM EST Gender Identity Female 05/02/2024 9:59 AM EST Sexual Orientation Not on file Plan of Treatment Health Maintenance Due Date Last Done Comments CT Colonography 1970 Colonoscopy 1970 Colorectal Cancer Screening 1970 Depression Screening 1970 FIT DNA/Cologuard 1970 FIT 1970 FOBT 1970 HIV Screening 1970 SDOH Screening 1970 Sigmoidoscopy 1970 Alcohol/Substance Use Screening 1982 Tobacco Screening 1982 Hepatitis C Screening 1988 DTaP/Tdap/Td Vaccines (1 - Tdap) 1989 Hepatitis B Vaccines (1 of 3 - 19+ 3-dose series) 1989 Pap Smear 12/30/1991 Cervical Cancer Screening 2000 HPV/Cotest 2000 Mammogram 2010 Pneumococcal Vaccine: 50+ Ye ars (1 of 1 - PCV) 2020 Zoster Vaccines (1 of 2) 2020 COVID-19 Vaccine ( - 2023-2 5 season) 2023 Influenza Vaccine (#1) 2023 RSV Patients and Pa tients Aged 60 years or older (1 - 1-dose 75+ series) 2045 HIB Vaccines Aged Out No longer eligi ble based on patient's age to complete this topic HPV Vaccines Aged Out No longer eligi ble based on patient's age to complete this topic Hepatitis A Vaccines Aged Out No long er eligible based on patient's age to complete this topic IPV Vaccines Aged Out No longer eligi ble based on patient's age to complete this topic Meningococcal Vaccine Aged Out No harry guanako eligible based on patient's age to complete this topic RSV under 20 months Aged Out No longe r eligible based on patient's age to complete this topic Rotavirus Vaccines Aged Out No longer eligible based on patient's age to complete this topic
== END 2024-06-24 13:19 | disposition home or self-care (01) ==
LOC: HO.XRAY 13:18
PROVIDERS: PCP Internal Medicine; Visit Provider Internal Medicine
DX: M25.562 Pain in left knee (principal); M25.511 Pain in right shoulder
CPT/HCPCS: 73030; 73560

== ENCOUNTER → 2024-06-24 13:26 | Outpatient (BNV) | payer OTHER, SELFPAY | PROVIDERS: PCP Internal Medicine; Visit Provider Radiology Diagnostic Radiology | DX: M25.511 Pain in right shoulder (principal); M25.562 Pain in left knee | CPT/HCPCS: 73030; 73560 ==

== ENCOUNTER 2024-06-27 09:24 | Outpatient (AMB) | payer OTHER, SELFPAY ==
--- NOTE | 2024-06-27 09:32 | A.OFFPC_ITS ---
Vital Signs 06/27/24 09:33 Height 5 ft 6 in Weight 167 lb 4 oz BMI 27.0 BP 100/60 Blood Pressure Location Lt brachial Position Sitting Pulse 92 Pulse Source Pulse Oximeter Temp 97.1 F Temp Source Temporal Artery Scan Pulse Oximetry (%) 89 L Oxygen Delivery Method Room Air Intake Visit Reasons: Right lower breast pain Intake Note: Patient is here to follow up on Right lower breast pain. Body Shop Estimator Required: No Junior Systems Analyst: Not Required per policy Accompanied by: Self / Same As Patient Allergies mold Allergy (Unknown, Uncoded 06/27/24 09:33) makes patient feel sick Medication List - Last Reconciled 06/27/24 by Ania Tabares PA-C albuterol sulfate 90 mcg/actuation (Ventolin HFA) 2 puffs inhalation Q6H PRN amitriptyline 100 mg PO BEDTIME 30 days clonazepam 1 mg PO BID PRN dextroamphetamine-amphetamine 30 mg 1 tab PO DAILY@1500 PRN divalproex ER 500 mg PO BEDTIME 30 days fluticasone propion-salmeterol 250-50 mcg/dose (Wixela Inhub) 1 inh inhalation BID gabapentin 600 mg PO TID hydroxyzine HCl 25 mg PO DAILY PRN lurasidone 120 mg PO DAILY 30 days sertraline mg PO DAILY tramadol 50 mg PO QID PRN 30 days trazodone 100 mg PO BEDTIME ubrogepant (Ubrelvy) 100 mg PO DAILY PRN 30 days Tobacco use date assessed: 06/27/24 Dental Screening Dental Screen Date: 04/29/24 HPI Right lower breast pain HPI Details 53-year-old female with past medical his tory of tobacco abuse, asthma, bipolar 2, ADHD, hypercholesterolemia, and depression last seen by Dr. Sharpe 04/2024 coming in for acute problem. Presenting with right-sided breast pain experienced over the last few months. Pain is characterized as sharp and pulling, worsening with stretching and physical activity. It is described as localized under the right breast, possibly extending under the ribcage, without any back involvement. No associated skin changes, such as rashes, or nipple discharge have been reported. There is no recent history of trauma or significant activity changes, although existing knee and shoulder issues limit her exercise. Family history indicates a predisposition to breast cancer, as the patient has two maternal aunts with breast cancer. [facility] Medical History Breast cancer screening by mammogram Cervical cancer screening Women's annual routine gynecological examination Cognitive changes Breast cancer screening Annual physical exam Carpal tunnel syndrome, right Distal radius fracture, right Fracture of wrist Left foot pain Knee pain, right MDD (major depressive disorder), recurrent episode, severe Neck pain Arthritis Hx MRSA infection Hx of suicide attempt Uses Depo-Provera as primary control method Perimenopausal symptoms Skin lesion of right ear Upper back pain Dysphagia Skin lesion of hand Mass of left hand Well woman exam with routine gynecological exam Altered mental status Depot contraception (~12/26/20) Fall Axillary abscess History of herpes simplex infection Polysubstance abuse Asthma Bipolar disorder Migraine Tobacco abuse ADHD Scoliosis History of drainage of abscess Surgical History History of carpal tunnel surgery History of surgical removal of skin lesion (~06/27/21) History of tonsillectomy Family History Mother In good health Father In good health Maternal Aunt History of breast cancer Maternal Grandmother Pancreatic cancer Social History Household Members: Significant Other Household Members Other:: Andrew (Boyfriend) Housing: House Are you a primary memory care director to a significant other at home: No Do you presently have visiting nurse or other home services: No Unable to assess alcohol history related to: Unknown Alcohol intake: never Comment: 1:1 sitter for safety Patient Tobacco Use Status: Current everyday Tobacco user Tobacco use type: Cigarette Cigarette Packs Per Day: 0.5 Cigarettes Per Day: 3 Years Smoked: 36 e-Cigarette/Vaping Use: Never Used Second Hand Smoke Exposure: Yes Substance Use Type: Marijuana service: No Current occupational status: unemployed Sexual orientation: Straight/Heterosexual Gender identity: Female Cognitive needs: No Hearing needs: No Vision needs: Yes (Glasses) Female Reproductive History Menstrual Age of Menarche: 12 Questionnaire Thrive Questionnaire Date Thrive assessed: 04/29/24 JOVAN-7 AMB Questionnaire JOVAN-7 Date JOVAN - 7 assessed: 04/29/24 Source: Developed by Drs. Dinesh Cadena, Leonora Prince, Shai Shabazz and colleagues, with an educational mariana from [employer]. Review of Systems Const Denies body aches, Denies chills, Denies fever(s) and Denies poor appetite Eyes Reports no additional complaints ENT Reports no additional complaints Card Denies chest pain and Denies dyspnea Resp Denies dyspnea GI Reports no additional complaints Reports no additional complaints Musc Reports no additional complaints and Denies abnormal gait Skin/Breast Details: right breast pain Neuro Denies abnormal gait Psych Reports no additional complaints Physical exam (Primary Care) Vital Signs: Last Vital Signs Temp 97.1 F 06/27/24 09:33 Pulse 92 06/27/24 09:33 BP 100/60 06/27/24 09:33 Pulse Ox 89 L 06/27/24 09:33 Oxygen Delivery Method Room Air 06/27/24 09:33 BMI result Body Mass Index 27.0 Tobacco/Smoking Status: Tobacco use Status Tobacco use date assessed 06/27/24 06/27/24 09:33 Patient Tobacco Use Status Current everyday Tobacco 06/27/24 09:33 Tobacco use type Cigarette 06/27/24 09:33 e-Cigarette/Vaping Use Never Used 06/27/24 09:33 Thrive Assessment: Date of Thrive Assessment Date Thrive assessed 04/29/24 06/27/24 09:33 Const General: cooperative, healthy appearing, comfortable and no acute distress Orientation/consciousness: [facility]3 [facility]: Yes normocephalic Ears: hearing grossly normal bilaterally General nose exam: Normal external nose present Eyes General: appearance normal, both eyes and all related structures Conjunctivae: conjunctivae normal Neck Neck: Yes full ROM and Yes no lymphadenopathy Chest Other: pain in the underside of the right breast with deep palpation and on the lateral aspect of the right breast. no masses palpated, no rashes appreciated and no nipple drainage or inversion Resp Effort & Inspection: normal respiratory effort Auscultation: clear to auscultation bilaterally, no crackles, no rales, no rhonchi and no wheezes Cardio Rate: regular rate Rhythm: regular rhythm Skin General skin exam: no rashes or lesions noted Neuro General: patient oriented x3 Gait exam (Neuro): Normal gait present Extrem General: Yes normal to inspection, Yes full ROM and No edema Psych Affect: normal affect Attitude: cooperative Insight: Good insight present (Psych) Judgement: Good judgement present (Psych) Coding Level of Care Code Est Pt Level 3 (01455) Diagnoses Breast pain, right N64.4 Assessment & Plan Assessment & Plan (1) Breast pain, right: Code(s): N64.4 - Mastodynia Category: Medical Plan: I recommended a diagnostic mammogram for the right breast and an ultrasound to further evaluate the area of pain, due to its persistent nature and the patient?s family history of breast cancer. The importance of these tests is underscored by the need to rule out any non-palpable lesions and to correlate any potential findings with family history concerns. Depending on the outcomes, further specialty consultation may be necessary. We will proceed with routine screening if results are normal and no concerning findings arise. Plan This note was constructed using voice recognition software. While every effort has been made to ensure accuracy and sport internship, still areas may have been included sometimes these areas may affect the content or meeting of the given symptoms. Total time spent caring for the patient today was 20 minutes. This includes time spent before the visit reviewing the chart, time spent during the visit, and time spent after the visit and documentation. Patient was informed and verbally consented to the use of an ambient scribe for clinic note documentation during this visit. Orders: Orders US breast RT limited Today N64.4 - Mastodynia MM tomosynthesis diagnostic RT Today N64.4 - Mastodynia
[2024-06-27 09:33] VITALS: BP 100/60; PULSE 92; TEMP 36.2; O2SAT 89; BMI 27.0
== END 2024-06-27 10:13 | disposition home or self-care (01) ==
LOC: HO.HMCH 09:24
PROVIDERS: PCP Internal Medicine
DX: N64.4 Mastodynia (principal)

== ENCOUNTER → 2024-06-27 09:24 | Outpatient (BNVA) | payer OTHER, SELFPAY | PROVIDERS: PCP Internal Medicine | DX: N64.4 Mastodynia (principal) | CPT/HCPCS: 99212 ==

== ENCOUNTER 2024-08-01 08:28 | Outpatient (AMB) | payer OTHER, SELFPAY ==
--- NOTE | 2024-08-01 08:32 | A.OFFPC_ITS ---
Vital Signs 08/01/24 08:33 Height 5 ft 6 in Weight 166 lb 6 oz BMI 26.9 BP 114/78 Blood Pressure Location Lt brachial Position Sitting Pulse 90 Pulse Source Pulse Oximeter Pulse Oximetry (%) 96 Oxygen Delivery Method Room Air Intake Visit Reasons: JOVAN Legger Press Operator Required: No Accompanied by: Self / Same As Patient Allergies mold Allergy (Unknown, Uncoded 08/01/24 08:33) makes patient feel sick Tobacco use date assessed: 08/01/24 Dental Screening Dental Screen Date: 08/01/24 Did you have a dental visit in the last 12 months?: Yes Did you have a dental problem in the last 6 months where you did not have access to dental care?: No Was dental information given to patient?: Patient has dentist HPI JOVAN HPI Details mammo imaging negative. pain R shoulder is on the trapezius- and advised PT but declined. L knee prblem - xray negative - will refer to ortho but advised PT PFSH Medical History Breast cancer screening by mammogram Cervical cancer screening Women's annual routine gynecological examination Cognitive changes Breast cancer screening Annual physical exam Carpal tunnel syndrome, right Distal radius fracture, right Fracture of wrist Left foot pain Knee pain, right MDD (major depressive disorder), recurrent episode, severe Neck pain Arthritis Hx MRSA infection Hx of suicide attempt Uses Depo-Provera as primary control method Perimenopausal symptoms Skin lesion of right ear Upper back pain Dysphagia Skin lesion of hand Mass of left hand Well woman exam with routine gynecological exam Altered mental status Depot contraception (~12/26/20) Fall Axillary abscess History of herpes simplex infection Polysubstance abuse Asthma Bipolar disorder Migraine Tobacco abuse ADHD Scoliosis History of drainage of abscess Surgical History History of carpal tunnel surgery History of surgical removal of skin lesion (~06/27/21) History of tonsillectomy Family History Mother In good health Father In good health Maternal Aunt History of breast cancer Maternal Grandmother Pancreatic cancer Social History Household Members: Significant Other Household Members Other:: Andrew (Boyfriend) Housing: House Are you a primary nurse behavioral health care to a significant other at home: No Do you presently have visiting nurse or other home services: No Unable to assess alcohol history related to: Unknown Alcohol intake: never Comment: 1:1 sitter for safety Patient Tobacco Use Status: Current everyday Tobacco user Tobacco use type: Cigarette Cigarette Packs Per Day: 0.5 Cigarettes Per Day: 3 Years Smoked: 36 e-Cigarette/Vaping Use: Never Used Second Hand Smoke Exposure: Yes Substance Use Type: Marijuana service: No Current occupational status: unemployed Sexual orientation: Straight/Heterosexual Gender identity: Female Cognitive needs: No Hearing needs: No Vision needs: Yes (Glasses) Female Reproductive History Menstrual Age of Menarche: 12 Questionnaire PHQ-9 Over the last 2 weeks, how often have you been bothered by any of the following problems? 1. Little interest or pleasure in doing things: nearly every day 2. Feeling down, depressed, or hopeless: nearly every day 3. Trouble falling or staying asleep, or sleeping too much: nearly every day 4. Feeling tired or having little energy: nearly every day 5. Poor appetite or overeating: several days 6. Feeling bad about yourself - or that you are a failure or have let yourself or your family down: more than half the days 7. Trouble concentrating on things, such as reading the newspaper or watching television: nearly every day 8. Moving or speaking so slowly that other people could have noticed. Or the opposite - being so fidgety or restless that you have been moving around a lot more than usual: nearly every day 9. Thoughts that you would be better off or of hurting yourself in some way: nearly every day Total score: 24 Source: Developed by Drs. Dinesh Cadena, Leonora Prince, Shai Shabazz and colleagues, with an educational mariana from [employer]. Thrive Questionnaire Date Thrive assessed: 08/01/24 I am a: Patient What is your living situation today?: I choose not to answer this question Within the past 12 months, did the food you bought not last and you didn't have the money to get more?: Sometimes True Within the past 12 months, did you worry whether your food would run out before you got money to buy more?: Sometimes True Do you have trouble paying for medicines?: No Do you have trouble getting transportation to medical appointments?: No Do you have trouble paying your heating and electricity bill?: No Do you have trouble taking care of your child, family member or friend?: No Do you have trouble with day-to-day activities such as bathing, preparing meals, shopping, managing finances, etc.?: Yes Are you currently unemployed and looking for a job?: I choose not to answer this question Are you interested in more education?: No Please select the resources that you would like help with: Food Currently or been in a relationship where the following occur: I choose not to answer THRIVE Score: 2 AUDIT C Alcohol Use Questionnaire (AUDIT-C) 1. How often do you have a drink containing alcohol?: Never 3. How often do you have six or more drinks on one occasion?: Never Total Score: 0 JOVAN-7 AMB Questionnaire JOVAN-7 Date JOVAN - 7 assessed: 08/01/24 Feeling nervous, anxious, or on edge: 3 = Nearly every day Not being able to stop or control worryin = Nearly every day Worrying too much about different things: 3 = Nearly every day Trouble relaxin = Nearly every day Being so restless that it is hard to sit still: 3 = Nearly every day Becoming easily annoyed or irritable: 3 = Nearly every day Feeling afraid as if something awful might happen: 3 = Nearly every day Total JOVAN-7 score (0-4 normal; 5-9 mild; 10-14 moderate; 15-21 severe): 21 Source: Developed by Drs. Dinesh Cadena, Leonora Prince, Shai Shabazz and colleagues, with an educational mariana from [employer]. Physical exam (Primary Care) Vital Signs: Last Vital Signs Pulse 90 08/01/24 08:33 BP 114/78 08/01/24 08:33 Pulse Ox 96 08/01/24 08:33 Oxygen Delivery Method Room Air 08/01/24 08:33 BMI result Body Mass Index 26.9 Tobacco/Smoking Status: Tobacco use Status Tobacco use date assessed 08/01/24 08/01/24 08:36 Patient Tobacco Use Status Current everyday Tobacco 08/01/24 08:36 Tobacco use type Cigarette 08/01/24 08:36 e-Cigarette/Vaping Use Never Used 08/01/24 08:36 PHQ-9: PHQ-9 Score PHQ-9: Total score 24 08/01/24 08:36 Thrive Assessment: Date of Thrive Assessment Date Thrive assessed 08/01/24 08/01/24 08:36 Currently or been in a relationship where the following occur: I choose not to answer Const General: alert; No acute distress Eyes Conjunctivae: conjunctivae normal Resp Auscultation: clear to auscultation bilaterally Cardio Rate: regular rate Rhythm: regular rhythm GI Inspection: Yes normal to inspection Extrem General: Yes normal to inspection and No edema Coding Level of Care Code Est Pt Level 4 (78794) Complex EM visit Add On G2211 Diagnoses 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 (2) Tobacco abuse: Comment: addressed 04/24.- 04/2024 smoking 4 cigarettes a day Code(s): Z72.0 - Tobacco use Category: Medical Plan: Patient is strongly advised to stop smoking! (3) Asthma: Code(s): J45.909 - Unspecified asthma, uncomplicated Category: Medical Qualifiers: Asthma severity: mild Asthma persistence: intermittent Asthma complication type: uncomplicated Qualified Code(s): J45.20 - Mild intermittent asthma, uncomplicated Plan: Patient on albuterol and Wixela. Advised strongly to stop smoking! (4) Bipolar II disorder: Comment: Autumn Villegas Q month [facility] Psychiatrist and Maame Amos Therapist Q 2-3 week Code(s): F31.81 - Bipolar II disorder Category: Medical Plan: Continue with counseling and therapy. (5) Hypercholesterolemia: Code(s): E78.00 - Pure hypercholesterolemia, unspecified Category: Medical Plan: Avoid fried foods, chicken skin, eggs, butter margarine, pastries and meat. Be it pork or beef they have a lot of cholesterol LDL goal of less than 130 and triglyceride of less than 150 (6) Impaired fasting blood sugar: Code(s): R73.01 - Impaired fasting glucose Category: Medical Plan: Decrease the amount of carbohydrate intake, pasta, bread, rice and potatoes are all sugar and that is aside from all the sweet stuff, remember that fruits are good but they are Sweet also. (7) Breast pain, right: Code(s): N64.4 - Mastodynia Category: Medical Plan: Patient was advised to get imaging. (8) Left knee pain: Code(s): M25.562 - Pain in left knee Category: Medical Plan History of Present Illness The patient is a 53-year-old female presenting with breast pain, shoulder, and knee pain for follow-up. The right breast pain was noted in May, with further assessment confirming no major findings. After an allergy and immunology consultation in July 2024, there has been improvement in her condition following IgG replacement therapy. The patient reports musculoskeletal pain in the right shoulder and knee, with imaging results indicating no significant bone issues. Routine labs reveal mild hyperglycemia, and hypercholesterolemia management continues with specific lipid targets. Health Maintenance - Cholesterol monitoring with a goal of LDL <130 and triglycerides <150 - Blood glucose monitoring - Counseling for smoking cessation - Vaccine verification suggested, notably shingles vaccine - Continued asthma management with inhalers Social History - Substance Use: Smoker, advised cessation, using patches as an aid. - Exercise: Not specified, but encouragement for physical activity implied. - Family Status: Not explicitly discussed. - Nutrition/Weight Management: Not specified beyond overweight. Review of Systems - Musculoskeletal: Reports right shoulder pain, right breast pain, and knee pain. - Respiratory: Denies exacerbation of asthma; continues on asthma management regimen. - General: Denies additional new systemic symptoms beyond previously stated. Physical Exam - Musculoskeletal- Observed pain during specific movement of the right shoulder; no sign of acute musculoskeletal compromise. Results - X-rays (Shoulder, Knee, Breast): No fractures, no significant arthritis, no acute findings. - Blood Work (January 2024): Normal blood count, normal electrolytes, normal renal function, mildly elevated blood sugar at 101. Liver function normal, cholesterol levels fairly good. Plan Continuation of conservative management for shoulder and knee musculoskeletal pain, with ortho referral recommended for further evaluation, including potential tendon therapy. Discussed maintaining regular monitoring of lipid profile and glucose levels as scheduled. Reinforcement of smoking cessation strategies, including the use of nicotine patches, is vital for minimizing risk associated with chronic conditions. Agreement was reached on sustaining current asthma therapy with inhalers, including proper mouth rinsing post-use. Vaccination updates were suggested, with emphasis on the shingles vaccination available at pharmacies. Patient was informed and verbally consented to the use of an ambient scribe for clinic note documentation during this visit. Discussion Notes The patient and I discussed the results of recent imaging and lab work, affirming no acute musculoskeletal findings to warrant aggressive intervention at this point; however, an orthopedic referral is advised if symptoms persist. We deliberated risks versus benefits associated with continued smoking, emphasizing the urgent need for cessation support to mitigate the negative impacts on overall health. Preventative care options, including vaccination, were addressed, underlining the potential shingles vaccine. Blood work follow-up was scheduled at appropriate intervals to monitor lipid and glucose control. Asthma treatment adherence was confirmed, with specific inhaler use guidelines reinforced. Patient education on conservative musculoskeletal strategies and lifestyle adjustments were emphasized, ensuring informed decision-making and active participation in health management strategies. Patient Instructions - Follow up with the orthopedic referral provided for knee and shoulder evaluation. - Monitor blood sugar levels and cholesterol as discussed. - Continue using inhalers as prescribed and ensure proper mouth rinsing afterward. - Use nicotine patches to aid smoking cessation efforts. - Consider the shingles vaccine from the local pharmacy. - Schedule a follow-up appointment in four months for blood work and a comprehensive examination. - Maintain proper posture and activities to manage musculoskeletal discomfort conservatively. Orders: Orders Comprehensive Met. Panel 4 Months R73.01 - Impaired fasting glucose Complete Blood Count Auto Diff 4 Months R73.01 - Impaired fasting glucose Free T4 (Free Thyroxine) 4 Months R73.01 - Impaired fasting glucose Thyroid Stimulating Hormone 4 Months R73.01 - Impaired fasting glucose Vitamin B12 and Folate 4 Months R73.01 - Impaired fasting glucose Lipid Panel 4 Months E78.00 - Pure hypercholesterolemia, unspecified Vitamin D 25-OH Total 4 Months E78.00 - Pure hypercholesterolemia, unspecified Hemoglobin A1c 4 Months R73.01 - Impaired fasting glucose Referrals Orthopedics Referral M25.562 - Pain in left knee
[2024-08-01 08:33] VITALS: BP 114/78; PULSE 90; O2SAT 96; BMI 26.9
--- OUTSIDE RECORDS SUMMARY | 2024-08-01 08:52 | XMS_ITS | Clinical Summary ---
Author Organization [employer] Address [address] [place] [address] Care Team Providers Care Lead Process Engineer Name Role Phone Unavailable Primary Care Provider Unavailabl e Social History Tobacco Use Types Packs/Day Years [...]
== END 2024-08-01 08:59 | disposition home or self-care (01) ==
LOC: HO.HMCH 08:29
PROVIDERS: PCP Internal Medicine; Visit Provider Internal Medicine
DX: D80.1 Nonfamilial hypogammaglobulinemia (principal); Z72.0 Tobacco use; J45.20 Mild intermittent asthma, uncomplicated; F31.81 Bipolar II disorder; E78.00 Pure hypercholesterolemia, unspecified; R73.01 Impaired fasting glucose; N64.4 Mastodynia; M25.562 Pain in left knee

== ENCOUNTER → 2024-08-01 08:28 | Outpatient (BNVA) | payer OTHER, SELFPAY | PROVIDERS: PCP Internal Medicine; Visit Provider Internal Medicine | DX: D80.1 Nonfamilial hypogammaglobulinemia (principal); J45.20 Mild intermittent asthma, uncomplicated; F17.210 Nicotine dependence, cigarettes, uncomplicated; F31.81 Bipolar II disorder; E78.00 Pure hypercholesterolemia, unspecified; R73.01 Impaired fasting glucose; N64.4 Mastodynia; M25.562 Pain in left knee | CPT/HCPCS: 99212 ==

== ENCOUNTER 2024-08-04 09:02 | Outpatient (REF) | payer OTHER, SELFPAY ==
--- NOTE | ~2024-08-04 | MM_ITS ---
EXAMINATION: MM DIAGNOSTIC DIGITAL BREAST TOMOSYNTHESIS, BILATERAL Limited right breast ultrasound. CLINICAL INFORMATION: Right breast pain right lower inner quadrant and right lower outer quadrant and upper lateral breast to the axilla. COMPARISON: Mammography: Comparison is made with relevant prior exams. TECHNIQUE: Digital breast mammography with tomosynthesis is performed in both the craniocaudal and mediolateral oblique views along with computer-aided detection (CAD). FINDINGS: The breasts are heterogeneously dense, which may obscure small masses (ACR BI-RADS breast composition Category c). There are no significant masses, abnormal calcifications, or other abnormalities. Targeted color Doppler ultrasound scanning from 5-1 o'clock in the right lower inner quadrant right lower outer quadrant lateral breast up to the axilla demonstrates normal fibronodular breast tissue. There is no sonographic abnormality. Results are provided to the patient at time of visit by the technologist. MM/MM tomosynthesis diagnostic BI IMPRESSION: Right: No mammographic or sonographic abnormality to account for the patient's right breast pain. Recommend clinical evaluation and follow-up. Left: Negative. ASSESSMENT: BI-RADS BI-RADS 1 - Negative RECOMMENDATION: 1 year F/U This patient's information was entered into a reminder system with a target due date for their next mammogram. Electronically signed by: Patricia Weiss DO 08/04/2024 10:33 AM EDT
--- OUTSIDE RECORDS SUMMARY | 2024-08-04 09:35 | XMS_ITS | Clinical Summary ---
Author Organization [employer] Address [address] [place] [address] Care Team Providers Care Manager Front Name Role Phone Unavailable Primary Care Provider [...]
== END 2024-08-04 09:03 | disposition home or self-care (01) ==
LOC: HO.MAMMO 09:02
PROVIDERS: PCP Internal Medicine; Visit Provider Internal Medicine
DX: N64.4 Mastodynia (principal)
CPT/HCPCS: 76642; 77062; 77066

== ENCOUNTER → 2024-08-04 09:30 | Outpatient (BNV) | payer OTHER, SELFPAY | PROVIDERS: PCP Internal Medicine; Visit Provider Internal Medicine | DX: N64.4 Mastodynia (principal) | CPT/HCPCS: 76642; 77062; 77066 ==

== ENCOUNTER 2024-09-15 17:31 | Outpatient (AMB) | payer OTHER, SELFPAY ==
--- NOTE | 2024-09-15 17:33 | MHC.PC.OV ---
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: No Accompanied by: Self / Same As Patient Allergies mold Allergy (Unknown, Uncoded 09/15/24 17:38) makes patient feel sick Medication List - Last Reconciled 09/15/24 by Isai Sharpe MD albuterol sulfate 90 mcg/actuation (Ventolin HFA) 2 puffs inhalation Q6H PRN amitriptyline 100 mg PO BEDTIME 30 days clonazepam 1 mg PO BID PRN dextroamphetamine-amphetamine 30 mg 20 mg PO BID divalproex ER 500 mg PO BEDTIME 30 days fluticasone propion-salmeterol 250-50 mcg/dose (Advair Diskus) 1 inh inhalation BID gabapentin 800 mg PO TID hydroxyzine HCl 25 mg PO DAILY PRN lurasidone 120 mg PO DAILY 30 days sertraline mg PO DAILY tramadol 50 mg PO QID PRN 30 days trazodone 100 mg PO BEDTIME ubrogepant (Ubrelvy) 100 mg PO DAILY PRN 30 days Tobacco use date assessed: 08/01/24 Dental Screening Dental Screen Date: 08/01/24 HPI annual exam HPI Details knee pain PFSH Medical History Breast cancer screening by mammogram Cervical cancer screening Women's annual routine gynecological examination Cognitive changes Breast cancer screening Annual physical exam Carpal tunnel syndrome, right Distal radius fracture, right Fracture of wrist Left foot pain Knee pain, right MDD (major depressive disorder), recurrent episode, severe Neck pain Arthritis Hx MRSA infection Hx of suicide attempt Uses Depo-Provera as primary control method Perimenopausal symptoms Skin lesion of right ear Upper back pain Dysphagia Skin lesion of hand Mass of left hand Well woman exam with routine gynecological exam Altered mental status Depot contraception (~12/26/20) Fall Axillary abscess History of herpes simplex infection Polysubstance abuse Asthma Bipolar disorder Migraine Tobacco abuse ADHD Scoliosis History of drainage of abscess Surgical History History of carpal tunnel surgery History of surgical removal of skin lesion (~06/27/21) History of tonsillectomy Family History (Updated 09/15/24 @ 17:53 by Isai Sharpe MD) Mother In good health Father In good health Maternal Aunt History of breast cancer Maternal Grandmother Pancreatic cancer Maternal Aunt History of breast cancer Social History (Updated 09/15/24 @ 17:54 by Isai Sharpe MD) Household Members: Significant Other Household Members Other:: Andrew (Boyfriend) Housing: House Are you a primary health care technician to a significant other at home: No Do you presently have visiting nurse or other home services: No Unable to assess alcohol history related to: Unknown Alcohol intake: never Comment: 1:1 sitter for safety Patient Tobacco Use Status: Current everyday Tobacco user Tobacco use type: Cigarette Cigarette Packs Per Day: 0.5 Cigarettes Per Day: 3 Years Smoked: 36, pot smoking 2x a week e-Cigarette/Vaping Use: Never Used Second Hand Smoke Exposure: Yes Substance Use Type: Marijuana service: No Current occupational status: unemployed Sexual orientation: Straight/Heterosexual Gender identity: Female Cognitive needs: No Hearing needs: No Vision needs: Yes (Glasses) Female Reproductive History Menstrual Age of Menarche: 12 Questionnaire Thrive Questionnaire Date Thrive assessed: 08/01/24 I am a: Patient What is your living situation today?: I choose not to answer this question Within the past 12 months, did the food you bought not last and you didn't have the money to get more?: Sometimes True Within the past 12 months, did you worry whether your food would run out before you got money to buy more?: Sometimes True Do you have trouble paying for medicines?: No Do you have trouble getting transportation to medical appointments?: No Do you have trouble paying your heating and electricity bill?: No Do you have trouble taking care of your child, family member or friend?: No Do you have trouble with day-to-day activities such as bathing, preparing meals, shopping, managing finances, etc.?: Yes Are you currently unemployed and looking for a job?: I choose not to answer this question Are you interested in more education?: No Please select the resources that you would like help with: Food Currently or been in a relationship where the following occur: I choose not to answer THRIVE Score: 2 JOVAN-7 AMB Questionnaire JOVAN-7 Date JOVAN - 7 assessed: 08/01/24 Source: Developed by Drs. Dinesh Cadena, Leonora Prince, Shai Shabazz and colleagues, with an educational mariana from [employer]. Physical exam (Primary Care) Vital Signs: Last Vital Signs Temp 97.1 F 09/15/24 17:37 Pulse 94 09/15/24 17:37 BP 122/62 09/15/24 17:37 Pulse Ox 100 09/15/24 17:37 Oxygen Delivery Method Room Air 09/15/24 17:37 BMI result Body Mass Index 26.5 Tobacco/Smoking Status: Tobacco use Status Tobacco use date assessed 08/01/24 09/15/24 17:34 Patient Tobacco Use Status Current everyday Tobacco 09/15/24 17:34 Tobacco use type Cigarette 09/15/24 17:34 e-Cigarette/Vaping Use Never Used 09/15/24 17:34 Thrive Assessment: Date of Thrive Assessment Date Thrive assessed 08/01/24 09/15/24 17:34 Currently or been in a relationship where the following occur: I choose not to answer Const General: alert; No acute distress Eyes Conjunctivae: conjunctivae normal Resp Auscultation: clear to auscultation bilaterally Cardio Rate: regular rate Rhythm: regular rhythm GI Inspection: Yes normal to inspection Extrem General: Yes normal to inspection and No edema Coding Level of Care Code Est Pt Level 4 (61497) Complex EM visit Add On G2211 Diagnoses Tobacco abuse Z72.0 Mild intermittent asthma without complication J45.20 Asthma severity: mild Asthma persistence: intermittent Asthma complication type: uncomplicated 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 (2) Asthma: Code(s): J45.909 - Unspecified asthma, uncomplicated Category: Medical Qualifiers: Asthma severity: mild Asthma persistence: intermittent Asthma complication type: uncomplicated Qualified Code(s): J45.20 - Mild intermittent asthma, uncomplicated Plan: Patient is strongly advised to stop smoking! (3) Nonfamilial hypogammaglobulinemia: Comment: Allergy immunology Code(s): D80.1 - Nonfamilial hypogammaglobulinemia Category: Medical Plan: Continue to follow-up with Allergy and immunology (4) Bipolar II disorder: Comment: Autumn Villegas Q month [facility] Psychiatrist and Maame Amos Therapist Q 2-3 week Code(s): F31.81 - Bipolar II disorder Category: Medical Plan: Continue with counseling and therapy on clonazepam ADHD medication lurasidone sertraline trazodone (5) Hypercholesterolemia: Code(s): E78.00 - Pure hypercholesterolemia, unspecified Category: Medical Plan: Avoid fried foods, chicken skin, eggs, butter margarine, pastries and meat. Be it pork or beef they have a lot of cholesterol LDL goal of less than 130 and triglyceride of less than 150 diet control (6) Impaired fasting blood sugar: Code(s): R73.01 - Impaired fasting glucose Category: Medical Plan: Decrease the amount of carbohydrate intake, pasta, bread, rice and potatoes are all sugar and that is aside from all the sweet stuff, remember that fruits are good but they are Sweet also. Plan History of Present Illness The patient is a 53-year-old female presenting for a follow-up visit. She has a history of asthma, managed with an albuterol inhaler and Advair as needed. The patient also has hypogammaglobulinemia, receiving immunoglobulin therapy from her income tax administrator and veneer puller. The patient has bipolar disorder, managed with clonazepam, lurasidone, sertraline, and trazodone. She is also on ADHD medication, specifically Adderall, and continues with counseling and therapy. The patient was found to have a tubular adenoma of the colon during her last colonoscopy in December 2022. She has impaired glucose tolerance with a recent blood sugar level of 101 mg/dL. The patient reports breast pain, for which a mammogram and ultrasound were conducted, both yielding negative results. She has early cataracts, which are not yet mature. Health Maintenance - Colonoscopy performed in December 2022 - Mammogram and ultrasound conducted with negative results - Blood sugar monitoring due to impaired glucose tolerance - Immunoglobulin therapy for hypogammaglobulinemia - Cataract monitoring Social History - Smoking: Patient smokes approximately three cigarettes per day and has been advised to quit. - Substance use: Reports occasional marijuana use for anxiety, approximately twice a week. - Exercise: Engages in walking and bike riding several times a week. Review of Systems - General: Denies dizziness, nausea, vomiting, fever, or syncope. - Cardiovascular: Denies chest pain or palpitations. - Respiratory: Denies dyspnea or wheezing. - Gastrointestinal: Denies dysphagia or heartburn. - Genitourinary: Denies dysuria, reports nocturia once per night. - Neurological: Denies headaches or balance issues. - Ophthalmologic: Reports early cataracts, denies vision changes. Physical Exam - Cardiovascular: Regular rate and rhythm, no murmurs, rubs, or gallops - Respiratory: Clear to auscultation bilaterally - Musculoskeletal: No tenderness or deformities noted in the knee, shoulder, or feet - Neurological: Strength in the legs is normal - Ophthalmologic: Early cataracts noted, not mature Results - Labs: Blood sugar elevated at 101 mg/dL, LDL cholesterol at 104 mg/dL, triglycerides at 152 mg/dL - Imaging: Mammogram and ultrasound negative for breast pathology Plan The patient is advised to continue using her albuterol inhaler and Advair for asthma management as needed. She should maintain regular follow-ups with her income tax administrator and veneer puller for hypogammaglobulinemia management, including immunoglobulin therapy. For bipolar disorder, the patient is to continue her current medication regimen, including clonazepam, lurasidone, sertraline, and trazodone, and engage in regular counseling and therapy sessions. ADHD management will continue with Adderall, and the patient is encouraged to maintain her therapy sessions. The patient should adhere to dietary modifications to manage impaired glucose tolerance and monitor her blood sugar levels regularly. She is advised to follow up with her primary care provider for regular monitoring of her cholesterol levels and to maintain a diet to keep LDL and triglycerides within target ranges. The patient is encouraged to quit smoking and reduce marijuana use to improve overall health. She should continue engaging in regular physical activity, such as walking and biking, to support cardiovascular health and weight management. Patient was informed and verbally consented to the use of an ambient scribe for clinic note documentation during this visit. Discussion Notes During the visit, I discussed with the patient the importance of continuing her current asthma management plan, including the use of her inhalers as needed. We reviewed her hypogammaglobulinemia management, emphasizing the need for regular follow-ups with her income tax administrator and veneer puller. I advised the patient to maintain her current medication regimen for bipolar disorder and ADHD, and to continue with counseling and therapy sessions. We discussed dietary modifications to manage her impaired glucose tolerance and the importance of regular blood sugar monitoring. I emphasized the need for regular cholesterol monitoring and dietary control to maintain her LDL and triglycerides within target ranges. The patient was strongly advised to quit smoking and reduce marijuana use to improve her overall health. We also discussed the benefits of regular physical activity, such as walking and biking, for cardiovascular health and weight management. Patient Instructions - Continue using albuterol inhaler and Advair as needed for asthma. - Follow up with income tax administrator and veneer puller for hypogammaglobulinemia management. - Maintain current medication regimen for bipolar disorder and ADHD. - Monitor blood sugar levels regularly and adhere to dietary modifications. - Follow up with primary care provider for cholesterol monitoring and dietary advice. - Quit smoking and reduce marijuana use. - Engage in regular physical activity, such as walking and biking. Medications: Changed From gabapentin 600 mg PO TID 90 tabs 3RF F33.2 - Major depressive disorder, recurrent severe without psychotic features To gabapentin will increase gabapentin to 800 mg TID for this month only 08/2024 800 mg PO TID 90 tabs 0RF F33.2 - Major depressive disorder, recurrent severe without psychotic features
[2024-09-15 17:37] VITALS: BP 122/62; PULSE 94; TEMP 36.2; O2SAT 100; BMI 26.5
--- OUTSIDE RECORDS SUMMARY | 2024-09-15 18:15 | XMS_ITS | Clinical Summary ---
Author Organization Unknown Care Team Providers Care Probation Worker Name Role Phone AVELINA APPIAH, SURY Unavailable Unavailable INGRID CANO, DAMON Unavailable Unavailable ELE CANO, MAHNAZ Unavailable Unavailable Payers Payer Name Policy Type Policy Number Effective Date Expira tion Date [facility] [place] [place] [facility] [id number] MEDICA[address] 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 Active 2023-04 2- 00:00: 00 Allergies, Adverse Reactions, Alerts Allergy [...] 05-09 00:00: 00 12-24 23:59 :00 No [id number] Per instruc tions DIRECTED Per instructio ns DIRECTED (route: subcutaneo us) Med Classific ation: Biologica ls Hizentra 2 gram/10 mL (20 %) subcutaneou s solution 05-09 00:00: 00 Yes [id number] Per instruc tions DIRECTED Per instructio ns DIRECTED (route: subcutaneo us) Med Classific ation: Biologica ls Ubrelvy 100 mg tablet 05-09 00:00: 00 Yes [id number] Per instruc tions DAILY NEEDED FOR 30 DAYS Per instructio ns DAILY NEEDED FOR 30 DAYS (route: oral) Med Classific ation: Central Nervous System Agents Ventolin HFA 90 mcg/actuati on aerosol inhaler 05-09 00:00: 00 Yes [id number] Per instruc tions EVERY 6 HOURS NEEDED Per instructio ns EVERY 6 HOURS NEEDED (route: inhalation ) Med Classific ation: Respirato ry Therapy Agents clonazepam 1 mg tablet 05-06 00:00: 00 06-17 23:59 :00 No [id number] Per instruc tions 2 TIMES A DAY NEEDED Per instructio ns 2 TIMES A DAY NEEDED (route: oral) Med Classific ation: Central Nervous System Agents gabapentin 300 mg capsule 05-06 00:00: 00 07-26 23:59 :00 No [id number] Per instruc tions 3 TIMES A DAY Per instructio ns 3 TIMES A DAY (route: oral) Med Classific ation: Central Nervous System Agents tramadol 50 mg tablet 05-06 00:00: 00 Yes [id number] Per instruc tions 4 TIMES A DAY NEEDED FOR 30 DAYS Per instructio ns 4 TIMES A DAY NEEDED FOR 30 DAYS (route: oral) Med Classific ation: Analgesic , Anti-infl ammatory or Antipyret ic amitriptyli ne 100 mg tablet 04-28 00:00: 00 Yes [id number] Per instruc tions EVERY NIGHT AT BEDTIME Per instructio ns EVERY NIGHT AT BEDTIME (route: oral) Med Classific ation: Central Nervous System Agents memantine 5 mg tablet 04-28 00:00: 00 07-29 23:59 :00 No [id number] Per instruc tions EVERY DAY FOR 30 DAYS Per instructio ns EVERY DAY FOR 30 DAYS (route: oral) Med Classific ation: Cognitive Disorder Therapy Ubrelvy 100 mg tablet 04-28 00:00: 00 05-23 23:59 :00 No [id number] Per instruc tions EVERY DAY NEEDED X30 DAYS Per instructio ns EVERY DAY NEEDED X30 DAYS (route: oral) Med Classific ation: Central Nervous System Agents dextroamphe tamine sulfate 30 mg tablet 05-23 00:00: 00 06-17 23:59 :00 No [id number] 1 tablet DIRECTED 1 tablet DIRECTED (route: oral) Med Classific ation: Central Nervous System Agents divalproex 500 mg tablet,roc yed release 05-23 00:00: 00 Yes [id number] 1 tablet BEDTIME 1 tablet BEDTIME (route: oral) Med Classific ation: Central Nervous System Agents fluoxetine 20 mg capsule 05-23 00:00: 00 09-16 23:59 :00 No [id number] 3 capsule DAILY 3 capsule DAILY (route: oral) Med Classific ation: Central Nervous System Agents lurasidone 120 mg tablet 05-23 00:00: 00 Yes [id number] 1 tablet EVERY PM 1 tablet EVERY PM (route: oral) Med Classific ation: Central Nervous System Agents trazodone 50 mg tablet 05-23 00:00: 00 09-16 23:59 :00 No [id number] 1 tablet NEEDED 1 tablet NEEDED (route: oral) Med Classific ation: Central Nervous System Agents Vitamin B-12 1,000 mcg tablet 05-23 00:00: 00 09-16 23:59 :00 No [id number] 1 tablet DAILY 1 tablet DAILY (route: oral) Med Classific ation: Electroly te Balance-N utritiona l Products Adderall 20 mg tablet 06-17 00:00: 00 09-26 23:59 :00 No [id number] 1 tablet DAILY 1 tablet DAILY (route: oral) Med Classific ation: Central Nervous System Agents clonazepam 0.5 mg tablet 18 00:00: 00 07-15 23:59 :00 No [id number] 1 tablet NEEDED 1 tablet NEEDED (route: oral) Med Classific ation: Central Nervous System Agents memantine 5 mg tablet 18 00:00: 00 07-19 23:59 :00 No [id number] 1 tablet 2 TIMES DAILY 1 tablet 2 TIMES DAILY (route: oral) Med Classific ation: Cognitive Disorder Therapy clonazepam 1 mg tablet 15 00:00: 00 Yes [id number] 1 tablet 2 TIMES DAILY 1 tablet 2 TIMES DAILY (route: oral) Med Classific ation: Central Nervous System Agents sertraline 50 mg tablet 07-15 00:00: 00 10-07 23:59 :00 No [id number] 1 tablet EVERY AM 1 tablet EVERY AM (route: oral) Med Classific ation: Central Nervous System Agents Flonase Allergy Relief 50 mcg/actuati on nasal spray,suspe nsion 07-21 00:00: 00 Yes [id number] 2 spray DAILY 2 spray DAILY (route: nasal) Med Classific ation: Respirato ry Therapy Agents montelukast 10 mg tablet 07-21 00:00: 00 01-28 23:59 :00 No [id number] 1 tablet BEDTIME 1 tablet BEDTIME (route: oral) Med Classific ation: Respirato ry Therapy Agents gabapentin 400 mg capsule 07-26 00:00: 00 04-29 23:59 :00 No [id number] 1 capsule 3 TIMES DAILY 1 capsule 3 TIMES DAILY (route: oral) Med Classific ation: Central Nervous System Agents memantine 10 mg tablet 07-29 00:00: 00 01-28 23:59 :00 No [id number] 1 tablet 2 TIMES DAILY 1 tablet 2 TIMES DAILY (route: oral) Med Classific ation: Cognitive Disorder Therapy trazodone 100 mg tablet 6-20 00:00: 00 Yes [id number] 1 tablet BEDTIME 1 tablet BEDTIME (route: oral) Med Classific ation: Central Nervous System Agents Adderall XR 20 mg capsule,ext ended release 09-27 00:00: 00 12-24 23:59 :00 No [id number] 1 capsule DAILY 1 capsule DAILY (route: oral) Med Classific ation: Central Nervous System Agents sertraline 50 mg tablet 08 00:00: 00 12-24 23:59 :00 No [id number] 1.5 tablet DAILY 1.5 tablet DAILY (route: oral) Med Classific ation: Central Nervous System Agents Adderall XR 30 mg capsule,ext ended release 12-24 00:00: 00 05-17 23:59 :00 No [id number] 1 capsule EVERY AM 1 capsule EVERY AM (route: oral) Med Classific ation: Central Nervous System Agents sertraline 100 mg tablet 12-24 00:00: 00 Yes [id number] 1 tablet EVERY AM 1 tablet EVERY AM (route: oral) Med Classific ation: Central Nervous System Agents hydroxyzine HCl 25 mg tablet 04-29 00:00: 00 Yes [id number] FOR ANXIETY 1 tablet 2 TIMES DAILY 1 tablet 2 TIMES DAILY (route: oral) Med Classific ation: Central Nervous System Agents Advair Diskus 250 mcg-50 mcg/dose powder for inhalation 04-29 00:00: 00 Yes [id number] 1 inhalat ion 2 TIMES DAILY 1 inhalation 2 TIMES DAILY (route: inhalation ) Med Classific ation: Respirato ry Therapy Agents gabapentin 600 mg tablet - 00:00: 00 Yes [id number] 1 tablet 3 TIMES DAILY 1 tablet 3 TIMES DAILY (route: oral) Med Classific ation: Central Nervous System Agents dextroamphe tamine sulfate 15 mg tablet 215 00:00: 00 06-30 23:59 :00 No [id number] 1 tablet 2 TIMES DAILY 1 tablet 2 TIMES DAILY (route: oral) Med Classific ation: Central Nervous System Agents dextroamphe tamine sulfate 20 mg tablet - 00:00: 00 Yes [id number] 1 tablet 2 TIMES DAILY 1 tablet 2 TIMES DAILY (route: oral) Med Classific ation: Central Nervous System Agents Vital Signs Vital Name Observation Time Observation Value Commen ts Temperature 2024-09-09 12:38:00.000 97.6 [degF] Temperature 2024-09-02 16:57:00.000 97.6 [degF] Temperature 2024-08-26 12:12:00.000 97.4 [degF] Temperature 2024-08-19 12:11:00.000 97.6 [degF] Temperature 2024-08-12 12:08:00.000 97.6 [degF] Temperature 2024-08-05 12:09:00.000 97.3 [degF] Temperature 2024-07-29 11:41:00.000 98.6 [degF] Temperature 2024-07-22 12:23:00.000 97.3 [degF] Pulse 2024-09-09 12:38:00.000 80 /min Pulse 2024-09-02 16:57:00.000 100 /min Pulse 2024-08-26 12:12:00.000 90 /min Pulse 2024-08-12 12:08:00.000 93 /min Pulse 2024-08-05 12:09:00.000 100 /min Pulse 2024-07-29 11:41:00.000 97 /min Pulse 2024-07-22 12:23:00.000 98 /min O2 Saturation (%) 2024-09-02 16:59:00.000 96 % O2 Saturation (%) 2024-08-26 12:13:00.000 98 % O2 Saturation (%) 2024-08-19 12:11:00.000 99 % O2 Saturation (%) 2024-08-05 12:13:00.000 96 % O2 Saturation (%) 2024-07-29 11:44:00.000 99 % O2 Saturation (%) 2024-07-22 12:23:00.000 96 % Respirations 2024-09-09 12:38:00.000 16 /min Respirations 2024-09-02 16:57:00.000 16 /min Respirations 2024-08-26 12:12:00.000 18 /min Respirations 2024-08-19 12:11:00.000 16 /min Respirations 2024-08-12 12:08:00.000 18 /min Respirations 2024-08-05 12:09:00.000 16 /min Respirations 2024-07-29 11:41:00.000 16 /min Respirations 2024-07-22 12:23:00.000 16 /min Systolic Blood Pressure 2024-09-09 12:38:00.000 120 mm [Hg] Systolic Blood Pressure 2024-09-02 16:57:00.000 122 mm [Hg] Systolic Blood Pressure 2024-08-26 12:12:00.000 122 mm [Hg] Systolic Blood Pressure 2024-08-19 12:11:00.000 122 mm [Hg] Systolic Blood Pressure 2024-08-12 12:08:00.000 112 mm [Hg] Systolic Blood Pressure 2024-08-05 12:09:00.000 112 mm [Hg] Systolic Blood Pressure 2024-07-29 11:41:00.000 122 mm [Hg] Systolic Blood Pressure 2024-07-22 12:23:00.000 120 mm [Hg] Diastolic Blood Pressure 2024-09-09 12:38:00.000 70 mm [Hg] Diastolic Blood Pressure 2024-09-02 16:57:00.000 80 mm [Hg] Diastolic Blood Pressure 2024-08-26 12:12:00.000 72 mm [Hg] Diastolic Blood Pressure 2024-08-19 12:11:00.000 70 mm [Hg] Diastolic Blood Pressure 2024-08-12 12:08:00.000 60 mm [Hg] Diastolic Blood Pressure 2024-08-05 12:09:00.000 68 mm [Hg] Diastolic Blood Pressure 2024-07-29 11:41:00.000 70 mm [Hg] Diastolic Blood Pressure 2024-07-22 12:23:00.000 75 mm [Hg] Plan of Treatment Planned Activity Planned Date Details Comments Future Scheduled Test SKILLED NU RSE WILL MAINTAIN SITUATIONAL AWARENESS FOR SAFETY AND WILL NOTIFY CLINICAL OPERATION RESEARCH ANALYST AND PHYSICIAN/PROVIDER WITH ANY CHANGE IN CONDITION. [code = SKILLED NURSE WILL MAINTAIN SITUATIONAL AWARENESS FOR SAFETY AND WILL NOTIFY CLINICAL OPERATION RESEARCH ANALYST AND PHYSICIAN/PROVIDER WITH ANY CHANGE IN CONDITION.] Future Scheduled Test SKILLED NU RSE FOR O/A AND SKILLED TEACHING RELATED TO SIGNS AND SYMPTOMS AND MANAGEMENT OF OSTEOARTHRITIS MUSCULOSKELETAL DISEASE) [code = SKILLED NURSE FOR O/A AND SKILLED TEACHING RELATED TO SIGNS AND SYMPTOMS AND MANAGEMENT OF OSTEOARTHRITIS MUSCULOSKELETAL DISEASE)] Future Scheduled Test SKILLED NU RSE TO [...] AND PSYCHOSOCIAL SUPPORT SERVICES.] Future Scheduled Test SKILLED NU RSE FOR O/A OF ALTERED MOOD [code = SKILLED NURSE FOR O/A OF ALTERED MOOD] Future Scheduled Test SKILLED NU RSE FOR O/A AND SKILLED TEACHING OF COPING SKILLS TO MANAGE ANXIETY AND MAINTAIN SAFETY. [code = SKILLED NURSE FOR O/A AND SKILLED TEACHING OF COPING SKILLS TO MANAGE ANXIETY AND MAINTAIN SAFETY.] Future Scheduled Test SKILLED NU RSE FOR O/A AND SKILLED TEACHING RELATED TO MANAGEMENT OF DEPRESSIVE SYMPTOMS AND/OR DEPRESSION. SN TO REPORT SIGNIFICANT CHANGE IN DEPRESSIVE SYMPTOMS TO CLINICAL PROVIDER FOR EARLY INTERVENTION. [code = SKILLED NURSE FOR O/A AND SKILLED TEACHING RELATED TO MANAGEMENT OF DEPRESSIVE SYMPTOMS AND/OR DEPRESSION. SN TO REPORT SIGNIFICANT CHANGE IN DEPRESSIVE SYMPTOMS TO CLINICAL PROVIDER FOR EARLY INTERVENTION.] Future Scheduled Test PATIENT MA Y HAVE [...] SAFETY.] Future Scheduled Test SKILLED NU RSE TO PRE-POUR MEDICATION PER MEDICATION LIST WEEKLY [code = SKILLED NURSE TO PRE-POUR MEDICATION PER MEDICATION LIST WEEKLY ] Future Scheduled Test SKILLED NU RSE FOR [...] OF COMPLICATIONS WEEKLY ] Future Scheduled Test MEDICATION S WILL BE HELD AND STORED IN LOCKBOX [code = MEDICATIONS WILL BE HELD AND STORED IN LOCKBOX] Future Scheduled Test SKILLED NU RSE FOR OBSERVATION AND ASSESSMENT OF PATIENTS PAIN LEVEL AND EFFECTIVENESS OF PAIN MANAGEMENT REGIMEN. SKILLED NURSE TO INSTRUCT PATIENT/CAREGIVER REGARDING PHARMACOLOGIC AND NON-PHARMACOLOGIC PAIN CONTROL MEASURES. SKILLED NURSE TO REPORT TO PHYSICIAN IF PAIN IS UNCONTROLLED WITH CURRENT PAIN MANAGEMENT REGIMEN. [code = SKILLED NURSE FOR OBSERVATION AND ASSESSMENT OF PATIENTS PAIN LEVEL AND EFFECTIVENESS OF PAIN MANAGEMENT REGIMEN. SKILLED NURSE TO INSTRUCT PATIENT/CAREGIVER REGARDING PHARMACOLOGIC AND NON-PHARMACOLOGIC PAIN CONTROL MEASURES. SKILLED NURSE TO REPORT TO PHYSICIAN IF PAIN IS UNCONTROLLED WITH CURRENT PAIN MANAGEMENT REGIMEN.] Future Scheduled Test SKILLED NU RSE TO [...] APARTMENT TO STAY ON MEDICATION COMPLIANT Goal 2024-05-12 Patient Goal - T O FIND A NEW APARTMENT TO STAY ON MEDICATION COMPLIANT Goal 2024-07-15 Patient Goal - T O FIND A NEW APARTMENT TO STAY ON MEDICATION COMPLIANT Goal 2024-09-09 Patient Goal - T O FIND A NEW APARTMENT TO STAY ON MEDICATION COMPLIANT Goal Patient Goal - T O FIND A NEW APARTMENT TO STAY ON MEDICATION COMPLIANT Goal Provider Goal - PATIENT WILL REMAIN SAFE IN THE COMMUNITY AND WILL BE FREE OF DANGER TO SELF AND OTHERS THROUGHOUT THE CERTIFICATION PERIOD. Goal Provider Goal - PATIENT/CAREGIVER WILL VERBALIZE UNDERSTANDING OF MUSCULOSKELETAL DISEASE INCLUDING SIGNS AND SYMPTOMS, MANAGEMENT, AND PRESCRIBED TREATMENT REGIMEN BY END OF EPISODE. Goal Provider Goal - PSYCHOSOCIAL NEEDS WILL [...] PERIOD. Goal Provider Goal - PATIENT WILL REMAIN SAFE WITHOUT DECOMPENSATION IN DEPRESSIVE CONDITION, WHILE MAINTAINING OPTIMAL LEVEL OF MENTAL HEALTH AND WELL BEING THROUGHOUT CERTIFICATION PERIOD. Goal Provider Goal - MEDICATION WILL BE AVAILABLE DURING INCLEMENT WEATHER OR EMERGENT EVENT THROUGHOUT CERTIFICATION PERIOD. Goal Provider Goal - PATIENT WILL COMPLY WITH MEDICATION WHEN SKILLED NURSE PRE-POURS MEDICATION THROUGHOUT CERTIFICATION PERIOD. Goal Provider Goal - CHANGE IN GENERAL HEALTH STATUS WILL BE IDENTIFIED AND REPORTED TO PHYSICIAN FOR PROMPT INTERVENTION TO MINIMIZE ASSOCIATED RISKS THROUGHOUT CERTIFICATION PERIOD. Goal Provider Goal - MEDICATION WILL BE STORED IN LOCKBOX FOR SAFETY. Goal Provider Goal - PATIENT/CAREGIVER WILL DEMONSTRATE UNDERSTANDING OF PHARMACOLOGIC AND NONPHARMACOLOGIC PAIN CONTROL MEASURES AND PATIENT WILL HAVE IMPROVEMENT IN PAIN INTERFERING WITH ACTIVITY EVIDENCED BY PAIN CONTROLLED AT LEVEL OF 5/10 PATIENT GOAL ON 0-10 PAIN SCALE) OR LESS BY END OF CERTIFICATION PERIOD. Goal Provider Goal - PATIENT/CAREGIVER WILL VERBALIZE/DEMONSTRATE EFFECTIVE HOME SAFETY AND FALL PREVENTION STRATEGIES THROUGHOUT CERTIFICATION PERIOD. Progress Notes Progress Notes <paragraph>[Visit Date: 2024 by MAHNAZ MARLOW RN]:</paragraph><paragraph>09-09-24 RECERT VISIT- PATIENT IS A 53-YEAR-OLD FEMALE RECEIVING ASS[facility]ISITS FROM [facility] TO ASSESS MENTAL HEALTH STATUS ASSIST WITH MEDICATION MANAGEMENT, MONITOR CARDIOVASCULAR AND PAIN MANAGEMENT STATUS . PAST MEDICAL HISTORY INCLUDES MAJOR DEPRESSION WITH PSYCHOTIC FEATURES, ADHD, ANXIETY, PANIC ATTACKS, COGNITIVE IMPAIRMENT, IMMUNE DISORDER, ASTHMA, NICOTINE DEPENDENCY, NEUROPATHY, OSTEOARTHRITIS, PLANTAR FASCIITIS. PATIENT CONTINUES TO LIVE WITH HER FRIEND AND IS ON A WAITING LIST FOR HOUSING. NO FALLS OR HOSPITALIZATIONS OCCURRED IN THE PAST 60 DAYS. PATIENT HAS BEEN COMPLIANT TAKING PREFILLED MEDICATIONS. NO WILLING CAREGIVER TO ASSIST. PATIENT HAS BEEN COMPLIANT WITH SCHEDULED MD APPOINTMENTS. ALL MEDICATIONS SECURED IN LOCKBOX FOR SAFETY PATIENT IS FORGETFUL EASILY OVERWHELMED HAS A HISTORY OF LOSING HER MEDICATIONS AND TAKING THEM INCORRECTLY</paragraph> Encounters Start Date/Time End Date/Time Encounter Type Admission Type Attending Clinicians Care Facility Care Department Encounter ID Discharge Date Discharge Status Discharge Condition Discharge Reason Percent Goals Met 2024-07-16 00:00:00 2024-09-13 00:00:00 Outpatient RECERTIFIC MAHNAZ BLANK [facility] [id number]
== END 2024-09-15 18:09 | disposition home or self-care (01) ==
LOC: HO.HMCH 17:32
PROVIDERS: PCP Internal Medicine; Visit Provider Internal Medicine
DX: Z72.0 Tobacco use (principal); J45.20 Mild intermittent asthma, uncomplicated; D80.1 Nonfamilial hypogammaglobulinemia; F31.81 Bipolar II disorder; E78.00 Pure hypercholesterolemia, unspecified; R73.01 Impaired fasting glucose

== ENCOUNTER → 2024-09-15 17:31 | Outpatient (BNVA) | payer OTHER, SELFPAY | PROVIDERS: PCP Internal Medicine; Visit Provider Internal Medicine | DX: J45.20 Mild intermittent asthma, uncomplicated (principal); D80.1 Nonfamilial hypogammaglobulinemia; F31.81 Bipolar II disorder; E78.00 Pure hypercholesterolemia, unspecified; R73.01 Impaired fasting glucose; Z87.19 Personal history of other diseases of the digestive system; N64.4 Mastodynia; F17.210 Nicotine dependence, cigarettes, uncomplicated | CPT/HCPCS: 99212 ==

== ENCOUNTER 2024-09-26 07:05 | Outpatient (REF) | payer OTHER, SELFPAY | END 2024-09-26 07:06 | disposition home or self-care (01) | LOC: HO.HOSX 07:05 | PROVIDERS: Visit Provider Physician Assistant | DX: Z13.89 Encounter for screening for other disorder (principal) ==

== ENCOUNTER 2024-10-30 08:15 | Outpatient (REF) | payer OTHER, SELFPAY ==
--- NOTE | ~2024-10-30 | XR_ITS ---
EXAMINATION: XR KNEE, LEFT CLINICAL INFORMATION: M25.569 - Pain in unspecified knee COMPARISON: Radiographs of the left knee on June 24, 2024. TECHNIQUE: Two views of the left knee. FINDINGS: No fracture. Alignment is anatomic. Joint spaces are maintained. No abnormal soft tissue calcification. XR/XR knee LT 2V IMPRESSION: Unremarkable left knee. Electronically signed by: Reta Duncan MD 10/30/2024 01:39 PM EDT
--- OUTSIDE RECORDS SUMMARY | 2024-10-31 08:22 | XMS_ITS | Clinical Summary ---
Author Organization [employer] Address [address] [place] [address] Care Team Providers Care Excelsior Cutter Name Role Phone Unavailable Primary Care Provider [...]
== END 2024-10-30 08:16 | disposition home or self-care (01) ==
LOC: HO.HOSX 08:15
PROVIDERS: Visit Provider Physician Assistant
DX: M22.2X2 Patellofemoral disorders, left knee (principal); M25.562 Pain in left knee
CPT/HCPCS: 20610; 73560; 99212; J1010; J2003

== ENCOUNTER 2024-10-30 13:27 | Outpatient (AMB) | payer OTHER, SELFPAY ==
--- NOTE | 2024-10-30 13:32 | MHC.OFFVIS ---
Vital Signs 10/30/24 13:35 Height 5 ft 4 in Weight 158 lb BMI 27.1 Intake Visit Reasons: New prob-Lt knee pain Intake Note: Yoel is a 53 year old female who presents today for a evaluation of her left knee pain. Patient reports ongoing pain for about two years. She mentions hat her pain is on the right aspect of the knee/moves to the back of her knee/ moves through out the whole knee. Patient notices that her pain is worse when she is walking/bending/standing for more that 10 min/going up and down the stairs. She has taken Tylenol/Motrin/NSAIDs with relief/mild relief/no relief. Patient states that she does have tingling in the knee. Patient stated that she would like to discuss getting a injection in the left knee at this appointment. Allergies mold Allergy (Unknown, Uncoded 09/15/24 17:38) makes patient feel sick HPI HPI New prob-Lt knee pain: Details: Ms. Gerber is a 53 year old female who presents today for a evaluation of left knee pain. Patient reports ongoing pain for the past two years. She reports the pain is on the anterior aspect of the knee surrounding the kneecap. Patient notices that her pain is worse when she is walking/bending/standing for more that 10 min/going up and down the stairs. She has taken Tylenol/Motrin/NSAIDs with relief/mild relief/no relief. Patient states that she does have tingling in the knee. Patient stated that she would like to discuss getting a injection in the left knee at this appointment. [facility] Medical History Breast cancer screening by mammogram Cervical cancer screening Women's annual routine gynecological examination Cognitive changes Breast cancer screening Annual physical exam Carpal tunnel syndrome, right Distal radius fracture, right Fracture of wrist Left foot pain Knee pain, right MDD (major depressive disorder), recurrent episode, severe Neck pain Arthritis Hx MRSA infection Hx of suicide attempt Uses Depo-Provera as primary control method Perimenopausal symptoms Skin lesion of right ear Upper back pain Dysphagia Skin lesion of hand Mass of left hand Well woman exam with routine gynecological exam Altered mental status Depot contraception (~12/26/20) Fall Axillary abscess History of herpes simplex infection Polysubstance abuse Asthma Bipolar disorder Migraine Tobacco abuse ADHD Scoliosis History of drainage of abscess Surgical History History of carpal tunnel surgery History of surgical removal of skin lesion (~06/27/21) History of tonsillectomy Family History (Updated 09/15/24 @ 17:53 by Isai Sharpe MD) Mother In good health Father In good health Maternal Aunt History of breast cancer Maternal Grandmother Pancreatic cancer Maternal Aunt History of breast cancer Social History (Updated 09/15/24 @ 17:54 by Isai Sharpe MD) Household Members: Significant Other Household Members Other:: Andrew (Boyfriend) Housing: House Are you a primary care transitions nurse to a significant other at home: No Do you presently have visiting nurse or other home services: No Unable to assess alcohol history related to: Unknown Alcohol intake: never Comment: 1:1 sitter for safety Patient Tobacco Use Status: Current everyday Tobacco user Tobacco use type: Cigarette Cigarette Packs Per Day: 0.5 Cigarettes Per Day: 3 Years Smoked: 36, pot smoking 2x a week e-Cigarette/Vaping Use: Never Used Second Hand Smoke Exposure: Yes Substance Use Type: Marijuana service: No Current occupational status: unemployed Sexual orientation: Straight/Heterosexual Gender identity: Female Cognitive needs: No Hearing needs: No Vision needs: Yes (Glasses) Female Reproductive History Menstrual Age of Menarche: 12 Review of Systems Const All systems reviewed & are unremarkable except as noted in HPI and below Physical Exam Vital Signs: BMI result Body Mass Index 27.1 Const General: cooperative, healthy appearing and no acute distress Resp Effort & Inspection: normal respiratory effort and able to speak in complete sentences Extrem Other: Left knee: No ecchymosis, erythema, or joint effusion. No tenderness to palpation along the medial or lateral joint lines. Tenderness along the medial and lateral aspect of the patella. Range of motion 30-90 degrees.. Negative Zelalem's. Negative anterior drawer. NVI. Psych Appearance: grossly normal Mental Status: mental status grossly normal Attitude: cooperative Office Procedures AMB Joint Injection/Aspiration Joint Injection/Aspiration Primary Site: left knee Prep: site was prepped using aseptic technique, ethochloride spray was applied and injection warnings given Injected: 80 mg of, DepoMedrol, with 8 mL of (2% plain lidocaine) and in the joint Approach Used: anterolateral Procedure: The patient tolerated the procedure well, but had some pain with the injection and there was some relief with the local anesthesia Coding 18548 - Large joint Procedure code (CPT) selection complete Assessment & Plan Assessment & Plan (1) Patellofemoral pain syndrome of left knee: Code(s): M22.2X2 - Patellofemoral disorders, left knee Category: Medical Plan Yoel is a 53 year old female who presents today for a evaluation of her left knee pain. Patient reports ongoing pain for about two years. She mentions hat her pain is on the right aspect of the knee/moves to the back of her knee/ moves through out the whole knee. Patient notices that her pain is worse when she is walking/bending/standing for more that 10 min/going up and down the stairs. She has taken Tylenol/Motrin/NSAIDs with relief/mild relief/no relief. Patient states that she does have tingling in the knee. Patient stated that she would like to discuss getting a injection in the left knee at this appointment. The patient was offered a cortisone injection in the left knee with 80 mg of DepoMedrol. The patient was explained the risks, benefits, and alternatives to receiving this injection. After receiving consent for the injection, the patient had the procedure done while in the office today. The patient tolerated the procedure well with no complications. Follow-up will be PRN, or sooner if needed X-rays of the left knee which were obtained while in the office today and were reviewed by me, Letty Lerner PA-C, revealed slight lateralization of the patella. Orders: Orders XR knee LT 2V Today M25.569 - Pain in unspecified knee Coding Level of Care Code Est Pt Level 3 (16238) Diagnoses Patellofemoral pain syndrome of left knee M22.2X2 CPT Codes Coding - 63601 Large joint: 08868 - Large joint ([id number])
[2024-10-30 13:35] VITALS: BMI 27.1
--- OUTSIDE RECORDS SUMMARY | 2024-10-30 13:38 | XMS_ITS | Clinical Summary ---
Author Organization [employer] Address [address] [place] [address] Care Team Providers Care Power Equipment Technology Instructor Name Role Phone Unavailable Primary Care Provider [...] Screening 1970 SDOH Screening 1970 Sigmoidoscopy 1970 Disability Screening 1970 Alcohol/Substance Use Screening 1982 Tobacco Screening [...] 2023-2 5 season) 2023 Influenza Vaccine (#1) 2024 RSV Patients and Pa tients Aged 60 [...] patient's age to complete this topic Meningococcal B Vaccine Aged Out No l onger eligible based on patient's age to complete [...]
== END 2024-10-30 13:58 | disposition home or self-care (01) ==
LOC: HO.HOS 13:28
PROVIDERS: PCP Internal Medicine; Visit Provider Physician Assistant
DX: M22.2X2 Patellofemoral disorders, left knee (principal)
CPT/HCPCS: 20610; 99213

== ENCOUNTER → 2024-10-30 13:29 | Outpatient (BNV) | payer OTHER, SELFPAY | PROVIDERS: Visit Provider Radiology Body Imaging | DX: M25.562 Pain in left knee (principal) | CPT/HCPCS: 73560 ==

== ENCOUNTER 2024-12-11 12:25 | Outpatient (AMB) | payer OTHER, SELFPAY ==
--- NOTE | 2024-12-11 12:29 | MHC.OFFVIS ---
Vital Signs 12/11/24 12:34 Height 5 ft 5 in Weight 158 lb BMI 26.3 Intake Visit Reasons: New Pt - Plantar Faciitis Intake Note: Yoel is a 53 year old female who presents today as a new patient for evaluation of Plantar Fasciitis. She mentions having bilateral pain at plantar aspect of her foot. She has tried Tylenol and tramadol and found that it did not relieve her pain. Patient reports she has not tried orthotics. Allergies mold Allergy (Unknown, Uncoded 09/15/24 17:38) makes patient feel sick Medication List - Last Reconciled 12/11/24 by Eb Roberts DPM albuterol sulfate 90 mcg/actuation (Ventolin HFA) 2 puffs inhalation Q6H PRN amitriptyline 100 mg PO BEDTIME 90 days clonazepam 1 mg PO BID PRN dextroamphetamine-amphetamine 30 mg 20 mg PO BID divalproex ER 500 mg PO BEDTIME 30 days fluticasone propion-salmeterol 250-50 mcg/dose (Advair Diskus) 1 inh inhalation BID gabapentin 800 mg PO TID hydroxyzine HCl 25 mg PO DAILY PRN lurasidone 120 mg PO DAILY 30 days sertraline mg PO DAILY tramadol 50 mg PO QID PRN 30 days trazodone 100 mg PO BEDTIME ubrogepant (Ubrelvy) 100 mg PO DAILY PRN 30 days HPI HPI New Pt - Plantar Faciitis: Details: 53-year-old female no pertinent past medical history presents for initial evaluation of bilateral heel pain, right worse than left. She states that the heel pain has gone on for approximately 1 year. She has a history of right heel pain and has received a cortisone injection by another manager labor delivery in the past. At present, she complains of sharp pain to her heels that her 1st step in the morning and prevent her from walking around. If she sits and rests more than 10 minutes at any point, she has immediate pain and difficulty walking. She has been treating it with Tylenol and tramadol so far, which she states does not help her. She states that it is preventing her from undergoing her daily activities. She denies acute onset factors or trauma. She denies pain radiating to anywhere else in her foot. She does note a lump on the mineral of arch in her left foot. [facility] Medical History Breast cancer screening by mammogram Cervical cancer screening Women's annual routine gynecological examination Cognitive changes Breast cancer screening Annual physical exam Carpal tunnel syndrome, right Distal radius fracture, right Fracture of wrist Left foot pain Knee pain, right MDD (major depressive disorder), recurrent episode, severe Neck pain Arthritis Hx MRSA infection Hx of suicide attempt Uses Depo-Provera as primary control method Perimenopausal symptoms Skin lesion of right ear Upper back pain Dysphagia Skin lesion of hand Mass of left hand Well woman exam with routine gynecological exam Altered mental status Depot contraception (~12/26/20) Fall Axillary abscess History of herpes simplex infection Polysubstance abuse Asthma Bipolar disorder Migraine Tobacco abuse ADHD Scoliosis History of drainage of abscess Surgical History History of carpal tunnel surgery History of surgical removal of skin lesion (~06/27/21) History of tonsillectomy Family History (Updated 09/15/24 @ 17:53 by Isai Sharpe MD) Mother In good health Father In good health Maternal Aunt History of breast cancer Maternal Grandmother Pancreatic cancer Maternal Aunt History of breast cancer Social History (Updated 09/15/24 @ 17:54 by Isai Sharpe MD) Household Members: Significant Other Household Members Other:: Andrew (Boyfriend) Housing: House Are you a primary manager of care to a significant other at home: No Do you presently have visiting nurse or other home services: No Unable to assess alcohol history related to: Unknown Alcohol intake: never Comment: 1:1 sitter for safety Patient Tobacco Use Status: Current everyday Tobacco user Tobacco use type: Cigarette Cigarette Packs Per Day: 0.5 Cigarettes Per Day: 3 Years Smoked: 36, pot smoking 2x a week e-Cigarette/Vaping Use: Never Used Second Hand Smoke Exposure: Yes Substance Use Type: Marijuana service: No Current occupational status: unemployed Sexual orientation: Straight/Heterosexual Gender identity: Female Cognitive needs: No Hearing needs: No Vision needs: Yes (Glasses) Female Reproductive History Menstrual Age of Menarche: 12 Review of Systems Const All systems reviewed & are unremarkable except as noted in HPI and below Physical Exam Vital Signs: BMI result Body Mass Index 26.3 Extrem Other: *Bilateral Lower Extremity Focused Exam Vascular: DP/PT 2/4, CFT less than 3 seconds to all digits, temperature gradient warm to cool, no pedal edema. Derm: No open wounds or lacerations, no ecchymosis. Neuro: Protective sensation grossly intact to bilateral lower extremities. MSK: Moderate tenderness on palpation of the plantar medial calcaneal tubercle right foot, moderate tenderness along the left foot medial calcaneal tubercle, mild tenderness along the medial fascia band with palpable soft tissue firm nodule. Office Procedures AMB Flexor Tendon/Plantar POD Tendon Injection Details of AMB Procedure: The right plantar heel was prepped using standard technique. A steroid injection was administered to the plantar fascia insertion. The site was dressed using Band-Aid. Tendon Injection POD1: - Plantar Fascia Injection All charges added?: Procedure code (CPT) selection complete AMB Flexor Tendon/Plantar POD Tendon Injection Details of AMB Procedure: The left plantar heel was prepped using standard technique. A steroid injection was administered to the plantar fascia insertion. The site was dressed using Band-Aid. Tendon Injection POD1: - Plantar Fascia Injection All charges added?: Procedure code (CPT) selection complete Office Meds triamcinolone acetonide 40 mg/mL suspension for injection Performing Provider: Eb Roberts DPM Performing Location: [facility] Administered by: Eb Roberts DPM on 12/11/24 15:20 Dose Route Admin Location Dispensed Lot Number Expiration Date [facility] [employer] 20 mg Tendon Sheath Inj. 1 mL [address]-5 [employer] Total Dispensed Waste 1 mL 50 % dexamethasone sodium phosphate 4 mg/mL injection solution Performing Provider: Eb Roberts DPM Performing Location: [facility] Administered by: Eb Roberts DPM on 12/11/24 15:20 Dose Route Admin Location Dispensed Lot Number Expiration Date [facility] [employer] 4 mg Tendon Sheath Inj. 1 mL 05591-489-40 [employer] Total Dispensed Waste 1 mL 0 % bupivacaine (PF) 0.5 % (5 mg/mL) injection solution Performing Provider: Eb Roberts DPM Performing Location: [facility] Administered by: Eb Roberts DPM on 12/11/24 15:20 Dose Route Admin Location Dispensed Lot Number Expiration Date [facility] [employer] 2 mL subcut 10 mL [id number] [employer] Total Dispensed Waste 10 mL 80 % triamcinolone acetonide 40 mg/mL suspension for injection Performing Provider: Eb Roberts DPM Performing Location: [facility] Administered by: Eb Roberts DPM on 12/11/24 15:20 Dose Route Admin Location Dispensed Lot Number Expiration Date [facility] [employer] 20 mg Tendon Sheath Inj. 1 mL [address]-5 [employer] Total Dispensed Waste 1 mL 50 % dexamethasone sodium phosphate 4 mg/mL injection solution Performing Provider: Eb Roberts DPM Performing Location: [facility] Administered by: Eb Roberts DPM on 12/11/24 15:20 Dose Route Admin Location Dispensed Lot Number Expiration Date [facility] [employer] 4 mg Tendon Sheath Inj. 1 mL 70370-551-77 [employer] Total Dispensed Waste 1 mL 0 % bupivacaine (PF) 0.5 % (5 mg/mL) injection solution Performing Provider: Eb Roberts DPM Performing Location: [facility] Administered by: Eb Roberts DPM on 12/11/24 15:20 Dose Route Admin Location Dispensed Lot Number Expiration Date [facility] [employer] 2 mL intra-articular 10 mL [id number] [employer] Total Dispensed Waste 10 mL 80 % Results Reviewed Results Reviewed: Podiatry X-ray Read: 01/31/2023 X-ray right ankle 3 views (AP, Mortise, Lateral) reviewed which shows mild plantar calcaneal heel spur. No fractures, dislocations, osteochondral defects, or gross abnormalities. Anatomic alignment of the tibiotalar joint. Bone density is within normal limits. No evidence of swelling, foreign body, or calcifications. Assessment & Plan Assessment & Plan (1) Plantar fasciitis: Comment: Right heel Code(s): M72.2 - Plantar fascial fibromatosis Category: Medical Plan: Discussed the etiology of her heel pain. Differential diagnosis includes plantar fasciitis, neuritis, tendinitis. Educated on proper supportive shoe-wear. Reviewed right ankle x-rays with the patient. Ordered new x-rays for the right foot. Recommended stretching, range of motion exercises. We will likely refer the patient for physical therapy if heel pain persists by next visit. Administered steroid injection to the right heel using sterile technique. Patient is currently taking tramadol for pain, however states there has been minimal improvement.. Recommended Meloxicam/NSAIDs for the anti-inflammatory component for the next 2-3 weeks p.r.n. pain, which the patient agreed to. Rx Meloxicam Follow up in 3 weeks. (2) Plantar fasciitis: Comment: Left heel Code(s): M72.2 - Plantar fascial fibromatosis Category: Medical Plan: Ordered x-ray for the left foot. Discussed clinical findings of fibroma along the plantar fascia. Administered steroid injection to her left plantar fascia ligament using sterile technique. Discussed possible MRI in the future to evaluate the plantar fibroma mass. Orders: Orders XR Foot Alejandro 3V Today M72.2 - Plantar fascial fibromatosis AMB Flexor Tendon / Plantar Fascia Injection Today M72.2 - Plantar fascial fibromatosis AMB Flexor Tendon / Plantar Fascia Injection Today M72.2 - Plantar fascial fibromatosis Medications: New meloxicam 15 mg PO DAILY 21 tabs 0RF M72.2 - Plantar fascial fibromatosis Coding Level of Care Code New Pt Level 4 (23115) Diagnoses Plantar fasciitis M72.2 CPT Codes Tendon Injection - Tendon Injection POD1: - Plantar Fascia Injection ([id number]) Tendon Injection - Tendon Injection POD1: - Plantar Fascia Injection ([id number]) Time Spent (min) 35 Comment interpret old x-ray, Rx Med
[2024-12-11 12:34] VITALS: BMI 26.3
--- OUTSIDE RECORDS SUMMARY | 2024-12-11 16:40 | XMS_ITS | Clinical Summary ---
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
== END 2024-12-11 13:41 | disposition home or self-care (01) ==
LOC: HO.HPODS 12:26
PROVIDERS: PCP Internal Medicine; Visit Provider Student in an Organized Health Care Education/Training Program
DX: M72.2 Plantar fascial fibromatosis (principal)
CPT/HCPCS: 20550; 99204

== ENCOUNTER → 2024-12-11 12:25 | Outpatient (BNVA) | payer OTHER, SELFPAY | PROVIDERS: PCP Internal Medicine; Visit Provider Student in an Organized Health Care Education/Training Program | DX: M72.2 Plantar fascial fibromatosis (principal); M79.671 Pain in right foot; M79.672 Pain in left foot | CPT/HCPCS: 20550; 99202; J0665; J1100; J3301 ==

== ENCOUNTER 2024-12-31 12:21 | Outpatient (REF) | payer OTHER, SELFPAY ==
--- NOTE | ~2024-12-31 | XR_ITS ---
EXAMINATION: XR FOOT 3 OR MORE VIEWS BILATERAL HISTORY: M72.2 - Plantar fascial fibromatosis COMPARISON: Comparison is made with the prior examination of the left foot dated 07/15/2021. FINDINGS: Six views of the bilateral feet are submitted. Osseous mineralization is normal. There is no fracture or dislocation. The joint spaces are preserved. There is a small plantar calcaneal spur on the right. The soft tissues are unremarkable. XR/XR Foot Alejandro 3V IMPRESSION: Small plantar calcaneal spur on the right. Otherwise unremarkable examination of the bilateral feet. Electronically signed by: Dinesh Jacome MD 12/31/2024 12:47 PM EDT
--- OUTSIDE RECORDS SUMMARY | 2024-12-31 13:48 | XMS_ITS | Clinical Summary ---
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
== END 2024-12-31 12:22 | disposition home or self-care (01) ==
LOC: HO.XRAY 12:21
PROVIDERS: PCP Internal Medicine; Visit Provider Student in an Organized Health Care Education/Training Program
DX: M72.2 Plantar fascial fibromatosis (principal)
CPT/HCPCS: 73630

== ENCOUNTER → 2024-12-31 12:26 | Outpatient (BNV) | payer OTHER, SELFPAY | PROVIDERS: PCP Internal Medicine; Visit Provider Radiology Diagnostic Radiology | DX: M77.31 Calcaneal spur, right foot (principal); M72.2 Plantar fascial fibromatosis | CPT/HCPCS: 73630 ==

== ENCOUNTER 2025-01-01 10:56 | Outpatient (AMB) | payer OTHER, SELFPAY ==
--- NOTE | 2025-01-01 11:04 | A.OFFVIS_ITS ---
Vital Signs 01/01/25 11:06 Height 5 ft 5 in Weight 158 lb BMI 26.3 Intake Visit Reasons: 3 W follow up Intake Note: Yoel is a 53 year old female who presents today for a follow up on her plantar fasciitis. On her 12/11/24 appointment she was administered bilateral steroid injections. Pt states her left foot has improved significantly however her right foot has improved slightly but she still experiences pain. She reports she has been doing the exercises and she could not take the meloxicam due to medication causing her nausea. IMPRESSION: Small plantar calcaneal spur on the right. Otherwise unremarkable examination of the bilateral feet. Allergies mold Allergy (Unknown, Uncoded 09/15/24 17:38) makes patient feel sick HPI HPI 3 W follow up: Details: 53-year-old female past medical history of hypogammaglobulinemia, anemia, sciatica, tobacco use presents for 3 week follow up evaluation of bilateral heel pain, right worse than left. She received bilateral heel injections last visit. She no longer has pain to her left heel, still noticing some persistent pain to her right foot. She has been able to increase her walking and activity. She has not been doing all of the recommended exercises daily. She was unable to tolerate meloxicam more than 2 days. History: She states that the heel pain has gone on for approximately 1 year. she complains of sharp pain to her heels that her 1st step in the morning and prevent her from walking around. If she sits and rests more than 10 minutes at any point, she has immediate pain and difficulty walking. She has been treating it with Tylenol and tramadol so far, which she states does not help her. She states that it is preventing her from undergoing her daily activities. She denies acute onset factors or trauma. She denies pain radiating to anywhere els e in her foot. She does note a lump on the arch in her left foot. [facility] Medical History Breast cancer screening by mammogram Cervical cancer screening Women's annual routine gynecological examination Cognitive changes Breast cancer screening Annual physical exam Carpal tunnel syndrome, right Distal radius fracture, right Fracture of wrist Left foot pain Knee pain, right MDD (major depressive disorder), recurrent episode, severe Neck pain Arthritis Hx MRSA infection Hx of suicide attempt Uses Depo-Provera as primary control method Perimenopausal symptoms Skin lesion of right ear Upper back pain Dysphagia Skin lesion of hand Mass of left hand Well woman exam with routine gynecological exam Altered mental status Depot contraception (~12/26/20) Fall Axillary abscess History of herpes simplex infection Polysubstance abuse Asthma Bipolar disorder Migraine Tobacco abuse ADHD Scoliosis History of drainage of abscess Surgical History History of carpal tunnel surgery History of surgical removal of skin lesion (~06/27/21) History of tonsillectomy Family History (Updated 09/15/24 @ 17:53 by Isai Sharpe MD) Mother In good health Father In good health Maternal Aunt History of breast cancer Maternal Grandmother Pancreatic cancer Maternal Aunt History of breast cancer Social History (Updated 09/15/24 @ 17:54 by Isai Sharpe MD) Household Members: Significant Other Household Members Other:: Andrew (Boyfriend) Housing: House Are you a primary pediatric acute care unit nurse to a significant other at home: No Do you presently have visiting nurse or other home services: No Alcohol intake: never Comment: 1:1 sitter for safety Patient Tobacco Use Status: Current everyday Tobacco user Tobacco use type: Cigarette Cigarette Packs Per Day: 0.5 Cigarettes Per Day: 3 Years Smoked: 36, pot smoking 2x a week e-Cigarette/Vaping Use: Never Used Second Hand Smoke Exposure: Yes Substance Use Type: Marijuana service: No Current occupational status: unemployed Sexual orientation: Straight/Heterosexual Gender identity: Female Cognitive needs: No Hearing needs: No Vision needs: Yes (Glasses) Female Reproductive History Menstrual Age of Menarche: 12 Review of Systems Const All systems reviewed & are unremarkable except as noted in HPI and below Physical Exam Vital Signs: BMI result Body Mass Index 26.3 Extrem Other: *Bilateral Lower Extremity Focused Exam Vascular: DP/PT 2/4, CFT less than 3 seconds to all digits, temperature gradient warm to cool, no pedal edema. Derm: No open wounds or lacerations, no ecchymosis. Neuro: Protective sensation grossly intact to bilateral lower extremities. MSK: Mild tenderness on palpation of the plantar medial calcaneal tubercle right foot, no tenderness along the left foot medial calcaneal tubercle. No tenderness along the medial fascia band, no longer palpable soft tissue nodule. Results Reviewed Results Reviewed: Podiatry X-ray Read: 12/31/2024 X-ray right foot 3 views (AP, MO, Lateral) nonweightbearing reviewed which shows 8 mm x 2mm plantar heel spur. no fractures, dislocations, or gross abnormalities. Bone density is within normal limits. High arch cavus foot type. No evidence of swelling, foreign body, or calcifications. I personally reviewed the imaging and my findings are listed above. Podiatry X-ray Read: 12/31/2024 X-ray left foot 3 views (AP, MO, Lateral) nonweightbearing reviewed which shows steida process of the talus, no plantar heel spur. no fractures, dislocations, or gross abnormalities. Bone density is within normal limits. Normal anatomy. No evidence of swelling, foreign body, or calcifications. I personally reviewed the imaging and my findings are listed above. Assessment & Plan Assessment & Plan (1) Plantar fasciitis: Comment: Right heel Code(s): M72.2 - Plantar fascial fibromatosis Category: Medical Plan: * Discussed the etiology of her heel pain. Differential diagnosis includes plantar fasciitis, neuritis, tendinitis. * Reviewed x-rays. Recommended conservative treatment of her heel spur at this time. * Referred to physical therapy. * Dispensed night splint. * Handout given for at home range of motion stretching exercises. * Recommended beun-iog-dwvesih inserts (Superfeet). * Rx Celebrex * Follow up in 1 month. Possible repeat injection (2) Plantar fasciitis: Comment: Left heel Code(s): M72.2 - Plantar fascial fibromatosis Category: Medical Plan: * Reviewed left foot x-ray * Fibroma appears to be shrinking/resolving s/p cortisone injection. Will continue to monitor. * No plans for MRI at this time. Orders: Orders PT Evaluation and Treatment Today M72.2 - Plantar fascial fibromatosis Coding Level of Care Code Est Pt Level 3 (26619) Diagnoses Plantar fasciitis M72.2 Time Spent (min) 30
[2025-01-01 11:06] VITALS: BMI 26.3
--- OUTSIDE RECORDS SUMMARY | 2025-01-01 12:51 | XMS_ITS | Clinical Summary ---
Author Organization [employer] Address [address] [place] [address] Care Team Providers Care Permit Review Assistant Name Role Phone Unavailable Primary Care Provider [...]
== END 2025-01-01 11:29 | disposition home or self-care (01) ==
LOC: HO.HPODS 10:57
PROVIDERS: PCP Internal Medicine; Visit Provider Student in an Organized Health Care Education/Training Program
DX: M72.2 Plantar fascial fibromatosis (principal)
CPT/HCPCS: 99213

== ENCOUNTER → 2025-01-01 10:56 | Outpatient (BNVA) | payer OTHER, SELFPAY | PROVIDERS: PCP Internal Medicine; Visit Provider Student in an Organized Health Care Education/Training Program | DX: M72.2 Plantar fascial fibromatosis (principal) | CPT/HCPCS: 99212 ==

== ENCOUNTER 2025-01-13 08:58 | Outpatient (REF) | payer OTHER, SELFPAY ==
[2025-01-13 09:08] LABS: MANUAL DIFF FLAG NO
--- OUTSIDE RECORDS SUMMARY | 2025-01-13 09:35 | XMS_ITS | Clinical Summary ---
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
[2025-01-13 10:11] LABS: Hematocrit 40.6 % (37.0-47.0); Hemoglobin 13.4 g/dl (12.0-16.0); Imm Gran Abs Auto 0.03 X10*3/uL (0.00-0.03); Imm Gran Pct Auto 0.4 % (0.0-0.4); Lymphocytes Absolute Auto 2.5 X10*3/uL (1.2-4.9); Mean Corpuscular HGB Conc 33.0 g/dl (31.0-35.0); Mean Corpuscular Hemoglobin 31.1 pg (27.0-33.0); Mean Corpuscular Volume 94.2 fL (80.0-98.0); NRBC Abs Auto 0.000 X10*3/uL (0.0-0.012); NRBC Pct Auto 0.0 /100WBC (0.0-0.2); Platelet Count 472 X10*3/uL (160-400); Red Blood Count 4.31 X10*6/uL (4.20-5.50); White Blood Count 7.9 X10*3/uL (4.8-10.8)
[2025-01-13 10:58] LABS: Alanine Aminotransferase 15 U/L (0-31); Albumin Level 4.2 g/dL (3.5-5.0); Alkaline Phosphatase 89 U/L (39-117); Anion Gap 13 (12-20); Aspartate Amino Transferase 22 U/L (5-31); Blood Urea Nitrogen 6 mg/dL (9-16); Calcium 9.1 mg/dL (8.4-10.2); Carbon Dioxide 28 mmol/L (22-29); Chloride 106 mmol/L (96-108); Cholesterol 236 mg/dL (<200); Estimated Glomerular Filt Rate > 60; Free T4 (Free Thyroxine) 0.88 ng/dL (0.71-1.85); HDL Cholesterol 45 mg/dL (>40); Potassium 4.2 mmol/L (3.3-5.1); Sodium 143 mmol/L (135-145); Thyroid Stimulating Hormone 0.87 uIU/mL (0.32-4.0); Total Protein 7.3 g/dL (6.5-8.0); Triglycerides 167 mg/dL (<150)
[2025-01-13 11:19] LABS: Folate 5.2 ng/mL (> or = 4.0); Vitamin B12 1560 pg/mL (200-900)
== END 2025-01-13 08:59 | disposition home or self-care (01) ==
LOC: HO.LAB 08:58
PROVIDERS: PCP Internal Medicine; Visit Provider Internal Medicine
DX: G43.009 Migraine without aura, not intractable, without status migrainosus (principal); G31.84 Mild cognitive impairment of uncertain or unknown etiology; F98.8 Other specified behavioral and emotional disorders with onset usually occurring in childhood and adolescence; R25.1 Tremor, unspecified; R73.01 Impaired fasting glucose; E78.00 Pure hypercholesterolemia, unspecified; Z79.899 Other long term (current) drug therapy
CPT/HCPCS: 36415; 80053; 80061; 82306; 82607; 82746; 83036; 84439; 84443; 85025

== ENCOUNTER 2025-01-13 13:45 | Outpatient (AMB) | payer OTHER, SELFPAY ==
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
== END 2025-01-13 14:09 | disposition home or self-care (01) ==
LOC: HO.HSM 13:46
PROVIDERS: PCP Internal Medicine; Referring Provider Internal Medicine; Visit Provider Registered Nurse
DX: G43.009 Migraine without aura, not intractable, without status migrainosus (principal); G31.84 Mild cognitive impairment of uncertain or unknown etiology; R25.1 Tremor, unspecified; F98.8 Other specified behavioral and emotional disorders with onset usually occurring in childhood and adolescence
CPT/HCPCS: 99214

== ENCOUNTER 2025-01-15 08:55 | Outpatient (AMB) | payer OTHER, SELFPAY ==
--- OUTSIDE RECORDS SUMMARY | 2025-01-10 20:00 | XMS_ITS | Clinical Summary ---
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 Phone AVELINA APPIAH, SURY Unavailable Unavailable INGRID CANO, DAMON Unavailable Unavailable ELE CANO, MAHNAZ Unavailable Unavailable Payers Payer Name Policy Type Policy Number Effective Date Expira tion Date [facility] [place] [place] [facility] [id number] MEDICAID [facility] [id number] Problems Condition Name Condition Details Condition Category Status Onset Date Resolution Date Last Treatment Date Treating Clinician Comments MAJOR DEPRESSV DISORDER, RECURRENT SEVERE W/O PSYCH FEATURES Active 05-03 00:00: 00 BIPOLAR DISORD, CRNT EPISODE MANIC W/O PSYCH FEATURES, UNSP Active 2022-04- 00:00: 00 ATTENTION-DE FICIT HYPERACTIVIT Y DISORDER, [...] UNKNOWN ETIOLOGY Active 2023-04 2- 00:00: 00 HEREDITARY AND IDIOPATHIC NEUROPATHY, UNSPECIFIED Active 09-09 00:00: 00 UNSPECIFIED OSTEOARTHRIT IS, UNSPECIFIED SITE Active 09-09 00:00: 00 PLANTAR FASCIAL FIBROMATOSIS Active 09-09 00:00: 00 Allergies, Adverse Reactions, Alerts Allergy Name Allergy Type Status Severity Reaction(s) Onset Date Inactive Date Treating Clinician Comments MOLD MOLD Propensity to adverse reactions Active 2023-07 08:11:0 3 Medications Ordered Medication Name Filled Medication Name Start Date Stop Date Current Medication? Ordering Clinician Indication Dosage Frequency Signature (SIG) Comments Components Hizentra 10 gram/50 mL (20 %) subcutaneou s solution 2 00:00: 00 12-24 23:59 :00 No [id number] Per instruc tions DIRECTED Per instructio ns DIRECTED (route: subcutaneo us) Med Classific ation: Biologica ls Hizentra 2 gram/10 mL (20 %) subcutaneou s solution 05-09 00:00: 00 12-30 23:59 :00 No [id number] Per instruc tions DIRECTED Per instructio ns DIRECTED (route: subcutaneo us) Med Classific ation: Biologica ls Ubrelvy 100 mg tablet 05-09 00:00: 00 12-30 23:59 :00 No [id number] Per instruc tions DAILY NEEDED FOR 30 DAYS Per instructio ns DAILY NEEDED FOR 30 DAYS (route: oral) Med Classific ation: Central Nervous System Agents Ventolin HFA 90 mcg/actuati on aerosol inhaler 05-09 00:00: 00 12-30 23:59 :00 No [id number] Per instruc tions EVERY 6 HOURS NEEDED Per instructio ns EVERY 6 HOURS NEEDED (route: inhalation ) Med Classific ation: Respirato ry Therapy Agents clonazepam 1 mg tablet 2-04 00:00: 00 06-17 23:59 :00 No [id number] Per instruc tions 2 TIMES A DAY NEEDED Per instructio ns 2 TIMES A DAY NEEDED (route: oral) Med Classific ation: Central Nervous System Agents gabapentin 300 mg capsule 2-04 00:00: 00 07-26 23:59 :00 No [id number] Per instruc tions 3 TIMES A DAY Per instructio ns 3 TIMES A DAY (route: oral) Med Classific ation: Central Nervous System Agents tramadol 50 mg tablet 2-04 00:00: 00 12-30 23:59 :00 No [id number] Per instruc tions 4 TIMES A DAY NEEDED FOR 30 DAYS Per instructio ns 4 TIMES A DAY NEEDED FOR 30 DAYS (route: oral) Med Classific ation: Analgesic , Anti-infl ammatory or Antipyret ic amitriptyli ne 100 mg tablet 04-28 00:00: 00 12-30 23:59 :00 No [id number] Per instruc tions EVERY NIGHT AT BEDTIME Per instructio ns EVERY NIGHT AT BEDTIME (route: oral) Med Classific ation: Central Nervous System Agents memantine 5 mg tablet 04-28 00:00: 00 07-29 23:59 :00 No [id number] Per instruc tions EVERY DAY FOR 30 DAYS Per instructio ns EVERY DAY FOR 30 DAYS (route: oral) Med Classific ation: Cognitive Disorder Therapy Ubrelvy 100 mg tablet 04-28 00:00: 00 05-23 23:59 :00 No [id number] Per instruc tions EVERY DAY NEEDED X30 DAYS Per instructio ns EVERY DAY NEEDED X30 DAYS (route: oral) Med Classific ation: Central Nervous System Agents dextroamphe tamine sulfate 30 mg tablet 05-23 00:00: 00 06-17 23:59 :00 No [id number] 1 tablet DIRECTED 1 tablet DIRECTED (route: oral) Med Classific ation: Central Nervous System Agents divalproex 500 mg tablet,roc yed release 05-23 00:00: 00 12-30 23:59 :00 No [id number] 1 tablet BEDTIME 1 tablet BEDTIME (route: oral) Med Classific ation: Central Nervous System Agents fluoxetine 20 mg capsule 05-23 00:00: 00 09-16 23:59 :00 No [id number] 3 capsule DAILY 3 capsule DAILY (route: oral) Med Classific ation: Central Nervous System Agents lurasidone 120 mg tablet 05-23 00:00: 00 12-30 23:59 :00 No [id number] 1 tablet EVERY PM 1 tablet EVERY PM (route: oral) Med Classific ation: Central Nervous System Agents trazodone 50 mg tablet 05-23 00:00: 00 09-16 23:59 :00 No [id number] 1 tablet NEEDED 1 tablet NEEDED (route: oral) Med Classific ation: Central Nervous System Agents Vitamin B-12 1,000 mcg tablet 05-23 00:00: 00 09-16 23:59 :00 No [id number] 1 tablet DAILY 1 tablet DAILY (route: oral) Med Classific ation: Electroly te Balance-N utritiona l Products Adderall 20 mg tablet 06-17 00:00: 00 09-26 23:59 :00 No [id number] 1 tablet DAILY 1 tablet DAILY (route: oral) Med Classific ation: Central Nervous System Agents clonazepam 0.5 mg tablet 06-17 00:00: 00 07-15 23:59 :00 No [id number] 1 tablet NEEDED 1 tablet NEEDED (route: oral) Med Classific ation: Central Nervous System Agents memantine 5 mg tablet 06-17 00:00: 00 07-19 23:59 :00 No [id number] 1 tablet 2 TIMES DAILY 1 tablet 2 TIMES DAILY (route: oral) Med Classific ation: Cognitive Disorder Therapy clonazepam 1 mg tablet 07-15 00:00: 00 12-30 23:59 :00 No [id number] 1 tablet 2 TIMES DAILY 1 tablet 2 TIMES DAILY (route: oral) Med Classific ation: Central Nervous System Agents sertraline 50 mg tablet 07-15 00:00: 00 10-07 23:59 :00 No [id number] 1 tablet EVERY AM 1 tablet EVERY AM (route: oral) Med Classific ation: Central Nervous System Agents Flonase Allergy Relief 50 mcg/actuati on nasal spray,suspe nsion 07-21 00:00: 00 12-30 23:59 :00 No [id number] 2 spray DAILY 2 spray DAILY (route: nasal) Med Classific ation: Respirato ry Therapy Agents montelukast 10 mg tablet 07-21 00:00: 00 01-28 23:59 :00 No [id number] 1 tablet BEDTIME 1 tablet BEDTIME (route: oral) Med Classific ation: Respirato ry Therapy Agents gabapentin 400 mg capsule 07-26 00:00: 00 04-29 23:59 :00 No [id number] 1 capsule 3 TIMES DAILY 1 capsule 3 TIMES DAILY (route: oral) Med Classific ation: Central Nervous System Agents memantine 10 mg tablet 07-29 00:00: 00 01-28 23:59 :00 No [id number] 1 tablet 2 TIMES DAILY 1 tablet 2 TIMES DAILY (route: oral) Med Classific ation: Cognitive Disorder Therapy trazodone 100 mg tablet 09-19 00:00: 00 12-30 23:59 :00 No [id number] 1 tablet BEDTIME 1 tablet BEDTIME (route: oral) Med Classific ation: Central Nervous System Agents Adderall XR 20 mg capsule,ext ended release 09-27 00:00: 00 12-24 23:59 :00 No [id number] 1 capsule DAILY 1 capsule DAILY (route: oral) Med Classific ation: Central Nervous System Agents sertraline 50 mg tablet 08 00:00: 00 12-24 23:59 :00 No [id number] 1.5 tablet DAILY 1.5 tablet DAILY (route: oral) Med Classific ation: Central Nervous System Agents Adderall XR 30 mg capsule,ext ended release 24 00:00: 00 05-17 23:59 :00 No [id number] 1 capsule EVERY AM 1 capsule EVERY AM (route: oral) Med Classific ation: Central Nervous System Agents sertraline 100 mg tablet -24 00:00: 00 12-30 23:59 :00 No [id number] 1 tablet EVERY AM 1 tablet EVERY AM (route: oral) Med Classific ation: Central Nervous System Agents hydroxyzine HCl 25 mg tablet -28 00:00: 00 12-30 23:59 :00 No [id number] FOR ANXIETY 1 tablet 2 TIMES DAILY 1 tablet 2 TIMES DAILY (route: oral) Med Classific ation: Central Nervous System Agents Advair Diskus 250 mcg-50 mcg/dose powder for inhalation 1- 00:00: 00 12-30 23:59 :00 No [id number] 1 inhalat ion 2 TIMES DAILY 1 inhalation 2 TIMES DAILY (route: inhalation ) Med Classific ation: Respirato ry Therapy Agents gabapentin 600 mg tablet 1-28 00:00: 00 09-16 23:59 :00 No [id number] 1 tablet 3 TIMES DAILY 1 tablet 3 TIMES DAILY (route: oral) Med Classific ation: Central Nervous System Agents dextroamphe tamine sulfate 15 mg tablet 2-15 00:00: 00 06-30 23:59 :00 No [id number] 1 tablet 2 TIMES DAILY 1 tablet 2 TIMES DAILY (route: oral) Med Classific ation: Central Nervous System Agents dextroamphe tamine sulfate 20 mg tablet 3- 00:00: 00 12-30 23:59 :00 No [id number] 1 tablet 2 TIMES DAILY 1 tablet 2 TIMES DAILY (route: oral) Med Classific ation: Central Nervous System Agents gabapentin 800 mg tablet - 00:00: 00 12-30 23:59 :00 No [id number] 1 tablet 3 TIMES DAILY 1 tablet 3 TIMES DAILY (route: oral) Med Classific ation: Central Nervous System Agents Advair Diskus 250 mcg-50 mcg/dose powder for inhalation 2024-04 0- 00:00: 00 Yes [id number] 1 inhalat ion 2 TIMES DAILY 1 inhalation 2 TIMES DAILY (route: inhalation ) Med Classific ation: Respirato ry Therapy Agents amitriptyli ne 100 mg tablet 2024-04 0- 00:00: 00 Yes [id number] 1 tablet BEDTIME 1 tablet BEDTIME (route: oral) Med Classific ation: Central Nervous System Agents clonazepam 1 mg tablet 2024-04 0- 00:00: 00 Yes [id number] 1 tablet 2 TIMES DAILY 1 tablet 2 TIMES DAILY (route: oral) Med Classific ation: Central Nervous System Agents dextroamphe tamine sulfate 20 mg tablet 2024-04 0- 00:00: 00 Yes [id number] 1 tablet 2 TIMES DAILY 1 tablet 2 TIMES DAILY (route: oral) Med Classific ation: Central Nervous System Agents divalproex 500 mg tablet,roc yed release 2024-04 00:00: 00 Yes [id number] 1 tablet BEDTIME 1 tablet BEDTIME (route: oral) Med Classific ation: Central Nervous System Agents Flonase Allergy Relief 50 mcg/actuati on nasal spray,suspe nsion 2024-04 00:00: 00 Yes [id number] 2 spray EVERY AM 2 spray EVERY AM (route: nasal) Med Classific ation: Respirato ry Therapy Agents gabapentin 800 mg tablet 2024-04 00:00: 00 Yes [id number] 1 tablet 3 TIMES DAILY 1 tablet 3 TIMES DAILY (route: oral) Med Classific ation: Central Nervous System Agents Hizentra 2 gram/10 mL (20 %) subcutaneou s solution 2024-04 00:00: 00 Yes [id number] Per instruc tions WEEKLY Per instructio ns WEEKLY (route: subcutaneo us) Med Classific ation: Biologica ls hydroxyzine HCl 25 mg tablet 2024-04 00:00: 00 Yes [id number] 1 tablet 2 TIMES DAILY 1 tablet 2 TIMES DAILY (route: oral) Med Classific ation: Central Nervous System Agents lurasidone 120 mg tablet 2024-04 00:00: 00 Yes [id number] 1 tablet EVERY PM 1 tablet EVERY PM (route: oral) Med Classific ation: Central Nervous System Agents sertraline 100 mg tablet 2024-04 00:00: 00 Yes [id number] 1 tablet EVERY AM 1 tablet EVERY AM (route: oral) Med Classific ation: Central Nervous System Agents tramadol 50 mg tablet 2024-04 00:00: 00 Yes [id number] 1 tablet 4 TIMES DAILY 1 tablet 4 TIMES DAILY (route: oral) Med Classific ation: Analgesic , Anti-infl ammatory or Antipyret ic trazodone 100 mg tablet 2024-04 00:00: 00 Yes [id number] 1 tablet BEDTIME 1 tablet BEDTIME (route: oral) Med Classific ation: Central Nervous System Agents Ubrelvy 100 mg tablet 2024-04 00:00: 00 Yes [id number] 1 tablet NEEDED 1 tablet NEEDED (route: oral) Med Classific ation: Central Nervous System Agents Ventolin HFA 90 mcg/actuati on aerosol inhaler 2024-04 00:00: 00 Yes [id number] 2 puff EVERY 6 HOURS 2 puff EVERY 6 HOURS (route: inhalation ) Med Classific ation: Respirato ry Therapy Agents Vital Signs Vital Name Observation Time Observation Value Commen ts Temperature 2024-12-30 18:26:00.000 97.8 [degF] Temperature 2024-12-23 12:45:00.000 97.8 [degF] Temperature 2024-12-16 12:48:00.000 97.8 [degF] Temperature 2024-12-09 12:51:00.000 97.3 [degF] Temperature 2024-12-02 13:18:00.000 97.8 [degF] Temperature 2024-11-25 14:31:00.000 97.8 [degF] Temperature 2024-11-18 12:29:00.000 97.8 [degF] Pulse 2024-12-30 18:26:00.000 85 /min Pulse 2024-12-23 12:45:00.000 98 /min Pulse 2024-12-16 12:48:00.000 90 /min Pulse 2024-12-09 12:51:00.000 88 /min Pulse 2024-12-02 13:18:00.000 88 /min Pulse 2024-11-25 14:31:00.000 100 /min Pulse 2024-11-18 12:29:00.000 100 /min O2 Saturation (%) 2024-12-30 18:26:00.000 98 % O2 Saturation (%) 2024-12-23 12:46:00.000 98 % O2 Saturation (%) 2024-12-16 12:49:00.000 98 % O2 Saturation (%) 2024-12-09 12:52:00.000 96 % O2 Saturation (%) 2024-11-25 14:32:00.000 98 % Respirations 2024-12-30 18:26:00.000 16 /min Respirations 2024-12-23 12:45:00.000 16 /min Respirations 2024-12-16 12:48:00.000 16 /min Respirations 2024-12-09 12:51:00.000 16 /min Respirations 2024-12-02 13:18:00.000 16 /min Respirations 2024-11-25 14:31:00.000 16 /min Respirations 2024-11-18 12:29:00.000 16 /min Systolic Blood Pressure 2024-12-30 18:26:00.000 122 mm [Hg] Systolic Blood Pressure 2024-12-23 12:45:00.000 122 mm [Hg] Systolic Blood Pressure 2024-12-16 12:48:00.000 122 mm [Hg] Systolic Blood Pressure 2024-12-09 12:51:00.000 110 mm [Hg] Systolic Blood Pressure 2024-12-02 13:18:00.000 122 mm [Hg] Systolic Blood Pressure 2024-11-25 14:31:00.000 120 mm [Hg] Systolic Blood Pressure 2024-11-18 12:31:00.000 110 mm [Hg] Diastolic Blood Pressure 2024-12-30 18:26:00.000 70 mm [Hg] Diastolic Blood Pressure 2024-12-23 12:45:00.000 70 mm [Hg] Diastolic Blood Pressure 2024-12-16 12:48:00.000 74 mm [Hg] Diastolic Blood Pressure 2024-12-09 12:51:00.000 60 mm [Hg] Diastolic Blood Pressure 2024-12-02 13:18:00.000 70 mm [Hg] Diastolic Blood Pressure 2024-11-25 14:31:00.000 60 mm [Hg] Diastolic Blood Pressure 2024-11-18 12:31:00.000 60 mm [Hg] Plan of Treatment Planned Activity [...] AWARENESS FOR SAFETY AND WILL NOTIFY CLINICAL CONDOMINIUM MANAGER AND PHYSICIAN/PROVIDER WITH ANY CHANGE IN CONDITION. [code = SKILLED NURSE WILL MAINTAIN SITUATIONAL AWARENESS FOR SAFETY AND WILL NOTIFY CLINICAL CONDOMINIUM MANAGER AND PHYSICIAN/PROVIDER WITH ANY CHANGE IN CONDITION.] Future Scheduled Test SKILLED NU RSE TO ASSESS PATIENT S PSYCHOSOCIAL STATUS TO IDENTIFY POTENTIAL ISSUES THAT MAY COMPLICATE THE PROVISION OF THE PLAN OF CARE INCLUDING THE PATIENT S ABILITY TO ACCESS COMMUNITY RESOURCES AND PSYCHOSOCIAL SUPPORT SERVICES. [code = SKILLED NURSE TO ASSESS PATIENT S PSYCHOSOCIAL STATUS TO IDENTIFY POTENTIAL ISSUES THAT MAY COMPLICATE THE PROVISION OF THE PLAN OF CARE INCLUDING THE PATIENT S ABILITY TO ACCESS COMMUNITY RESOURCES AND PSYCHOSOCIAL SUPPORT SERVICES.] Future Scheduled Test SKILLED NU RSE TO PERFORM HOME SAFETY AND FALL ASSESSMENT AND PROVIDE INSTRUCTION TO IMPLEMENT HOME SAFETY AND FALL PREVENTION STRATEGIES. [code = SKILLED NURSE TO PERFORM HOME SAFETY AND FALL ASSESSMENT AND PROVIDE INSTRUCTION TO IMPLEMENT HOME SAFETY AND FALL PREVENTION STRATEGIES.] Future Scheduled Test SKILLED NU RSE FOR OBSERVATION AND ASSESSMENT OF PATIENT S PAIN LEVEL AND EFFECTIVENESS OF PAIN MANAGEMENT REGIMEN. SKILLED NURSE TO INSTRUCT PATIENT/CAREGIVER REGARDING PHARMACOLOGIC AND NON-PHARMACOLOGIC PAIN CONTROL MEASURES. SKILLED NURSE TO REPORT TO PHYSICIAN IF PAIN IS UNCONTROLLED WITH CURRENT PAIN MANAGEMENT REGIMEN. [code = SKILLED NURSE FOR OBSERVATION AND ASSESSMENT OF PATIENT S PAIN LEVEL AND EFFECTIVENESS OF PAIN MANAGEMENT REGIMEN. SKILLED NURSE TO INSTRUCT PATIENT/CAREGIVER REGARDING PHARMACOLOGIC AND NON-PHARMACOLOGIC PAIN CONTROL MEASURES. SKILLED NURSE TO REPORT TO PHYSICIAN IF PAIN IS UNCONTROLLED WITH CURRENT PAIN MANAGEMENT REGIMEN.] Future Scheduled Test SKILLED NU RSE TO O/A OF PATIENTS MENTAL/BEHAVIORAL STATUS, ASSESS VITAL SIGNS EACH VISIT ALLOW 2 PRNS FOR MEDICATION MANAGEMENT. [code = SKILLED NURSE TO O/A OF PATIENTS MENTAL/BEHAVIORAL STATUS, ASSESS VITAL SIGNS EACH VISIT ALLOW 2 PRNS FOR MEDICATION MANAGEMENT.] Future Scheduled Test SKILLED NU RSE FOR [...] WITH EXACERBATION FOR EARLY INTERVENTION OF COMPLICATIONS WEEKLY] Future Scheduled Test SKILLED NU RSE TO [...] NURSE TO PRE-POUR MEDICATION PER MEDICATION LIST WEEKLY] Future Scheduled Test PATIENT LINDA Y HAVE ONE SET OF EMERGENCY MEDICATION [...] PROVIDER FOR EARLY INTERVENTION.] Future Scheduled Test SKILLED NU RSE FOR O/A AND SKILLED TEACHING OF COPING SKILLS TO MANAGE ANXIETY AND MAINTAIN SAFETY. [code = SKILLED NURSE FOR O/A AND SKILLED TEACHING OF COPING SKILLS TO MANAGE ANXIETY AND MAINTAIN SAFETY.] Future Scheduled Test SKILLED NU RSE FOR O/A OF ALTERED MOOD [code = SKILLED NURSE FOR O/A OF ALTERED MOOD] Future Scheduled Test MEDICATION S WILL BE HELD AND STORED IN LOCKBOX [code = MEDICATIONS WILL BE HELD AND STORED IN LOCKBOX] Goal 2023-07-20 Patient Goal - START AN [...] APARTMENT TO STAY ON MEDICATION COMPLIANT Goal 2024-11-11 Patient Goal - T O FIND A NEW APARTMENT TO STAY ON MEDICATION COMPLIANT Goal 2025-01-08 Patient Goal - T O FIND A NEW APARTMENT TO BE MEDICATION COMPLIANT Goal Patient Goal - T O FIND A NEW APARTMENT TO BE MEDICATION COMPLIANT Goal Provider Goal - A PLAN OF CARE WILL BE ESTABLISHED THAT MEETS PATIENT'S [facility] NEEDS AND INCLUDES PATIENT GOAL FOR HOME HEALTH. Goal Provider Goal - PATIENT WILL REMAIN SAFE IN THE COMMUNITY AND WILL BE FREE OF DANGER TO SELF AND OTHERS THROUGHOUT THE CERTIFICATION PERIOD. Goal Provider Goal - PSYCHOSOCIAL NEEDS WILL BE IDENTIFIED AND PLAN IMPLEMENTED TO MINIMIZE RISK THROUGHOUT CERTIFICATION PERIOD. Goal Provider Goal - PATIENT/CAREGIVER WILL VERBALIZE/DEMONSTRATE EFFECTIVE HOME SAFETY AND FALL PREVENTION STRATEGIES THROUGHOUT CERTIFICATION PERIOD. Goal Provider Goal - PATIENT/CAREGIVER WILL DEMONSTRATE UNDERSTANDING OF PHARMACOLOGIC AND NONPHARMACOLOGIC PAIN CONTROL MEASURES AND PATIENT WILL HAVE IMPROVEMENT IN PAIN INTERFERING WITH ACTIVITY EVIDENCED BY PAIN AT A LEVEL THAT IS ACCEPTABLE TO THE PATIENT AND PAIN LEVEL WITHIN ESTABLISHED PARAMETERS BY END OF CERTIFICATION PERIOD. Goal Provider Goal - ALTERED [...] WILL BE STORED IN LOCKBOX FOR SAFETY. Encounters Start Date/Time End Date/Time Encounter Type Admission Type Attending [facility] [place] Facility Care Department Encounter ID Discharge Date Discharge Status Discharge Condition Discharge Reason Percent Goals Met 2024-11-13 00:00:00 2025-01-11 00:00:00 Outpatient RECERTIFIC ATION MAHNAZ MARLOW [facility] [id number] 32.2 6
[2025-01-15 09:01] VITALS: BP 106/62; PULSE 101; TEMP 36.3; O2SAT 96; BMI 26.3
--- NOTE | 2025-01-15 09:01 | A.OFFPC_ITS ---
Vital Signs 01/15/25 09:01 Height 5 ft 5 in Weight 158 lb 2 oz BMI 26.3 BP 106/62 Blood Pressure Location Lt brachial Position Sitting Pulse 101 H Pulse Source Pulse Oximeter Temp 97.3 F Temp Source Temporal Artery Scan Pulse Oximetry (%) 96 Oxygen Delivery Method Room Air Intake Visit Reasons: 4mth f/u Allergies mold Allergy (Unknown, Uncoded 01/15/25 09:04) makes patient feel sick Medication List - Last Reconciled 01/15/25 by Isai Sharpe MD albuterol sulfate 90 mcg/actuation (Ventolin HFA) 2 puffs inhalation Q6H PRN amitriptyline 100 mg PO BEDTIME 90 days celecoxib (Celebrex) 200 mg PO DAILY clonazepam 1 mg PO BID PRN dextroamphetamine-amphetamine 30 mg 20 mg PO BID divalproex ER 500 mg PO BEDTIME 30 days fluticasone propion-salmeterol 250-50 mcg/dose (Advair Diskus) 1 inh inhalation BID gabapentin 800 mg PO TID hydroxyzine HCl 25 mg PO DAILY PRN lurasidone 120 mg PO DAILY 30 days meloxicam 15 mg PO DAILY sertraline mg PO DAILY simvastatin 5 mg PO BEDTIME tramadol 50 mg PO QID PRN 30 days trazodone 100 mg PO BEDTIME ubrogepant (Ubrelvy) 100 mg PO DAILY PRN 30 days Tobacco use date assessed: 01/15/25 Dental Screening Dental Screen Date: 01/15/25 Did you have a dental visit in the last 12 months?: Yes Did you have a dental problem in the last 6 months where you did not have access to dental care?: No Was dental information given to patient?: Patient has dentist COUNTS INCLUDE 234 BEDS AT THE [facility] Medical History (Updated 01/15/25 @ 09:19 by Isai Sharpe MD) Left knee pain Migraine Breast cancer screening by mammogram Cervical cancer screening Women's annual routine gynecological examination Cognitive changes Breast cancer screening Annual physical exam Carpal tunnel syndrome, right Distal radius fracture, right Fracture of wrist Left foot pain Knee pain, right MDD (major depressive disorder), recurrent episode, severe Neck pain Arthritis Hx MRSA infection Hx of suicide attempt Uses Depo-Provera as primary control method Perimenopausal symptoms Skin lesion of right ear Upper back pain Dysphagia Skin lesion of hand Mass of left hand Well woman exam with routine gynecological exam Altered mental status Depot contraception (~12/26/20) Fall Axillary abscess History of herpes simplex infection Polysubstance abuse Asthma Bipolar disorder Tobacco abuse ADHD Scoliosis History of drainage of abscess Surgical History History of carpal tunnel surgery History of surgical removal of skin lesion (~06/27/21) History of tonsillectomy Family History Mother In good health Father In good health Maternal Aunt History of breast cancer Maternal Grandmother Pancreatic cancer Maternal Aunt History of breast cancer Social History Household Members: Significant Other Household Members Other:: Andrew (Boyfriend) Housing: House Are you a primary sub acute care nurse to a significant other at home: No Do you presently have visiting nurse or other home services: No Alcohol intake: never Comment: 1:1 sitter for safety Patient Tobacco Use Status: Current everyday Tobacco user Tobacco use type: Cigarette Cigarette Packs Per Day: 0.5 Cigarettes Per Day: 3 Years Smoked: 36, pot smoking 2x a week e-Cigarette/Vaping Use: Never Used Second Hand Smoke Exposure: Yes Substance Use Type: Marijuana service: No Current occupational status: unemployed Sexual orientation: Straight/Heterosexual Gender identity: Female Cognitive needs: No Hearing needs: No Vision needs: Yes (Glasses) Female Reproductive History Menstrual Age of Menarche: 12 Questionnaire PHQ-9 Over the last 2 weeks, how often have you been bothered by any of the following problems? 1. Little interest or pleasure in doing things: nearly every day 2. Feeling down, depressed, or hopeless: nearly every day 3. Trouble falling or staying asleep, or sleeping too much: nearly every day 4. Feeling tired or having little energy: nearly every day 5. Poor appetite or overeating: several days 6. Feeling bad about yourself - or that you are a failure or have let yourself or your family down: more than half the days 7. Trouble concentrating on things, such as reading the newspaper or watching television: nearly every day 8. Moving or speaking so slowly that other people could have noticed. Or the opposite - being so fidgety or restless that you have been moving around a lot more than usual: nearly every day 9. Thoughts that you would be better off or of hurting yourself in some way: nearly every day Total score: 24 Source: Developed by Drs. Dinesh Caedna, Leonora Prince, Shai Shabazz and colleagues, with an educational mariana from [employer]. Thrive Questionnaire Date Thrive assessed: 08/01/24 I am a: Patient What is your living situation today?: I choose not to answer this question Within the past 12 months, did the food you bought not last and you didn't have the money to get more?: Sometimes True Within the past 12 months, did you worry whether your food would run out before you got money to buy more?: Sometimes True Do you have trouble paying for medicines?: No Do you have trouble getting transportation to medical appointments?: No Do you have trouble paying your heating and electricity bill?: No Do you have trouble taking care of your child, family member or friend?: No Do you have trouble with day-to-day activities such as bathing, preparing meals, shopping, managing finances, etc.?: Yes Are you currently unemployed and looking for a job?: I choose not to answer this question Are you interested in more education?: No Please select the resources that you would like help with: Food Currently or been in a relationship where the following occur: I choose not to answer THRIVE Score: 2 AUDIT C Alcohol Use Questionnaire (AUDIT-C) 1. How often do you have a drink containing alcohol?: Never 3. How often do you have six or more drinks on one occasion?: Never Total Score: 0 JOVAN-7 AMB Questionnaire JOVAN-7 Date JOVAN - 7 assessed: 08/01/24 Feeling nervous, anxious, or on edge: 3 = Nearly every day Not being able to stop or control worryin = Nearly every day Worrying too much about different things: 3 = Nearly every day Trouble relaxin = Nearly every day Being so restless that it is hard to sit still: 3 = Nearly every day Becoming easily annoyed or irritable: 3 = Nearly every day Feeling afraid as if something awful might happen: 3 = Nearly every day Total JOVAN-7 score (0-4 normal; 5-9 mild; 10-14 moderate; 15-21 severe): 21 Source: Developed by Drs. Dinesh Cadena, Leonora Prince, Shai Shabazz and colleagues, with an educational mariana from [employer]. Physical exam (Primary Care) Vital Signs: Last Vital Signs Temp 97.3 F 01/15/25 09:01 Pulse 101 H 01/15/25 09:01 BP 106/62 01/15/25 09:01 Pulse Ox 96 01/15/25 09:01 Oxygen Delivery Method Room Air 01/15/25 09:01 BMI result Body Mass Index 26.3 Tobacco/Smoking Status: Tobacco use Status Tobacco use date assessed 01/15/25 01/15/25 09:05 Patient Tobacco Use Status Current everyday Tobacco 01/15/25 09:05 Tobacco use type Cigarette 01/15/25 09:05 e-Cigarette/Vaping Use Never Used 01/15/25 09:05 PHQ-9: PHQ-9 Score PHQ-9: Total score 24 01/15/25 09:11 Thrive Assessment: Date of Thrive Assessment Date Thrive assessed 08/01/24 01/15/25 09:05 Currently or been in a relationship where the following occur: I choose not to a nswer Const General: alert; No acute distress Eyes Conjunctivae: conjunctivae normal Resp Auscultation: clear to auscultation bilaterally Cardio Rate: regular rate Rhythm: regular rhythm GI Inspection: Yes normal to inspection Extrem General: Yes normal to inspection and No edema Results AMB Urinalysis, Automated UA Leukoctes 500 Cristel/uL Last Edit by Kyleigh Ornelas CMA on 01/15/25 09:55 UA Nitrite Negative Last Edit by Kyleigh Ornelas CMA on 01/15/25 09:55 UA Urobilinogen 0.2 mg/dL Last Edit by Kyleigh Ornelas CMA on 01/15/25 09:55 UA Protein 0 mg/dL Last Edit by Kyleigh Ornelas CMA on 01/15/25 09:55 UA pH 7.0 Last Edit by Kyleigh Ornelas CMA on 01/15/25 09:55 UA Blood 80 Gabriel/uL Last Edit by Kyleigh Ornelas CMA on 01/15/25 09:55 UA Specific Manning 1.005 Last Edit by Kyleigh Ornelas CMA on 01/15/25 09:55 UA Ketone Negative Last Edit by Kyleigh Ornelas CMA on 01/15/25 09:55 UA Bilirubin 0 mg/dL Last Edit by Kyleigh Ornelas CMA on 01/15/25 09:55 UA Glucose 0 mg/dL Last Edit by Kyleigh Ornelas CMA on 01/15/25 09:55 Coding Level of Care Code Est Pt Level 4 (19906) Complex EM visit Add On G2211 Diagnoses Hypercholesterolemia E78.00 Impaired fasting blood sugar R73.01 Patellofemoral pain syndrome of left knee M22.2X2 Plantar fasciitis M72.2 Migraine without aura and without status migrainosus, not intractable G43.009 Intractability: not intractable Migraine type: without aura Status migrainosus presence: without status migrainosus Mild intermittent asthma without complication J45.20 Asthma complication type: uncomplicated Asthma persistence: intermittent Asthma severity: mild Tobacco abuse Z72.0 Dysuria R30.0 Assessment & Plan Assessment & Plan (1) Hypercholesterolemia: Code(s): E78.00 - Pure hypercholesterolemia, unspecified Category: Medical Plan: Avoid fried foods, chicken skin, eggs, butter margarine, pastries and meat. Be it pork or beef they have a lot of cholesterol LDL goal of less than 130 and triglyceride of less than 150 (2) Impaired fasting blood sugar: Code(s): R73.01 - Impaired fasting glucose Category: Medical Plan: Decrease the amount of carbohydrate intake, pasta, bread, rice and potatoes are all sugar and that is aside from all the sweet stuff, remember that fruits are good but they are Sweet also. (3) Patellofemoral pain syndrome of left knee: Code(s): M22.2X2 - Patellofemoral disorders, left knee Category: Medical Plan: Patient has seen Orthopedics and has had injections with steroid (4) Plantar fasciitis: Comment: Right heel Code(s): M72.2 - Plantar fascial fibromatosis Category: Medical Plan: Patient follows up with Podiatry inserts placed as well as physical therapy (5) Migraine: Code(s): G43.909 - Migraine, unspecified, not intractable, without status migrainosus Category: Medical Qualifiers: Intractability: not intractable Migraine type: without aura Status migrainosus presence: without status migrainosus Qualified Code(s): G43.009 - Migraine without aura, not intractable, without status migrainosus Plan: Patient is advised to eat healthy, keep well hydrated, keep active and have adequate sleep. Seeing Neurology and has been given Ubrelvy and amitriptyline (6) Asthma: Code(s): J45.909 - Unspecified asthma, uncomplicated Category: Medical Qualifiers: Asthma complication type: uncomplicated Asthma persistence: intermitt ent Asthma severity: mild Qualified Code(s): J45.20 - Mild intermittent asthma, uncomplicated Plan: Patient is strongly advised to stop smoking. Albuterol inhaler and Advair (7) Tobacco abuse: Comment: addressed 04/24.- 04/2024 smoking 4 cigarettes a day Code(s): Z72.0 - Tobacco use Category: Medical Plan: Patient is strongly advised to stop smoking (8) Dysuria: Code(s): R30.0 - Dysuria Category: Medical Plan: Urinalysis results reviewed and antibiotic prescription sent in Plan History of Present Illness The patient is a 54-year-old female presenting for a follow-up visit. She has a history of asthma and is a smoker, which may exacerbate her respiratory condition. She has familial hypogammaglobulinemia, which is a condition characterized by low levels of immunoglobulins in the blood, potentially affecting her immune response. The patient has been diagnosed with bipolar disorder and is currently managing this condition. She also has hypercholesterolemia, with recent lab results showing elevated LDL cholesterol at 158 mg/dL and total cholesterol at 236 mg/dL. She has a history of tubular adenoma of the colon, with the last colonoscopy performed in December 2022. Additionally, she has impaired glucose tolerance, which requires monitoring. The patient experiences migraines and has been under the care of neurology, receiving medications such as amitriptyline and Ubrelvy. Her Mini-Mental State Examination (MMSE) was perfect, indicating no cognitive impairment at this time. She has been diagnosed with patellofemoral pain syndrome and has received an injection for her left knee, which has shown improvement. An X-ray of the knee was negative for any significant findings. The patient has a small plantar calcaneal spur on the right foot, as shown in a recent X-ray. She has been seeing podiatry and has been prescribed Celebrex and [id number] inserts, along with physical therapy. Recent blood work indicated mild thrombocytosis, but other parameters such as renal function, blood sugar, and liver function were normal. The patient has been advised to reduce her cholesterol levels through lifestyle modifications and medication. She reports symptoms of a bladder infection, including dysuria, and a urine test has been ordered to confirm the diagnosis. Health Maintenance - Mammogram due - Colonoscopy completed in December 2022 - Blood work scheduled in three months - Advised to reduce cholesterol through lifestyle modifications and medication - Strongly advised to stop smoking Social History - Smoker: Patient smokes approximately three cigarettes per day. Review of Systems - Respiratory: Reports asthma, denies recent exacerbations. - Neurological: Reports migraines, denies cognitive impairment (MMSE perfect). - Genitourinary: Reports dysuria, suspecting bladder infection. Physical Exam Results - Labs: Blood count normal with mild thrombocytosis, LDL cholesterol 158 mg/dL, total cholesterol 236 mg/dL, B12 mildly high, normal renal and liver function, normal blood sugar. - Imaging: X-ray of the knee negative, X-ray of the foot showing small plantar calcaneal spur on the right. Plan Patient was informed and verbally consented to the use of an ambient scribe for clinic note documentation during this visit. 1. Asthma The patient is advised to continue using her Albuterol inhaler as needed and is strongly encouraged to quit smoking to prevent exacerbations. 2. Hypercholesterolemia The patient will start on cholesterol-lowering medication, with a goal to reduce LDL to less than 130 mg/dL and triglycerides to less than 150 mg/dL. Lifestyle modifications, including dietary changes, are recommended to help manage cholesterol levels. 3. Migraines The patient is currently on amitriptyline and Ubrelvy for migraine management and will continue these medications. 4. Patellofemoral Pain Syndrome The patient received an injection for her left knee and is advised to continue with physical therapy and use of inserts as prescribed by podiatry. 5. Bladder Infection A urine test has been ordered to confirm the diagnosis, and antibiotics will be prescribed if the test is positive. Discussion Notes During the visit, I discussed the importance of managing cholesterol levels through medication and lifestyle changes to prevent cardiovascular complications. I emphasized the need to quit smoking to improve respiratory health and reduce asthma exacerbations. We reviewed the patient's current medications for migraines and confirmed their continuation. A urine test was ordered to confirm a suspected bladder infection, with a plan to prescribe antibiotics if necessary. Patient Instructions - Continue using Albuterol inhaler as needed. - Start cholesterol medication as prescribed, take at night. - Follow dietary recommendations to lower cholesterol. - Quit smoking to improve health. - Continue current migraine medications. - Attend physical therapy sessions for knee pain. - Complete urine test before leaving the clinic. Orders: Orders Lipid Panel 3 Months E78.00 - Pure hypercholesterolemia, unspecified, R30.0 - Dysuria Complete Blood Count Auto Diff 3 Months R30.0 - Dysuria AMB Urinalysis Automated Today R30.0 - Dysuria, Z13.9 - Encounter for screening, unspecified Comprehensive Met. Panel 3 Months R30.0 - Dysuria Medications: New simvastatin 5 mg PO BEDTIME 30 tabs 3RF E78.00 - Pure hypercholesterolemia, unspecified simvastatin 5 mg PO BEDTIME 30 tabs 3RF E78.00 - Pure hypercholesterolemia, unspecified nitrofurantoin monohyd/m-cryst 100 mg (Macrobid) must administer with a meal/food 100 mg PO Q12H 14 caps 0RF 7 days
--- OUTSIDE RECORDS SUMMARY | 2025-01-15 09:48 | XMS_ITS | Clinical Summary ---
Author Organization [employer] Address [address] [place] [address] Care Team Providers Care Economic Analysis Director Name Role Phone Unavailable Primary Care Provider [...]
== END 2025-01-15 09:26 | disposition home or self-care (01) ==
PROVIDERS: PCP Internal Medicine; Visit Provider Internal Medicine
DX: E78.00 Pure hypercholesterolemia, unspecified (principal); R73.01 Impaired fasting glucose; M22.2X2 Patellofemoral disorders, left knee; M72.2 Plantar fascial fibromatosis; G43.009 Migraine without aura, not intractable, without status migrainosus; J45.20 Mild intermittent asthma, uncomplicated; Z72.0 Tobacco use; R30.0 Dysuria; Z13.9 Encounter for screening, unspecified

== ENCOUNTER → 2025-01-15 08:55 | Outpatient (BNVA) | payer OTHER, SELFPAY | PROVIDERS: PCP Internal Medicine; Visit Provider Internal Medicine | DX: M22.2X2 Patellofemoral disorders, left knee (principal); E78.00 Pure hypercholesterolemia, unspecified; R73.01 Impaired fasting glucose; G43.009 Migraine without aura, not intractable, without status migrainosus; J45.20 Mild intermittent asthma, uncomplicated; R30.0 Dysuria; F17.210 Nicotine dependence, cigarettes, uncomplicated | CPT/HCPCS: 81003; 99212 ==

== ENCOUNTER 2025-01-23 10:06 | Outpatient (AMB) | payer OTHER, SELFPAY ==
--- NOTE | 2025-01-23 10:13 | A.OFFVIS_ITS ---
Vital Signs 01/23/25 10:19 Height 5 ft 5 in Weight 158 lb BMI 26.3 Intake Visit Reasons: Alejandro. Plantar Fascities Intake Note: Kevin is a 54 year old female who presents today for a follow up on her bilateral plantar fasciitis. During her last visit she was provided with a night splint, stretching exercise information sheet, and she was referred to PT and prescribed celebrex. Patient reports her foot has improved slightly since she purchased the inserts. Allergies mold Allergy (Unknown, Uncoded 01/15/25 09:04) makes patient feel sick HPI HPI Alejandro. Plantar Fascities: Details: 53-year-old female past medical history of hypogammaglobulinemia, anemia, sciatica, tobacco use presents for 3 week follow up evaluation of bilateral heel pain, right worse than left. She received bilateral heel injections on 12/11/2024. She no longer has pain to her left heel, still noticing some persistent pain to her right foot. She purchased dr. reyna's orthotics, which have been helping. Still doing stretching exercises. She has been using her night splint as a walking boot so has not seen relief from it.. History: She states that the heel pain has gone on for approximately 1 year. she complains of sharp pain to her heels that her 1st step in the morning and prevent her from walking around. If she sits and rests more than 10 minutes at any point, she has immediate pain and difficulty walking. She has been treating it with Tylenol and tramadol, which she states does not help her. She states that it is preventing her from undergoing her daily activities. She denies acute onset factors or trauma. She denies pain radiating to anywhere else in her foot. She does note a lump on the arch in her left foot. [facility] Medical History (Updated 01/15/25 @ 09:19 by Isai Sharpe MD) Left knee pain Migraine Breast cancer screening by mammogram Cervical cancer screening Women's annual routine gynecological examination Cognitive changes Breast cancer screening Annual physical exam Carpal tunnel syndrome, right Distal radius fracture, right Fracture of wrist Left foot pain Knee pain, right MDD (major depressive disorder), recurrent episode, severe Neck pain Arthritis Hx MRSA infection Hx of suicide attempt Uses Depo-Provera as primary control method Perimenopausal symptoms Skin lesion of right ear Upper back pain Dysphagia Skin lesion of hand Mass of left hand Well woman exam with routine gynecological exam Altered mental status Depot contraception (~12/26/20) Fall Axillary abscess History of herpes simplex infection Polysubstance abuse Asthma Bipolar disorder Tobacco abuse ADHD Scoliosis History of drainage of abscess Surgical History History of carpal tunnel surgery History of surgical removal of skin lesion (~06/27/21) History of tonsillectomy Family History Mother In good health Father In good health Maternal Aunt History of breast cancer Maternal Grandmother Pancreatic cancer Maternal Aunt History of breast cancer Social History Household Members: Significant Other Household Members Other:: Andrew (Boyfriend) Housing: House Are you a primary district manager primary care sales to a significant other at home: No Do you presently have visiting nurse or other home services: No Alcohol intake: never Comment: 1:1 sitter for safety Patient Tobacco Use Status: Current everyday Tobacco user Tobacco use type: Cigarette Cigarette Packs Per Day: 0.5 Cigarettes Per Day: 3 Years Smoked: 36, pot smoking 2x a week e-Cigarette/Vaping Use: Never Used Second Hand Smoke Exposure: Yes Substance Use Type: Marijuana service: No Current occupational status: unemployed Sexual orientation: Straight/Heterosexual Gender identity: Female Cognitive needs: No Hearing needs: No Vision needs: Yes (Glasses) Female Reproductive History Menstrual Age of Menarche: 12 Physical Exam Vital Signs: BMI result Body Mass Index 26.3 Extrem Other: *Bilateral Lower Extremity Focused Exam Vascular: DP/PT 2/4, CFT less than 3 seconds to all digits, temperature gradient warm to cool, no pedal edema. Derm: No open wounds or lacerations, no ecchymosis. Neuro: Protective sensation grossly intact to bilateral lower extremities. MSK: Mild tenderness on palpation of the plantar medial calcaneal tubercle right foot. No tenderness along the left foot medial calcaneal tubercle. No tenderness along the medial fascia band, no longer palpable soft tissue nodule. Assessment & Plan Assessment & Plan (1) Plantar fasciitis: Comment: Right heel Code(s): M72.2 - Plantar fascial fibromatosis Category: Medical Plan: * Previously reviewed x-rays. Recommended conservative treatment of her heel spur at this time. * Patient has not gone to physical therapy, however seeing improvement. Will hold off on re-referral. * Educated on proper use of the night-splint. * Continue over the counter orthotics. * Continue daily ROM/stretching exercises. * Rx ibuprofen 800mg x 1 week. * Follow up in 1 month. Possible repeat injection (2) Plantar fasciitis: Comment: Left heel Code(s): M72.2 - Plantar fascial fibromatosis Category: Medical Plan: * Reviewed left foot x-ray * Fibroma appears to be shrinking/resolving s/p cortisone injection. Will continue to monitor. * No plans for MRI at this time. Medications: New ibuprofen 800 mg PO TID PRN 20 tabs 0RF pain (scale score 4-6) M72.2 - Plantar fascial fibromatosis Coding Level of Care Code Est Pt Level 3 (20448) Diagnoses Plantar fasciitis M72.2 Time Spent (min) 25
[2025-01-23 10:19] VITALS: BMI 26.3
--- OUTSIDE RECORDS SUMMARY | 2025-01-23 11:28 | XMS_ITS | Clinical Summary ---
Author Organization [employer] Address [address] [place] [address] Care Team Providers Care Agricultural Sciences Professor Name Role Phone Unavailable Primary Care Provider [...]
== END 2025-01-23 10:23 | disposition home or self-care (01) ==
LOC: HO.HPODS 10:07
PROVIDERS: PCP Internal Medicine; Visit Provider Student in an Organized Health Care Education/Training Program
DX: M72.2 Plantar fascial fibromatosis (principal)
CPT/HCPCS: 99213

== ENCOUNTER → 2025-01-23 10:06 | Outpatient (BNVA) | payer OTHER, SELFPAY | PROVIDERS: PCP Internal Medicine; Visit Provider Student in an Organized Health Care Education/Training Program | DX: M72.2 Plantar fascial fibromatosis (principal) | CPT/HCPCS: 99212 ==

== ENCOUNTER 2025-02-09 11:44 | Outpatient (AMB) | payer OTHER, SELFPAY ==
--- NOTE | 2025-02-09 11:52 | A.OFFVIS_ITS ---
Vital Signs 02/09/25 11:53 Height 5 ft 5 in Weight 158 lb BMI 26.3 Intake Visit Reasons: Rt foot blister, pain & yellowish color Intake Note: Yoel is a 54 year old female who presents today for a follow up on her blister of her right heel ankle. She states this started about two weeks ago and she has tried icing but hasn't found relief for her symptoms. Allergies mold Allergy (Unknown, Uncoded 01/15/25 09:04) makes patient feel sick HPI HPI Rt foot blister, pain & yellowish color: Details: 53-year-old female past medical history of hypogammaglobulinemia, anemia, sciatica, tobacco use presents for 2 week follow up evaluation of bilateral heel pain as well as new blisters to her right foot and ankle. She is unsure how the blisters started, did not notice any drainage from them so far. Still having right heel pain, difficulty walking. She received bilateral heel injections on 12/11/2024. She no longer has pain to her left heel, still noticing some persistent pain to her right foot. She purchased dr. reyna's orthotics, which have been helping. Still doing stretching exercises. Stopped using the night splint. History: She states that the heel pain has gone on for approximately 1 year. she complains of sharp pain to her heels that her 1st step in the morning and prevent her from walking around. If she sits and rests more than 10 minutes at any point, she has immediate pain and difficulty walking. She has been treating it with Tylenol and tramadol, which she states does not help her. She states that it is preventing her from undergoing her daily activities. She denies acute onset factors or trauma. She denies pain radiating to anywhere else in her foot. She does note a lump on the arch in her left foot. [facility] Medical History (Updated 02/09/25 @ 12:18 by Eb Roberts DPM) Left knee pain Migraine Breast cancer screening by mammogram Cervical cancer screening Women's annual routine gynecological examination Cognitive changes Breast cancer screening Annual physical exam Carpal tunnel syndrome, right Distal radius fracture, right Fracture of wrist Left foot pain Knee pain, right MDD (major depressive disorder), recurrent episode, severe Neck pain Arthritis Hx MRSA infection Hx of suicide attempt Uses Depo-Provera as primary control method Perimenopausal symptoms Skin lesion of right ear Upper back pain Dysphagia Skin lesion of hand Mass of left hand Well woman exam with routine gynecological exam Altered mental status Depot contraception (~12/26/20) Fall Axillary abscess History of herpes simplex infection Polysubstance abuse Asthma Bipolar disorder Tobacco abuse ADHD Scoliosis History of drainage of abscess Surgical History History of carpal tunnel surgery History of surgical removal of skin lesion (~06/27/21) History of tonsillectomy Family History Mother In good health Father In good health Maternal Aunt History of breast cancer Maternal Grandmother Pancreatic cancer Maternal Aunt History of breast cancer Social History Household Members: Significant Other Household Members Other:: Andrew (Boyfriend) Housing: House Are you a primary field care manager to a significant other at home: No Do you presently have visiting nurse or other home services: No Alcohol intake: never Comment: 1:1 sitter for safety Patient Tobacco Use Status: Current everyday Tobacco user Tobacco use type: Cigarette Cigarette Packs Per Day: 0.5 Cigarettes Per Day: 3 Years Smoked: 36, pot smoking 2x a week e-Cigarette/Vaping Use: Never Used Second Hand Smoke Exposure: Yes Substance Use Type: Marijuana service: No Current occupational status: unemployed Sexual orientation: Straight/Heterosexual Gender identity: Female Cognitive needs: No Hearing needs: No Vision needs: Yes (Glasses) Female Reproductive History Menstrual Age of Menarche: 12 Review of Systems Const All systems reviewed & are unremarkable except as noted in HPI and below Physical Exam Vital Signs: BMI result Body Mass Index 26.3 Extrem Other: *Bilateral Lower Extremity Focused Exam Vascular: DP/PT 2/4, CFT less than 3 seconds to all digits, temperature gradient warm to cool, no pedal edema. Derm: Dry hyperkeratotic roof to the right lateral malleolus and plantar lateral heel. No fluid drained. Left plantar foot with flat red patch with central scaling. Neuro: Protective sensation grossly intact to bilateral lower extremities. MSK: Moderate tenderness on palpation of the plantar medial calcaneal tubercle right foot. No tenderness along the left foot medial calcaneal tubercle. No tenderness along the medial fascia band, no longer palpable soft tissue nodule. Office Procedures AMB Flexor Tendon/Plantar POD Tendon Injection Details of AMB Procedure: Procedure: Steroid injection Location: Right heel Medication: 1.5cc 0.5% bupivicaine, 1cc dexamethasone, 0.5cc kenalog? Description: The right heel was prepped using alcohol. A steroid injection was administered using sterile technique. The site was dressed using a band-aid. Post-procedure Instructions: The patient was instructed to apply ice to the injection site. The patient was advised to call the office if there are signs or symptoms of worsening pain, infection, or steroid flare. Tendon Injection POD1: - Plantar Fascia Injection All charges added?: Procedure code (CPT) selection complete Office Meds triamcinolone acetonide 40 mg/mL suspension for injection Performing Provider: Eb Roberts DPM Performing Location: [facility] Administered by: Eb Roberts DPM on 02/09/25 12:18 Dose Route Admin Location Dispensed Lot Number Expiration Date [facility] Insurance Account Specialist 20 mg Tendon Sheath Inj. 1 mL [id number] [employer] Total Dispensed Waste 1 mL 50 % dexamethasone sodium phosphate 4 mg/mL injection solution Performing Provider: Eb Roberts DPM Performing Location: [facility] Administered by: Eb Roberts DPM on 02/09/25 12:18 Dose Route Admin Location Dispensed Lot Number Expiration Date [facility] Insurance Account Specialist 4 mg Tendon Sheath Inj. 1 mL [id number] [employer] Total Dispensed Waste 1 mL 0 % bupivacaine (PF) 0.5 % (5 mg/mL) injection solution Performing Provider: Eb Roberts DPM Performing Location: [facility] Administered by: Eb Roberts DPM on 02/09/25 12:18 Dose Route Admin Location Dispensed Lot Number Expiration Date [facility] Insurance Account Specialist 2 mL intra-articular 10 mL [id number] [employer] [employer] Total Dispensed Waste 10 mL 80 % Assessment & Plan Assessment & Plan (1) Plantar fasciitis: Comment: Right heel Code(s): M72.2 - Plantar fascial fibromatosis Category: Medical Plan: * Previously reviewed x-rays. Recommended conservative treatment of her heel spur at this time. * Administered right heel cortisone injection. * Referred to physical therapy due to chronic right heel pain. * Continue over the counter orthotics. * Continue daily ROM/stretching exercises. * Rx Celebrex * Follow up in 3 weeks. (2) Tinea pedis: Code(s): B35.3 - Tinea pedis Category: Medical Qualifiers: Laterality: bilateral Qualified Code(s): B35.3 - Tinea pedis Plan: * Rx clotrimazole betamethasone Orders: Orders PT Evaluation and Treatment Today M72.2 - Plantar fascial fibromatosis AMB Flexor Tendon / Plantar Fascia Injection Today B35.3 - Tinea pedis, M72.2 - Plantar fascial fibromatosis Medications: New clotrimazole-betamethasone 1-0.05 % 1 appl topical BID 15 grams 3RF athlete's foot 4 weeks B35.3 - Tinea pedis Coding Level of Care Code Est Pt Level 3 (76559) Diagnoses Plantar fasciitis M72.2 Tinea pedis of both feet B35.3 Laterality: bilateral CPT Codes Tendon Injection - Tendon Injection POD1: - Plantar Fascia Injection ([id number]) Time Spent (min) 20
[2025-02-09 11:53] VITALS: BMI 26.3
--- OUTSIDE RECORDS SUMMARY | 2025-02-09 14:10 | XMS_ITS | Clinical Summary ---
Author Organization [employer] Address [address] [place] [address] Care Team Providers Care Assembly Department Supervisor Name Role Phone Unavailable Primary Care Provider [...]
== END 2025-02-09 12:08 | disposition home or self-care (01) ==
LOC: HO.HPODS 11:45
PROVIDERS: PCP Internal Medicine; Visit Provider Student in an Organized Health Care Education/Training Program
DX: M72.2 Plantar fascial fibromatosis (principal); B35.3 Tinea pedis
CPT/HCPCS: 20550; 99213

== ENCOUNTER → 2025-02-09 11:44 | Outpatient (BNVA) | payer OTHER, SELFPAY | PROVIDERS: PCP Internal Medicine; Visit Provider Student in an Organized Health Care Education/Training Program | DX: M72.2 Plantar fascial fibromatosis (principal); B35.3 Tinea pedis | CPT/HCPCS: 20550; 99212; J0665; J1100; J3301 ==

== ENCOUNTER 2025-03-23 14:54 | Outpatient (AMB) | payer OTHER, SELFPAY ==
--- NOTE | 2025-03-23 14:59 | A.OFFPC_ITS ---
Vital Signs 03/23/25 15:00 Height 5 ft 5 in Weight 160 lb BMI 26.6 BP 110/58 L Blood Pressure Location Lt brachial Position Sitting Respiration 18 Pulse 95 Pulse Source Pulse Oximeter Temp 97.8 F Temp Source Temporal Artery Scan Pulse Oximetry (%) 95 Oxygen Delivery Method Room Air Intake Visit Reasons: Left shoulder pain Hr Generalist Required: No Accompanied by: Self / Same As Patient Allergies mold Allergy (Unknown, Uncoded 03/23/25 18:41) makes patient feel sick Medication List - Last Reconciled 03/23/25 by JOANNE Ryan albuterol sulfate 90 mcg/actuation (Ventolin HFA) 2 puffs inhalation Q6H PRN amitriptyline 100 mg PO BEDTIME 90 days celecoxib 200 mg PO BID clonazepam 1 mg PO BID PRN dextroamphetamine-amphetamine 30 mg 20 mg PO BID divalproex ER 500 mg PO BEDTIME 30 days fluticasone propion-salmeterol 250-50 mcg/dose (Advair Diskus) 1 inh inhalation BID fluticasone propionate 50 mcg/actuation 1 - 2 sprays intranasal DAILY PRN gabapentin 800 mg PO TID hydroxyzine HCl 25 mg PO DAILY PRN lurasidone 120 mg PO DAILY 30 days sertraline 100 mg PO DAILY simvastatin 5 mg PO BEDTIME tramadol 50 mg PO QID PRN 30 days trazodone 150 mg PO BEDTIME ubrogepant (Ubrelvy) 100 mg PO DAILY PRN 30 days Tobacco use date assessed: 01/15/25 Dental Screening Dental Screen Date: 01/15/25 HPI HPI Comments History of Present Illness Details The patient is a 54 year old female presenting with left shoulder pain that began a couple of weeks ago without any specific injury or fall; she reports waking up with the pain. The pain has been progressively worsening and causes her shoulder to seize up with movements such as reaching, forcing her to use her right arm for most activities. She describes the pain as severe and located in the anterior aspect of the shoulder, around the upper bra line. For pain management, she has been taking four Tylenol tablets at a time, which provides no relief. She is also on tramadol, which she reports is ineffective. Her medication history includes prior use of meloxicam, which is now discontinued, and Celebrex for foot pain, also discontinue She currently takes gabapentin 800 mg TID and 100 mg of amitriptyline. 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 She denies any history of stomach ulcers or increased bleeding risk. She typically sleeps on her right side. Health Maintenance - Patient has a follow-up appointment sc heduled with Dr. Sharpe on May 08. - Patient has a scheduled appointment wi th her GROUP ART SUPERVISOR on May 04. 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 - Sleep Habits: Reports sleeping on her right side. Results [facility] Medical History (Updated 03/23/25 @ 18:50 by JOANNE Ryan) Left knee pain Migraine Breast cancer screening by mammogram Cervical cancer screening Women's annual routine gynecological examination Cognitive changes Breast cancer screening Annual physical exam Carpal tunnel syndrome, right Distal radius fracture, right Fracture of wrist Left foot pain Knee pain, right MDD (major depressive disorder), recurrent episode, severe Neck pain Arthritis Hx MRSA infection Hx of suicide attempt Uses Depo-Provera as primary control method Perimenopausal symptoms Skin lesion of right ear Upper back pain Dysphagia Skin lesion of hand Mass of left hand Well woman exam with routine gynecological exam Altered mental status Depot contraception (~12/26/20) Fall Axillary abscess History of herpes simplex infection Polysubstance abuse Asthma Bipolar disorder Tobacco abuse ADHD Scoliosis History of drainage of abscess Surgical History History of carpal tunnel surgery History of surgical removal of skin lesion (~06/27/21) History of tonsillectomy Family History Mother In good health Father In good health Maternal Aunt History of breast cancer Maternal Grandmother Pancreatic cancer Maternal Aunt History of breast cancer Social History Household Members: Significant Other Household Members Other:: Andrew (Boyfriend) Housing: House Are you a primary director of medicare to a significant other at home: No Do you presently have visiting nurse or other home services: No Alcohol intake: never Comment: 1:1 sitter for safety Patient Tobacco Use Status: Current everyday Tobacco user Tobacco use type: Cigarette Cigarette Packs Per Day: 0.5 Cigarettes Per Day: 3 Years Smoked: 36, pot smoking 2x a week e-Cigarette/Vaping Use: Never Used Second Hand Smoke Exposure: Yes Substance Use Type: Marijuana service: No Current occupational status: unemployed Sexual orientation: Straight/Heterosexual Gender identity: Female Cognitive needs: No Hearing needs: No Vision needs: Yes (Glasses) Female Reproductive History Menstrual Age of Menarche: 12 Questionnaire Thrive Questionnaire Date Thrive assessed: 08/01/24 I am a: Patient What is your living situation today?: I choose not to answer this question Within the past 12 months, did the food you bought not last and you didn't have the money to get more?: Sometimes True Within the past 12 months, did you worry whether your food would run out before you got money to buy more?: Sometimes True Do you have trouble paying for medicines?: No Do you have trouble getting transportation to medical appointments?: No Do you have trouble paying your heating and electricity bill?: No Do you have trouble taking care of your child, family member or friend?: No Do you have trouble with day-to-day activities such as bathing, preparing meals, shopping, managing finances, etc.?: Yes Are you currently unemployed and looking for a job?: I choose not to answer this question Are you interested in more education?: No Currently or been in a relationship where the following occur: I choose not to answer THRIVE Score: 2 JOVAN-7 AMB Questionnaire JOVAN-7 Date JOVAN - 7 assessed: 08/01/24 Source: Developed by Drs. Dinesh Cadena, Leonora Prince, Shai Shabazz and colleagues, with an educational mariana from [email or web address]. Review of Systems Narrative Review of Systems - Musculoskeletal: Reports severe, worsening pain in the left shoulder for the past two weeks with limited range of motion and a sensation of it seizing up . - Reports an audible snap with movement. - Reports a history of right shoulder blade pain, right knee pain, and plantar fasciitis. - Neurological: Denies any precipitating trauma or fall. - Gastrointestinal: Denies a history of stomach ulcers. Const Denies body aches, Denies chills, Denies fever(s), Denies headache(s) and Denies poor appetite Eyes Reports no additional complaints ENT Denies dysphagia, Denies dizziness, Denies headache(s) and Denies odynophagia Card Denies chest pain, Denies syncope, Denies edema, Denies irregular heart rhythm, Denies lightheadedness and Denies dyspnea Resp Denies cough and Denies dyspnea GI Denies abdominal pain, Denies constipation, Denies dysphagia, Denies diarrhea, Denies nausea, Denies odynophagia and Denies vomiting Reports no additional complaints Musc Reports no additional complaints, Denies abnormal gait, Reports arthralgias (bilateral shoulder, worse in left, right knee) and Reports other (plantar fasciitis) Skin/Breast Reports system reviewed and no additional complaints, except as documented Neuro Denies abnormal gait, Denies dizziness, Denies syncope and Denies headache(s) Psych Reports no additional complaints Physical exam (Primary Care) Vital Signs: Last Vital Signs Temp 97.8 F 03/23/25 15:00 Pulse 95 03/23/25 15:00 Resp 18 03/23/25 15:00 BP 110/58 L 03/23/25 15:00 Pulse Ox 95 03/23/25 15:00 Oxygen Delivery Method Room Air 03/23/25 15:00 BMI result Body Mass Index 26.6 Tobacco/Smoking Status: Tobacco use Status Tobacco use date assessed 01/15/25 03/23/25 15:02 Patient Tobacco Use Status Current everyday Tobacco 03/23/25 15:02 Tobacco use type Cigarette 03/23/25 15:02 e-Cigarette/Vaping Use Never Used 03/23/25 15:02 Thrive Assessment: Date of Thrive Assessment Date Thrive assessed 08/01/24 03/23/25 15:02 Currently or been in a relationship where the following occur: I choose not to answer Narrative Physical Exam - Musculoskeletal: On examination of the left shoulder, there is severely limited active range of motion. - There is tenderness to palpation over the inner aspect of the shoulder. - An audible snap was noted with attempted movement. - No erythema or discoloration was observed. - Neurological: Strength is intact in bilateral hand lead nuclear medicine technologist. - Respiratory: Lungs are clear to auscultation bilaterally. Const General: cooperative, healthy appearing, comfortable and no acute distress Orientation/consciousness: patient oriented x3 HENMT Head: Yes normocephalic Ears: hearing grossly normal bilaterally General nose exam: Normal external nose present Eyes General: appearance normal, both eyes and all related structures Conjunctivae: conjunctivae normal Neck Neck: Yes full ROM and Yes no lymphadenopathy Resp Effort & Inspection: normal respiratory effort Auscultation: clear to auscultation bilaterally, no crackles, no rales, no rhonchi and no wheezes Cardio Rate: regular rate Rhythm: regular rhythm Skin General skin exam: no rashes or lesions noted Neuro General: patient oriented x3 Gait exam (Neuro): Normal gait present Motor exam (neuro): 5/5 motor strength present throughout Extrem General: Yes normal to inspection, Yes full ROM and No edema Left upper extremity: shoulder/upper arm Details: abnormal to inspection (Limited range of motion, unable to live left arm above head, left to about 90 degrees, then complained of pain) and tenderness Location: of the mid-shaft humerus; no swelling Psych Affect: normal affect Attitude: cooperative Insight: Good insight present (Psych) Judgement: Good judgement present (Psych) Coding Level of Care Code Est Pt Level 4 (69979) Diagnoses Acute pain of left shoulder M25.512 Chronicity: acute Time Spent (min) 33 Assessment & Plan Assessment & Plan (1) Left shoulder pain: Code(s): M25.512 - Pain in left shoulder Category: Medical Qualifiers: Chronicity: acute Qualified Code(s): M25.512 - Pain in left shoulder Plan Plan Patient was informed and verbally consented to the use of an ambient scribe for clinic note documentation during this visit. 1. Left Shoulder Pain The patient's presentation of atraumatic, worsening left shoulder pain with significantly limited range of motion is suggestive of adhesive capsulitis (frozen shoulder). An X-ray of the left shoulder will be ordered to rule out other underlying pathology. For pain and inflammation, ibuprofen 800 mg is prescribed to be taken every 8 hours with food. The patient was counseled to discontinue taking excessive doses of Tylenol due to the risk of liver injury. A muscle relaxer will also be ordered, though it may require prior authorization from her insurance. Depending on the X-ray results, a referral to Orthopedics will be considered. The patient was advised to try warm compresses to increase circulation to the area, or cold compresses to decrease sensation, depending on which provides more relief. Discussion Notes I discussed with the patient that her symptoms are consistent with adhesive capsulitis, or a frozen shoulder. I explained that an X-ray is necessary to evaluate her condition further. We reviewed pain management options, and I strongly advised her to stop taking four Tylenol tablets at once due to the risk of liver damage. I prescribed ibuprofen 800 mg as an anti-inflammatory, explaining that it would likely be more effective than Tylenol for this type of pain and instructing her to take it with food every 8 hours. I also informed her that I would order a muscle relaxer, but it may require prior authorization from her insurance, which could cause a delay. I recommended home care with warm compresses to increase circulation or cold compresses to reduce sensation, and she should try both to see which is more beneficial. I let her know that depending on the X-ray findings, a referral to an operating room specialist may be the next step. Patient Instructions - Go for an X-ray of your left shoulder. - Take one tablet of Ibuprofen 800 mg every 8 hours. - Be sure to eat something before taking the ibuprofen to prevent stomach upset. - Do not take large doses of Tylenol, as it can be harmful to your liver. - A muscle relaxer has been prescribed for you, but it may require approval from your insurance before the pharmacy can fill it. - You can use warm or cold packs on your shoulder for pain relief. - Try both to see which one works better for you. - Keep your upcoming appointments with your GROUP ART SUPERVISOR on May [address] Cummings on May 08. Orders: Orders XR shoulder LT min 2V Today M25.512 - Pain in left shoulder Medications: New ibuprofen 800 mg PO Q8H PRN 30 tabs 0RF pain cyclobenzaprine 7.5 mg PO BEDTIME PRN 30 tabs 0RF muscle spasm Refilled fluticasone propion-salmeterol 250-50 mcg/dose (Advair Diskus) 1 inh inhalation BID 60 ea 0RF
[2025-03-23 15:00] VITALS: BP 110/58; PULSE 95; RESP 18; TEMP 36.6; O2SAT 95; BMI 26.6
--- OUTSIDE RECORDS SUMMARY | 2025-03-23 18:09 | XMS_ITS | Clinical Summary ---
Author Organization [employer] Address [address] [place] [address] Care Team Providers Care Rv Technician Name Role Phone Unavailable Primary Care Provider [...] of 2) 2020 COVID-19 Vaccine ( - 2024-2 6 season) 2024 Influenza Vaccine (#1) 2024 RSV [...]
== END 2025-03-23 16:36 | disposition home or self-care (01) ==
LOC: HO.HMCH 14:55
PROVIDERS: PCP Internal Medicine
DX: M25.512 Pain in left shoulder (principal)

== ENCOUNTER 2025-03-23 14:54 | Outpatient (REF) | payer OTHER, SELFPAY ==
--- NOTE | ~2025-03-23 | XR_ITS ---
EXAMINATION: XR SHOULDER, LEFT CLINICAL INFORMATION: M25.512 - Pain in left shoulder COMPARISON: None available. TECHNIQUE: AP external rotation, Grashey, scapular Y, and axillary views of the left shoulder. FINDINGS: Mild acromioclavicular arthritis. No fracture. Glenohumeral and acromioclavicular alignment is anatomic with normal joint space. Small inferior glenoid spurring. No abnormal soft tissue calcifications. XR/XR shoulder LT min 2V IMPRESSION: Mild arthritis as above Electronically signed by: Himanshu Urrutia MD 03/24/2025 03:13 PM MARIE
--- OUTSIDE RECORDS SUMMARY | 2025-05-10 19:00 | XMS_ITS | Clinical Summary ---
Author Organization Unknown Care Team Providers Care Cream Ripener Name Role Phone AVELINA APPIAH, SURY Unavailable Unavailable INGRID CANO, DAMNO Unavailable Unavailable ELE CANO, MAHNAZ Unavailable Unavailable Payers Payer Name Policy Type Policy Number Effective Date Expira tion Date [facility] MEDICAID ([facility] [place] [id number] [place] [id number] Problems Condition Name Condition Details Condition Category Status Onset Date Resolution Date Last Treatment Date Treating Clinician Comments MAJOR DEPRESSV DISORDER, RECURRENT SEVERE W/O PSYCH FEATURES Active 05-03 00:00: 00 BIPOLAR DISORD, CRNT EPISODE MANIC W/O PSYCH FEATURES, UNSP Active 2022-04- 00:00: 00 ATTENTION-DE FICIT HYPERACTIVIT Y DISORDER, UNSPECIFIED TYPE Active - 00:00: 00 PANIC DISORDER [EPISODIC PAROXYSMAL ANXIETY] [...] Indication Dosage Frequency Signature (SIG) Comments Components Pareshtra 10 gram/50 mL (20 %) subcutaneou s solution 05-09 00:00: 00 12-24 23:59 :00 No [id number] Per instruc tions DIRECTED Per instructio ns DIRECTED (route: subcutaneo us) Med Classific ation: Biologica ls Hizentra 2 gram/10 mL (20 %) subcutaneou s solution 05-09 00:00: 00 12-30 23:59 :00 No [id number] Per instruc tions DIRECTED Per instructio ns DIRECTED (route: subcutaneo us) Med Classific ation: Biologica ls Ubrelvy 100 mg tablet 05-09 00:00: 00 12-30 23:59 :00 No [id number] Per instruc tions DAILY NEEDED FOR 30 DAYS Per instructio ns DAILY NEEDED FOR 30 DAYS (route: oral) Med Classific ation: Central Nervous System Agents Ventolin HFA 90 mcg/actuati on aerosol inhaler 05-09 00:00: 00 12-30 23:59 :00 No [id number] Per instruc tions EVERY 6 HOURS NEEDED Per instructio ns EVERY 6 HOURS NEEDED (route: inhalation ) Med Classific ation: Respirato ry Therapy Agents clonazepam 1 mg tablet 2-04 00:00: 00 06-17 23:59 :00 No [id number] Per instruc tions 2 TIMES A DAY NEEDED Per instructio ns 2 TIMES A DAY NEEDED (route: oral) Med Classific ation: Central Nervous System Agents gabapentin 300 mg capsule 2-04 00:00: 00 07-26 23:59 :00 No [id number] Per instruc tions 3 TIMES A DAY Per instructio ns 3 TIMES A DAY (route: oral) Med Classific ation: Central Nervous System Agents tramadol 50 mg tablet 2-04 00:00: 00 12-30 23:59 :00 No [id number] Per instruc tions 4 TIMES A DAY NEEDED FOR 30 DAYS Per instructio ns 4 TIMES A DAY NEEDED FOR 30 DAYS (route: oral) Med Classific ation: Analgesic , Anti-infl ammatory or Antipyret ic amitriptyli ne 100 mg tablet 04-28 00:00: 00 12-30 23:59 :00 No [id number] Per instruc tions EVERY NIGHT AT BEDTIME Per instructio ns EVERY NIGHT AT BEDTIME (route: oral) Med Classific ation: Central Nervous System Agents memantine 5 mg tablet 04-28 00:00: 00 07-29 23:59 :00 No [id number] Per instruc tions EVERY DAY FOR 30 DAYS Per instructio ns EVERY DAY FOR 30 DAYS (route: oral) Med Classific ation: Cognitive Disorder Therapy Ubrelvy 100 mg tablet 04-28 00:00: 00 05-23 23:59 :00 No [id number] Per instruc tions EVERY DAY NEEDED X30 DAYS Per instructio ns EVERY DAY NEEDED X30 DAYS (route: oral) Med Classific ation: Central Nervous System Agents dextroamphe tamine sulfate 30 mg tablet 05-23 00:00: 00 06-17 23:59 :00 No [id number] 1 tablet DIRECTED 1 tablet DIRECTED (route: oral) Med Classific ation: Central Nervous System Agents divalproex 500 mg tablet,roc yed release 05-23 00:00: 00 12-30 23:59 :00 No [id number] 1 tablet BEDTIME 1 tablet BEDTIME (route: oral) Med Classific ation: Central Nervous System Agents fluoxetine 20 mg capsule 05-23 00:00: 00 09-16 23:59 :00 No [id number] 3 capsule DAILY 3 capsule DAILY (route: oral) Med Classific ation: Central Nervous System Agents lurasidone 120 mg tablet 05-23 00:00: 00 12-30 23:59 :00 No [id number] 1 tablet EVERY PM 1 tablet EVERY PM (route: oral) Med Classific ation: Central Nervous System Agents trazodone 50 mg tablet 05-23 00:00: 00 09-16 23:59 :00 No [id number] 1 tablet NEEDED 1 tablet NEEDED (route: oral) Med Classific ation: Central Nervous System Agents Vitamin B-12 1,000 mcg tablet 05-23 00:00: 00 09-16 23:59 :00 No [id number] 1 tablet DAILY 1 tablet DAILY (route: oral) Med Classific ation: Electroly te Balance-N utritiona l Products Adderall 20 mg tablet 06-17 00:00: 00 09-26 23:59 :00 No [id number] 1 tablet DAILY 1 tablet DAILY (route: oral) Med Classific ation: Central Nervous System Agents clonazepam 0.5 mg tablet 06-17 00:00: 00 07-15 23:59 :00 No [id number] 1 tablet NEEDED 1 tablet NEEDED (route: oral) Med Classific ation: Central Nervous System Agents memantine 5 mg tablet 06-17 00:00: 00 07-19 23:59 :00 No [id number] 1 tablet 2 TIMES DAILY 1 tablet 2 TIMES DAILY (route: oral) Med Classific ation: Cognitive Disorder Therapy clonazepam 1 mg tablet 07-15 00:00: 00 12-30 23:59 :00 No [id number] 1 tablet 2 TIMES DAILY 1 tablet 2 TIMES DAILY (route: oral) Med Classific ation: Central Nervous System Agents sertraline 50 mg tablet 07-15 00:00: 00 10-07 23:59 :00 No [id number] 1 tablet EVERY AM 1 tablet EVERY AM (route: oral) Med Classific ation: Central Nervous System Agents Flonase Allergy Relief 50 mcg/actuati on nasal spray,suspe nsion 07-21 00:00: 00 12-30 23:59 :00 No [id number] 2 spray DAILY 2 spray DAILY (route: nasal) Med Classific ation: Respirato ry Therapy Agents montelukast 10 mg tablet 07-21 00:00: 00 01-28 23:59 :00 No [id number] 1 tablet BEDTIME 1 tablet BEDTIME (route: oral) Med Classific ation: Respirato ry Therapy Agents gabapentin 400 mg capsule 07-26 00:00: 00 04-29 23:59 :00 No [id number] 1 capsule 3 TIMES DAILY 1 capsule 3 TIMES DAILY (route: oral) Med Classific ation: Central Nervous System Agents memantine 10 mg tablet 07-29 00:00: 00 01-28 23:59 :00 No [id number] 1 tablet 2 TIMES DAILY 1 tablet 2 TIMES DAILY (route: oral) Med Classific ation: Cognitive Disorder Therapy trazodone 100 mg tablet 09-19 00:00: 00 12-30 23:59 :00 No [id number] 1 tablet BEDTIME 1 tablet BEDTIME (route: oral) Med Classific ation: Central Nervous System Agents Adderall XR 20 mg capsule,ext ended release 09-27 00:00: 00 12-24 23:59 :00 No [id number] 1 capsule DAILY 1 capsule DAILY (route: oral) Med Classific ation: Central Nervous System Agents sertraline 50 mg tablet 08 00:00: 00 12-24 23:59 :00 No [id number] 1.5 tablet DAILY 1.5 tablet DAILY (route: oral) Med Classific ation: Central Nervous System Agents Adderall XR 30 mg capsule,ext ended release 12-24 00:00: 00 05-17 23:59 :00 No [id number] 1 capsule EVERY AM 1 capsule EVERY AM (route: oral) Med Classific ation: Central Nervous System Agents sertraline 100 mg tablet 12-24 00:00: 00 12-30 23:59 :00 No [id number] 1 tablet EVERY AM 1 tablet EVERY AM (route: oral) Med Classific ation: Central Nervous System Agents hydroxyzine HCl 25 mg tablet 04-29 00:00: 00 12-30 23:59 :00 No [id number] FOR ANXIETY 1 tablet 2 TIMES DAILY 1 tablet 2 TIMES DAILY (route: oral) Med Classific ation: Central Nervous System Agents Advair Diskus 250 mcg-50 mcg/dose powder for inhalation 1- 00:00: 00 12-30 23:59 :00 No [id number] 1 inhalat ion 2 TIMES DAILY 1 inhalation 2 TIMES DAILY (route: inhalation ) Med Classific ation: Respirato ry Therapy Agents gabapentin 600 mg tablet 1-28 00:00: 00 09-16 23:59 :00 No [id number] 1 tablet 3 TIMES DAILY 1 tablet 3 TIMES DAILY (route: oral) Med Classific ation: Central Nervous System Agents dextroamphe tamine sulfate 15 mg tablet 2-15 00:00: 00 06-30 23:59 :00 No [id number] 1 tablet 2 TIMES DAILY 1 tablet 2 TIMES DAILY (route: oral) Med Classific ation: Central Nervous System Agents dextroamphe tamine sulfate 20 mg tablet 3- 00:00: 00 12-30 23:59 :00 No [id number] 1 tablet 2 TIMES DAILY 1 tablet 2 TIMES DAILY (route: oral) Med Classific ation: Central Nervous System Agents gabapentin 800 mg tablet - 00:00: 00 12-30 23:59 :00 No [id number] 1 tablet 3 TIMES DAILY 1 tablet 3 TIMES DAILY (route: oral) Med Classific ation: Central Nervous System Agents Advair Diskus 250 mcg-50 mcg/dose powder for inhalation 2024-04 0- 00:00: 00 Yes [id number] 1 inhalat ion 2 TIMES DAILY 1 inhalation 2 TIMES DAILY (route: inhalation ) Med Classific ation: Respirato ry Therapy Agents amitriptyli ne 100 mg tablet 2024-04 0- 00:00: 00 Yes [id number] 1 tablet BEDTIME 1 tablet BEDTIME (route: oral) Med Classific ation: Central Nervous System Agents clonazepam 1 mg tablet 2024-04 0- 00:00: 00 Yes [id number] 1 tablet 2 TIMES DAILY 1 tablet 2 TIMES DAILY (route: oral) Med Classific ation: Central Nervous System Agents dextroamphe tamine sulfate 20 mg tablet 2024-04 0- 00:00: 00 Yes [id number] 1 tablet 2 TIMES DAILY 1 tablet 2 TIMES DAILY (route: oral) Med Classific ation: Central Nervous System Agents divalproex 500 mg tablet,roc yed release 2024-04 0 00:00: 00 Yes [id number] 1 tablet BEDTIME 1 tablet BEDTIME (route: oral) Med Classific ation: Central Nervous System Agents Flonase Allergy Relief 50 mcg/actuati on nasal spray,suspe nsion 2024-04 00:00: 00 Yes [id number] 2 spray EVERY AM 2 spray EVERY AM (route: nasal) Med Classific ation: Respirato ry Therapy Agents gabapentin 800 mg tablet 2024-04 00:00: 00 Yes [id number] 1 tablet 3 TIMES DAILY 1 tablet 3 TIMES DAILY (route: oral) Med Classific ation: Central Nervous System Agents Hizentra 2 gram/10 mL (20 %) subcutaneou s solution 2024-04 00:00: 00 Yes [id number] Per instruc tions WEEKLY Per instructio ns WEEKLY (route: subcutaneo us) Med Classific ation: Biologica ls hydroxyzine HCl 25 mg tablet 2024-04 00:00: 00 Yes [id number] 1 tablet 2 TIMES DAILY 1 tablet 2 TIMES DAILY (route: oral) Med Classific ation: Central Nervous System Agents lurasidone 120 mg tablet 2024-04 00:00: 00 Yes [id number] 1 tablet EVERY PM 1 tablet EVERY PM (route: oral) Med Classific ation: Central Nervous System Agents sertraline 100 mg tablet 2024-04 00:00: 00 Yes [id number] 1 tablet EVERY AM 1 tablet EVERY AM (route: oral) Med Classific ation: Central Nervous System Agents tramadol 50 mg tablet 2024-04 00:00: 00 Yes [id number] 1 tablet 4 TIMES DAILY 1 tablet 4 TIMES DAILY (route: oral) Med Classific ation: Analgesic , Anti-infl ammatory or Antipyret ic trazodone 100 mg tablet 2024-04 00:00: 00 02-24 23:59 :00 No [id number] 1 tablet BEDTIME 1 tablet BEDTIME (route: oral) Med Classific ation: Central Nervous System Agents Ubrelvy 100 mg tablet 2024-04 0 00:00: 00 Yes [id number] 1 tablet NEEDED 1 tablet NEEDED (route: oral) Med Classific ation: Central Nervous System Agents Ventolin HFA 90 mcg/actuati on aerosol inhaler 2024-04 0 00:00: 00 Yes [id number] 2 puff EVERY 6 HOURS 2 puff EVERY 6 HOURS (route: inhalation ) Med Classific ation: Respirato ry Therapy Agents simvastatin 5 mg tablet 2024-04 0-24 00:00: 00 Yes [id number] 1 tablet BEDTIME 1 tablet BEDTIME (route: oral) Med Classific ation: Cardiovas cular Therapy Agents trazodone 150 mg tablet 2024-04 00:00: 00 Yes [id number] 1 tablet BEDTIME 1 tablet BEDTIME (route: oral) Med Classific ation: Central Nervous System Agents Vital Signs Vital Name Observation Time Observation Value Commen ts Temperature 2025-03-17 11:44:00.000 97.8 [degF] Pulse 2025-03-17 11:44:00.000 85 /min O2 Saturation (%) 2025-03-17 11:48:00.000 96 % Respirations 2025-03-17 11:44:00.000 16 /min Systolic Blood Pressure 2025-03-17 11:44:00.000 122 mm [Hg] Diastolic Blood Pressure 2025-03-17 11:44:00.000 70 mm [Hg] Plan of Treatment Planned Activity Planned Date Details Comments Future Scheduled Test SKILLED NU RSE TO EVALUATE PATIENT, IDENTIFY PRIMARY AND CO-MORBID CONDITIONS CODED PER CODING GUIDELINES, AND DEVELOP PATIENT SPECIFIC PLAN OF CARE THAT INCLUDES PATIENT GOAL FOR HOME HEALTH. PLAN OF CARE TO INCLUDE 3 PRN VISIT(S) FOR OASIS DATA COLLECTION/COMPREHENSIVE ASSESSMENT AT TIMEPOINTS PER FEDERAL REGULATIONS. THIS INCLUDES VISITS FOR ELOISA, RECERT, SCIC, AND/OR DC. [code = SKILLED NURSE TO EVALUATE PATIENT, IDENTIFY PRIMARY AND CO-MORBID CONDITIONS CODED PER CODING GUIDELINES, AND DEVELOP PATIENT SPECIFIC PLAN OF CARE THAT INCLUDES PATIENT GOAL FOR HOME HEALTH. PLAN OF CARE TO INCLUDE 3 PRN VISIT(S) FOR OASIS DATA COLLECTION/COMPREHENSIVE ASSESSMENT AT TIMEPOINTS PER FEDERAL REGULATIONS. THIS INCLUDES VISITS FOR ELOISA, RECERT, SCIC, AND/OR DC.] Future Scheduled Test SKILLED NU RSE WILL MAINTAIN SITUATIONAL AWARENESS FOR SAFETY AND WILL NOTIFY CLINICAL NEW CAR SALES MANAGER AND PHYSICIAN/PROVIDER WITH ANY CHANGE IN CONDITION. [code = SKILLED NURSE WILL MAINTAIN SITUATIONAL AWARENESS FOR SAFETY AND WILL NOTIFY CLINICAL NEW CAR SALES MANAGER AND PHYSICIAN/PROVIDER WITH ANY CHANGE IN [...] Future Scheduled Test SKILLED NU RSE TO ADMINISTER MEDICATIONS WEEKLY AND PRE-POUR MEDICATIONS WEEKLY PER MEDICATION LIST. [code = SKILLED NURSE TO ADMINISTER MEDICATIONS WEEKLY AND PRE-POUR MEDICATIONS WEEKLY PER MEDICATION LIST.] Future Scheduled Test PATIENT MA Y HAVE [...] LOCKBOX] Future Scheduled Test SKILLED NU RSE MAY PICKUP AND TRANSPORT MEDICATIONS [code = SKILLED NURSE MAY PICKUP AND TRANSPORT MEDICATIONS] Future Scheduled Test SKILLED NU RSE FOR O/A OF NEUROCOGNITIVE AND BEHAVIORAL STATUS [code = SKILLED NURSE FOR O/A OF NEUROCOGNITIVE AND BEHAVIORAL STATUS] Goal 2023-07-20 Patient Goal - START AN DAY PROGRAM Goal 2024-05-12 Patient Goal - T O FIND A NEW APARTMENT TO STAY ON MEDICATION COMPLIANT Goal 2024-03-14 Patient Goal - T O FIND A NEW APARTMENT TO STAY ON MEDICATION COMPLIANT Goal 2024-01-15 Patient Goal - AVOID FALLING Goal 2023-11-15 Patient Goal - AVOID FALLING Goal 2023-09-17 Patient Goal - S TART AN ADULT DAY PROGRAM, Goal Patient Goal - T O FIND A NEW APARTMENT TO BE MEDICATION COMPLIANT Goal 2025-03-10 Patient Goal - T O FIND A NEW APARTMENT TO BE MEDICATION COMPLIANT Goal 2025-01-08 Patient Goal - T O FIND A NEW APARTMENT TO BE MEDICATION COMPLIANT Goal 2024-11-11 Patient Goal - [...] CARE WILL BE ESTABLISHED THAT MEETS PATIENT'S GROUP HOME NEEDS AND INCLUDES PATIENT GOAL FOR HOME [...] WILL COMPLY WITH MEDICATION WHEN SKILLED NURSE ADMINISTERS AND PRE-POURS MEDICATION THROUGHOUT CERTIFICATION PERIOD. Goal Provider [...] LOCKBOX FOR SAFETY. Goal Provider Goal - SKILLED NURSE PICKED UP AND TRANSPORTED MEDICATIONS FOR SAFETY. Goal Provider Goal - PATIENT WILL BE ABLE TO PERFORM DAILY FUNCTIONS AND MAINTAIN OPTIMAL BEHAVIORAL/NEUROCOGNITIVE STATUS THROUGHOUT CERTIFICATION PERIOD. Encounters Start Date/Time End Date/Time Encounter Type Admission Type Attending [facility] Care Department Encounter ID Discharge Date Discharge Status Discharge Condition Discharge Reason Percent Goals Met 2025-03-13 00:00:00 2025-05-11 00:00:00 Outpatient RECERTIFIC MAHNAZ BLANK [facility] [id number]
== END 2025-03-23 14:55 | disposition home or self-care (01) ==
LOC: HO.XRAY 14:54
PROVIDERS: PCP Internal Medicine
DX: M25.512 Pain in left shoulder (principal)
CPT/HCPCS: 73030; 99212